=== PATIENT | female | born 1950 | race Caucasian/White ===

== ENCOUNTER → 2019-02-01 | Outpatient (CLI) | payer MEDICARE ==
[~2019-02-01] MED LIST: HOLD METFORMIN - RECEIVED CONTRAST 20 ML VIAL IV SCH; IOHEXOL 350 MG/ML 100 ML (OMNIPAQUE 350) VIAL IV ONE
--- NOTE | 2019-02-01 15:30 | Diagnostic Imaging Report ---
PROCEDURE: CT abdomen with contrast only. TECHNIQUE: Multiple contiguous axial images were obtained through the abdomen after the administration of intravenous contrast. Auto Exposure Controls were utilized during the CT exam to meet ALARA standards for radiation dose reduction. INDICATION: Abnormal liver function test with right-sided posterior pain as well as jaundice. COMPARISON: No prior studies are available for comparison. FINDINGS: The lung bases are clear. There is significant intrahepatic biliary duct dilatation. There is also extrahepatic biliary ductal dilatation. No definite discrete pancreatic mass is seen. Pancreatic duct is moderately dilated as well. There is some dilatation to the gallbladder. Gallbladder contains a large stone. The spleen is unremarkable. No adrenal mass is detected. Kidneys contain cortical low-density lesions, suggestive of cysts. Aorta is non-aneurysmal. No central retroperitoneal or mesenteric lymphadenopathy is seen. There is no ascites. Visualized abdominal bowel loops are normal caliber. IMPRESSION: Intrahepatic and extrahepatic biliary ductal dilatation. There is also pancreatic ductal dilatation. Gallbladder is hydropic and contains a large stone. Ampullary mass or common bile duct mass cannot be entirely excluded. ERCP would be recommended for further evaluation. Dictated by: Dictated on workstation # [id number]
== END ==
LOC: RAD 14:39
PROVIDERS: ATTEND Internal Medicine
DX: K80.20 Calculus of gallbladder without cholecystitis without obstruction (principal); K83.8 Other specified diseases of biliary tract; R17 Unspecified jaundice
CPT/HCPCS: 74160

== ENCOUNTER 2019-02-06 11:21 | Emergency (ER) | payer MEDICARE ==
[~2019-02-06] VITALS: Ht 170.2 cm; Wt 81.6 kg
--- NOTE | 2019-02-06 11:42 | ED General ---
General Stated Complaint: POSS LIVER PROBLEMS;WEAKNESS Source of Information: Patient Exam Limitations: No Limitations (RAYMOND KEY APRN) History of Present Illness Date Seen by Provider: Feb 06, 2019 Time Seen by Provider: 11:39 Initial Comments To ER with general weakness that began yesterday as well as pain to the right upper abdomen that began yesterday. She's had some ongoing jaundice for several weeks, had an outpatient CT done 4 days ago here, showed dilation of the intrahepatic biliary ducts, patient was referred for ERCP in [place] on Wednesday the . She denies fevers or chills. Reports that she is cold all over and generally weak which is unusual for her Timing/Duration: Getting Worse Severity: Moderate Associated Systoms: No Nausea/Vomiting (RAYMOND KEY APRN) Allergies and Home Medications Allergies Coded Allergies: sulfamethoxazole (Unverified Allergy, Unknown, 02/06/19) trimethoprim (Unverified Allergy, Unknown, 02/06/19) Uncoded Allergies: PENICILLIN (Allergy, Unknown, 02/06/19) Patient Home Medication List Home Medication List Reviewed: Yes (RAYMOND KEY APRN) Review of Systems Review of Systems Constitutional: see HPI, weakness EENTM: see HPI Respiratory: no symptoms reported Cardiovascular: no symptoms reported Genitourinary: no symptoms reported Musculoskeletal: no symptoms reported Skin: no symptoms reported Psychiatric/Neurological: No Symptoms Reported (RAYMOND KEY APRN) Physical Exam Vital Signs Vital Signs - First Documented 02/06/19 11:28 Temp 95.0 Pulse 71 Resp 15 B/P (MAP) 109/90 (96) Pulse Ox 96 O2 Delivery Room Air (GEETA PADILLA) Vital Signs Capillary Refill : (RAYMOND KEY APRN) Height, Weight, BMI Height: '" Weight: lbs. oz. kg; BMI Method: General Appearance: No Apparent Distress, WD/WN, Other (jaundice) Eyes: Bilateral Eye Normal Inspection, Bilateral Eye PERRL, Bilateral Eye Scleral Icterus HEENT: TMs Normal, Pharynx Normal, Scleral Icterus (L), Scleral Icterus (R) Neck: Full Range of Motion, Normal Inspection Respiratory: Normal Breath Sounds, No Accessory Muscle Use, No Respiratory Distress Cardiovascular: Normal Peripheral Pulses, Irregularly Irregular (has a known history of atrial fibrillation) Gastrointestinal: Non Tender, Soft Neurologic/Psychiatric: Alert, Oriented x3, No Motor/Sensory Deficits Skin: Warm/Dry, Jaundice (RAYMOND KEY APRN) Procedures/Interventions Lumen: triple Position: internal jugular (R) Anesthesia: local Volume Anesthetic (ccs): 4 Complications: none Post Position: sutured, good blood return, position confirmed w/ CXR CXR reviewed--no complications seen. (RAYMOND KEY APRN) Progress/Results/Core Measures Suspected Sepsis SIRS Temperature: Pulse: Respiratory Rate: Laboratory Tests 02/06/19 11:40: White Blood Count 12.8H Blood Pressure / Mean: Laboratory Tests 02/06/19 11:40: Creatinine 2.23H, INR Comment 2.9H, Platelet Count 400, Total Bilirubin 26.3*H (RAYMOND KEY APRN) Results/Orders Lab Results Laboratory Tests Test 02/06/19 11:40 02/06/19 16:05 Range/Units White Blood Count 12.8 H 4.3-11.0 10^3/uL Red Blood Count 4.24 L 4.35-5.85 10^6/uL Hemoglobin 13.1 11.5-16.0 G/DL Hematocrit 36 35-52 % Mean Corpuscular Volume 85 80-99 FL Mean Corpuscular Hemoglobin 31 25-34 PG Mean Corpuscular Hemoglobin Concent 36 32-36 G/DL Red Cell Distribution Width 19.6 H 10.0-14.5 % Platelet Count 400 130-400 10^3/uL Mean Platelet Volume 11.8 H 7.4-10.4 FL Neutrophils (%) (Auto) 83 H 42-75 % Lymphocytes (%) (Auto) 8 L 12-44 % Monocytes (%) (Auto) 9 0-12 % Eosinophils (%) (Auto) 1 0-10 % Basophils (%) (Auto) 0 0-10 % Neutrophils # (Auto) 10.6 H 1.8-7.8 X 10^3 Lymphocytes # (Auto) 1.0 1.0-4.0 X 10^3 Monocytes # (Auto) 1.1 H 0.0-1.0 X 10^3 Eosinophils # (Auto) 0.1 0.0-0.3 10^3/uL Basophils # (Auto) 0.0 0.0-0.1 10^3/uL Prothrombin Time 31.3 H 12.2-14.7 SEC INR Comment 2.9 H 0.8-1.4 Activated Partial Thromboplast Time 48 H 24-35 SEC Sodium Level 138 135-145 MMOL/L Potassium Level 3.6 3.6-5.0 MMOL/L Chloride Level 108 H 98-107 MMOL/L Carbon Dioxide Level 15 L 21-32 MMOL/L Anion Gap 15 H 5-14 MMOL/L Blood Urea Nitrogen 69 H 7-18 MG/DL Creatinine 2.23 H 0.60-1.30 MG/DL Estimat Glomerular Filtration Rate 22 BUN/Creatinine Ratio 31 Glucose Level 106 H 70-105 MG/DL Calcium Level 9.9 8.5-10.1 MG/DL Corrected Calcium 10.8 H 8.5-10.1 MG/DL Total Bilirubin 26.3 *H 0.1-1.0 MG/DL Aspartate Amino Transf (AST/SGOT) 98 H 5-34 U/L Alanine Aminotransferase (ALT/SGPT) 81 H 0-55 U/L Alkaline Phosphatase 974 H 40-136 U/L Total Protein 6.8 6.4-8.2 GM/DL Albumin 2.9 L 3.2-4.5 GM/DL Lipase 436 H 8-78 U/L Urine Color DARK YELLOW Urine Clarity SLIGHTLY CLOUDY Urine pH 5 5-9 Urine Specific [employer] 1.015 L 1.016-1.022 Urine Protein 2+ H NEGATIVE Urine Glucose (UA) NEGATIVE NEGATIVE Urine Ketones 1+ H NEGATIVE Urine Nitrite POSITIVE H NEGATIVE Urine Bilirubin 3+ H NEGATIVE Urine Urobilinogen 8 H NORMAL MG/DL Urine Leukocyte Esterase 3+ H NEGATIVE Urine RBC (Auto) 2+ H NEGATIVE Urine RBC 0-2 /HPF Urine WBC 10-25 H /HPF Urine Squamous Epithelial Cells 2-5 /HPF Urine Crystals NONE /LPF Urine Bacteria MODERATE H /HPF Urine Casts NONE /LPF Urine Mucus NEGATIVE /LPF Urine Culture Indicated YES (GEETA PADILLA) My Orders Orders - GEETA PADILLA Saline Lock/Iv-Start (02/06/19 12:10) Ns Iv 1000 Ml (Sodium Chloride 0.9%) (02/06/19 12:15) Piperacillin/Tazobactam (Bulk) (Zosyn In (02/06/19 13:45) Chest 1 View, Ap/Pa Only (02/06/19 14:05) Ns Iv 1000 Ml (Sodium Chloride 0.9%) (02/06/19 14:13) Piperacillin Sodium/Tazobactam (Zosyn Vi (02/06/19 14:24) Ns (Ivpb) (Sodium Chloride 0.9%) (02/06/19 14:25) Ua Culture If Indicated (02/06/19 14:31) Ns (Ivpb) (Sodium Chloride 0.9% Ivpb Bag (02/06/19 14:29) Norepinephrine (Levophed) (02/06/19 15:15) Urine Culture (02/06/19 16:05) (GEETA PADILLA) Medications Given in ED Current Medications Medications Dose Ordered Sig/Natasha Route Start Time Stop Time Status Last Admin Dose Admin Piperacillin Sod/ Tazobactam Sod 4.5 gm/Sodium Chloride 120 ml @ 240 mls/hr ONCE ONCE IV 02/06/19 13:45 02/06/19 14:14 DC 02/06/19 14:32 240 MLS/HR Sodium Chloride 2,500 ml @ 2,500 mls/hr ONCE ONCE IV 02/06/19 12:15 02/06/19 13:14 DC 02/06/19 12:00 2,500 MLS/HR (GEETA PADILLA) Vital Signs/I&O 02/06/19 11:28 Temp 95.0 Pulse 71 Resp 15 B/P (MAP) 109/90 (96) Pulse Ox 96 O2 Delivery Room Air (GEETA PADILLA) Vital Signs/I&O Capillary Refill : (RAYMOND KEY APRN) Progress Note #1: Time: 13:05 Progress Note Assume care of the patient at noon and I agree with the stated history is examination and review of systems as laid out by Mr. Key. Patient is hypotensive, jaundice and she does not do exhibit any evidence of third spacing. She could be hypovolemic so we plan to give her a 30 mL/kg normal saline fluid challenge. The white count is only 12.8 thousand so we'll get some blood cultures and lactate but he do not suspect an infection as much as this from her liver failure. She has a known stone in the gallbladder from her CT scan from a few days ago. A repeat ultrasound demonstrates nonmobile stone in the neck of the gallbladder as well as wall thickness at 3 mm and a 2.4 cm dilated common bile duct. No pericholecystic fluid. Patient had plans on the to see Dr. Villafuerte at [place], [place] for an ERCP but because of her hypotension, hyperbilirubinemia, acute kidney injury and it would be appropriate to transfer her for inpatient management. After 30 cc/kg fluid bolus. She will likely still need pressors and 2 establish an central IV. Progress Note #2: Time: 14:59 Progress Note The Patient's stated allergy to PCN is N/V so we elected to use Zosyn. She is tolerating it but her B/P has continued to dwindle so we will initiate Levophed. (GEETA PADILLA) Diagnostic Imaging Diagonstic Imaging: CT Comments NAME: KARSTEN DUDLEY [facility] REC#: [id number] PT STATUS: REG CLI : 1950 PHYSICIAN: DOT DOMÍNGUEZ MD ADMIT DATE: 02/01/19/RAD Signed Date of Exam: 02/01/19 CT ABDOMEN W PROCEDURE: CT abdomen with contrast only. TECHNIQUE: Multiple contiguous axial images were obtained through the abdomen after the administration of intravenous contrast. Auto Exposure Controls were utilized during the CT exam to meet ALARA standards for radiation dose reduction. INDICATION: Abnormal liver function test with right-sided posterior pain as well as jaundice. COMPARISON: No prior studies are available for comparison. FINDINGS: The lung bases are clear. There is significant intrahepatic biliary duct dilatation. There is also extrahepatic biliary ductal dilatation. No definite discrete pancreatic mass is seen. Pancreatic duct is moderately dilated as well. There is some dilatation to the gallbladder. Gallbladder contains a large stone. The spleen is unremarkable. No adrenal mass is detected. Kidneys contain cortical low-density lesions, suggestive of cysts. Aorta is non-aneurysmal. No central retroperitoneal or mesenteric lymphadenopathy is seen. There is no ascites. Visualized abdominal bowel loops are normal caliber. IMPRESSION: Intrahepatic and extrahepatic biliary ductal dilatation. There is also pancreatic ductal dilatation. Gallbladder is hydropic and contains a large stone. Ampullary mass or common bile duct mass cannot be entirely excluded. ERCP would be recommended for further evaluation. (RAYMOND KEY APRN) Diagonstic Imaging: CT Diagonstic Imaging: Ultrasound Plain Films/CT/US/NM/MRI: abdomen (ruq) Comments , Bile duct is 2.4 cm diameter. There is no pericholecystic fluid. The wall thickness is 3 mm. There is a big stone seen in the neck that is not mobile. [facility] [place], [place] NAME: KARSTEN DUDLEY [facility] REC#: [id number] PT STATUS: REG ER : 1950 PHYSICIAN: RAYMOND KEY APRN ADMIT DATE: 02/06/19/ER Draft Date of Exam:02/06/19 US GALLBLADDER [id number] INDICATION: Abdominal pain with abnormal CT imaging obtained demonstrating bile duct dilatation. TECHNIQUE: Multiple grayscale sonographic images were obtained of the right upper quadrant of the abdomen. CORRELATION STUDY: None FINDINGS: LIVER: Liver size at 14.6 cm. There is presence of dilatation of the intrahepatic bile ducts. No definitive focal mass. There is normal, hepatopedal direction of flow within the main portal vein. GALLBLADDER: Gallbladder wall is borderline thickened at 3 mm. There is a large nonmobile stone near the gallbladder neck. Additional smaller stone adjacent to the larger stone present. COMMON BILE DUCT: Dilated at 2.4 cm. PANCREAS: Completely secured not visualized. RIGHT KIDNEY: Measures 11.2 x 6.1 x 5.3 cm. No hydronephrosis. AORTA/IVC: Not well visualized. OTHER: None. IMPRESSION: 1. Dilated extrahepatic and intrahepatic biliary tree is again demonstrated. A definitive of the absence of choledocholithiasis not demonstrated the etiology and obstruction somewhat indeterminate. There is a large gallstone with borderline gallbladder wall thickening present. Consideration for MRCP and/or ERCP would be recommended for assessment of the etiology of the apparent obstruction neoplastic obstruction should not be excluded at this time. Dictated on workstation # [id number] Dict: 02/06/19 1320 Trans: 02/06/19 1327 CV [id number] Interpreted by: MICHELE GAMBLE DO Electronically signed by: Reviewed: Reviewed by [place] Diagonstic Imaging: Xray Plain Films/CT/US/NM/MRI: chest Comments Good lung markings with no evidence of pneumothorax. There is a new central line anteriorly placed in the right IJ not crossing the midline with the distal tip in the superior vena cava just above the right atria. [facility] [place] [place] NAME: KARSTEN DUDLEY [facility] REC#: [id number] PT STATUS: REG ER : 1950 PHYSICIAN: GEETA PADILLA MD ADMIT DATE: 02/06/19/ER Draft Date of Exam:02/06/19 CHEST 1 VIEW, AP/PA ONLY Indication: Central line placement. Time of exam 2:12 PM No prior studies are available for comparison. A right-sided IJ line has tip overlying the SVC. No pneumothorax is identified. Lungs appear to be clear. Impression: Right IJ line placement, as described. Dictated on workstation # [id number] Dict: 02/06/19 1422 Trans: 02/06/19 1424 [facility] [id number] Interpreted by: JAS DE GUZMAN MD Electronically signed by: Reviewed: Reviewed by Me (GEETA PADILLA) Departure Impression Primary Impression: Biliary obstruction Additional Impressions: Urinary tract infection Qualified Codes: N30.01 - Acute cystitis with hematuria Acute kidney injury (nontraumatic) Septic shock Disposition: 02 XFER SHT-TRM HOSP Condition: Stable Transfer Time Spoke to Accepting Phy: 13:[address] Gabriel; IM at [place] accepts the patient. 1425: Discussed the case again with Dr. Gabriel and then we put a central line and that the patient's mean pressure is still 70-75 so no pressors were started a he accepts her to the hospitalist service to the ICU. Triage informs me that they do not have a bed yet. Transfer Time: 17:15 Transfer Facility: [place], [place]. Method of Transfer: EMS (GEETA PADILLA) Departure-Patient Inst. Referrals: BK KEE DO (PCP) Primary Care Physician SAVANNA JOHNSON (Family) Primary Care Physician Copy Copies To 1: BK KEE PETER J APRN Feb 06, 2019 11:42 GEETA PADILLA Feb 06, 2019 13:10
[2019-02-06 11:52] LABS: BASOPHILS % (AUTO) 0 % (0-10); EOSINOPHILS # (AUTO) 0.1 10^3/uL (0.0-0.3); EOSINOPHILS % (AUTO) 1 % (0-10); HEMATOCRIT 36 % (35-52); HEMOGLOBIN 13.1 G/DL (11.5-16.0); LYMPHOCYTES % (AUTO) 8 % (12-44); MEAN CORPUSCULAR HEMOGLOBIN 31 PG (25-34); MEAN CORPUSCULAR HGB CONC 36 G/DL (32-36); MEAN CORPUSCULAR VOLUME 85 FL (80-99); MEAN PLATELET VOLUME 11.8 FL (7.4-10.4); MONOCYTES # (AUTO) 1.1 X 10^3 (0.0-1.0); MONOCYTES % (AUTO) 9 % (0-12); NEUTROPHILS # (AUTO) 10.6 X 10^3 (1.8-7.8); NEUTROPHILS % (AUTO) 83 % (42-75); PLATELET COUNT 400 10^3/uL (130-400); RED CELL DISTRIBUTION WIDTH 19.6 % (10.0-14.5); WHITE BLOOD COUNT 12.8 10^3/uL (4.3-11.0)
[2019-02-06 12:05] LABS: INR 2.9 (0.8-1.4); PROTHROMBIN TIME PATIENT 31.3 SEC (12.2-14.7)
[2019-02-06 12:15] LABS: ALBUMIN 2.9 GM/DL (3.2-4.5); CALCIUM 9.9 MG/DL (8.5-10.1); CREATININE SERUM 2.23 MG/DL (0.60-1.30); POTASSIUM 3.6 MMOL/L (3.6-5.0); TOTAL PROTEIN 6.8 GM/DL (6.4-8.2)
[2019-02-06] MEDS ORDERED: NS IV 1000 ML 2,500 ML IV ONE (12:15)
[2019-02-06 12:22] LABS: BILIRUBIN,TOTAL 26.3 MG/DL (0.1-1.0)
--- NOTE | 2019-02-06 13:28 | Diagnostic Imaging Report ---
INDICATION: Abdominal pain with abnormal CT imaging obtained demonstrating bile duct dilatation. TECHNIQUE: Multiple grayscale sonographic images were obtained of the right upper quadrant of the abdomen. CORRELATION STUDY: None FINDINGS: LIVER: Liver size at 14.6 cm. There is presence of dilatation of the intrahepatic bile ducts. No definitive focal mass. There is normal, hepatopedal direction of flow within the main portal vein. GALLBLADDER: Gallbladder wall is borderline thickened at 3 mm. There is a large nonmobile stone near the gallbladder neck. Additional smaller stone adjacent to the larger stone present. COMMON BILE DUCT: Dilated at 2.4 cm. PANCREAS: Completely secured not visualized. RIGHT KIDNEY: Measures 11.2 x 6.1 x 5.3 cm. No hydronephrosis. AORTA/IVC: Not well visualized. OTHER: None. IMPRESSION: 1. Dilated extrahepatic and intrahepatic biliary tree is again demonstrated. A definitive of the absence of choledocholithiasis not demonstrated the etiology and obstruction somewhat indeterminate. There is a large gallstone with borderline gallbladder wall thickening present. Consideration for MRCP and/or ERCP would be recommended for assessment of the etiology of the apparent obstruction neoplastic obstruction should not be excluded at this time. Dictated by: Dictated on workstation # [id number]
[2019-02-06] MEDS ORDERED: PIPERACILLIN/TAZOBACTAM (BULK) 4.5 GM in NS (IVPB) 100 ML IV ONE (13:45)
[2019-02-06] MEDS ORDERED: NS IV 1000 ML 1,000 ML IV STA (14:13)
[2019-02-06] MEDS ORDERED: PIPERACILLIN/TAZO 4.5 GM VIAL (ZOSYN) IV ONE (14:24)
--- NOTE | 2019-02-06 14:24 | Diagnostic Imaging Report ---
Indication: Central line placement. Time of exam 2:12 PM No prior studies are available for comparison. A right-sided IJ line has tip overlying the SVC. No pneumothorax is identified. Lungs appear to be clear. Impression: Right IJ line placement, as described. Dictated by: Dictated on workstation # [id number]
[2019-02-06] MEDS ORDERED: NS (IVPB) 0 ML ONE (14:25)
[2019-02-06] MEDS ORDERED: NS (IVPB) 100 ML ONE (14:29)
[2019-02-06] MEDS ORDERED: NOREPINEPHRINE 4 MG in NS (IVPB) 250 ML IV SCH (15:15)
[2019-02-06 16:13] LABS: CLARITY,URINE SLIGHTLY CLOUDY; GLUCOSE, URINE (UA) NEGATIVE (NEGATIVE); KETONES,URINE 1+ (NEGATIVE); LEUKOCYTE ESTERASE ,URINE 3+ (NEGATIVE); NITRITE,URINE POSITIVE (NEGATIVE); PH,URINE 5 (5-9); PROTEIN,URINE 2+ (NEGATIVE); UROBILINOGEN,URINE 8 MG/DL (NORMAL)
--- NOTE | 2019-02-06 16:18 | NUR ---
dispatch called at this time
[2019-02-06 16:21] LABS: BILIRUBIN,URINE 3+ (NEGATIVE); COLOR,URINE DARK YELLOW
[2019-02-06 16:23] LABS: BACTERIA,URINE MODERATE /HPF; RBC,URINE 0-2 /HPF
[2019-02-06 17:18] VITALS: BP 139/103
== END 2019-02-06 17:19 | disposition short-term general hospital (02) ==
LOC: EDUNIT# 11:21 → ER 11:22
DX: N39.0 Urinary tract infection, site not specified (principal); N17.9 Acute kidney failure, unspecified; K83.1 Obstruction of bile duct; A41.9 Sepsis, unspecified organism; R65.21 Severe sepsis with septic shock; Z88.2 Allergy status to sulfonamides; Z88.8 Allergy status to other drugs, medicaments and biological substances; Z88.0 Allergy status to penicillin
CPT/HCPCS: 36415; 71045; 76705; 80053; 81000; 83690; 85025; 85610; 85730; 87088; 96361; 96365; 96366; 96367

== ENCOUNTER 2019-02-21 11:24 | Inpatient (IN) | payer MEDICARE ==
[~2019-02-21] VITALS: Ht 172.7 cm; Wt 96.2 kg
[2019-02-21] MEDS ORDERED: NS IV 1000 ML 1,000 ML ONE ×2 (11:50→15:25)
[2019-02-21 11:51] LABS: BASOPHILS # (AUTO) 0.1 10^3/uL (0.0-0.1); BASOPHILS % (AUTO) 1 % (0-10); EOSINOPHILS # (AUTO) 0.3 10^3/uL (0.0-0.3); EOSINOPHILS % (AUTO) 2 % (0-10); HEMATOCRIT 31 % (35-52); HEMOGLOBIN 9.9 G/DL (11.5-16.0); LYMPHOCYTES # (AUTO) 1.7 X 10^3 (1.0-4.0); LYMPHOCYTES % (AUTO) 12 % (12-44); MEAN CORPUSCULAR HEMOGLOBIN 32 PG (25-34); MEAN CORPUSCULAR HGB CONC 32 G/DL (32-36); MEAN CORPUSCULAR VOLUME 98 FL (80-99); MEAN PLATELET VOLUME 11.2 FL (7.4-10.4); MONOCYTES % (AUTO) 14 % (0-12); NEUTROPHILS # (AUTO) 9.9 X 10^3 (1.8-7.8); NEUTROPHILS % (AUTO) 71 % (42-75); PLATELET COUNT 296 10^3/uL (130-400); WHITE BLOOD COUNT 13.9 10^3/uL (4.3-11.0)
[2019-02-21 11:58] LABS: INR 1.1 (0.8-1.4); PROTHROMBIN TIME PATIENT 14.4 SEC (12.2-14.7)
--- NOTE | 2019-02-21 12:01 | ED General ---
General Chief Complaint: Trauma-Non Activation Stated Complaint: FALL Nursing Triage Note: PT BROUGHT IN BY EMS FROM HOME WITH COMPLAINT OF FALL. PT STATES SHE HAS FALLEN THE LAST TWO DAYS AT HOME. PT WAS DISCHARGED A WEEK AGO FROM [facility] FOR SEPSIS FROM BLOCKED BILE DUCT. PT STATES SINCE SHES BEEN HOME, SHE HAS NOT HAD A SHOWER DUE TO BEING UNABLE TO STAND. PT ALSO HAS BILATERAL LOWER EXTREMITY. PT STATES SHE THINKS THAT IS FROM AN ANTIBIOTIC. Nursing Sepsis Screen: No Definite Risk Source of Information: Patient Exam Limitations: No Limitations History of Present Illness Date Seen by Provider: Feb 21, 2019 Time Seen by Provider: 11:35 Initial Comments Here with report of increasing weakness over the last few days. Was at [facility] recently for a blocked bile duct and sepsis from that. Discharged home in was on antibiotics. Noted problems with her feet including blistering and swelling with redness and so stopped her antibiotic. Unsure if this was directed or her own decision. States that she's not currently on antibiotics. She was walking today when she stubbed her toe and went down on her knees due to the ill fitting shoes that she was wearing which is due to her feet being grossly swollen. States that she's never had swelling like this before. She had gone to the store and bought a lift chair so that she can lay back and get the swelling out of her feet. It was on the way home when she had this problem. She is still jaundiced from her previous illness but states it's better. Denies fever or chills. Does admit to weakness. Does have some mild left knee pain. Does have open blisters and wounds to her feet bilaterally. Timing/Duration: 1-2 Days, Getting Worse Severity: Moderate Associated Systoms: No Chest Pain, No Cough, No Fever/Chills, No Nausea/ Vomiting, No Shortness of Air; Weakness Allergies and Home Medications Allergies Coded Allergies: sulfamethoxazole (Unverified Allergy, Unknown, 02/06/19) trimethoprim (Unverified Allergy, Unknown, 02/06/19) Uncoded Allergies: PENICILLIN (Allergy, Unknown, 02/06/19) Patient Home Medication List Home Medication List Reviewed: Yes Review of Systems Review of Systems Constitutional: see HPI; No chills, No fever; weakness EENTM: no symptoms reported Respiratory: No cough, No dyspnea on exertion Cardiovascular: No chest pain; edema Gastrointestinal: No abdominal pain, No nausea, No vomiting Genitourinary: no symptoms reported Musculoskeletal: see HPI, joint pain, joint swelling Skin: lesions Psychiatric/Neurological: See HPI All Other Systems Reviewed Negative Unless Noted: Yes Past Ghkuigh-Yrzblq-Rtjjwo Hx Past Med/Social Hx: Reviewed Nursing Past Med/Soc Hx Patient Social History Alcohol Use: Denies Use Recreational Drug Use: No Smoking Status: Never a Smoker 2nd Hand Smoke Exposure: No Recent Foreign Travel: No Contact w/Someone Who Travel: No Recent Infectious Disease Expo: No Recent Hopitalizations: Yes ([facility]PSIS @ [facility]) Immunizations Up To Date Tetanus Booster (TDap): Unknown PED Vaccines UTD: Yes Seasonal Allergies Seasonal Allergies: No Past Medical History Surgeries: Yes Gallbladder, Hysterectomy, Tonsillectomy Respiratory: No Cardiac: Yes Atrial Fibrillation, Hypertension Neurological: No Genitourinary: No Gastrointestinal: Yes Liver Disease/Jaundice Endocrine: No HEENT: Yes (bilat surgery) Cataract Psychosocial: No Integumentary: No Blood Disorders: No Family Medical History Reviewed Nursing Family Hx Physical Exam-Suspected Sepsis Physical Exam Vital Signs Vital Signs - First Documented 02/21/19 11:28 Temp 97.7 Pulse 93 Resp 20 B/P (MAP) 107/60 (76) Pulse Ox 97 O2 Delivery Room Air Capillary Refill : Less Than 3 Seconds Blood Pressure Mean: 76 Height, Weight, BMI Height: 5'8.00" Weight: 212lbs. oz. 96.453671sa; BMI Method:Stated General Appearance: No Apparent Distress, WD/WN HEENT: PERRL/EOMI, Pharynx Normal Neck: Non Tender, Supple Respiratory: Lungs Clear, Normal Breath Sounds Cardiovascular: Regular Rate, Rhythm, No Murmur Gastrointestinal: Non Tender, Soft, Other (surgical wounds have not been cleaned in several days but there does not appear to be surrounding infection) Back: Normal Inspection, No CVA Tenderness, No Vertebral Tenderness Extremity: Pedal Edema (3+ edema to knees bilateral.), Pelvis Stable Neurologic/Psychiatric: Alert, Oriented x3 Skin: warm/dry, jaundice, other (multiple open blisters to bilateral feet. Erythema noted from feet to mid tibia bilateral and both legs are warm and the lower portions.) Focused Exam Lactate Level 02/21/19 11:54: Lactic Acid Level 2.14*H 02/21/19 14:56: Lactic Acid Level Laboratory Tests Test 02/21/19 11:54 02/21/19 14:56 Lactic Acid Level 2.14 MMOL/L (0.50-2.00) *H Progress/Results/Core Measures Suspected Sepsis Recent Fever Within 48 Hours: No Infection Criteria Present: None New/Unexplained Altered Menta: No Sepsis Screen: No Definite Risk SIRS Temperature:97.7 Pulse: 93 Respiratory Rate: 20 Laboratory Tests 02/21/19 11:32: White Blood Count 13.9H Blood Pressure 107 /60 Mean: 76 02/21/19 11:54: Lactic Acid Level 2.14*H 02/21/19 14:56: Laboratory Tests 02/21/19 11:32: Creatinine 0.74, INR Comment 1.1, Platelet Count 296, Total Bilirubin 6.1H Results/Orders Lab Results Laboratory Tests Test 02/21/19 11:32 02/21/19 11:54 02/21/19 13:30 02/21/19 14:56 Range/Units White Blood Count 13.9 H 4.3-11.0 10^3/uL Red Blood Count 3.14 L 4.35-5.85 10^6/uL Hemoglobin 9.9 L 11.5-16.0 G/DL Hematocrit 31 L 35-52 % Mean Corpuscular Volume 98 80-99 FL Mean Corpuscular Hemoglobin 32 25-34 PG Mean Corpuscular Hemoglobin Concent 32 32-36 G/DL Red Cell Distribution Width 16.0 H 10.0-14.5 % Platelet Count 296 130-400 10^3/uL Mean Platelet Volume 11.2 H 7.4-10.4 FL Neutrophils (%) (Auto) 71 42-75 % Lymphocytes (%) (Auto) 12 12-44 % Monocytes (%) (Auto) 14 H 0-12 % Eosinophils (%) (Auto) 2 0-10 % Basophils (%) (Auto) 1 0-10 % Neutrophils # (Auto) 9.9 H 1.8-7.8 X 10^3 Lymphocytes # (Auto) 1.7 1.0-4.0 X 10^3 Monocytes # (Auto) 2.0 H 0.0-1.0 X 10^3 Eosinophils # (Auto) 0.3 0.0-0.3 10^3/uL Basophils # (Auto) 0.1 0.0-0.1 10^3/uL Prothrombin Time 14.4 12.2-14.7 SEC INR Comment 1.1 0.8-1.4 Activated Partial Thromboplast Time 35 24-35 SEC Sodium Level 142 135-145 MMOL/L Potassium Level 3.4 L 3.6-5.0 MMOL/L Chloride Level 108 H 98-107 MMOL/L Carbon Dioxide Level 21 21-32 MMOL/L Anion Gap 13 5-14 MMOL/L Blood Urea Nitrogen 20 H 7-18 MG/DL Creatinine 0.74 0.60-1.30 MG/DL Estimat Glomerular Filtration Rate > 60 BUN/Creatinine Ratio 27 Glucose Level 121 H 70-105 MG/DL Calcium Level 9.2 8.5-10.1 MG/DL Corrected Calcium 10.2 H 8.5-10.1 MG/DL Total Bilirubin 6.1 H 0.1-1.0 MG/DL Aspartate Amino Transf (AST/SGOT) 57 H 5-34 U/L Alanine Aminotransferase (ALT/SGPT) 62 H 0-55 U/L Alkaline Phosphatase 318 H 40-136 U/L Total Protein 6.3 L 6.4-8.2 GM/DL Albumin 2.8 L 3.2-4.5 GM/DL Lactic Acid Level 2.14 *H 0.50-2.00 MMOL/L Urine Color ROSA H Urine Clarity SLIGHTLY CLOUDY Urine pH 5 5-9 Urine Specific [place] 1.015 L 1.016-1.022 Urine Protein 2+ H NEGATIVE Urine Glucose (UA) NEGATIVE NEGATIVE Urine Ketones NEGATIVE NEGATIVE Urine Nitrite NEGATIVE NEGATIVE Urine Bilirubin 1+ H NEGATIVE Urine Urobilinogen NORMAL NORMAL MG/DL Urine Leukocyte Esterase 1+ H NEGATIVE Urine RBC (Auto) NEGATIVE NEGATIVE Urine RBC NONE /HPF Urine WBC 2-5 /HPF Urine Squamous Epithelial Cells 0-2 /HPF Urine Crystals PRESENT H /LPF Urine Amorphous Sediment RARE JOANIE URATES H /LPF Urine Bacteria NEGATIVE /HPF Urine Casts NONE /LPF Urine Mucus NEGATIVE /LPF Urine Culture Indicated NO My Orders Orders - ИВАН FENG MD Cbc With Automated Diff (02/21/19 11:45) Comprehensive Metabolic Panel (02/21/19 11:45) Blood Culture (02/21/19 11:45) Sputum Culture (02/21/19 11:45) Urinalysis (02/21/19 11:45) Urine Culture (02/21/19 11:45) Protime With Inr (02/21/19 11:45) Partial Thromboplastin Time (02/21/19 11:45) Chest 1 View, Ap/Pa Only (02/21/19 11:45) Ed Iv/Invasive Line Start (02/21/19 11:45) Ed Iv/Invasive Line Start (02/21/19 11:45) Vital Signs Adult Sepsis Patie Q15M (02/21/19 11:45) O2 (02/21/19 11:45) Remove Rings In Anticipation O (02/21/19 11:45) Lactic Acid Analyzer (02/21/19 11:45) Knee, Left, 3 Views (02/21/19 11:53) Ns Iv 1000 Ml (Sodium Chloride 0.9%) (02/21/19 11:50) Ct Head Wo (02/21/19 12:12) Ceftriaxone For Iv Use (Rocephin For I (02/21/19 15:15) Medications Given in ED Current Medications Medications Dose Ordered Sig/Natasha Route Start Time Stop Time Status Last Admin Dose Admin Sodium Chloride 1,000 ml @ ud STK-MED ONCE .ROUTE 02/21/19 11:50 02/21/19 11:54 DC 02/21/19 11:55 1,000 MLS/HR Vital Signs/I&O 02/21/19 11:28 Temp 97.7 Pulse 93 Resp 20 B/P (MAP) 107/60 (76) Pulse Ox 97 O2 Delivery Room Air Capillary Refill : Less Than 3 Seconds Blood Pressure Mean: 76 Progress Note : Progress Note Seen and evaluated. IV, labs, blood cultures, UA, chest x-ray and left knee x- ray ordered. Normal saline 1 L bolus. Her pressure currently 100/35 which would put MAP at less than 55. We will see if that responds to fluids. Monitor patient. 1455: Patient has findings consistent with cellulitis to lower extremities. I have discussed with the patient regarding who her physician is. She apparently has history of [facility] but states that she is not going to see them anymore and does not want to see them anymore. I discussed this with Dr. FOOTE and he accepts patient for admission, inpatient status regarding cellulitis. Rocephin 1 g IV ordered. Findings and concerns discussed with patient who agrees with plan. Diagnostic Imaging Diagonstic Imaging: CT Plain Films/CT/US/NM/MRI: head Comments NAME: KARSTEN DUDLEY [facility] REC#: [id number] PT STATUS: REG ER : 1950 PHYSICIAN: ИВАН FENG MD ADMIT DATE: 02/21/19/ER Signed Date of Exam: 02/21/19 CT HEAD WO INDICATION: Fall with injury to head. Noncontrast brain CT is performed. There are no extra-axial fluid collections. No intracranial hemorrhage. No intracranial mass or mass effect. No midline shift. The ventricles are normal in size and position. There are no focal parenchymal abnormalities in the brain. Calvarial windows are unremarkable. IMPRESSION: No acute intracranial abnormality. Dictated by: Dictated on workstation # [id number] Dict: 02/21/19 1245 Trans: 02/21/19 1419 Interpreted by: GLORIA KELLY MD Electronically signed by: GLORIA KELLY MD 02/21/19 1419 Diagonstic Imaging: Xray Plain Films/CT/US/NM/MRI: chest Comments [facility] [place] NAME: KARSTEN DUDLEY [facility] REC#: [id number] PT STATUS: REG ER : 1950 PHYSICIAN: ИВАН FENG MD ADMIT DATE: 02/21/19/ER Draft Date of Exam:02/21/19 CHEST 1 VIEW, AP/PA ONLY INDICATION: Status post fall. Recent falls. Status post recent discharge from the hospitalization for sepsis. TECHNIQUE: Single-view chest at 01:01 p.m. CORRELATION STUDY: 02/06/2019. FINDINGS: Right IJ central line has been removed. Heart size is borderline with vasculature normal. The lungs are clear with no consolidating infiltrate. There is no significant effusion or pneumothorax. IMPRESSION: 1. Negative for acute findings of the chest. Dictated on workstation # [id number] Dict: 02/21/19 1317 Trans: 02/21/19 1341 [id number] Interpreted by: MICHELE GAMBLE DO Electronically signed by: Kyung Imaging: Xray Plain Films/CT/US/NM/MRI: knee Comments [facility] [place], [place] NAME: KARSTEN DUDLEY [facility] REC#: [id number] PT STATUS: REG ER : 1950 PHYSICIAN: ИВАН FENG MD ADMIT DATE: 02/21/19/ER Draft Date of Exam:02/21/19 KNEE, LEFT, 3 VIEWS CLINICAL INDICATION: Patient complains of fall. Patient landed on left knee. EXAM: X-ray of the left knee, three views. COMPARISON: None. FINDINGS: There is no acute fracture or dislocation. There is no knee effusion. There are mildly hypertrophic tricompartmental spurs. There is a small patellar spur at the quadriceps attachment. Vascular calcification is seen posterior to the knee. IMPRESSION: 1: There is no acute fracture or dislocation. 2: There is mild tricompartmental osteoarthritis of the left knee. Dictated on workstation # [id number] Dict: 02/21/19 1319 Trans: 02/21/19 1327 [id number] Interpreted by: PHILLIP MADERA MD Electronically signed by: Departure Communication (Admissions) Time/Spoke to Admitting Phy: 14:55 Impression Primary Impression: Cellulitis of both lower extremities Disposition: ADMITTED INPATIENT Condition: Stable Admissions Decision to Admit Reason: Admit from ER (General) Decision to Admit/Date: Feb 21, 2019 Time/Decision to Admit Time: 14:55 Departure-Patient Inst. Referrals: DOT DOMÍNGUEZ MD (PCP/Family) Primary Care Physician ИВАН FENG MD Feb 21, 2019 12:01
[2019-02-21 12:02] LABS: ALANINE AMINOTRANSFERASE 62 U/L (0-55); ALBUMIN 2.8 GM/DL (3.2-4.5); ALKALINE PHOSPHATASE 318 U/L (40-136); BILIRUBIN,TOTAL 6.1 MG/DL (0.1-1.0); BUN/CREATININE RATIO 27; CALCIUM 9.2 MG/DL (8.5-10.1); CARBON DIOXIDE 21 MMOL/L (21-32); CHLORIDE 108 MMOL/L (98-107); CREATININE SERUM 0.74 MG/DL (0.60-1.30); GFR ESTIMATED > 60; GLUCOSE 121 MG/DL (70-105); POTASSIUM 3.4 MMOL/L (3.6-5.0); SODIUM 142 MMOL/L (135-145); TOTAL PROTEIN 6.3 GM/DL (6.4-8.2)
--- NOTE | 2019-02-21 12:51 | Diagnostic Imaging Report ---
INDICATION: Fall with injury to head. Noncontrast brain CT is performed. There are no extra-axial fluid collections. No intracranial hemorrhage. No intracranial mass or mass effect. No midline shift. The ventricles are normal in size and position. There are no focal parenchymal abnormalities in the brain. Calvarial windows are unremarkable. IMPRESSION: No acute intracranial abnormality. Dictated by: Dictated on workstation # [id number]
--- NOTE | 2019-02-21 13:28 | Diagnostic Imaging Report ---
CLINICAL INDICATION: Patient complains of fall. Patient landed on left knee. EXAM: X-ray of the left knee, three views. COMPARISON: None. FINDINGS: There is no acute fracture or dislocation. There is no knee effusion. There are mildly hypertrophic tricompartmental spurs. There is a small patellar spur at the quadriceps attachment. Vascular calcification is seen posterior to the knee. IMPRESSION: 1: There is no acute fracture or dislocation. 2: There is mild tricompartmental osteoarthritis of the left knee. Dictated by: Dictated on workstation # [id number]
[2019-02-21 13:37] LABS: CLARITY,URINE SLIGHTLY CLOUDY; COLOR,URINE AMBER; GLUCOSE, URINE (UA) NEGATIVE (NEGATIVE); KETONES,URINE NEGATIVE (NEGATIVE); LEUKOCYTE ESTERASE ,URINE 1+ (NEGATIVE); NITRITE,URINE NEGATIVE (NEGATIVE); PH,URINE 5 (5-9); PROTEIN,URINE 2+ (NEGATIVE); UROBILINOGEN,URINE NORMAL (NORMAL)
--- NOTE | 2019-02-21 13:42 | Diagnostic Imaging Report ---
INDICATION: Status post fall. Recent falls. Status post recent discharge from the hospitalization for sepsis. TECHNIQUE: Single-view chest at 01:01 p.m. CORRELATION STUDY: 02/06/2019. FINDINGS: Right IJ central line has been removed. Heart size is borderline with vasculature normal. The lungs are clear with no consolidating infiltrate. There is no significant effusion or pneumothorax. IMPRESSION: 1. Negative for acute findings of the chest. Dictated by: Dictated on workstation # [id number]
[2019-02-21 14:01] LABS: AMORPHOUS SEDIMENT,UR RARE AMOR URATES /LPF; BACTERIA,URINE NEGATIVE /HPF; BILIRUBIN,URINE 1+ (NEGATIVE); SQUAMOUS EPITHELIAL CELL,UR 0-2 /HPF
[2019-02-21] MEDS ORDERED: cefTRIAXone FOR IV USE 1,000 MG in WATER (STERILE) FOR INJECTION 10 ML IV ONE (15:15)
[2019-02-21] MEDS ORDERED: NS IV 1000 ML 1,000 ML IV ONE (15:26)
[2019-02-21] MEDS ORDERED: HYDR25TA4 PO (16:11)
[2019-02-21] MEDS ORDERED: LOVA40TA2 PO (16:11)
[2019-02-21] MEDS ORDERED: LOSA25TA41 PO (16:11)
[2019-02-21] MEDS ORDERED: POTA20TA8 PO (16:11)
[2019-02-21] MEDS ORDERED: ATEN50TA PO (16:11)
--- NOTE | 2019-02-21 16:55 | NUR ---
KARSTEN] admitted to room 408-1, with an admitting diagnosis of BLE CELLULITIS , on 02/21/19 from ED via STRETCHER, accompanied by STAFF . KARSTEN DUDLEY introduced to surroundings, call light, bed controls, phone, TV, temperature control, lights, meal times, smoking policy, visitor policy, side rail policy, bathrooms and showers. Patient Rights given to patient in the handbook. KARSTEN DUDLEY verbalizes understanding that [facility] is not responsible for the loss or damage to any personal effects or valuables that are kept in the patients possession during their hospitalization. The following Patient Care Plans were discussed with the : Discharge Planning, MEDICATIONS, PAIN MANAGEMENT, and DEHYDRATION. KARSTEN DUDLEY verbalizes understanding of Interdisciplinary Patient Education. Patient and/or family were informed about the Rapid Response Team and its purpose.
[2019-02-21 17:12] VITALS: BP 108/59
[2019-02-21] MEDS ORDERED: CATHETER FLUSH 10 ML SYR IV PRN (17:15)
[2019-02-21] MEDS ORDERED: NS IV 1000 ML 1,000 ML IV SCH (17:15)
[2019-02-21 20:00] VITALS: BP 98/60
[2019-02-22] VITALS: BP 102/54
[2019-02-22 04:00] VITALS: BP 109/60
[2019-02-22 07:37] VITALS: BP 115/60
[2019-02-22] MEDS ORDERED: L GA1CAP2 PO (08:29)
[2019-02-22] MEDS ORDERED: ASPI325T32 PO (08:29)
[2019-02-22] MEDS ORDERED: OMG1KC PO (08:29)
--- NOTE | 2019-02-22 08:30 | NUR ---
PATIENT HAD A LIST OF HER MEDICATIONS. I COMPARED IT WITH THE EXT MED HX. SHE FILLED LOVASTATIN 40MG DAILY #90 12-15-[address] FRAGA STOPPED THIS FOR NOW DUE TO KIDNEY FUNCTION, SHE IS NOT CURRENTLY TAKING IT. SHE TAKES FISH OIL, COLON HEALTH, AND ASPIRIN 325MG OTC.
--- NOTE | 2019-02-22 09:14 | History & Physical-Hospitalist ---
History of Present Illness HPI/Chief Complaint Chief complaint: Fall with severe weakness HPI: This is a 69yoWF that was recently at [facility] due to biliary obstruction s/p cholecystectomy uneventfully by Dr. Zhou and stent place for biliary obstruction by Dr. Ferro who had been DC on Bactrim but then began feeling worse, had a fall, presented to the ER found to have elevated white count with elevated lactic acid and lower extremity rash with blister formation. The elevated lactic acid resolved with IV fluids and home medications were restarted. The presumed cellulitis does not appear to be cellulitis likely possibility of Venous Stasis Dermatitis versus Bactrim side effect. I did speak with Dr. Ferro who recommended placement of Rocephin and Flagyl since she is allergic to PCN and the first choice would have been Zosyn and to obtain KUB x-ray to check on biliary stent to see if it is dislodged and general surgery consultation who I spoke with Dr. Gray. Pt denies any abdominal pain Will initiate PT and OT Reviewed biliary obstruction liver enzyme elevation and Dr. Ferro thought that was unusual also Source: patient Exam Limitations: no limitations Date Seen 02/22/19 Time Seen by a Provider: 09:45 Attending Physician Erick Heredia MD PCP Daryl Tabor MD Referring Physician Date of Admission Feb 21, 2019 at 15:16 Home Medications & Allergies Home Medications Reviewed patient Home Medication Reconciliation performed by pharmacy medication reconciliations fish roe technician and/or nursing. Patients Allergies have been reviewed. Allergies Allergies Coded Allergies sulfamethoxazole (Unverified Allergy, Unknown, 02/06/19) trimethoprim (Unverified Allergy, Unknown, 02/06/19) Uncoded Allergies PENICILLIN ( Allergy, Unknown, 02/06/19) Past Ikqzifa-Zkvsap-Pxiqfq Hx Past Med/Social Hx: Reviewed Nursing Past Med/Soc Hx, Reviewed and Corrections made Patient Social History Marrital Status: single Employed/Student: retired Alcohol Use: Denies Use Recreational Drug Use: No Smoking Status: Never a Smoker 2nd Hand Smoke Exposure: No Recent Foreign Travel: No Contact w/other who traveled: No Recent Hopitalizations: Yes ([facility]PSIS @ [facility]) Recent Infectious Disease Expo: No Immunizations Up To Date Tetanus Booster (TDap): Unknown Pediatric: Yes Seasonal Allergies Seasonal Allergies: No Past Medical History Surgeries: Gallbladder, Hysterectomy, Tonsillectomy Cardiac: Atrial Fibrillation, Hypertension : No Gastrointestinal: Liver Disease/Jaundice HEENT: Cataract History of Blood Disorders: No Family History Reviewed Nursing Family Hx Review of Systems Constitutional: see HPI, weakness EENTM: no symptoms reported Respiratory: no symptoms reported Cardiovascular: no symptoms reported Gastrointestinal: no symptoms reported Genitourinary: no symptoms reported Musculoskeletal: no symptoms reported Skin: see HPI Psychiatric/Neurological: Depressed All Other Systems Reviewed Negative Unless Noted: Yes Physical Exam Physical Exam Vital Signs Vital Signs - First Documented 02/21/19 11:28 Temp 97.7 Pulse 93 Resp 20 B/P (MAP) 107/60 (76) Pulse Ox 97 O2 Delivery Room Air Capillary Refill : Less Than 3 Seconds Height, Weight, BMI Height: 5'8.00" Weight: 212lbs. 0.0oz. 96.045061un; 32.2 BMI Method:Stated General Appearance: No Apparent Distress, WD/WN, Chronically ill, Obese, Other (juandice) Eyes: Right Eye Normal Inspection, Right Eye PERRL HEENT: PERRL/EOMI, Normal ENT Inspection, Pharynx Normal, Moist Mucous Membranes, Scleral Icterus (L), Scleral Icterus (R) Neck: Full Range of Motion, Normal Inspection, Non Tender Respiratory: Chest Non Tender, Lungs Clear, Normal Breath Sounds, No Accessory Muscle Use, No Respiratory Distress Cardiovascular: Regular Rate, Rhythm, No Edema, No Gallop, No JVD, No Murmur, Normal Peripheral Pulses Gastrointestinal: Normal Bowel Sounds, No Organomegaly, No Pulsatile Mass, Non Tender (except post op pain), Soft Back: Normal Inspection, No CVA Tenderness, No Vertebral Tenderness Extremity: Normal Capillary Refill, Normal Inspection, Normal Range of Motion, Non Tender, No Calf Tenderness, No Pedal Edema Neurologic/Psychiatric: Alert, Oriented x3, No Motor/Sensory Deficits, Normal Mood/Affect Skin: Normal Color, Warm/Dry, Other (blisters right foot and erythema not hot to touch) Lymphatic: No Adenopathy Results Results/Procedures Labs Laboratory Tests 02/21/19 11:32 02/22/19 09:25 Patient resulted labs reviewed. Assessment/Plan Admission Diagnosis Assessment: Bactrim complication with bilateral lower extremity blistering Biliary obstruction s/p stent placement Dr Ferro last week s/p recent choly HTN Hypokalemia Anemia Elevated lactic acidosis of uncertain etiology Multiple falls Generalized weakness Plan: Not cellulitis of lower legs Dr Ferro will be contacted and he was updated on case and recommended Rocephin and Flagyl and check KUB for stent dislodgement and keep him posted along with surgical consultation Admission Status: Inpatient Order (span 2 midnights) Reason for Inpatient Admission: Elevated lactic acid with elevated LFT's in need of 3 days of hospital stay Diagnosis/Problems Diagnosis/Problems (1) Adverse reaction to sulfamethoxazole Status: Acute Qualifiers: Encounter type: initial encounter Qualified Codes: T37.0X5A - Adverse effect of sulfonamides, initial encounter (2) Anemia Status: Chronic Qualifiers: Anemia type: unspecified type Qualified Codes: D64.9 - Anemia, unspecified (3) Hypertension Status: Chronic Qualifiers: Hypertension type: essential hypertension Qualified Codes: I10 - Essential (primary) hypertension (4) Hypokalemia Status: Acute (5) Leukocytosis Status: Acute Qualifiers: Leukocytosis type: leukemoid reaction Qualified Codes: D72.823 - Leukemoid reaction (6) Jaundice Status: Acute (7) History of cholecystectomy Status: Acute (8) Elevated lactic acid level Status: Acute (9) Biliary obstruction Status: Acute (10) Falls frequently Status: Chronic (11) Multiple blisters Status: Acute Clinical Quality Measures DVT/VTE Risk/Contraindication: Risk Factor Score Per Nursin RFS Level Per Nursing on Admit: 4+=Very High JOEL LANGSTON DO Feb 22, 2019 09:13
[2019-02-22 09:41] LABS: BASOPHILS # (AUTO) 0.1 10^3/uL (0.0-0.1); BASOPHILS % (AUTO) 0 % (0-10); EOSINOPHILS # (AUTO) 0.4 10^3/uL (0.0-0.3); EOSINOPHILS % (AUTO) 3 % (0-10); HEMATOCRIT 28 % (35-52); LYMPHOCYTES # (AUTO) 1.9 X 10^3 (1.0-4.0); LYMPHOCYTES % (AUTO) 15 % (12-44); MEAN CORPUSCULAR HGB CONC 32 G/DL (32-36); MEAN CORPUSCULAR VOLUME 99 FL (80-99); MEAN PLATELET VOLUME 10.5 FL (7.4-10.4); MONOCYTES # (AUTO) 1.4 X 10^3 (0.0-1.0); MONOCYTES % (AUTO) 11 % (0-12); NEUTROPHILS % (AUTO) 70 % (42-75); PLATELET COUNT 315 10^3/uL (130-400); RED CELL DISTRIBUTION WIDTH 16.1 % (10.0-14.5); WHITE BLOOD COUNT 12.8 10^3/uL (4.3-11.0)
[2019-02-22 09:43] LABS: MEAN CORPUSCULAR HEMOGLOBIN 31 PG (25-34)
[2019-02-22 10:03] LABS: ALANINE AMINOTRANSFERASE 49 U/L (0-55); ALBUMIN 2.5 GM/DL (3.2-4.5); ALKALINE PHOSPHATASE 298 U/L (40-136); BILIRUBIN,TOTAL 4.9 MG/DL (0.1-1.0); BUN/CREATININE RATIO 19; CALCIUM 8.1 MG/DL (8.5-10.1); CARBON DIOXIDE 22 MMOL/L (21-32); CHLORIDE 109 MMOL/L (98-107); CREATININE SERUM 0.74 MG/DL (0.60-1.30); GFR ESTIMATED > 60; GLUCOSE 162 MG/DL (70-105); POTASSIUM 3.2 MMOL/L (3.6-5.0); SODIUM 140 MMOL/L (135-145); TOTAL PROTEIN 5.5 GM/DL (6.4-8.2)
--- NOTE | 2019-02-22 11:48 | Occupational Therapy Eval ---
OT Evaluation-General/PLF Medical Diagnosis Admission Date Feb 21, 2019 at 15:16 Medical Diagnosis: B LE cellulitis Onset Date: Feb 12, 2019 Therapy Diagnosis Therapy Diagnosis: impaired ADLs and mobility Height/Weight Height (Feet): 5 Height (Inches): 8.00 Weight (Pounds): 212 Weight (Ounces): 0.0 Precautions Precautions/Isolations: Fall Prevention, Standard Precautions Safety Interventions: None Referral Referral Reason: Activity Tolerance, Self Care, Evaluation/Treatment, Strengthening/ROM Medical History Pertinent Medical History: Atrial Fib Additional Medical History Atrial Fib, HTN Current History Here with report of increasing weakness over the last few days. Was at [facility] recently for a blocked bile duct and sepsis from that. Discharged home in was on antibiotics. Noted problems with her feet including blistering and swelling with redness and so stopped her antibiotic. Unsure if this was directed or her own decision. States that she's not currently on antibiotics. She was walking today when she stubbed her toe and went down on her knees due to the ill fitting shoes that she was wearing which is due to her feet being grossly swollen. States that she's never had swelling like this before. She had gone to the store and bought a lift chair so that she can lay back and get the swelling out of her feet. It was on the way home when she had this problem. She is still jaundiced from her previous illness but states it's better. Denies fever or chills. Does admit to weakness. Does have some mild left knee pain. Does have open blisters and wounds to her feet bilaterally. Reviewed History: Yes Social History Home: Single Level Current Living Status: Alone Entry Into Home: Stairs Without Railing Steps Into Home: 1 Other Obstacles: tub/ shower combo ADL-Prior Level of Function Therapy Code Descriptions/Definitions Functional [place] Measure: 0=Not Assessed/NA 4=Minimal Assistance 1=Total Assistance 5=Supervision or Setup 2=Maximal Assistance 6=Modified [place] 3=Moderate Assistance 7=Complete [place] Therapy Quality Codes: 6 Independent with activity with or without an assistive device 5 Patient requires set up or clean up by helper. Patient completes activity by themselves 4 Supervision or touching assist (CGA). [place] provide cues , steadying assist 3 The helper provides less than half the effort to complete the activity 2 The helper provides more than half the effort to complete the activity 1 Dependent. The helper does all the effort to complete an activity 7 Patient refused to complete or attempt activity 9 The patient did not perform the activity before the current illness or injury 88 Not attempted due to Medical conditions or safety concerns Functional Abilities and Goals: Independent: Patient completed the activities by him/herself, with or without an assistive device, with no assistance from a helper. Needed Some Help: Patient needed partial assistance from another person to complete activities. Dependent: A helper completed the activities for the patient. Unknown: Not Applicable: Self Care: Independent Functional Cognition: Independent Drive Self: Yes OT Current Status Subjective pt laying in bed upon OT arrival. pt agreed to OT evaluation session. Appearance post OT evaluation pt sitting in recliner chair, Devaughn UE elevated, tray, call light and water all within reach. Current Glasses/Contacts: No Hearing Aids: No Dentures/Partials: No Hand Dominance: Right Upper Extremity ROM WFL Upper Extremity Coordination WFL Upper Extremity Sensation WFL Upper Extremity Strength WFL ADL-Treatment Therapy Code Descriptions/Definitions Functional [place] Measure: 0=Not Assessed/NA 4=Minimal Assistance 1=Total Assistance 5=Supervision or Setup 2=Maximal Assistance 6=Modified [place] 3=Moderate Assistance 7=Complete [place] Therapy Quality Codes: 6 Independent with activity with or without an assistive device 5 Patient requires set up or clean up by helper. Patient completes activity by themselves 4 Supervision or touching assist (CGA). [place] provide cues , steadying assist 3 The helper provides less than half the effort to complete the activity 2 The helper provides more than half the effort to complete the activity 1 Dependent. The helper does all the effort to complete an activity 7 Patient refused to complete or attempt activity 9 The patient did not perform the activity before the current illness or injury 88 Not attempted due to Medical conditions or safety concerns Grooming (FIM): 4 (CGA fro safety/ balance while standing at sink) Lower Body Dressing (FIM): 1 (Devaughn socks. ) Other Treatments post OT evaluation pt agreed to OT TX session with focus on increasing independence with functional transfers in prep for toilet transfers. pt demo ability to to perform functional transfer from bed to chair with CGA using gait belt for safety/ pt demo ability to use RW for initial transfer then attempted to complete transfer with no AD. pt demo ability to perform functional transfer using no AD with CGA for safety/ balance Education OT Patient Education: Progress toward Goal/Update tx plan, Purpose of tx/ functional activities Teaching Recipient: Patient Teaching Methods: Discussion Response to Teaching: Verbalize Understanding OT Short Term Goals Short Term Goals Grooming(FIM): 5 Bathing(FIM): 5 Lower Body Dressing(FIM): 5 Toileting(FIM): 5 Transfers (B,C,W/C) (FIM): 5 Toilet/Commode Transfer(FIM): 5 1=Demonstrate adherence to instructed precautions during ADL tasks. 2=Patient will verbalize/demonstrate understanding of assistive devices/ modifications for ADL. 3=Patient will improve strength/tolerance for activity to enable patient to perform ADL's. OT [facility] Goals [employer] Developer Goals Grooming(FIM): 7 Bathing(FIM): 6 Lower Body Dressing(FIM): 6 Toileting(FIM): 6 Transfers (B,C,W/C) (FIM): 6 Toilet/Commode Transfer(FIM): 6 1=Demonstrate adherence to instructed precautions during ADL tasks. 2=Patient will verbalize/demonstrate understanding of assistive devices/ modifications for ADL. 3=Patient will improve strength/tolerance for activity to enable patient to perform ADL's. OT Education/Plan Problem List/Assessment Assessment: Decreased Activ Tolerance, Decreased Safety Aware, Impaired Bed Mobility, Impaired Funct Balance, Impaired I ADL's, Impaired Self-Care Skills pt presents with functional limitations affecting areas of ADLS/ functional transfers. pt would benefit from OT services to increase independence with ADLS / functional transfers Discharge Recommendations Plan/Recommendations: Continue POC Therapy D/C Recommendations: Home w/ Family Support Target Placement home Patient/Family Goals "to be able to go home and function on my own" Treatment Plan/Plan of Care Treatment,Training & Education: Yes Patient would benefit from OT for education, treatment and training to promote independence in ADL's, mobility, safety and/or upper extremity function for ADL' s. Plan of Care: ADL Retraining, Functional Mobility, UE Funct Exercise/Act Treatment Duration: Mar 01, 2019 Frequency: 5 times per week Estimated Hrs Per Day: .5 hour per day Agreement: Yes Rehab Potential: Fair Time/GCodes Start Time: 11:40 Stop Time: 12:05 Billed Treatment Time EVM 15 minutes FA 10 minutes HAILY GARDNER OT Feb 22, 2019 11:48
[2019-02-22 12:12] VITALS: BP 116/55
[2019-02-22] MEDS: cefTRIAXone 1,000 MG/SWFI 10 ML IV PUSH IV SCH ×2 (13:35)
[2019-02-22] MEDS: metroNIDAZOLE 500MG/100ML IVPB 100 ML IV SCH ×2 (13:39→22:12)
--- NOTE | 2019-02-22 14:14 | Physician Query Clarification ---
PQ-Uncertain Diagnosis Admission/Discharge Admission Date: Feb 21, 2019 at 15:16 Discharge Date: The medical record reflects the following clinical scenario: History/Risk Factors: Jaundice Biliary obstruction-status post stent placement Clinical Findings: Admitting bilirubin 6.1, AST 57, ALT 62, jaundice. Treatment:Monitoring bilirubin and elevated LFTs Question: Are Acute Biliary Obstruction with Acute Jaundice current diagnoses? Acute biliary obstruction and acute jaundice are documented in the H&P in the medical record. Please document a response below. PHYSICIAN RESPONSE Diagnosis clinically valid: Yes, Conditon resolved In responding to this query, please exercise your independent professional judgment. The purpose of this communication is to more accurately reflect the complexity of your patients condition. The fact that a question is asked does not imply that any particular answer is desired or expected. Thank you for your timely response to this clarification. Requestors name: Diandra Mathew [facility] Phone # ext [phone] or [phone] THIS PHYSICIAN QUERY FORM IS A PERMANENT PART OF THE MEDICAL RECORD DIANDRA MATHEW Feb 22, 2019 14:14 JOEL LANGSTON DO Feb 22, 2019 21:05
--- NOTE | 2019-02-22 14:30 | Physical Therapy Evaluation ---
PT Evaluation-General Medical Diagnosis Admission Date Feb 21, 2019 at 15:16 Medical Diagnosis: B LE cellulitis Onset Date: Feb 22, 2019 Therapy Diagnosis Therapy Diagnosis: weakness Height/Weight Height (Feet): 5 Height (Inches): 8.00 Weight (Pounds): 212 Weight (Ounces): 0.0 Precautions Precautions/Isolations: Fall Prevention, Standard Precautions Referral Physician: Hemalatha Reason for Referral: Evaluation/Treatment Medical History Pertinent Medical History: Atrial Fib, HTN Additional Medical History anemia, hypokalemia Current History Pt had her gall bladder out in the last 2 weeks. Reprots she discharged home and began having swelling and blisters on her feet. diagnosed with B LE cellulitis Reviewed History: Yes Social History Home: Single Level Current Living Status: Alone Entry Into Home: Stairs Without Railing PT Steps Into Home: 1 Other Obstacles: tub/ shower combo Prior/Core FIM Prior Level of Function Therapy Code Descriptions/Definitions Functional [place] Measure: 0=Not Assessed/NA 4=Minimal Assistance 1=Total Assistance 5=Supervision or Setup 2=Maximal Assistance 6=Modified [place] 3=Moderate Assistance 7=Complete [place] Therapy Quality Codes: 6 Independent with activity with or without an assistive device 5 Patient requires set up or clean up by helper. Patient completes activity by themselves 4 Supervision or touching assist (CGA). [place] provide cues , steadying assist 3 The helper provides less than half the effort to complete the activity 2 The helper provides more than half the effort to complete the activity 1 Dependent. The helper does all the effort to complete an activity 7 Patient refused to complete or attempt activity 9 The patient did not perform the activity before the current illness or injury 88 Not attempted due to Medical conditions or safety concerns Functional Abilities and Goals: Independent: Patient completed the activities by him/herself, with or without an assistive device, with no assistance from a helper. Needed Some Help: Patient needed partial assistance from another person to complete activities. Dependent: A helper completed the activities for the patient. Unknown: Not Applicable: Bed Mobility: 7 Transfers (B,C,W/C) (FIM): 7 Gait: 7 Stairs: 7 Indoor Mobility (Ambulation): Independent Stairs: Independent Pt able to care for outdoor animals and carry / lift large feed sacks. PT Evaluation-Current Subjective Agrees to PT. Reports she wants to walk . Pain Numeric Pain Scale: 0-No Pain Objective Patient Orientation: Person, Place, Time, Situation Problem Solving: Fair Attachments: Mares Catheter, IV ROM/Strength ROM Lower Extremities WFL Strength Lower Extremities Grossly 4/5 throughout Integumentary/Posture Integumentary Refer to nursing notes. B L E edema and redness with blisters noted --lower calf and feet. Bowel Incontinence: No Bladder Incontinence: Mares Cath Posture normal and symmetrical Neuromuscular (Tone, Coordination, Reflexes) intact and without noted deficits Sensory Vision: Functional Hearing: Functional Hand Dominance: Right Sensation Right Lower Extremit: Intact Sensation Left Lower Extremity: Intact Transfers Therapy Code Descriptions/Definitions Functional [place] Measure: 0=Not Assessed/NA 4=Minimal Assistance 1=Total Assistance 5=Supervision or Setup 2=Maximal Assistance 6=Modified [place] 3=Moderate Assistance 7=Complete [place] Sit to/from Stand: 5 (SBA for safety but did not need assist. ) Gait Mode of Locomotion: Walk Anticipated Mode of Locomotion: Walk Gait (FIM): 5 Distance (FIM): 3=150 ft Distance: 150 Gait Assistive Device: FWW Comments/Gait Description SBA with gait; no noted balance or safety issues. Balance Sitting Static: Good Sitting Dynamic: Good Standing Static: Good Standing Dynamic: Good Treatment Seated B LE ther ex x 10 for AP, heel raises, LAQ, hip flexion, QS and heel slides. Pt then got up again and transferred to the wheelchair to go to x-ray. SBA with transfer. Assessment/Needs Pt presents with B LE cellulits with decresed mobility due to hospital stay. She will benefit from skilled PT to address strength and mobility to allow her to safely return home. Rehab Potential: Good PT Short Term Goals Short Term Goals Transfers (B,C,W/C) (FIM): 5 PT [place] Goals [place] Goals PT Skilled Nursing Goals Time Frame: Feb 27, 2019 Transfers (B,C,W/C) (FIM): 7 Gait (FIM): 6 Gait distance (FIM): 3=150 ft PT Plan Problem List Problem List: Activity Tolerance, Functional Strength, Safety, Gait, Transfer Treatment/Plan Treatment Plan: Continue Plan of Care Treatment Plan: Bed Mobility, Education, Functional Activity [place], Functional Strength, Gait, Safety, Therapeutic Exercise, Transfers Treatment Duration: Feb 27, 2019 Frequency: 6 times per week Estimated Hrs Per Day: .5 hour per day Patient and/or Family Agrees t: Yes Safety Risks/Education Patient Education: Safety Issues Teaching Recipient: Patient Teaching Methods: Discussion Response to Teaching: Reinforcement Needed Time/GCodes Time In: 1400 Time Out: 1425 Total Billed Treatment Time: 25 Total Billed Treatment visit EVM 15 EX 10 XIOMARA BARFIELD PT Feb 22, 2019 14:30
[2019-02-22] MEDS ORDERED: cefTRIAXone 1,000 MG/SWFI 10 ML IV PUSH IV SCH ×2 (15:00)
--- NOTE | 2019-02-22 15:23 | Diagnostic Imaging Report ---
INDICATION: Biliary stent check. EXAMINATION: KUB at 2:28 PM. FINDINGS: The patient has a WALLSTENT projecting over the bile duct. There is gas within the biliary tree. The gallbladder is surgically absent. IMPRESSION: Pneumobilia. The biliary stent projects over appropriate structures. Dictated by: Dictated on workstation # [id number]
[2019-02-22 16:00] VITALS: BP 110/59
--- NOTE | 2019-02-22 20:30 | Consultation ---
History of Present Illness History of Present Illness Patient Consulted On(vasquez/time) 02/22/19 20:24 Date Seen by Provider: Feb 22, 2019 Time Seen by Provider: 17:00 History of Present Illness consult requested by Dr. Penny for b/l foot wounds, s/p biliary stent for obstruction of cbd. Patient is a 69 year old female with recent hospitalization at [facility]. She was septic at that time and had obstructed biliary tree. She had ERCP and stent placed by Dr. Ferro and also had laparoscopic cholecystectomy during that hospital stay. Patient states that she has fallen twice and was ablte to get back up each time without difficulty. Has been having a hard time due to both her feet being swollen and painful due to an allergic reaction. She states she did once hit her head slightly when she fell but did not lose consciousness. Since recent hospitalization she says she is weaker due to laying in bed. She Is active prior to hospitalization taking care of a large variety of animals at her house. Patient states that her feed do hurt but feels they are improving. She is not having any significant abdominal pain after cholecystectomy. She had a kub demonstrating pneumobilia and stent in appropriate location. CT head no acute abnormality. Denies n/v fever sweats chills shortness of breath or chest pain. Allergies and Home Medications Allergies Coded Allergies: sulfamethoxazole (Unverified Allergy, Unknown, 02/06/19) trimethoprim (Unverified Allergy, Unknown, 02/06/19) Uncoded Allergies: PENICILLIN (Allergy, Unknown, 02/06/19) Home Medications Aspirin 325 Mg Tablet.dr, 325 MG PO DAILY, (Reported) Atenolol 50 Mg Tablet, 50 MG PO DAILY, (Reported) Hydrochlorothiazide 25 Mg Tablet, 25 MG PO DAILY, (Reported) Losartan Potassium 25 Mg Tablet, 25 MG PO DAILY, (Reported) Walsh 3 Polyunsat Fatty Acids 1,000 Mg Cap, 2,000 MG PO DAILY, (Reported) Potassium Chloride 20 Meq Tab.er.prt, 20 MEQ PO DAILY, (Reported) l Gasseri/B Bifidum/B Longum 1 Each Capsule, 1 CAP PO DAILY, (Reported) Patient Home Medication List Home Medication List Reviewed: Yes Past Bzrxcfq-Hopwzi-Oqgkay Hx Patient Social History Alcohol Use: Denies Use Recreational Drug Use: No Smoking Status: Never a Smoker 2nd Hand Smoke Exposure: No Recent Foreign Travel: No Contact w/Someone Who Travel: No Recent Infectious Disease Expo: No Recent Hopitalizations: Yes ([facility] @ [place]) Immunizations Up To Date Tetanus Booster (TDap): Unknown PED Vaccines UTD: Yes Seasonal Allergies Seasonal Allergies: No Surgeries History of Surgeries: Yes Surgeries: Gallbladder, Hysterectomy, Tonsillectomy Respiratory History of Respiratory Disorde: No Cardiovascular History of Cardiac Disorders: Yes Cardiac Disorders: Atrial Fibrillation, Hypertension Neurological History of Neurological Disord: No Reproductive System : No Genitourinary History of Genitourinary Disor: No Gastrointestinal History of Gastrointestinal Di: Yes Gastrointestinal Disorders: Liver Disease/Jaundice Endocrine History of Endocrine Disorders: No HEENT History of HEENT Disorders: Yes (bilat surgery) HEENT Disorders: Cataract Psychosocial History of Psychiatric Problem: No Integumentary History of Skin or Integumenta: No Blood Transfusions History of Blood Disorders: No Family Medical History Significant Family History: No Pertinent Family Hx Review of Systems-General Constitutional: weakness EENTM: no symptoms reported Respiratory: no symptoms reported Cardiovascular: no symptoms reported Gastrointestinal: no symptoms reported Genitourinary: no symptoms reported Musculoskeletal: no symptoms reported Skin: see HPI Psychiatric/Neurological: No Symptoms Reported Physical Exam-General Problems Physical Exam Vital Signs Vital Signs - First Documented 02/21/19 11:28 Temp 97.7 Pulse 93 Resp 20 B/P (MAP) 107/60 (76) Pulse Ox 97 O2 Delivery Room Air Capillary Refill : Less Than 3 Seconds General Appearance: no apparent distress HEENT: PERRL/EOMI, scleral icterus (R), scleral icterus (L), other (slight bruising left side of face) Neck: non-tender, full range of motion, supple Respiratory: chest non-tender, no respiratory distress, no accessory muscle use Cardiovascular: regular rate, rhythm Gastrointestinal: non tender (incisions c/d/i no signs of infection), soft Rectal: deferred Back: no CVA tenderness Extremities: swelling (b/l erythema with blistering wounds) Neurologic/Psychiatric: alert, normal mood/affect, oriented x 3 Skin: warm/dry Lymphatic: no adenopathy Data Review Labs Laboratory Tests 02/22/19 09:25: White Blood Count 12.8H, Red Blood Count 2.86L, Hemoglobin 9.0L, Hematocrit 28L , Mean Corpuscular Volume 99, Mean Corpuscular Hemoglobin 31, Mean Corpuscular Hemoglobin Concent 32, Red Cell Distribution Width 16.1H, Platelet Count 315, Mean Platelet Volume 10.5H, Neutrophils (%) (Auto) 70, Lymphocytes (%) (Auto) 15 , Monocytes (%) (Auto) 11, Eosinophils (%) (Auto) 3, Basophils (%) (Auto) 0, Neutrophils # (Auto) 9.0H, Lymphocytes # (Auto) 1.9, Monocytes # (Auto) 1.4H, Eosinophils # (Auto) 0.4H, Basophils # (Auto) 0.1, Sodium Level 140, Potassium Level 3.2L, Chloride Level 109H, Carbon Dioxide Level 22, Anion Gap 9, Blood Urea Nitrogen 14, Creatinine 0.74, Estimat Glomerular Filtration Rate > 60, BUN/ Creatinine Ratio 19, Glucose Level 162H, Lactic Acid Level 1.91, Calcium Level 8.1L, Corrected Calcium 9.3, Total Bilirubin 4.9H, Aspartate Amino Transf (AST/ SGOT) 43H, Alanine Aminotransferase (ALT/SGPT) 49, Alkaline Phosphatase 298H, Total Protein 5.5L, Albumin 2.5L Microbiology 02/21/19 Blood Culture - Preliminary, Resulted No growth 02/21/19 Urine Culture - Final, Complete NO GROWTH Assessment/Plan Assessment/Plan Assessment/Plan recent biliary obstruction -s/p biliary stent and cholecystectomy multiple falls- negative head ct, neck nontender no further workup at this time adverse drug reaction (Bactrim)- b/l foot wounds and blisters, keep area clean and dry anemia- monitor pneumobilia secondary to stent blilary stent appears to be in place by KUB bilirubin trending down. continue to monitor labs Agree with antibiotics due to recent history of sepsis and biliary stent no surgical intervention, will follow. Clinical Quality Measures DVT/VTE Risk/Contraindication: Risk Factor Score Per Nursin RFS Level Per Nursing on Admit: 4+=Very High ALISIA MEDRANO DO Feb 22, 2019 20:30
[2019-02-22 20:47] VITALS: BP 124/62
[2019-02-23] VITALS: BP 126/60
[2019-02-23] MEDS: metroNIDAZOLE 500MG/100ML IVPB 100 ML IV SCH ×3 (05:45→22:29)
[2019-02-23 06:17] LABS: BASOPHILS # (AUTO) 0.1 10^3/uL (0.0-0.1); BASOPHILS % (AUTO) 1 % (0-10); EOSINOPHILS # (AUTO) 0.6 10^3/uL (0.0-0.3); EOSINOPHILS % (AUTO) 5 % (0-10); HEMATOCRIT 26 % (35-52); HEMOGLOBIN 8.3 G/DL (11.5-16.0); LYMPHOCYTES # (AUTO) 1.5 X 10^3 (1.0-4.0); LYMPHOCYTES % (AUTO) 13 % (12-44); MEAN CORPUSCULAR HEMOGLOBIN 32 PG (25-34); MEAN CORPUSCULAR HGB CONC 32 G/DL (32-36); MEAN CORPUSCULAR VOLUME 99 FL (80-99); MEAN PLATELET VOLUME 10.8 FL (7.4-10.4); MONOCYTES # (AUTO) 1.6 X 10^3 (0.0-1.0); MONOCYTES % (AUTO) 14 % (0-12); NEUTROPHILS # (AUTO) 7.9 X 10^3 (1.8-7.8); NEUTROPHILS % (AUTO) 68 % (42-75); PLATELET COUNT 271 10^3/uL (130-400); RED CELL DISTRIBUTION WIDTH 15.7 % (10.0-14.5); WHITE BLOOD COUNT 11.7 10^3/uL (4.3-11.0)
[2019-02-23 06:42] LABS: ALANINE AMINOTRANSFERASE 36 U/L (0-55); ALBUMIN 2.2 GM/DL (3.2-4.5); ALKALINE PHOSPHATASE 263 U/L (40-136); BILIRUBIN,TOTAL 3.6 MG/DL (0.1-1.0); BUN/CREATININE RATIO 24; CALCIUM 8.1 MG/DL (8.5-10.1); CARBON DIOXIDE 20 MMOL/L (21-32); CHLORIDE 111 MMOL/L (98-107); CREATININE SERUM 0.67 MG/DL (0.60-1.30); GFR ESTIMATED > 60; GLUCOSE 131 MG/DL (70-105); SODIUM 142 MMOL/L (135-145); TOTAL PROTEIN 4.9 GM/DL (6.4-8.2)
[2019-02-23 08:00] VITALS: BP 114/74
--- NOTE | 2019-02-23 09:24 | Progress Note-Hospitalist ---
Subjective HPI/CC On Admission Date Seen by Provider: Feb 23, 2019 Time Seen by Provider: 09:15 Chief complaint: Fall with severe weakness HPI: This is a 69yoWF that was recently at [facility] due to biliary obstruction s/p cholecystectomy uneventfully by Dr. Zhou and stent place for biliary obstruction by Dr. Ferro who had been DC on Bactrim but then began feeling worse, had a fall, presented to the ER found to have elevated white count with elevated lactic acid and lower extremity rash with blister formation. The elevated lactic acid resolved with IV fluids and home medications were restarted. The presumed cellulitis does not appear to be cellulitis likely possibility of Venous Stasis Dermatitis versus Bactrim side effect. I did speak with Dr. Ferro who recommended placement of Rocephin and Flagyl since she is allergic to PCN and the first choice would have been Zosyn and to obtain KUB x-ray to check on biliary stent to see if it is dislodged and general surgery consultation who I spoke with Dr. Gray. Pt denies any abdominal pain Will initiate PT and OT Reviewed biliary obstruction liver enzyme elevation and Dr. Ferro thought that was unusual also Subjective/Events-last exam Updated Dr. Ferro on labs and he will perform ERCP with replacement of the stent because it appears to be clogged and then with every intention to return back to [place] to continue antibiotic treatment and recovery May be in inpatient rehabilitation candidate Lower legs improved appearing less and less of cellulitic and more and more with some sort of side effect likely Bactrim Overall healing well Updated Dr Gray Feels great Working with PT No pain no abdominal pain Rocephin and Flagyl tolerated Review of Systems rash on legs Focused Exam Lactate Level 02/21/19 11:54: Lactic Acid Level 2.14*H 02/21/19 14:56: Lactic Acid Level 2.30*H 02/22/19 09:25: Lactic Acid Level 1.91 Objective Exam Vital Signs Vital Signs Date Time Temp Pulse Resp B/P (MAP) Pulse Ox O2 Delivery O2 Flow Rate FiO2 02/23/19 08:00 100.0 74 18 114/74 (87) 100 Room Air Capillary Refill : Less Than 3 Seconds General Appearance: No Apparent Distress, WD/WN, Chronically ill, Obese, Other (juandice) HEENT: PERRL/EOMI, Normal ENT Inspection, Pharynx Normal, Moist Mucous Membranes, Scleral Icterus (L), Scleral Icterus (R) Neck: Full Range of Motion, Normal Inspection, Non Tender Respiratory: Chest Non Tender, Lungs Clear, Normal Breath Sounds, No Accessory Muscle Use, No Respiratory Distress Cardiovascular: Regular Rate, Rhythm, No Edema, No Gallop, No JVD, No Murmur, Normal Peripheral Pulses Gastrointestinal: Normal Bowel Sounds, No Organomegaly, No Pulsatile Mass, Non Tender (except post op pain), Soft Back: Normal Inspection, No CVA Tenderness, No Vertebral Tenderness Extremity: Normal Capillary Refill, Normal Inspection, Normal Range of Motion, Non Tender, No Calf Tenderness, No Pedal Edema Neurologic/Psychiatric: Alert, Oriented x3, No Motor/Sensory Deficits, Normal Mood/Affect Skin: Normal Color, Warm/Dry, Other (blisters right foot and erythema not hot to touch) Lymphatic: No Adenopathy Results/Procedures Lab Laboratory Tests 02/23/19 05:37 02/23/19 05:39 Patient resulted labs reviewed. Assessment/Plan Assessment and Plan Assess & Plan/Chief Complaint (1A) Biliary obstruction- needs ERCP due to stent clogged per Dr Ferro tomorrow [facility] Status: Acute (1) Adverse reaction to sulfamethoxazole Status: Acute Qualifiers: Encounter type: initial encounter Qualified Codes: T37.0X5A - Adverse effect of sulfonamides, initial encounter (2) Anemia Status: Chronic Qualifiers: Anemia type: unspecified type Qualified Codes: D64.9 - Anemia, unspecified (3) Hypertension Status: Chronic Qualifiers: Hypertension type: essential hypertension Qualified Codes: I10 - Essential (primary) hypertension (4) Hypokalemia Status: Acute (5) Leukocytosis Status: Acute Qualifiers: Leukocytosis type: leukemoid reaction Qualified Codes: D72.823 - Leukemoid reaction (6) Jaundice Status: Acute (7) History of cholecystectomy Status: Acute (8) Elevated lactic acid level Status: Acute (10) Falls frequently Status: Chronic (11) Multiple blisters- consulting Dr Silva Status: Acute [place] ERCP Dr Ferro tomorrow then return Dr Silva for blisters on feet Diagnosis/Problems Diagnosis/Problems (1) Biliary obstruction Status: Acute (2) Adverse reaction to sulfamethoxazole Status: Acute Qualifiers: Encounter type: initial encounter Qualified Codes: T37.0X5A - Adverse effect of sulfonamides, initial encounter (3) Anemia Status: Chronic Qualifiers: Anemia type: unspecified type Qualified Codes: D64.9 - Anemia, unspecified (4) Hypertension Status: Chronic Qualifiers: Hypertension type: essential hypertension Qualified Codes: I10 - Essential (primary) hypertension (5) Hypokalemia Status: Acute (6) Leukocytosis Status: Acute Qualifiers: Leukocytosis type: leukemoid reaction Qualified Codes: D72.823 - Leukemoid reaction (7) Jaundice Status: Acute (8) History of cholecystectomy Status: Acute (9) Elevated lactic acid level Status: Acute (10) Falls frequently Status: Chronic (11) Multiple blisters Status: Acute Clinical Quality Measures DVT/VTE Risk/Contraindication: Risk Factor Score Per Nursin RFS Level Per Nursing on Admit: 4+=Very High JOEL LANGSTON DO Feb 23, 2019 09:24
[2019-02-23] MEDS: LOSARTAN 25 MG (COZAAR) TAB PO SCH (10:58)
[2019-02-23] MEDS: KCL 20 MEQ TAB (K-DUR) PO SCH (10:58)
[2019-02-23] MEDS: ATENOLOL 50 MG (TENORMIN) TAB PO SCH (10:58)
--- NOTE | 2019-02-23 11:21 | Physical Therapy Daily Note ---
PT Daily Note-Current Subjective Agreeable. Happy to take a walk. Reports she does not want to go home until her feet are "taken care of." Mental Status Patient Orientation: Person, Place, Time, Situation Transfers Therapy Code Descriptions/Definitions Functional [facility] Measure: 0=Not Assessed/NA 4=Minimal Assistance 1=Total Assistance 5=Supervision or Setup 2=Maximal Assistance 6=Modified [facility] 3=Moderate Assistance 7=Complete [facility] Therapy Quality Codes: 6 Independent with activity with or without an assistive device 5 Patient requires set up or clean up by helper. Patient completes activity by themselves 4 Supervision or touching assist (CGA). [place] provide cues , steadying assist 3 The helper provides less than half the effort to complete the activity 2 The helper provides more than half the effort to complete the activity 1 Dependent. The helper does all the effort to complete an activity 7 Patient refused to complete or attempt activity 9 The patient did not perform the activity before the current illness or injury 88 Not attempted due to Medical conditions or safety concerns Transfers (B, C, W/C) (FIM): 6 Sit to/from Stand: 6 Gait Training Gait (FIM): 6 Distance (FIM): 3=150 ft Distance: 300 ft Gait Assistive Device: FWW Pt able to walk without assist. No LOB noted and steady gait. Pt able to make turns safely, stand statically and look out the window.She is able to stand unsupported and twist at the trunk to look over her shoulder. Assessment Current Status: Excellent Progress Pt safe with mobility. Steady. no safety concerns noted. PT Short Term Goals Short Term Goals Transfers (B,C,W/C) (FIM): 5 PT Group Home Goals Group Home Goals PT Group Home Goals Time Frame: Feb 27, 2019 Transfers (B,C,W/C) (FIM): 7 Gait (FIM): 6 Gait distance (FIM): 3=150 ft PT Plan Problem List Problem List: Activity Tolerance, Functional Strength, Safety Treatment/Plan Treatment Plan: Continue Plan of Care Treatment Plan: Bed Mobility, Education, Functional Activity [place], Functional Strength, Gait, Safety, Therapeutic Exercise, Transfers Treatment Duration: Feb 27, 2019 Frequency: 6 times per week Estimated Hrs Per Day: .5 hour per day Patient and/or Family Agrees t: Yes Safety Risks/Education Patient Education: Safety Issues Teaching Recipient: Patient Teaching Methods: Discussion Response to Teaching: Return Demonstration Time/GCodes Time In: 8397 Time Out: 1100 Total Billed Treatment Time: 24 Total Billed Treatment visit GT 24 XIOMARA BARFIELD PT Feb 23, 2019 11:21
--- NOTE | 2019-02-23 12:12 | NUR ---
IRF Evaluation: Order received to evaluate patient for the ARU. Chart reviewed and according to PT progress note patient is ambulating (300ft) and transferring with modified independence; therefore, the patient does not require intensive therapies, at this time. Thank you for this referral.
--- NOTE | 2019-02-23 13:12 | Occupational Ther Daily Note ---
OT Current Status-Daily Note Subjective No pain reported. Appearance Pt. in bed. Agrees to work with OT. Mental Status/Objective Patient Orientation: Person, Place Therapy Code Descriptions/Definitions Functional [facility] Measure: 0=Not Assessed/NA 4=Minimal Assistance 1=Total Assistance 5=Supervision or Setup 2=Maximal Assistance 6=Modified [place] 3=Moderate Assistance 7=Complete [facility] ADL-Treatment Grooming (FIM): 5 (Set up to brush hair.) Bathing (FIM): 4 (Pt. declines showering due to her feet, but agrees to spongebathe. Pt. requires min assist to wash rear navid area.) Lower Body Dressing (FIM): 2 (Max assist to doff/don slipper socks.) Toileting (FIM): 2 (Max assist to cleanse rear navid area after BM. Pt. has catheter. Able to wash front navid area.) Transfers (B, C, W/C) (FIM): 4 (CGA sit-stand and ambulation to toilet.) Toilet/Commode Transfer (FIM): 4 Other Treatment Pt. up in chair after ADLs. Bilateral LE elevated and all needs met. Education OT Patient Education: Correct positioning, Modified ADL techniques, Progress toward Goal/Update tx plan, Purpose of tx/functional activities, Reviewed precautions, Rehab process, Transfer techniques Teaching Recipient: Patient Teaching Methods: Demonstration, Discussion Response to Teaching: Verbalize Understanding, Return Demonstration OT Short Term Goals Short Term Goals Grooming(FIM): 5 Bathing(FIM): 5 Lower Body Dressing(FIM): 5 Toileting(FIM): 5 Transfers (B,C,W/C) (FIM): 5 Toilet/Commode Transfer(FIM): 5 1=Demonstrate adherence to instructed precautions during ADL tasks. 2=Patient will verbalize/demonstrate understanding of assistive devices/ modifications for ADL. 3=Patient will improve strength/tolerance for activity to enable patient to perform ADL's. OT Jail Goals Soap Drier Tender Goals Grooming(FIM): 7 Bathing(FIM): 6 Lower Body Dressing(FIM): 6 Toileting(FIM): 6 Transfers (B,C,W/C) (FIM): 6 Toilet/Commode Transfer(FIM): 6 1=Demonstrate adherence to instructed precautions during ADL tasks. 2=Patient will verbalize/demonstrate understanding of assistive devices/ modifications for ADL. 3=Patient will improve strength/tolerance for activity to enable patient to perform ADL's. OT Education/Plan Problem List/Assessment Assessment: Decreased Activ Tolerance, Impaired I ADL's, Impaired Self-Care Skills pt presents with functional limitations affecting areas of ADLS/ functional transfers. pt would benefit from OT services to increase independence with ADLS / functional transfers Discharge Recommendations Plan/Recommendations: Continue POC Treatment Plan/Plan of Care Treatment,Training & Education: Yes Patient would benefit from OT for education, treatment and training to promote independence in ADL's, mobility, safety and/or upper extremity function for ADL' s. Plan of Care: ADL Retraining, Functional Mobility, UE Funct Exercise/Act Treatment Duration: Mar 01, 2019 Frequency: 5 times per week Estimated Hrs Per Day: .5 hour per day Agreement: Yes Rehab Potential: Good Time/GCodes Start Time: 08:50 Stop Time: 09:15 Total Time Billed (hr/min): 25 Billed Treatment Time 1, ADL x 2 MIRI ZAMAN OT Feb 23, 2019 13:12
[2019-02-23] MEDS: cefTRIAXone 1,000 MG/SWFI 10 ML IV PUSH IV SCH ×2 (14:45)
[2019-02-23 15:52] VITALS: BP 108/65
--- NOTE | 2019-02-23 19:59 | Progress Note ---
Subjective Date Seen by a Provider: Feb 23, 2019 Time Seen by a Provider: 16:30 Subjective/Events-last exam Patient feeling well. No new complaints. No abdominal pain. Feet feel better. Denies n/v fever sweats chills shortness of breath or chest pain. Going for ERCP tomorrow and wanting to come back to [place] after. Focused Exam Lactate Level 02/21/19 11:54: Lactic Acid Level 2.14*H 02/21/19 14:56: Lactic Acid Level 2.30*H 02/22/19 09:25: Lactic Acid Level 1.91 Objective Exam Vital Signs Date Time Temp Pulse Resp B/P (MAP) Pulse Ox O2 Delivery O2 Flow Rate FiO2 02/23/19 15:52 97.6 73 18 108/65 (79) 100 02/23/19 08:20 Room Air 02/23/19 08:00 100.0 74 18 114/74 (87) 100 Room Air 02/23/19 00:00 98.6 82 20 126/60 (82) 98 Room Air 02/22/19 20:47 98.2 89 20 124/62 (82) 98 02/22/19 20:00 96 Room Air I & O 02/23/19 07:00 Intake Total 2860 ml Output Total 1650 ml Balance 1210 ml Capillary Refill : Less Than 3 Seconds General Appearance: No Apparent Distress, WD/WN, Chronically ill, Obese, Other (juandice) HEENT: PERRL/EOMI, Normal ENT Inspection, Pharynx Normal, Moist Mucous Membranes, Scleral Icterus (L), Scleral Icterus (R) Neck: Full Range of Motion, Normal Inspection, Non Tender Respiratory: Chest Non Tender, Lungs Clear, Normal Breath Sounds, No Accessory Muscle Use, No Respiratory Distress Cardiovascular: Regular Rate, Rhythm, No Edema, No Gallop, No JVD, No Murmur, Normal Peripheral Pulses Gastrointestinal: non tender (incisions c/d/i no signs of infection), soft Extremity: Normal Capillary Refill, Normal Range of Motion, Non Tender, No Calf Tenderness, No Pedal Edema, Swelling (b/l lower extremity-less) Neurologic/Psychiatric: Alert, Oriented x3, No Motor/Sensory Deficits, Normal Mood/Affect Skin: Normal Color, Warm/Dry, Other (blisters right and left foot and erythema not hot to touch) Lymphatic: No Adenopathy Results Lab Laboratory Tests 02/23/19 05:37: White Blood Count 11.7H, Red Blood Count 2.59L, Hemoglobin 8.3L, Hematocrit 26L , Mean Corpuscular Volume 99, Mean Corpuscular Hemoglobin 32, Mean Corpuscular Hemoglobin Concent 32, Red Cell Distribution Width 15.7H, Platelet Count 271, Mean Platelet Volume 10.8H, Neutrophils (%) (Auto) 68, Lymphocytes (%) (Auto) 13 , Monocytes (%) (Auto) 14H, Eosinophils (%) (Auto) 5, Basophils (%) (Auto) 1, Neutrophils # (Auto) 7.9H, Lymphocytes # (Auto) 1.5, Monocytes # (Auto) 1.6H, Eosinophils # (Auto) 0.6H, Basophils # (Auto) 0.1 02/23/19 05:39: Sodium Level 142, Potassium Level 3.0L, Chloride Level 111H, Carbon Dioxide Level 20L, Anion Gap 11, Blood Urea Nitrogen 16, Creatinine 0.67, Estimat Glomerular Filtration Rate > 60, BUN/Creatinine Ratio 24, Glucose Level 131H, Calcium Level 8.1L, Corrected Calcium 9.5, Total Bilirubin 3.6H, Aspartate Amino Transf (AST/SGOT) 29, Alanine Aminotransferase (ALT/SGPT) 36, Alkaline Phosphatase 263H, Total Protein 4.9L, Albumin 2.2L Microbiology 02/21/19 Blood Culture - Preliminary, Resulted No growth 02/21/19 Urine Culture - Final, Complete NO GROWTH Assessment/Plan Assessment/Plan Assessment/Plan recent biliary obstruction -s/p biliary stent and cholecystectomy multiple falls- negative head ct, neck nontender no further workup at this time adverse drug reaction (Bactrim)- b/l foot wounds and blisters, keep area clean and dry anemia- monitor pneumobilia secondary to stent blilary stent appears to be in place by KUB bilirubin trending down. continue to monitor labs Agree with antibiotics due to recent history of sepsis and biliary stent stent possible to be obstructed plan for ERCP tomorrow no surgical intervention, will follow. Clinical Quality Measures DVT/VTE Risk/Contraindication: Risk Factor Score Per Nursin RFS Level Per Nursing on Admit: 4+=Very High ALISIA MEDRANO DO Feb 23, 2019 19:59
--- NOTE | 2019-02-23 20:54 | Wound Care Assessment ---
Wound Care Assessment Date Seen by Provider: Feb 23, 2019 Time Seen by Provider: 20:49 Chief Complaint Bilateral foot ulcers. HPI The patient is a 69 year old female with complicated recent surgical history, having suffered massive lymphedema of BLE. She developed blisters of the dorsum of her feet. These became secondarily infected and she has developed a cellulitis of both calves in response. She is currently on broad spectrum IV antibiotics for her biliary issues, the lymphedema is resolving with elevation and we will begin dressings with Bacitracin. Will follow. Smoking Status: Never a Smoker Recreational Drug Use: No Alcohol Use: Denies Use Exam Vital Signs Date Time Temp Pulse Resp B/P (MAP) Pulse Ox O2 Delivery O2 Flow Rate FiO2 02/23/19 15:52 97.6 73 18 108/65 (79) 100 02/23/19 08:20 Room Air Capillary Refill : Less Than 3 Seconds Results Laboratory Tests 02/23/19 05:37: White Blood Count 11.7H, Red Blood Count 2.59L, Hemoglobin 8.3L, Hematocrit 26L , Mean Corpuscular Volume 99, Mean Corpuscular Hemoglobin 32, Mean Corpuscular Hemoglobin Concent 32, Red Cell Distribution Width 15.7H, Platelet Count 271, Mean Platelet Volume 10.8H, Neutrophils (%) (Auto) 68, Lymphocytes (%) (Auto) 13 , Monocytes (%) (Auto) 14H, Eosinophils (%) (Auto) 5, Basophils (%) (Auto) 1, Neutrophils # (Auto) 7.9H, Lymphocytes # (Auto) 1.5, Monocytes # (Auto) 1.6H, Eosinophils # (Auto) 0.6H, Basophils # (Auto) 0.1 02/23/19 05:39: Sodium Level 142, Potassium Level 3.0L, Chloride Level 111H, Carbon Dioxide Level 20L, Anion Gap 11, Blood Urea Nitrogen 16, Creatinine 0.67, Estimat Glomerular Filtration Rate > 60, BUN/Creatinine Ratio 24, Glucose Level 131H, Calcium Level 8.1L, Corrected Calcium 9.5, Total Bilirubin 3.6H, Aspartate Amino Transf (AST/SGOT) 29, Alanine Aminotransferase (ALT/SGPT) 36, Alkaline Phosphatase 263H, Total Protein 4.9L, Albumin 2.2L Microbiology 02/21/19 Blood Culture - Preliminary, Resulted No growth 4/16/19 Urine Culture - Final, Complete NO GROWTH KB,MARTHA G MD Feb 23, 2019 20:54
[2019-02-23] MEDS: BACITRACIN OINTMENT 28 GM TUBE TOP SCH (22:30)
[2019-02-24] VITALS: BP 114/64
[2019-02-24] MEDS ORDERED: fentaNYL INJECTION 100 MCG/2 ML AMP IVP PRN (03:00)
[2019-02-24 06:12] LABS: BASOPHILS # (AUTO) 0.1 10^3/uL (0.0-0.1); BASOPHILS % (AUTO) 1 % (0-10); EOSINOPHILS # (AUTO) 0.6 10^3/uL (0.0-0.3); EOSINOPHILS % (AUTO) 4 % (0-10); HEMATOCRIT 28 % (35-52); LYMPHOCYTES # (AUTO) 1.7 X 10^3 (1.0-4.0); LYMPHOCYTES % (AUTO) 13 % (12-44); MEAN CORPUSCULAR HEMOGLOBIN 31 PG (25-34); MEAN CORPUSCULAR HGB CONC 32 G/DL (32-36); MEAN CORPUSCULAR VOLUME 97 FL (80-99); MEAN PLATELET VOLUME 10.3 FL (7.4-10.4); MONOCYTES # (AUTO) 1.5 X 10^3 (0.0-1.0); MONOCYTES % (AUTO) 12 % (0-12); NEUTROPHILS # (AUTO) 9.3 X 10^3 (1.8-7.8); NEUTROPHILS % (AUTO) 71 % (42-75); PLATELET COUNT 318 10^3/uL (130-400); RED CELL DISTRIBUTION WIDTH 15.6 % (10.0-14.5); WHITE BLOOD COUNT 13.2 10^3/uL (4.3-11.0)
[2019-02-24 06:36] LABS: ALANINE AMINOTRANSFERASE 37 U/L (0-55); ALBUMIN 2.4 GM/DL (3.2-4.5); ALKALINE PHOSPHATASE 247 U/L (40-136); BILIRUBIN,TOTAL 3.9 MG/DL (0.1-1.0); BUN/CREATININE RATIO 19; CALCIUM 8.3 MG/DL (8.5-10.1); CARBON DIOXIDE 20 MMOL/L (21-32); CHLORIDE 112 MMOL/L (98-107); CREATININE SERUM 0.64 MG/DL (0.60-1.30); GFR ESTIMATED > 60; GLUCOSE 91 MG/DL (70-105); POTASSIUM 3.3 MMOL/L (3.6-5.0); SODIUM 143 MMOL/L (135-145); TOTAL PROTEIN 5.5 GM/DL (6.4-8.2)
[2019-02-24] MEDS: metroNIDAZOLE 500MG/100ML IVPB 100 ML IV SCH ×3 (07:08→21:18)
[2019-02-24 08:00] VITALS: BP 118/59
--- NOTE | 2019-02-24 08:55 | Physical Therapy Daily Note ---
PT Daily Note-Current Subjective Pt. was in bed upon arrival. Pt. agreed to therapy. Pt. says Dr. Silva does not want pt up on their feet walking due to the cellulitis in B LE. Pt had no complaints of pain. Pt. reports transferring to [place] later this afternoon. Transfers Therapy Code Descriptions/Definitions Functional [place] Measure: 0=Not Assessed/NA 4=Minimal Assistance 1=Total Assistance 5=Supervision or Setup 2=Maximal Assistance 6=Modified [place] 3=Moderate Assistance 7=Complete [place] Therapy Quality Codes: 6 Independent with activity with or without an assistive device 5 Patient requires set up or clean up by helper. Patient completes activity by themselves 4 Supervision or touching assist (CGA). [place] provide cues , steadying assist 3 The helper provides less than half the effort to complete the activity 2 The helper provides more than half the effort to complete the activity 1 Dependent. The helper does all the effort to complete an activity 7 Patient refused to complete or attempt activity 9 The patient did not perform the activity before the current illness or injury 88 Not attempted due to Medical conditions or safety concerns Exercises Supine Ex: Ankle pumps, Quad Set, Glut sets, Heel Slides, Straight leg raise, Hip abd/add Supine Reps: 10 Treatments Pt. completed supine exercises in bed. Therapist educated pt on importance of mobility and keeping skin integrity intact. Pt was resting in bed after treatment with call light and all needs met. Assessment Current Status: Fair Progress Pt. tolerated treatment fair. Pt. needed redirection to stay on task during treatment. Pt. will continue to benefit from therapy for strength and mobility. PT Short Term Goals Short Term Goals Transfers (B,C,W/C) (FIM): 5 PT Mcfp Goals Weight Loss Centre Manager Goals PT Weight Loss Centre Manager Goals Time Frame: Feb 27, 2019 Transfers (B,C,W/C) (FIM): 7 Gait (FIM): 6 Gait distance (FIM): 3=150 ft PT Plan Treatment/Plan Treatment Plan: Continue Plan of Care Treatment Plan: Bed Mobility, Education, Functional Activity [place], Functional Strength, Gait, Safety, Therapeutic Exercise, Transfers Treatment Duration: Feb 27, 2019 Frequency: 6 times per week Estimated Hrs Per Day: .5 hour per day Patient and/or Family Agrees t: Yes Safety Risks/Education Patient Education: Correct Positioning, Disease Process, Safety Issues Teaching Recipient: Patient Teaching Methods: Discussion Response to Teaching: Verbalize Understanding Time/GCodes Time In: 810 Time Out: 835 Total Billed Treatment Time: 25 Total Billed Treatment 1, EX x 2 G Codes Necessary: JOSE Loya DIE MAKER TRIM Feb 24, 2019 08:55
--- NOTE | 2019-02-24 09:37 | NUR ---
CM/SS patient will go to [place] this day for ERCP/Stent removal. Faxed information to [facility] for transport. Provided the patient with application for financial assistance from the hospital as she had requested one.
[2019-02-24] MEDS: BACITRACIN OINTMENT 28 GM TUBE TOP SCH ×2 (11:03→21:18)
[2019-02-24] MEDS: KCL 20 MEQ TAB (K-DUR) PO SCH (11:04)
[2019-02-24] MEDS: ATENOLOL 50 MG (TENORMIN) TAB PO SCH (11:04)
[2019-02-24] MEDS: LOSARTAN 25 MG (COZAAR) TAB PO SCH (11:04)
--- NOTE | 2019-02-24 11:38 | Progress Note-Hospitalist ---
Subjective HPI/CC On Admission Date Seen by Provider: Feb 24, 2019 Time Seen by Provider: 10:30 Chief complaint: Fall with severe weakness HPI: This is a 69yoWF that was recently at [facility] due to biliary obstruction s/p cholecystectomy uneventfully by Dr. Zhou and stent place for biliary obstruction by Dr. Ferro who had been DC on Bactrim but then began feeling worse, had a fall, presented to the ER found to have elevated white count with elevated lactic acid and lower extremity rash with blister formation. The elevated lactic acid resolved with IV fluids and home medications were restarted. The presumed cellulitis does not appear to be cellulitis likely possibility of Venous Stasis Dermatitis versus Bactrim side effect. I did speak with Dr. Ferro who recommended placement of Rocephin and Flagyl since she is allergic to PCN and the first choice would have been Zosyn and to obtain KUB x-ray to check on biliary stent to see if it is dislodged and general surgery consultation who I spoke with Dr. Gray. Pt denies any abdominal pain Will initiate PT and OT Reviewed biliary obstruction liver enzyme elevation and Dr. Ferro thought that was unusual also Subjective/Events-last exam Patient will go to [place] today ERCP today by Dr. Ferro Elevated liver enzymes still with biliary obstruction Checked meds and labs Appreciate wound care consult Antibiotics reviewed Review of Systems General: Fatigue rash on legs Focused Exam Lactate Level 02/21/19 14:56: Lactic Acid Level 2.30*H 02/22/19 09:25: Lactic Acid Level 1.91 Objective Exam Vital Signs Vital Signs Date Time Temp Pulse Resp B/P (MAP) Pulse Ox O2 Delivery O2 Flow Rate FiO2 02/24/19 08:00 99.4 84 18 118/59 (78) 96 Room Air Capillary Refill : Less Than 3 Seconds General Appearance: No Apparent Distress, WD/WN, Chronically ill, Obese, Other (juandice) HEENT: PERRL/EOMI, Normal ENT Inspection, Pharynx Normal, Moist Mucous Membranes, Scleral Icterus (L), Scleral Icterus (R) Neck: Full Range of Motion, Normal Inspection, Non Tender Respiratory: Chest Non Tender, Lungs Clear, Normal Breath Sounds, No Accessory Muscle Use, No Respiratory Distress Cardiovascular: Regular Rate, Rhythm, No Edema, No Gallop, No JVD, No Murmur, Normal Peripheral Pulses Gastrointestinal: Normal Bowel Sounds, No Organomegaly, No Pulsatile Mass, Non Tender (except post op pain), Soft Back: Normal Inspection, No CVA Tenderness, No Vertebral Tenderness Extremity: Normal Capillary Refill, Normal Range of Motion, Non Tender, No Calf Tenderness, Pedal Edema, Swelling (b/l lower extremity) Neurologic/Psychiatric: Alert, Oriented x3, No Motor/Sensory Deficits, Normal Mood/Affect Skin: Normal Color, Warm/Dry, Other (blisters right and left foot and erythema not hot to touch) Lymphatic: No Adenopathy Results/Procedures Lab Laboratory Tests 02/24/19 05:38 Patient resulted labs reviewed. Assessment/Plan Assessment and Plan Assess & Plan/Chief Complaint (1A) Biliary obstruction- needs ERCP due to stent clogged per Dr Ferro today [facility] Status: Acute (1) Adverse reaction to sulfamethoxazole Status: Acute Qualifiers: Encounter type: initial encounter Qualified Codes: T37.0X5A - Adverse effect of sulfonamides, initial encounter (2) Anemia Status: Chronic Qualifiers: Anemia type: unspecified type Qualified Codes: D64.9 - Anemia, unspecified (3) Hypertension Status: Chronic Qualifiers: Hypertension type: essential hypertension Qualified Codes: I10 - Essential (primary) hypertension (4) Hypokalemia Status: Acute (5) Leukocytosis Status: Acute Qualifiers: Leukocytosis type: leukemoid reaction Qualified Codes: D72.823 - Leukemoid reaction (6) Jaundice Status: Acute (7) History of cholecystectomy Status: Acute (8) Elevated lactic acid level Status: Acute (10) Falls frequently Status: Chronic (11) Multiple blisters- consulting Dr Silva Status: Acute [place] ERCP Dr Ferro today then return to [facility] Dr Silva for blisters on feet and his help is appreciated Diagnosis/Problems Diagnosis/Problems (1) Biliary obstruction Status: Acute (2) Adverse reaction to sulfamethoxazole Status: Acute Qualifiers: Encounter type: initial encounter Qualified Codes: T37.0X5A - Adverse effect of sulfonamides, initial encounter (3) Anemia Status: Chronic Qualifiers: Anemia type: unspecified type Qualified Codes: D64.9 - Anemia, unspecified (4) Hypertension Status: Chronic Qualifiers: Hypertension type: essential hypertension Qualified Codes: I10 - Essential (primary) hypertension (5) Hypokalemia Status: Acute (6) Leukocytosis Status: Acute Qualifiers: Leukocytosis type: leukemoid reaction Qualified Codes: D72.823 - Leukemoid reaction (7) Jaundice Status: Acute (8) History of cholecystectomy Status: Acute (9) Elevated lactic acid level Status: Acute (10) Falls frequently Status: Chronic (11) Multiple blisters Status: Acute Clinical Quality Measures DVT/VTE Risk/Contraindication: Risk Factor Score Per Nursin RFS Level Per Nursing on Admit: 4+=Very High JOEL LANGSTON DO Feb 24, 2019 11:38
[2019-02-24] MEDS: cefTRIAXone 1,000 MG/SWFI 10 ML IV PUSH IV SCH ×2 (12:05)
--- NOTE | 2019-02-24 12:10 | NUR ---
PATIENT LEFT AT THIS TIME PER EMS FOR ERCP PROCEDURE AT [facility]. WAS ADVISED BY DR. LANGSTON THAT THE PATIENT SHOULD COME BACK TO OUR HOSPITAL IF EVERYTHING GOES PLANNED, HOWEVER SHE STATED, "SOMETIMES THEY KEEP THEM AFTER ERCP'S." PATIENT IS AWARE THAT SHE MAY OR MAY NOT COME BACK TO THIS HOSPITAL AND PATIENT'S BELONGING TAKEN WITH PATIENT AT THIS TIME. WILL AWAIT ON [facility] TO CALL THIS RN WITH DISCHARGE PLAN. Addendum: 02/24/19 at 1319 by CONNIE BERG RN SPOKE TO REGISTRATION AND THEY STATED THAT PATIENT WILL BE UNDER STATUS OF "LEAVE OF ABSENCE" AND THAT THEY WILL CHANGE PATIENT'S ACCOUNT TO REFLECT THIS STATUS. SHE STATES TO THIS RN THAT WHEN THE PATIENT GETS BACK TO LET REGISTRATION KNOW SO THAT PATIENT CAN BE TAKEN OUT OF "LEAVE OF ABSENCE" STATUS.
--- NOTE | 2019-02-24 13:03 | Occupational Ther Daily Note ---
OT Current Status-Daily Note Subjective pt laying in bed upon O T arrival in no apparent distress. pt agreed to OT TX Session with focus on increasing independence wtih ADLS. Appearance post OT Session call light, tray, phone all within reach, all needs met. Mental Status/Objective Therapy Code Descriptions/Definitions Functional [place] Measure: 0=Not Assessed/NA 4=Minimal Assistance 1=Total Assistance 5=Supervision or Setup 2=Maximal Assistance 6=Modified [place] 3=Moderate Assistance 7=Complete [place] Attachments: Mares Catheter ADL-Treatment Grooming (FIM): 5 (EOB ) Lower Body Dressing (FIM): 5 (pt education on use of AE to increase independence with ADLs. pt verbziled understanding of AE and stated "I ewill have to buy me some" pt demo ability to ora Devaughn socks with use of sock aid. noted increasing timing to complete task. ) Other Treatment pt education on importance of sitting up with legs elevated instead of laying in bed. pt verbalized understating but refused to complete functional trasnfers this date. pt did agree to sit EOB when eating meals. Education OT Patient Education: Energy conservation, Progress toward Goal/Update tx plan , Purpose of tx/functional activities, Safety issues, Transfer techniques, Use of adapted equipment Teaching Recipient: Patient Teaching Methods: Demonstration, Discussion Response to Teaching: Verbalize Understanding, Return Demonstration OT Short Term Goals Short Term Goals Grooming(FIM): 5 Bathing(FIM): 5 Lower Body Dressing(FIM): 5 Toileting(FIM): 5 Transfers (B,C,W/C) (FIM): 5 Toilet/Commode Transfer(FIM): 5 1=Demonstrate adherence to instructed precautions during ADL tasks. 2=Patient will verbalize/demonstrate understanding of assistive devices/ modifications for ADL. 3=Patient will improve strength/tolerance for activity to enable patient to perform ADL's. OT Inspector Poising Goals Half-Way Goals Grooming(FIM): 7 Bathing(FIM): 6 Lower Body Dressing(FIM): 6 Toileting(FIM): 6 Transfers (B,C,W/C) (FIM): 6 Toilet/Commode Transfer(FIM): 6 1=Demonstrate adherence to instructed precautions during ADL tasks. 2=Patient will verbalize/demonstrate understanding of assistive devices/ modifications for ADL. 3=Patient will improve strength/tolerance for activity to enable patient to perform ADL's. OT Education/Plan Problem List/Assessment pt continues to presents with functional limitations affecting areas of ADLS/ functional transfers. pt would benefit from continued OT services to increase independence with ADLS/ functional transfers Discharge Recommendations Plan/Recommendations: Continue POC Therapy D/C Recommendations: Home w/ Family Support Equpiment Recommendations-D/C: Ranger Aide, Sock Aide, Dressing Stick Patient/Family Goals "to be able to do more for myself" Treatment Plan/Plan of Care Patient would benefit from OT for education, treatment and training to promote independence in ADL's, mobility, safety and/or upper extremity function for ADL' s. Plan of Care: ADL Retraining, Functional Mobility, UE Funct Exercise/Act Treatment Duration: Mar 01, 2019 Frequency: 5 times per week Estimated Hrs Per Day: .5 hour per day Agreement: Yes Rehab Potential: Good Time/GCodes Start Time: 08:36 Stop Time: 09:00 Billed Treatment Time ADL 24minutes, 2 units HAILY GARDNER OT Feb 24, 2019 13:03
--- NOTE | 2019-02-24 14:46 | Progress Note ---
Subjective Date Seen by a Provider: Feb 24, 2019 Time Seen by a Provider: 11:00 Subjective/Events-last exam Patient states she's doing well. She's not having any abdominal pain or nausea or vomiting. Patient nothing by mouth at this time. Patient going for ERCP later today. Patient states her feet and lower extremities are feeling better. She states that the swelling is going down. She denies any nausea vomiting fever sweats chills shortness of breath or chest pain. Focused Exam Lactate Level 02/21/19 14:56: Lactic Acid Level 2.30*H 02/22/19 09:25: Lactic Acid Level 1.91 Objective Exam Vital Signs Date Time Temp Pulse Resp B/P (MAP) Pulse Ox O2 Delivery O2 Flow Rate FiO2 02/24/19 08:00 99.4 84 18 118/59 (78) 96 Room Air 02/24/19 08:00 Room Air 02/24/19 00:00 98.9 84 20 114/64 (81) 96 Room Air 02/23/19 20:00 Room Air 02/23/19 15:52 97.6 73 18 108/65 (79) 100 I & O 02/24/19 07:00 Intake Total 1550 ml Output Total 1675 ml Balance -125 ml Capillary Refill : Less Than 3 Seconds General Appearance: No Apparent Distress, WD/WN, Chronically ill, Obese, Other (juandice) HEENT: PERRL/EOMI, Normal ENT Inspection, Pharynx Normal, Moist Mucous Membranes, Scleral Icterus (L), Scleral Icterus (R) Neck: Full Range of Motion, Normal Inspection, Non Tender Respiratory: Chest Non Tender, No Accessory Muscle Use, No Respiratory Distress Cardiovascular: Regular Rate, Rhythm, Normal Peripheral Pulses Gastrointestinal: non tender (incisions c/d/i no signs of infection), soft Extremity: Normal Capillary Refill, Normal Range of Motion, Non Tender, No Calf Tenderness, Pedal Edema, Swelling (b/l lower extremity) Neurologic/Psychiatric: Alert, Oriented x3, No Motor/Sensory Deficits, Normal Mood/Affect Skin: Normal Color, Warm/Dry, Other (blisters right and left foot and erythema not hot to touch) Lymphatic: No Adenopathy Results Lab Laboratory Tests 02/24/19 05:38: White Blood Count 13.2H, Red Blood Count 2.88L, Hemoglobin 9.0L, Hematocrit 28L , Mean Corpuscular Volume 97, Mean Corpuscular Hemoglobin 31, Mean Corpuscular Hemoglobin Concent 32, Red Cell Distribution Width 15.6H, Platelet Count 318, Mean Platelet Volume 10.3, Neutrophils (%) (Auto) 71, Lymphocytes (%) (Auto) 13 , Monocytes (%) (Auto) 12, Eosinophils (%) (Auto) 4, Basophils (%) (Auto) 1, Neutrophils # (Auto) 9.3H, Lymphocytes # (Auto) 1.7, Monocytes # (Auto) 1.5H, Eosinophils # (Auto) 0.6H, Basophils # (Auto) 0.1, Sodium Level 143, Potassium Level 3.3L, Chloride Level 112H, Carbon Dioxide Level 20L, Anion Gap 11, Blood Urea Nitrogen 12, Creatinine 0.64, Estimat Glomerular Filtration Rate > 60, BUN/ Creatinine Ratio 19, Glucose Level 91, Calcium Level 8.3L, Corrected Calcium 9.6 , Total Bilirubin 3.9H, Aspartate Amino Transf (AST/SGOT) 36H, Alanine Aminotransferase (ALT/SGPT) 37, Alkaline Phosphatase 247H, Total Protein 5.5L, Albumin 2.4L Microbiology 02/21/19 Blood Culture - Preliminary, Resulted No growth 02/21/19 Urine Culture - Final, Complete NO GROWTH Assessment/Plan Assessment/Plan Assessment/Plan recent biliary obstruction -s/p biliary stent and cholecystectomy multiple falls- negative head ct, neck nontender no further workup at this time adverse drug reaction (Bactrim)- b/l foot wounds and blisters, keep area clean and dry anemia- monitor pneumobilia secondary to stent blilary stent appears to be in place by KUB bilirubin elevated. continue to monitor labs Agree with antibiotics due to recent history of sepsis and biliary stent stent possible to be obstructed plan for ERCP at [place] today being transferred later. Patient wishing to return after procedure performed. Clinical Quality Measures DVT/VTE Risk/Contraindication: Risk Factor Score Per Nursin RFS Level Per Nursing on Admit: 4+=Very High ALISIA MEDRANO DO Feb 24, 2019 14:46
--- NOTE | 2019-02-24 18:51 | NUR ---
Patient back from ERCP procedure per EMS. VSS: BP-127/73, temp-97.0,rr-19, pulse 83. Patient expresses no c/o at this time. Will continue to monitor.
[2019-02-24 18:54] VITALS: BP 114/73
[2019-02-24 20:30] VITALS: BP 111/73
[2019-02-25 00:46] VITALS: BP 112/60
[2019-02-25] MEDS: metroNIDAZOLE 500MG/100ML IVPB 100 ML IV SCH ×3 (05:15→22:23)
[2019-02-25 08:00] VITALS: BP 116/77
[2019-02-25] MEDS: KCL 20 MEQ TAB (K-DUR) PO SCH (08:31)
[2019-02-25] MEDS: BACITRACIN OINTMENT 28 GM TUBE TOP SCH ×2 (08:31→20:20)
[2019-02-25] MEDS: LOSARTAN 25 MG (COZAAR) TAB PO SCH (08:31)
[2019-02-25] MEDS: ATENOLOL 50 MG (TENORMIN) TAB PO SCH (08:31)
[2019-02-25 09:05] LABS: HEMOGLOBIN 9.4 G/DL (11.5-16.0); MEAN PLATELET VOLUME 9.9 FL (7.4-10.4); RED CELL DISTRIBUTION WIDTH 15.8 % (10.0-14.5); WHITE BLOOD COUNT 10.6 10^3/uL (4.3-11.0)
[2019-02-25 09:22] LABS: BUN/CREATININE RATIO 17; CALCIUM 8.3 MG/DL (8.5-10.1); CARBON DIOXIDE 22 MMOL/L (21-32); CHLORIDE 108 MMOL/L (98-107); CREATININE SERUM 0.65 MG/DL (0.60-1.30); GFR ESTIMATED > 60; GLUCOSE 117 MG/DL (70-105); POTASSIUM 2.8 MMOL/L (3.6-5.0); SODIUM 143 MMOL/L (135-145)
[2019-02-25 09:26] LABS: MAGNESIUM 0.9 MG/DL (1.8-2.4)
--- NOTE | 2019-02-25 09:59 | Physical Therapy Progress Note ---
Therapy Progress Note Attempted PT visit, pt reports "I have already taken my walk." Reports she walked with the nurse tech. Reports she will walk again today and tomorrow. No treatment rendered this date. XIOMARA BARFIELD PT Feb 25, 2019 09:59
[2019-02-25] MEDS: POTASSIUM CL 10MEQ/50ML IVPB 50 ML IV SCH ×3 (10:07→12:29)
[2019-02-25] MEDS: MAGNESIUM 1 GM/100 ML IVPB 100 ML IV SCH ×4 (10:07→20:17)
--- NOTE | 2019-02-25 10:13 | Progress Note-Hospitalist ---
Subjective HPI/CC On Admission Date Seen by Provider: Feb 25, 2019 Time Seen by Provider: 09:50 Chief complaint: Fall with severe weakness HPI: This is a 69yoWF that was recently at [facility] due to biliary obstruction s/p cholecystectomy uneventfully by Dr. Zhou and stent place for biliary obstruction by Dr. Ferro who had been DC on Bactrim but then began feeling worse, had a fall, presented to the ER found to have elevated white count with elevated lactic acid and lower extremity rash with blister formation. The elevated lactic acid resolved with IV fluids and home medications were restarted. The presumed cellulitis does not appear to be cellulitis likely possibility of Venous Stasis Dermatitis versus Bactrim side effect. I did speak with Dr. Ferro who recommended placement of Rocephin and Flagyl since she is allergic to PCN and the first choice would have been Zosyn and to obtain KUB x-ray to check on biliary stent to see if it is dislodged and general surgery consultation who I spoke with Dr. Gray. Pt denies any abdominal pain Will initiate PT and OT Reviewed biliary obstruction liver enzyme elevation and Dr. Ferro thought that was unusual also Subjective/Events-last exam Patient is back from [place] where they found no evidence of obstruction of the common bile duct or hepatic duct. Consideration is that she may have primary sclerosing cholangitis or underlying cirrhosis from MICHEL per Dr. Ferro. Patient is concerned about her feet and wants to get better before she goes home. She is somewhat discouraged that she is going to need a liver biopsy. Other than that she is without complaint. Review of Systems Neurological: Weakness Objective Exam Vital Signs Vital Signs Date Time Temp Pulse Resp B/P (MAP) Pulse Ox O2 Delivery O2 Flow Rate FiO2 02/25/19 08:00 98.6 76 20 116/77 (90) 99 Room Air Capillary Refill : Less Than 3 Seconds General Appearance: No Apparent Distress, WD/WN, Chronically ill, Obese, Other (juandice) HEENT: PERRL/EOMI, Normal ENT Inspection, Pharynx Normal, Moist Mucous Membranes, Scleral Icterus (L), Scleral Icterus (R) Neck: Full Range of Motion, Normal Inspection, Non Tender Respiratory: Chest Non Tender, No Accessory Muscle Use, No Respiratory Distress Cardiovascular: Regular Rate, Rhythm, Normal Peripheral Pulses Gastrointestinal: Normal Bowel Sounds, No Organomegaly, No Pulsatile Mass, Non Tender (except post op pain), Soft Back: Normal Inspection, No CVA Tenderness, No Vertebral Tenderness Extremity: Normal Capillary Refill, Normal Range of Motion, Non Tender, No Calf Tenderness, Pedal Edema, Swelling (b/l lower extremity), Other Neurologic/Psychiatric: Alert, Oriented x3, No Motor/Sensory Deficits, Normal Mood/Affect Skin: Normal Color, Warm/Dry, Other (blisters right and left foot and erythema not hot to touch) Lymphatic: No Adenopathy Results/Procedures Lab Laboratory Tests 02/25/19 08:35 Patient resulted labs reviewed. Assessment/Plan Assessment and Plan Assess & Plan/Chief Complaint 1. Chronic venous stasis with blistering of lower extremities possibly secondary to sulfa reaction currently on Rocephin and metronidazole-Dr. Silva following closely 2. History of common bile duct stent placement removed yesterday by Dr. Ferro- on Rocephin and metronidazole 3. Elevated bilirubin of uncertain etiology liver biopsy next week 4. Hypomagnesemia will replace 5. Hypokalemia we'll replace 6. Anemia of uncertain etiology Clinical Quality Measures DVT/VTE Risk/Contraindication: Risk Factor Score Per Nursin RFS Level Per Nursing on Admit: 4+=Very High ADORE BARR MD Feb 25, 2019 10:13
[2019-02-25] MEDS: cefTRIAXone 1,000 MG/SWFI 10 ML IV PUSH IV SCH ×2 (12:33)
--- NOTE | 2019-02-25 14:10 | Progress Note ---
Subjective Date Seen by a Provider: Feb 25, 2019 Time Seen by a Provider: 08:10 Subjective/Events-last exam Patient doing okay today. No new complaints. Tolerating diet. Denies n/v fever sweats chills shortness of breath or chest pain. Patient ERCP yesterday reported no CBD obstruction. Possibility of MICHEL or Primary sclerosing cholangitis. Patient wbc down. Feet feeling better, less edema. Objective Exam Vital Signs Date Time Temp Pulse Resp B/P (MAP) Pulse Ox O2 Delivery O2 Flow Rate FiO2 02/25/19 08:00 98.6 76 20 116/77 (90) 99 Room Air 02/25/19 08:00 Room Air 02/25/19 00:46 99.0 71 18 112/60 (77) 95 Room Air 02/24/19 20:30 98.4 79 18 111/73 (86) 97 Room Air 02/24/19 20:00 Room Air 02/24/19 18:54 98.0 88 20 114/73 (87) 98 Room Air I & O 02/25/19 07:00 Intake Total 660 ml Output Total 725 ml Balance -65 ml Capillary Refill : Less Than 3 Seconds General Appearance: No Apparent Distress, WD/WN, Chronically ill, Obese, Other (juandice) HEENT: PERRL/EOMI, Normal ENT Inspection, Pharynx Normal, Moist Mucous Membranes, Scleral Icterus (L), Scleral Icterus (R) Neck: Full Range of Motion, Normal Inspection, Non Tender Respiratory: Chest Non Tender, No Accessory Muscle Use, No Respiratory Distress Cardiovascular: Regular Rate, Rhythm, Normal Peripheral Pulses Gastrointestinal: non tender (incisions c/d/i no signs of infection), soft Extremity: Normal Capillary Refill, Normal Range of Motion, Non Tender, No Calf Tenderness, Pedal Edema, Swelling (b/l lower extremity), Other Neurologic/Psychiatric: Alert, Oriented x3, No Motor/Sensory Deficits, Normal Mood/Affect Skin: Normal Color, Warm/Dry, Other (blisters right and left foot and erythema not hot to touch) Lymphatic: No Adenopathy Results Lab Laboratory Tests 02/25/19 08:35: White Blood Count 10.6, Red Blood Count 3.00L, Hemoglobin 9.4L, Hematocrit 29L, Mean Corpuscular Volume 98, Mean Corpuscular Hemoglobin 31, Mean Corpuscular Hemoglobin Concent 32, Red Cell Distribution Width 15.8H, Platelet Count 345, Mean Platelet Volume 9.9, Sodium Level 143, Potassium Level 2.8L, Chloride Level 108H, Carbon Dioxide Level 22, Anion Gap 13, Blood Urea Nitrogen 11, Creatinine 0.65, Estimat Glomerular Filtration Rate > 60, BUN/Creatinine Ratio 17, Glucose Level 117H, Calcium Level 8.3L, Magnesium Level 0.9*L Microbiology 02/21/19 Blood Culture - Preliminary, Resulted No growth 02/21/19 Urine Culture - Final, Complete NO GROWTH Assessment/Plan Assessment/Plan Assessment/Plan recent biliary obstruction -s/p biliary stent and cholecystectomy multiple falls- negative head ct, neck nontender no further workup at this time adverse drug reaction (Bactrim)- b/l foot wounds and blisters, keep area clean and dry anemia- monitor pneumobilia secondary to stent bilirubin elevated monitor continue to monitor labs Agree with antibiotics due to recent history of sepsis and biliary stent stent not obstructed ERCP at [place] done. Possibility of MICHEL or Primary sclerosing cholangitis, possible liver bx this week. Clinical Quality Measures DVT/VTE Risk/Contraindication: Risk Factor Score Per Nursin RFS Level Per Nursing on Admit: 4+=Very High ALISIA MEDRANO DO Feb 25, 2019 14:10
[2019-02-25 16:00] VITALS: BP 103/67
[2019-02-26 00:20] VITALS: BP 115/74
[2019-02-26] MEDS: metroNIDAZOLE 500MG/100ML IVPB 100 ML IV SCH ×3 (05:19→21:01)
[2019-02-26 06:34] LABS: HEMOGLOBIN 8.9 G/DL (11.5-16.0); RED CELL DISTRIBUTION WIDTH 15.2 % (10.0-14.5); WHITE BLOOD COUNT 10.3 10^3/uL (4.3-11.0)
[2019-02-26 06:54] LABS: BUN/CREATININE RATIO 14; CALCIUM 8.2 MG/DL (8.5-10.1); CARBON DIOXIDE 22 MMOL/L (21-32); CHLORIDE 110 MMOL/L (98-107); CREATININE SERUM 0.65 MG/DL (0.60-1.30); GFR ESTIMATED > 60; GLUCOSE 104 MG/DL (70-105); MAGNESIUM 1.6 MG/DL (1.8-2.4); POTASSIUM 3.2 MMOL/L (3.6-5.0); SODIUM 140 MMOL/L (135-145)
[2019-02-26] MEDS: ATENOLOL 50 MG (TENORMIN) TAB PO SCH (07:35)
[2019-02-26] MEDS: LOSARTAN 25 MG (COZAAR) TAB PO SCH (07:35)
[2019-02-26] MEDS: KCL 20 MEQ TAB (K-DUR) PO SCH (07:35)
[2019-02-26] MEDS: BACITRACIN OINTMENT 28 GM TUBE TOP SCH ×2 (07:35→21:01)
[2019-02-26 08:00] VITALS: BP 120/67
--- NOTE | 2019-02-26 11:40 | Progress Note-Hospitalist ---
Subjective HPI/CC On Admission Date Seen by Provider: Feb 26, 2019 Time Seen by Provider: 11:00 Chief complaint: Fall with severe weakness HPI: This is a 69yoWF that was recently at [facility] due to biliary obstruction s/p cholecystectomy uneventfully by Dr. Zhou and stent place for biliary obstruction by Dr. Ferro who had been DC on Bactrim but then began feeling worse, had a fall, presented to the ER found to have elevated white count with elevated lactic acid and lower extremity rash with blister formation. The elevated lactic acid resolved with IV fluids and home medications were restarted. The presumed cellulitis does not appear to be cellulitis likely possibility of Venous Stasis Dermatitis versus Bactrim side effect. I did speak with Dr. Ferro who recommended placement of Rocephin and Flagyl since she is allergic to PCN and the first choice would have been Zosyn and to obtain KUB x-ray to check on biliary stent to see if it is dislodged and general surgery consultation who I spoke with Dr. Gray. Pt denies any abdominal pain Will initiate PT and OT Reviewed biliary obstruction liver enzyme elevation and Dr. Ferro thought that was unusual also Subjective/Events-last exam Patient has no complaints this morning. She has decided to have liver biopsy by Dr. 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 Review of Systems Musculoskeletal: foot pain Objective Exam Vital Signs Vital Signs Date Time Temp Pulse Resp B/P (MAP) Pulse Ox O2 Delivery O2 Flow Rate FiO2 02/26/19 08:00 98.3 71 18 120/67 (84) 97 Room Air Capillary Refill : Less Than 3 Seconds General Appearance: No Apparent Distress, WD/WN, Chronically ill, Obese, Other (juandice) HEENT: PERRL/EOMI, Normal ENT Inspection, Pharynx Normal, Moist Mucous Membranes, Scleral Icterus (L), Scleral Icterus (R) Neck: Full Range of Motion, Normal Inspection, Non Tender Respiratory: Chest Non Tender, No Accessory Muscle Use, No Respiratory Distress Cardiovascular: Regular Rate, Rhythm, Normal Peripheral Pulses Gastrointestinal: Normal Bowel Sounds, No Organomegaly, No Pulsatile Mass, Non Tender (except post op pain), Soft Back: Normal Inspection, No CVA Tenderness, No Vertebral Tenderness Extremity: Normal Capillary Refill, Normal Range of Motion, Non Tender, No Calf Tenderness, Pedal Edema, Swelling (b/l lower extremity), Other Neurologic/Psychiatric: Alert, Oriented x3, No Motor/Sensory Deficits, Normal Mood/Affect Skin: Normal Color, Warm/Dry, Other (blisters right and left foot and erythema not hot to touch) Lymphatic: No Adenopathy Results/Procedures Lab Laboratory Tests 02/26/19 05:50 Patient resulted labs reviewed. Assessment/Plan Assessment and Plan Assess & Plan/Chief Complaint 1. Chronic venous stasis with blistering of lower extremities possibly secondary to sulfa reaction currently on Rocephin and metronidazole-Dr. Silva following closely 2. History of common bile duct stent placement removed yesterday by Dr. Ferro- on Rocephin and metronidazole 3. Elevated bilirubin of uncertain etiology liver biopsy -tomorrow 4. Hypomagnesemia will replace 5. Hypokalemia we'll replace 6. Anemia of uncertain etiology Clinical Quality Measures DVT/VTE Risk/Contraindication: Risk Factor Score Per Nursin RFS Level Per Nursing on Admit: 4+=Very High ADORE BARR MD Feb 26, 2019 11:40
[2019-02-26] MEDS ORDERED: MAGNESIUM 1 GM/100 ML IVPB 100 ML IV ONE (11:45)
[2019-02-26] MEDS: cefTRIAXone 1,000 MG/SWFI 10 ML IV PUSH IV SCH ×2 (12:34)
[2019-02-26 16:00] VITALS: BP 110/69
--- NOTE | 2019-02-26 20:23 | Progress Note ---
Subjective Date Seen by a Provider: Feb 26, 2019 Time Seen by a Provider: 14:00 Subjective/Events-last exam Patient feeling better. Her jaundice she can tell is going away. Tolerating diet. Feet feel better and improving. Denies n/v fever sweats chills shortness of breath or chest pain. Objective Exam Vital Signs Date Time Temp Pulse Resp B/P (MAP) Pulse Ox O2 Delivery O2 Flow Rate FiO2 02/26/19 16:00 97.0 70 20 110/69 (83) 99 Room Air 02/26/19 08:00 98.3 71 18 120/67 (84) 97 Room Air 02/26/19 08:00 Room Air 02/26/19 00:20 99.6 73 22 115/74 (88) 98 Room Air I & O 02/26/19 07:00 Intake Total 1540 ml Balance 1540 ml Capillary Refill : Less Than 3 Seconds General Appearance: No Apparent Distress, WD/WN, Chronically ill, Obese, Other (juandice) HEENT: PERRL/EOMI, Normal ENT Inspection, Pharynx Normal, Moist Mucous Membranes, Scleral Icterus (L), Scleral Icterus (R) Neck: Full Range of Motion, Normal Inspection, Non Tender Respiratory: Chest Non Tender, No Accessory Muscle Use, No Respiratory Distress Cardiovascular: Regular Rate, Rhythm, Normal Peripheral Pulses Gastrointestinal: non tender (incisions c/d/i no signs of infection), soft Extremity: Normal Capillary Refill, Normal Range of Motion, Non Tender, No Calf Tenderness, Pedal Edema, Swelling (b/l lower extremity improving) Neurologic/Psychiatric: Alert, Oriented x3, No Motor/Sensory Deficits, Normal Mood/Affect Skin: Normal Color, Warm/Dry, Other (blisters right and left foot and erythema not hot to touch) Lymphatic: No Adenopathy Results Lab Laboratory Tests 02/26/19 05:50: White Blood Count 10.3, Red Blood Count 2.83L, Hemoglobin 8.9L, Hematocrit 28L, Mean Corpuscular Volume 98, Mean Corpuscular Hemoglobin 31, Mean Corpuscular Hemoglobin Concent 32, Red Cell Distribution Width 15.2H, Platelet Count 316, Mean Platelet Volume 10.0, Sodium Level 140, Potassium Level 3.2L, Chloride Level 110H, Carbon Dioxide Level 22, Anion Gap 8, Blood Urea Nitrogen 9, Creatinine 0.65, Estimat Glomerular Filtration Rate > 60, BUN/Creatinine Ratio 14, Glucose Level 104, Calcium Level 8.2L, Magnesium Level 1.6L Microbiology 02/21/19 Blood Culture - Final, Complete No growth 02/21/19 Urine Culture - Final, Complete NO GROWTH Assessment/Plan Assessment/Plan Assessment/Plan recent biliary obstruction -s/p biliary stent and cholecystectomy multiple falls- negative head ct, neck nontender no further workup at this time adverse drug reaction (Bactrim)- b/l foot wounds and blisters, keep area clean and dry anemia- monitor pneumobilia secondary to stent bilirubin elevated monitor continue to monitor labs Agree with antibiotics due to recent history of sepsis and biliary stent stent not obstructed ERCP at [place] done. Possibility of MICHEL or Primary sclerosing cholangitis, possible liver bx this week. In patient rehab consulted. Labs in am Clinical Quality Measures DVT/VTE Risk/Contraindication: Risk Factor Score Per Nursin RFS Level Per Nursing on Admit: 4+=Very High ALISIA MEDRANO DO Feb 26, 2019 20:23
[2019-02-27 00:17] VITALS: BP 126/70
[2019-02-27] MEDS: metroNIDAZOLE 500MG/100ML IVPB 100 ML IV SCH ×2 (06:28→15:06)
[2019-02-27 06:34] LABS: HEMOGLOBIN 8.5 G/DL (11.5-16.0); MEAN PLATELET VOLUME 9.6 FL (7.4-10.4); RED CELL DISTRIBUTION WIDTH 15.6 % (10.0-14.5); WHITE BLOOD COUNT 9.1 10^3/uL (4.3-11.0)
[2019-02-27 07:04] LABS: ALANINE AMINOTRANSFERASE 24 U/L (0-55); ALBUMIN 2.2 GM/DL (3.2-4.5); ALKALINE PHOSPHATASE 202 U/L (40-136); BILIRUBIN,TOTAL 2.8 MG/DL (0.1-1.0); BUN/CREATININE RATIO 15; CALCIUM 8.2 MG/DL (8.5-10.1); CARBON DIOXIDE 21 MMOL/L (21-32); CHLORIDE 111 MMOL/L (98-107); CREATININE SERUM 0.59 MG/DL (0.60-1.30); GFR ESTIMATED > 60; GLUCOSE 86 MG/DL (70-105); MAGNESIUM 1.4 MG/DL (1.8-2.4); POTASSIUM 3.3 MMOL/L (3.6-5.0); SODIUM 141 MMOL/L (135-145); TOTAL PROTEIN 5.1 GM/DL (6.4-8.2)
[2019-02-27 08:00] VITALS: BP 125/61
[2019-02-27] MEDS: ATENOLOL 50 MG (TENORMIN) TAB PO SCH (08:42)
[2019-02-27] MEDS: LOSARTAN 25 MG (COZAAR) TAB PO SCH (08:42)
[2019-02-27] MEDS: KCL 20 MEQ TAB (K-DUR) PO SCH (08:42)
--- NOTE | 2019-02-27 09:28 | Physical Therapy Progress Note ---
Therapy Progress Note [id number] Pt and nsg states pt just went for a long walk in the hallways and is doing very well. States she feels very steady on her feet without LOB. Discussed importance of keeping mobile and performing LE exercises. Pt states she has been continually doing the exercises taught to her by PT the other day, both in bed and in the recliner. Pt declines PT session today. No treatment ANTONI FAIRCHILD [employer] MANAGER Feb 27, 2019 09:28
--- NOTE | 2019-02-27 10:49 | Progress Note-Hospitalist ---
Progress Note Progress Notes/Assess & Plan Date Seen 02/27/19 Time Seen by Provider: 10:45 Assessment & Plan The patient is a 69-year-old white female. She had an illness which reached a head on 02/06 with obstruction of her biliary tree. She was transferred to [facility] and had a cholecystectomy and stenting of her biliary tree. She returned to the emergency room on 02/21 with continued nausea post biliary stenting plus irritation of her feet and legs suggesting the possibility of cellulitis versus venous stasis dermatitis. Her bilirubin had been 26.3 on 02/06. At admission it was 6.1. It is now 2.8. She reports the no nausea or discomfort at this time. Physical exam: She is quite garrulous. Lungs are clear to auscultation. CV is regular without murmur. Abdomen is soft. Extremities show open areas on the dorsum of each foot. She is to see Dr. Silva today. Impression: Continued improvement with obstructive biliary tree dysfunction. 2.dermatitis versus cellulitis lower extremities. Plan: Discharge if acceptable to Dr. Silva's plan. See discharge sequence for medications and routines. ESTRELLITA FOOTE MD Feb 27, 2019 10:49
[2019-02-27] MEDS ORDERED: CEFD300C3 PO (10:54)
--- NOTE | 2019-02-27 11:04 | Discharge Inst-Simple/Standard ---
Discharge Inst-Standard Discharge Medications New, Converted or Re-Newed RX: RX on Chart Patient Instructions/Follow Up Plan of Care/Instructions/FU: Regular diet. Finish Omnicef. Follow-up with wound care as scheduled. Arrangements have been made for you to see Dr. VOGEL Tuesday 03/06 at 130 p.m. Call her office at [phone] prior to appointment for PRE registration Activity as Tolerated: Yes Goal: Returned to normal for biliary function Discharge Diet: No Restrictions Return to The Hospital For: Fever or increase in jaundice ESTRELLITA FOOTE MD Feb 27, 2019 11:02
[2019-02-27] MEDS: BACITRACIN OINTMENT 28 GM TUBE TOP SCH (11:45)
--- NOTE | 2019-02-27 12:39 | Wound Care Assessment ---
Wound Care Assessment Date Seen by Provider: Feb 27, 2019 Time Seen by Provider: 11:30 Chief Complaint Bilateral foot ulcers. HPI The patient is a 69 year old female with complicated recent surgical history, having suffered massive lymphedema of BLE. She developed blisters of the dorsum of her feet. These became secondarily infected and she has developed a cellulitis of both calves in response. She is currently on broad spectrum IV antibiotics for her biliary issues, the lymphedema is resolving with elevation and we will begin dressings with Bacitracin. Will follow. 02/27/19 -- Interval note: Much improved with Less pain. Wanting to go home. Wounds are clean and stable for discharge. Instructed to continue to elevate. Biliary obstruction. Smoking Status: Never a Smoker Recreational Drug Use: No Alcohol Use: Denies Use Review of Systems General: No Chills Pulmonary: No Dyspnea Cardiovascular: No: Chest Pain Exam Vital Signs Date Time Temp Pulse Resp B/P (MAP) Pulse Ox O2 Delivery O2 Flow Rate FiO2 02/27/19 08:00 97.2 71 18 125/61 (82) 95 Room Air Capillary Refill : Less Than 3 Seconds General Appearance: no apparent distress Neck: normal inspection Respiratory: no respiratory distress Skin: other (Bilateral ulcers, dorsum of feet.) Results Laboratory Tests 02/27/19 06:00: White Blood Count 9.1, Red Blood Count 2.71L, Hemoglobin 8.5L, Hematocrit 27L, Mean Corpuscular Volume 99, Mean Corpuscular Hemoglobin 31, Mean Corpuscular Hemoglobin Concent 32, Red Cell Distribution Width 15.6H, Platelet Count 315, Mean Platelet Volume 9.6, Sodium Level 141, Potassium Level 3.3L, Chloride Level 111H, Carbon Dioxide Level 21, Anion Gap 9, Blood Urea Nitrogen 9, Creatinine 0.59L, Estimat Glomerular Filtration Rate > 60, BUN/Creatinine Ratio 15, Glucose Level 86, Calcium Level 8.2L, Corrected Calcium 9.6, Magnesium Level 1.4L, Total Bilirubin 2.8H, Aspartate Amino Transf (AST/SGOT) 27, Alanine Aminotransferase (ALT/SGPT) 24, Alkaline Phosphatase 202H, Total Protein 5.1L, Albumin 2.2L Microbiology 02/21/19 Blood Culture - Final, Complete No growth 02/21/19 Urine Culture - Final, Complete NO GROWTH Assessment/Plan/Dx 1. Bilateral foot ulcers, dorsum, partial thickness. 2. Bilateral calf cellulitis, due to infected foot ulcers, resolving. 3. Lymphedema. PLan: May be discharged with topical Bacitracin ointment dressings and early Wound Care follow-up. MARTHA QUILES MD Feb 27, 2019 12:39
[2019-02-27] MEDS: cefTRIAXone 1,000 MG/SWFI 10 ML IV PUSH IV SCH ×2 (13:04)
--- NOTE | 2019-02-27 13:51 | Occupational Ther Daily Note ---
OT Current Status-Daily Note Subjective pt agreed to OT TX session with focus on increasing independence with ADLS Pain Numeric Pain Scale: 0-No Pain Appearance post OT session pt sitting in recliner chair, in no stress. Devaughn LE elevated. all needs met Mental Status/Objective Therapy Code Descriptions/Definitions Functional [place] Measure: 0=Not Assessed/NA 4=Minimal Assistance 1=Total Assistance 5=Supervision or Setup 2=Maximal Assistance 6=Modified [place] 3=Moderate Assistance 7=Complete [place] ADL-Treatment Grooming (FIM): 6 (standing with RW) Bathing (FIM): 0 (pt REF to complete bathing task this date secodnary to bathing [facility] nursing) Toileting (FIM): 6 (pt demo ability to perform 3/3 toileting task MOD I secodanry to use of BSC and RW for balance. ) Transfers (B, C, W/C) (FIM): 6 (RW) Toilet/Commode Transfer (FIM): 6 (rw) pt demo ability to perform ADLs with use of RW to maintain balance. pt stated she feels comfortable completing ADLS task and stated no concerns. handout provided for ADL AE such as belt puncher, sock aid, and dressing stick. Education OT Patient Education: Energy conservation, Exercise program, Modified ADL techniques, Progress toward Goal/Update tx plan, Purpose of tx/functional activities, Reviewed precautions, Use of adapted equipment Teaching Recipient: Patient Teaching Methods: Demonstration, Discussion Response to Teaching: Verbalize Understanding, Return Demonstration OT Short Term Goals Short Term Goals Grooming(FIM): 5 Bathing(FIM): 5 Lower Body Dressing(FIM): 5 Toileting(FIM): 5 Transfers (B,C,W/C) (FIM): 5 Toilet/Commode Transfer(FIM): 5 1=Demonstrate adherence to instructed precautions during ADL tasks. 2=Patient will verbalize/demonstrate understanding of assistive devices/ modifications for ADL. 3=Patient will improve strength/tolerance for activity to enable patient to perform ADL's. OT Penitentiary Goals Penitentiary Goals Grooming(FIM): 7 Bathing(FIM): 6 Lower Body Dressing(FIM): 6 Toileting(FIM): 6 Transfers (B,C,W/C) (FIM): 6 Toilet/Commode Transfer(FIM): 6 1=Demonstrate adherence to instructed precautions during ADL tasks. 2=Patient will verbalize/demonstrate understanding of assistive devices/ modifications for ADL. 3=Patient will improve strength/tolerance for activity to enable patient to perform ADL's. OT Education/Plan Problem List/Assessment Assessment: Impaired I ADL's, Impaired Self-Care Skills pt continues to presents with functional limitations affecting areas of ADLS/ functional transfers. pt would benefit from continued OT services to increase independence with ADLS/ functional transfers Discharge Recommendations Plan/Recommendations: Continue POC Equpiment Recommendations-D/C: Tree Sapper, Sock Aide, Dressing Stick Treatment Plan/Plan of Care Patient would benefit from OT for education, treatment and training to promote independence in ADL's, mobility, safety and/or upper extremity function for ADL' s. Plan of Care: ADL Retraining, Functional Mobility, UE Funct Exercise/Act Treatment Duration: Mar 01, 2019 Frequency: 5 times per week Estimated Hrs Per Day: .5 hour per day Agreement: Yes Rehab Potential: Good Time/GCodes Start Time: 13:15 Stop Time: 13:40 Billed Treatment Time ADL 25 minutes, 2 units HAILY GARDNER OT Feb 27, 2019 13:51
--- NOTE | 2019-02-27 13:55 | NUR ---
Important Message from Medicare presented/reviewed/signed and placed in patient chart. Patient voiced no intention to appeal and deny any needs or further questions at this time.
[2019-02-27 16:00] VITALS: BP 135/73
--- NOTE | 2019-02-27 20:36 | Progress Note ---
Subjective Date Seen by a Provider: Feb 27, 2019 Time Seen by a Provider: 13:18 Subjective/Events-last exam Patient doing okay. No new complaints. Planning on going home today. Feet feel better. No abdominal pain. Tolerating diet. Denies n/v fever sweats chills shortness of breath or chest pain. Objective Exam Vital Signs Date Time Temp Pulse Resp B/P (MAP) Pulse Ox O2 Delivery O2 Flow Rate FiO2 02/27/19 18:29 02/27/19 16:00 99.0 69 20 135/73 (93) 100 Room Air 02/27/19 08:00 97.2 71 18 125/61 (82) 95 Room Air 02/27/19 08:00 Room Air 02/27/19 00:17 98.0 75 20 126/70 (88) 98 Room Air I & O 02/27/19 07:00 Intake Total 2070 ml Balance 2070 ml Capillary Refill : Less Than 3 Seconds General Appearance: No Apparent Distress, WD/WN, Chronically ill, Obese, Other (juandice) HEENT: PERRL/EOMI, Normal ENT Inspection, Pharynx Normal, Moist Mucous Membranes, Scleral Icterus (L), Scleral Icterus (R) Neck: Full Range of Motion, Normal Inspection, Non Tender Respiratory: Chest Non Tender, No Accessory Muscle Use, No Respiratory Distress Cardiovascular: Regular Rate, Rhythm, Normal Peripheral Pulses Gastrointestinal: non tender (incisions c/d/i no signs of infection), soft Extremity: Normal Capillary Refill, Normal Range of Motion, Non Tender, No Calf Tenderness, Pedal Edema, Swelling (b/l lower extremity improving) Neurologic/Psychiatric: Alert, Oriented x3, No Motor/Sensory Deficits, Normal Mood/Affect Skin: Normal Color, Warm/Dry, Other (blisters right and left foot and erythema not hot to touch) Lymphatic: No Adenopathy Results Lab Laboratory Tests 02/27/19 06:00: White Blood Count 9.1, Red Blood Count 2.71L, Hemoglobin 8.5L, Hematocrit 27L, Mean Corpuscular Volume 99, Mean Corpuscular Hemoglobin 31, Mean Corpuscular Hemoglobin Concent 32, Red Cell Distribution Width 15.6H, Platelet Count 315, Mean Platelet Volume 9.6, Sodium Level 141, Potassium Level 3.3L, Chloride Level 111H, Carbon Dioxide Level 21, Anion Gap 9, Blood Urea Nitrogen 9, Creatinine 0.59L, Estimat Glomerular Filtration Rate > 60, BUN/Creatinine Ratio 15, Glucose Level 86, Calcium Level 8.2L, Corrected Calcium 9.6, Magnesium Level 1.4L, Total Bilirubin 2.8H, Aspartate Amino Transf (AST/SGOT) 27, Alanine Aminotransferase (ALT/SGPT) 24, Alkaline Phosphatase 202H, Total Protein 5.1L, Albumin 2.2L Microbiology 02/21/19 Blood Culture - Final, Complete No growth 02/21/19 Urine Culture - Final, Complete NO GROWTH Assessment/Plan Assessment/Plan Assessment/Plan recent biliary obstruction -s/p biliary stent and cholecystectomy multiple falls- negative head ct, neck nontender no further workup at this time adverse drug reaction (Bactrim)- b/l foot wounds and blisters, keep area clean and dry anemia- monitor pneumobilia secondary to stent bilirubin level improving continue to monitor labs Agree with antibiotics due to recent history of sepsis and biliary stent stent not obstructed ERCP at [place] done. Possibility of MICHEL or Primary sclerosing cholangitis, possible liver bx this week can be done outpatient f/u outpatient since being discharged Clinical Quality Measures DVT/VTE Risk/Contraindication: Risk Factor Score Per Nursin RFS Level Per Nursing on Admit: 4+=Very High ALISIA MEDRANO DO Feb 27, 2019 20:36
--- NOTE | 2019-03-01 14:10 | Physician Query Clarification ---
PQ-Further Specificity Admission/Discharge Admission Date: Feb 21, 2019 at 15:16 Discharge Date: Feb 27, 2019 at 17:20 The medical record reflects the following clinical scenario: History/Risk Factors: Jaundice Biliary obstruction-status post stent placement Clinical Findings: Admitting bilirubin 6.1, AST 57, ALT 62, jaundice. ERCP - no evidence of CBD or hepatic duct obstruction Treatment:Monitoring bilirubin and elevated LFTs, CBD stent removed during ERCP Question: Can you further specify whether or not patient presented with common bile obstruction and resolved prior to ERCP per the clinical indicators above? Please document below. 1. Common bile duct obstruction on admission that resolved prior to ERCP 2. No CBD or hepatic duct obstruction; common bile duct obstruction ruled out for this admission 3. Other, with explanation of the clinical findings. 4. Clinically undetermined, no explanation for the clinical findings. PHYSICIAN RESPONSE Can you specify per above: 2 In responding to this query, please exercise your independent professional judgment. The purpose of this communication is to more accurately reflect the complexity of your patients condition. The fact that a question is asked does not imply that any particular answer is desired or expected. Thank you for your timely response to this clarification. Requestors name: Alona THIS PHYSICIAN QUERY FORM IS A PERMANENT PART OF THE MEDICAL RECORD ALONA SNYDER Mar 01, 2019 14:09 JOEL LANGSTON DO Mar 01, 2019 17:29
--- NOTE | 2019-03-01 14:26 | Physician Query Clarification ---
PQ-Conflicting Diagnosis Admission/Discharge Admission Date: Feb 21, 2019 at 15:16 Discharge Date: Feb 27, 2019 at 17:20 The medical record reflects the following clinical scenario: History/Risk Factors: blistering [place] lower extremity,lymphedema, CBD obstruction Clinical Findings: open wounds, blisters and erythema from feet to mid tibia bilateral lower extremity, WBC 13.9, Lactic acid 2.30, AST 57, ALT 62, Bili 6.1 Treatment: IV Rocephin Question: Do you agree with the impression of the 1. Bilateral foot ulcers, dorsum, partial thickness.2. Bilateral calf cellulitis, due to infected foot ulcers, resolving. per Dr. Silva. Please document a response below. PHYSICIAN RESPONSE Do you agree w/Consulting Dx?: Yes In responding to this query, please exercise your independent professional judgment. The purpose of this communication is to more accurately reflect the complexity of your patients condition. The fact that a question is asked does not imply that any particular answer is desired or expected. Thank you for your timely response to this clarification. Requestors name: Alona THIS PHYSICIAN QUERY FORM IS A PERMANENT PART OF THE MEDICAL RECORD ALONA SNYDER Mar 01, 2019 14:26 JOEL LANGSTON DO Mar 01, 2019 17:30
== END 2019-02-27 17:20 | disposition home or self-care (01) | DRG 603 ==
LOC: EDUNIT# 11:24 → ER 11:25 → 4TH 15:16
PROVIDERS: ADMIT Internal Medicine; ATTEND Internal Medicine
DX: L03.115 Cellulitis of right lower limb (principal); L03.116 Cellulitis of left lower limb; L97.529 Non-pressure chronic ulcer of other part of left foot with unspecified severity; L97.519 Non-pressure chronic ulcer of other part of right foot with unspecified severity; I89.0 Lymphedema, not elsewhere classified; K91.89 Other postprocedural complications and disorders of digestive system; K83.01 Primary sclerosing cholangitis; K74.60 Unspecified cirrhosis of liver; S80.821A Blister (nonthermal), right lower leg, initial encounter; S80.822A Blister (nonthermal), left lower leg, initial encounter; S90.821A Blister (nonthermal), right foot, initial encounter; I10 Essential (primary) hypertension; E87.6 Hypokalemia; D64.9 Anemia, unspecified; R74.0 Nonspecific elevation of levels of transaminase and lactic acid dehydrogenase [LDH]; I48.91 Unspecified atrial fibrillation; F32.9 Major depressive disorder, single episode, unspecified; E66.9 Obesity, unspecified; D72.823 Leukemoid reaction; R53.1 Weakness; R29.6 Repeated falls; Z68.32 Body mass index [BMI] 32.0-32.9, adult; Z98.890 Other specified postprocedural states; T37.0X5A Adverse effect of sulfonamides, initial encounter
CPT/HCPCS: 36415; 51702; 70450; 71045; 73562; 74018; 80048; 80053; 81000; 83605; 83735; 85025; 85027; 85610; 85730; 87040; 87088; 96361; 96374

== ENCOUNTER → 2019-03-01 | Outpatient (CLI) | payer MEDICARE ==
[~2019-03-01] MED LIST changes: +ASPI325T32 PO; +ATEN50TA PO; +CEFD300C3 PO; -HOLD METFORMIN - RECEIVED CONTRAST 20 ML VIAL IV SCH; +HYDR25TA4 PO; -IOHEXOL 350 MG/ML 100 ML (OMNIPAQUE 350) VIAL IV ONE; +L GA1CAP2 PO; +LOSA25TA41 PO; +LOVA40TA2 PO; +OMG1KC PO; +POTA20TA8 PO
== END ==
LOC: WOUNDCARE 09:24
PROVIDERS: ATTEND Surgery
DX: L97.411 Non-pressure chronic ulcer of right heel and midfoot limited to breakdown of skin (principal); L97.421 Non-pressure chronic ulcer of left heel and midfoot limited to breakdown of skin; I89.0 Lymphedema, not elsewhere classified
CPT/HCPCS: 99214

== ENCOUNTER → 2019-03-08 | Outpatient (CLI) | payer MEDICARE | LOC: WOUNDCARE 09:11 | PROVIDERS: ATTEND Surgery | DX: L97.412 Non-pressure chronic ulcer of right heel and midfoot with fat layer exposed (principal); L97.422 Non-pressure chronic ulcer of left heel and midfoot with fat layer exposed; I89.0 Lymphedema, not elsewhere classified | CPT/HCPCS: 99213 ==

== ENCOUNTER 2019-03-13 10:07 | Day surgery (SDC) | payer MEDICARE ==
[~2019-03-13] VITALS: Ht 172.7 cm; Wt 96.2 kg
[2019-03-13] MEDS ORDERED: LIDOCAINE 1% INJ 20 ML 20 ML VIAL INJ ONE (11:15)
[2019-03-13 11:31] LABS: INR 1.1 (0.8-1.4); PROTHROMBIN TIME PATIENT 14.4 SEC (12.2-14.7)
[2019-03-13 12:16] VITALS: BP 144/90
[2019-03-13 12:30] VITALS: BP 121/62
[2019-03-13 12:45] VITALS: BP 114/75
[2019-03-13] MEDS ORDERED: HYDROcodone/APAP 5 MG/325 MG (LORTAB) TAB PO PRN (12:45)
[2019-03-13 13:00] VITALS: BP 118/70
--- OUTSIDE RECORDS SUMMARY | 2019-03-13 13:05 | XMS REPORT | Continuity of Care Document ---
Author Organization Unknown Address Unknown Allergies Active Description Code Type Severity Reaction Onset Reported/Identified Relationship to Patient Clinical Status Yes Penicillins Drug Allergy N/A N/A 07/03/2013 Yes No Allergy Information Available [id number] Drug Allergy Unknown N/A 2018 Yes PENICILLIN PENICILLIN Unknown N/A 02/06/2019 Yes sulfamethoxazole [id number] Drug Allergy Unknown N/A 02/06/2019 Yes trimethoprim [id number] Drug Allergy Unknown N/A 02/06/2019 Medications There is no data. Problems Date Dx Coded Attending Type Code Diagnosis Diagnosed By 07/03/2013 682.2 CELLULITIS AND ABSCESS OF TRUNK 07/03/2013 682.2 CELLULITIS AND ABSCESS OF TRUNK 07/03/2013 682.2 CELLULITIS AND ABSCESS OF TRUNK 07/03/2013 682.2 CELLULITIS AND ABSCESS OF TRUNK 07/03/2013 682.2 CELLULITIS AND ABSCESS OF TRUNK 07/03/2013 682.2 CELLULITIS AND ABSCESS OF TRUNK 07/03/2013 682.2 CELLULITIS AND ABSCESS OF TRUNK 07/03/2013 SAVANNA JOHNSON APRN 682.2 CELLULITIS AND ABSCESS OF TRUNK 07/03/2013 SAVANNA JOHNSON APRN 682.2 CELLULITIS AND ABSCESS OF TRUNK 07/03/2013 SAVANNA JOHNSON APRN 682.2 CELLULITIS AND ABSCESS OF TRUNK 07/03/2013 MEGA FIERRO APRN 682.2 CELLULITIS AND ABSCESS OF TRUNK 07/03/2013 SAVANNA JOHNSON APRN 682.2 CELLULITIS AND ABSCESS OF TRUNK 07/07/2013 V58.31 WOUND DRESSING 07/07/2013 V58.31 WOUND DRESSING 07/07/2013 V58.31 WOUND DRESSING 07/07/2013 V58.31 WOUND DRESSING 07/07/2013 V58.31 WOUND DRESSING 07/07/2013 V58.31 WOUND DRESSING 07/07/2013 SAVANNA JOHNSON APRN V58.31 WOUND DRESSING 07/07/2013 ALEX CHU, SAVANNA T V58.31 WOUND DRESSING 07/07/2013 ALEX NARVAEZN, SAVANNA T V58.31 WOUND DRESSING 07/07/2013 SRI NARVAEZN, MEGA Yunier V58.31 WOUND DRESSING 07/07/2013 ALEX NARVAEZN, SAVANNA Guerrero V58.31 WOUND DRESSING 08/01/2014 ALEX CHU, SAVANNA Guerrero 401.1 HYPERTENSION, BENIGN ESSENTIAL 03/13/2016 ABEL FARIAS FACC, ALI FACP CCDS Ot I10 ESSENTIAL (PRIMARY) HYPERTENSION 03/16/2016 ABEL KENDRICKC, ALI FACP CCDS Ot I10 ESSENTIAL (PRIMARY) HYPERTENSION 03/16/2016 ABEL KENDRICKC, ALI FACP CCDS Ot E78.5 HYPERLIPIDEMIA, UNSPECIFIED 03/16/2016 ABEL KENDRICKC, ALI FACP CCDS Ot I48.0 PAROXYSMAL ATRIAL FIBRILLATION 03/16/2016 ABEL KENDRICKC, ALI FACP CCDS Ot I51.7 CARDIOMEGALY 03/16/2016 ABEL KENDRICKC, ALI FACP CCDS Ot M25.473 EFFUSION, UNSPECIFIED ANKLE 03/25/2016 ABEL KENDRICKC, ALI FACP CCDS Ot E78.5 HYPERLIPIDEMIA, UNSPECIFIED 03/25/2016 ABEL FARIAS FACC, ALI FACP CCDS Ot I48.0 PAROXYSMAL ATRIAL FIBRILLATION 03/25/2016 ABEL KENDRICK, ALI FACP CCDS Ot I51.7 CARDIOMEGALY 03/25/2016 ABLE KENDRICK, ALI FACP CCDS Ot M25.473 EFFUSION, UNSPECIFIED ANKLE 01/31/2019 ABEL FARIAS FACC, ALI FACP CCDS Ot E78.5 HYPERLIPIDEMIA, UNSPECIFIED 01/31/2019 ABEL KENDRICK, ALI FACP CCDS Ot I48.0 PAROXYSMAL ATRIAL FIBRILLATION 01/31/2019 ABEL FARIAS FACC, ALI FACP CCDS Ot I51.7 CARDIOMEGALY 01/31/2019 ABEL FARIAS FACC, ALI FACP CCDS Ot M25.473 EFFUSION, UNSPECIFIED ANKLE 02/06/2019 DOT DOMÍNGUEZ MD Ot K80.20 CALCULUS OF GALLBLADDER W/O CHOLECYSTITI 02/06/2019 DOT DOMÍNGUEZ MD Ot K83.8 OTHER SPECIFIED DISEASES OF BILIARY TRAC 02/06/2019 DOT DOMÍNGUEZ MD Ot R17 UNSPECIFIED JAUNDICE 02/06/2019 ABEL FARIAS FAC, ALI FACP CCDS Ot E78.5 HYPERLIPIDEMIA, UNSPECIFIED 02/06/2019 ABEL FARIAS FAC, ALI FACP CCDS Ot I48.0 PAROXYSMAL ATRIAL FIBRILLATION 02/06/2019 ABEL FARIAS FAC, ALI FACP CCDS Ot I51.7 CARDIOMEGALY 02/06/2019 ABEL FARIAS FAC, ALI FACP CCDS Ot M25.473 EFFUSION, UNSPECIFIED ANKLE 02/06/2019 DOT DOMÍNGUEZ MD Ot K80.20 CALCULUS OF GALLBLADDER W/O CHOLECYSTITI 02/06/2019 DOT DOMÍNGUEZ MD Ot K83.8 OTHER SPECIFIED DISEASES OF BILIARY TRAC 02/06/2019 DOT DOMÍNGUEZ MD, Ot R17 UNSPECIFIED JAUNDICE 02/09/2019 GEETA PADILLA MD Ot A41.9 SEPSIS, UNSPECIFIED ORGANISM 02/09/2019 GEETA PADILLA MD Ot K83.1 OBSTRUCTION OF BILE DUCT 02/09/2019 GEETA PADILLA MD Ot N17.9 ACUTE KIDNEY FAILURE, UNSPECIFIED 02/09/2019 GEETA PADILLA MD J Ot N39.0 URINARY TRACT INFECTION, SITE NOT SPECIF 02/09/2019 GEETA PADILLA MD Ot R53.1 WEAKNESS 02/09/2019 GEETA PADILLA MD Ot R65.21 SEVERE SEPSIS WITH SEPTIC SHOCK 02/09/2019 GEETA PADILLA MD Ot Z88.0 ALLERGY STATUS TO PENICILLIN 02/09/2019 GEETA PADILLA MD Ot Z88.2 ALLERGY STATUS TO SULFONAMIDES STATUS 02/09/2019 GEETA PADILLA MD Ot Z88.8 ALLERGY STATUS TO OTH DRUG/MEDS/BIOL SUB 02/14/2019 DOT DOMÍNGUEZ MD Ot K80.20 CALCULUS OF GALLBLADDER W/O CHOLECYSTITI 02/14/2019 DOT DOMÍNGUEZ MD Ot K83.8 OTHER SPECIFIED DISEASES OF BILIARY TRAC 02/14/2019 DOT DOMÍNGUEZ MD Ot K86.89 OTHER SPECIFIED DISEASES OF PANCREAS 02/14/2019 DOT DOMÍNGUEZ MD Ot R17 UNSPECIFIED JAUNDICE 02/21/2019 DOT DOMÍNGUEZ MD Ot K80.20 CALCULUS OF GALLBLADDER W/O CHOLECYSTITI 02/21/2019 DOT DOMÍNGUEZ MD Ot K83.8 OTHER SPECIFIED DISEASES OF BILIARY TRAC 02/21/2019 DOT DOMÍNGUEZ MD Ot K86.89 OTHER SPECIFIED DISEASES OF PANCREAS 02/21/2019 DOT DOMÍNGUEZ MD Ot R17 UNSPECIFIED JAUNDICE 02/22/2019 ESTRELLITA FOOTE MD, Ot D64.9 ANEMIA, UNSPECIFIED 02/22/2019 ESTRELLITA FOOTE MD Ot D72.823 LEUKEMOID REACTION 02/22/2019 ESTRELLITA FOOTE MD Ot E66.9 OBESITY, UNSPECIFIED 02/22/2019 ESTRELLITA FOOTE MD Ot E87.6 HYPOKALEMIA 02/22/2019 ESTRELLITA FOOTE MD Ot F32.9 MAJOR DEPRESSIVE DISORDER, SINGLE EPISOD 02/22/2019 ESTRELLITA FOOTE MD Ot I10 ESSENTIAL (PRIMARY) HYPERTENSION 02/22/2019 ESTRELLITA FOOTE MD Ot I48.91 UNSPECIFIED ATRIAL FIBRILLATION 02/22/2019 ESTRELLITA FOOTE MD Ot K83.1 OBSTRUCTION OF BILE DUCT 02/22/2019 ESTRELLITA FOOTE MD Ot R29.6 REPEATED FALLS 02/22/2019 ESTRELLITA FOOTE MD Ot R53.1 WEAKNESS 02/22/2019 ESTRELLITA FOOTE MD Ot R74.0 NONSPEC ELEV OF LEVELS OF TRANSAMNS LA 02/22/2019 ESTRELLITA FOOTE MD Ot S80.821A BLISTER (NONTHERMAL), RIGHT LOWER LEG, I 02/22/2019 ESTRELLITA FOOTE MD Ot S80.822A BLISTER (NONTHERMAL), LEFT LOWER LEG, IN 02/22/2019 ESTRELLITA FOOTE MD Ot S90.821A BLISTER (NONTHERMAL), RIGHT FOOT, INITIA 02/22/2019 ESTRELLITA FOOTE MD Ot T37.0X5A ADVERSE EFFECT OF SULFONAMIDES, INITIAL 02/22/2019 ESTRELLITA FOOTE MD Ot Z68.32 BODY MASS INDEX (BMI) 32.0-32.9, ADULT 02/22/2019 ESTRELLITA FOOTE MD Ot Z98.890 OTHER SPECIFIED POSTPROCEDURAL STATES 02/23/2019 ESTRELLITA FOOTE MD Ot D64.9 ANEMIA, UNSPECIFIED 02/23/2019 ESTRELLITA FOOTE MD Ot D72.823 LEUKEMOID REACTION 02/23/2019 ESTRELLITA FOOTE MD Ot E66.9 OBESITY, UNSPECIFIED 02/23/2019 ESTRELLITA FOOTE MD Ot E87.6 HYPOKALEMIA 02/23/2019 ESTRELLITA FOOTE MD Ot F32.9 MAJOR DEPRESSIVE DISORDER, SINGLE EPISOD 02/23/2019 ESTRELLITA FOOTE MD Ot I10 ESSENTIAL (PRIMARY) HYPERTENSION 02/23/2019 ESTRELLITA FOOTE MD Ot I48.91 UNSPECIFIED ATRIAL FIBRILLATION 02/23/2019 ESTRELLITA FOOTE MD Ot K83.1 OBSTRUCTION OF BILE DUCT 02/23/2019 ESTRELLITA FOOTE MD Ot R29.6 REPEATED FALLS 02/23/2019 ESTRELLITA FOOTE MD Ot R53.1 WEAKNESS 02/23/2019 ESTRELLITA FOOTE MD Ot R74.0 NONSPEC ELEV OF LEVELS OF TRANSAMNS LA 02/23/2019 ESTRELLITA FOOTE MD Ot S80.821A BLISTER (NONTHERMAL), RIGHT LOWER LEG, I 02/23/2019 ESTRELLITA FOOTE MD Ot S80.822A BLISTER (NONTHERMAL), LEFT LOWER LEG, IN 02/23/2019 ESTRELLITA FOOTE MD Ot S90.821A BLISTER (NONTHERMAL), RIGHT FOOT, INITIA 02/23/2019 ESTRELLITA FOOTE MD Ot T37.0X5A ADVERSE EFFECT OF SULFONAMIDES, INITIAL 02/23/2019 ESTRELLITA FOOTE MD Ot Z68.32 BODY MASS INDEX (BMI) 32.0-32.9, ADULT 02/23/2019 ESTRELLITA FOOTE MD Ot Z98.890 OTHER SPECIFIED POSTPROCEDURAL STATES 02/24/2019 ESTRELLITA FOOTE MD Ot D64.9 ANEMIA, UNSPECIFIED 02/24/2019 ESTRELLITA FOOTE MD Ot D72.823 LEUKEMOID REACTION 02/24/2019 ESTRELLITA FOOTE MD Ot E66.9 OBESITY, UNSPECIFIED 02/24/2019 ESTRELLITA FOOTE MD Ot E87.6 HYPOKALEMIA 02/24/2019 ESTRELLITA FOOTE MD Ot F32.9 MAJOR DEPRESSIVE DISORDER, SINGLE EPISOD 02/24/2019 ESTRELLITA FOOTE MD Ot I10 ESSENTIAL (PRIMARY) HYPERTENSION 02/24/2019 ESTRELLITA FOOTE MD Ot I48.91 UNSPECIFIED ATRIAL FIBRILLATION 02/24/2019 ESTRELLITA FOOTE MD Ot K83.1 OBSTRUCTION OF BILE DUCT 02/24/2019 ESTRELLITA FOOTE MD Ot R29.6 REPEATED FALLS 02/24/2019 ESTRELLITA FOOTE MD Ot R53.1 WEAKNESS 02/24/2019 ESTRELLITA FOOTE MD Ot R74.0 NONSPEC ELEV OF LEVELS OF TRANSAMNS LA 02/24/2019 ESTRELLITA FOOTE MD Ot S80.821A BLISTER (NONTHERMAL), RIGHT LOWER LEG, I 02/24/2019 ESTRELLITA FOOTE MD Ot S80.822A BLISTER (NONTHERMAL), LEFT LOWER LEG, IN 02/24/2019 ESTRELLITA FOOTE MD Ot S90.821A BLISTER (NONTHERMAL), RIGHT FOOT, INITIA 02/24/2019 ESTRELLITA FOOTE MD Ot T37.0X5A ADVERSE EFFECT OF SULFONAMIDES, INITIAL 02/24/2019 ESTRELLITA FOOTE MD Ot Z68.32 BODY MASS INDEX (BMI) 32.0-32.9, ADULT 02/24/2019 ESTRELLITA FOOTE MD Ot Z98.890 OTHER SPECIFIED POSTPROCEDURAL STATES 02/24/2019 ESTRELLITA FOOTE MD Ot D64.9 ANEMIA, UNSPECIFIED 02/24/2019 ESTRELLITA FOOTE MD Ot D72.823 LEUKEMOID REACTION 02/24/2019 ESTRELLITA FOOTE MD Ot E66.9 OBESITY, UNSPECIFIED 02/24/2019 ESTRELLITA FOOTE MD Ot E87.6 HYPOKALEMIA 02/24/2019 ESTRELLITA FOOTE MD Ot F32.9 MAJOR DEPRESSIVE DISORDER, SINGLE EPISOD 02/24/2019 ESTRELLITA FOOTE MD Ot I10 ESSENTIAL (PRIMARY) HYPERTENSION 02/24/2019 ESTRELLITA FOOTE MD Ot I48.91 UNSPECIFIED ATRIAL FIBRILLATION 02/24/2019 ESTRELLITA FOOTE MD Ot K83.1 OBSTRUCTION OF BILE DUCT 02/24/2019 ESTRELLITA FOOTE MD Ot R29.6 REPEATED FALLS 02/24/2019 ESTRELLITA FOOTE MD Ot R53.1 WEAKNESS 02/24/2019 ESTRELLITA FOOTE MD Ot R74.0 NONSPEC ELEV OF LEVELS OF TRANSAMNS LA 02/24/2019 ESTRELLITA FOOTE MD Ot S80.821A BLISTER (NONTHERMAL), RIGHT LOWER LEG, I 02/24/2019 ESTRELLITA FOOTE MD, Ot S80.822A BLISTER (NONTHERMAL), LEFT LOWER LEG, IN 02/24/2019 ESTRELLITA FOOTE MD Ot S90.821A BLISTER (NONTHERMAL), RIGHT FOOT, INITIA 02/24/2019 ESTRELLITA FOOTE MD Ot T37.0X5A ADVERSE EFFECT OF SULFONAMIDES, INITIAL 02/24/2019 ESTRELLITA FOOTE MD Ot Z68.32 BODY MASS INDEX (BMI) 32.0-32.9, ADULT 02/24/2019 ESTRELLITA FOOTE MD Ot Z98.890 OTHER SPECIFIED POSTPROCEDURAL STATES 02/27/2019 ESTRELLITA FOOTE MD, Ot D64.9 ANEMIA, UNSPECIFIED 02/27/2019 ESTRELLITA FOOTE MD Ot D72.823 LEUKEMOID REACTION 02/27/2019 ESTRELLITA FOOTE MD Ot E66.9 OBESITY, UNSPECIFIED 02/27/2019 ESTRELLITA FOOTE MD Ot E87.6 HYPOKALEMIA 02/27/2019 ESTRELLITA FOOTE MD Ot F32.9 MAJOR DEPRESSIVE DISORDER, SINGLE EPISOD 02/27/2019 ESTRELLITA FOOTE MD Ot I10 ESSENTIAL (PRIMARY) HYPERTENSION 02/27/2019 ESTRELLITA FOOTE MD Ot I48.91 UNSPECIFIED ATRIAL FIBRILLATION 02/27/2019 ESTRELLITA FOOTE MD Ot I89.0 LYMPHEDEMA, NOT ELSEWHERE CLASSIFIED 02/27/2019 ESTRELLITA FOOTE MD Ot K74.60 UNSPECIFIED CIRRHOSIS OF LIVER 02/27/2019 ESTRELLITA FOOTE MD Ot K83.01 PRIMARY SCLEROSING CHOLANGITIS 02/27/2019 ESTRELLITA FOOTE MD Ot K83.1 OBSTRUCTION OF BILE DUCT 02/27/2019 ESTRELLITA FOOTE MD Ot K91.89 OTH POSTPROCEDURAL COMPLICATIONS AND DIS 02/27/2019 ESTRELLITA FOOTE MD Ot L03.115 CELLULITIS OF RIGHT LOWER LIMB 02/27/2019 ESTRELLITA FOOTE MD Ot L03.116 CELLULITIS OF LEFT LOWER LIMB 02/27/2019 ESTRELLITA FOOTE MD Ot L97.519 NON-PRS CHRONIC ULCER OTH PRT RIGHT FOOT 02/27/2019 ESTRELLITA FOOTE MD, Ot L97.529 NON-PRESSURE CHRONIC ULCER OTH PRT LEFT 02/27/2019 ESTRELLITA FOOTE MD Ot R29.6 REPEATED FALLS 02/27/2019 ESTRELLITA FOOTE MD Ot R53.1 WEAKNESS 02/27/2019 ESTRELLITA FOOTE MD Ot R74.0 NONSPEC ELEV OF LEVELS OF TRANSAMNS LA 02/27/2019 ESTRELLITA FOOTE MD Ot S80.821A BLISTER (NONTHERMAL), RIGHT LOWER LEG, I 02/27/2019 ESTRELLITA FOOTE MD, Ot S80.822A BLISTER (NONTHERMAL), LEFT LOWER LEG, IN 02/27/2019 ESTRELLITA FOOTE MD, Ot S90.821A BLISTER (NONTHERMAL), RIGHT FOOT, INITIA 02/27/2019 ESTRELLITA FOOTE MD Ot T37.0X5A ADVERSE EFFECT OF SULFONAMIDES, INITIAL 02/27/2019 ESTRELLITA FOOTE MD Ot Z68.32 BODY MASS INDEX (BMI) 32.0-32.9, ADULT 02/27/2019 ESTRELLITA FOOTE MD Ot Z98.890 OTHER SPECIFIED POSTPROCEDURAL STATES 03/03/2019 MARTHA QUILES MD, Ot I89.0 LYMPHEDEMA, NOT ELSEWHERE CLASSIFIED 03/03/2019 MARTHA QUILES MD Ot L97.411 NON-PRS CHR ULCER OF RIGHT HEEL AND MIDF 03/03/2019 MARTHA QUILES MD Ot L97.421 NON-PRS CHR ULCER OF LEFT HEEL AND MIDFT 03/03/2019 MARTHA QUILES MD, Ot I89.0 LYMPHEDEMA, NOT ELSEWHERE CLASSIFIED 03/03/2019 MARTHA QUILES MD, Ot L97.411 NON-PRS CHR ULCER OF RIGHT HEEL AND MIDF 03/03/2019 MARTHA QUILES MD, Ot L97.421 NON-PRS CHR ULCER OF LEFT HEEL AND MIDFT Procedures Code Description [place] [address] DEBRIDE SKIN TISSUE 07/06/2013 82136 CULTURE WOUND (AEROBIC) 07/06/2013 53938 I/D SIMPLE ABSCESS 07/10/2013 04606 CULTURE WOUND (AEROBIC) 08/04/2013 Cardiolog Abel, Mary 08/01/2014 Results Test Result Range Complete blood count (CBC) with automated white blood cell (WBC) differential - 02/06/19 11:40 Blood leukocytes automated count (number/volume) 12.8 10*3/uL 4.3-11.0 Blood erythrocytes automated count (number/volume) 4.24 10*6/uL 4.35-5.85 Venous blood hemoglobin measurement (mass/volume) 13.1 g/dL 11.5-16.0 Blood hematocrit (volume fraction) 36 % 35-52 Automated erythrocyte mean corpuscular volume 85 [foz_us] 80-99 Automated erythrocyte mean corpuscular hemoglobin (mass per erythrocyte) 31 pg 25-34 Automated erythrocyte mean corpuscular hemoglobin concentration measurement ( mass/volume) 36 g/dL 32-36 Automated erythrocyte distribution width ratio 19.6 % 10.0-14.5 Automated blood platelet count (count/volume) 400 10*3/uL 130-400 Automated blood platelet mean volume measurement 11.8 [foz_us] 7.4-10.4 Automated blood neutrophils/100 leukocytes 83 % 42-75 Automated blood lymphocytes/100 leukocytes 8 % 12-44 Blood monocytes/100 leukocytes 9 % 0-12 Automated blood eosinophils/100 leukocytes 1 % 0-10 Automated blood basophils/100 leukocytes 0 % 0-10 Blood neutrophils automated count (number/volume) 10.6 10*3 1.8-7.8 Blood lymphocytes automated count (number/volume) 1.0 10*3 1.0-4.0 Blood monocytes automated count (number/volume) 1.1 10*3 0.0-1.0 Automated eosinophil count 0.1 10*3/uL 0.0-0.3 Automated blood basophil count (count/volume) 0.0 10*3/uL 0.0-0.1 PT panel in platelet poor plasma by coagulation assay - 02/06/19 11:40 Prothrombin time (PT) in platelet poor plasma by coagulation assay 31.3 s 12.2-14.7 INR in platelet poor plasma or blood by coagulation assay 2.9 0.8-1.4 Activated partial thromboplastin time (aPTT) in platelet poor plasma bycoagulation assay - 02/06/19 11:40 Activated partial thromboplastin time (aPTT) in platelet poor plasma bycoagulation assay 48 s 24-35 Comprehensive metabolic panel - 02/06/19 11:40 Serum or plasma sodium measurement (moles/volume) 138 mmol/L 135-145 Serum or plasma potassium measurement (moles/volume) 3.6 mmol/L 3.6-5.0 Serum or plasma chloride measurement (moles/volume) 108 mmol/L 98-107 Carbon dioxide 15 mmol/L 21-32 Serum or plasma anion gap determination (moles/volume) 15 mmol/L 5-14 Serum or plasma urea nitrogen measurement (mass/volume) 69 mg/dL 7-18 Serum or plasma creatinine measurement (mass/volume) 2.23 mg/dL 0.60-1.30 Serum or plasma urea nitrogen/creatinine mass ratio 31 NRG Serum or plasma creatinine measurement with calculation of estimated glomerular filtration rate 22 NRG Serum or plasma glucose measurement (mass/volume) 106 mg/dL 70-105 Serum or plasma calcium measurement (mass/volume) 9.9 mg/dL 8.5-10.1 Serum or plasma total bilirubin measurement (mass/volume) 26.3 mg/ dL 0.1-1.0 Serum or plasma alkaline phosphatase measurement (enzymatic activity/volume) 974 U/L 40-136 Serum or plasma aspartate aminotransferase measurement (enzymatic activity/ volume) 98 U/L 5-34 Serum or plasma alanine aminotransferase measurement (enzymatic activity/volume ) 81 U/L 0-55 Serum or plasma protein measurement (mass/volume) 6.8 g/dL 6.4-8.2 Serum or plasma albumin measurement (mass/volume) 2.9 g/dL 3.2-4.5 CALCIUM CORRECTED 10.8 mg/dL 8.5-10.1 Lipase - 02/06/19 11:40 Lipase 436 U/L 8-78 Complete urinalysis with reflex to culture - 02/06/19 16:05 Urine color determination DARK YELLOW NRG Urine clarity determination SLIGHTLY CLOUDY NRG Urine pH measurement by test strip 5 5-9 Specific gravity of urine by test strip 1.015 1.016- 1.022 Urine protein assay by test strip, semi-quantitative 2+ NEGATIVE Urine glucose detection by automated test strip NEGATIVE NEGATIVE Erythrocytes detection in urine sediment by light microscopy 2+ NEGATIVE Urine ketones detection by automated test strip 1+ NEGATIVE Urine nitrite detection by test strip POSITIVE NEGATIVE Urine total bilirubin detection by test strip 3+ NEGATIVE Urine urobilinogen measurement by automated test strip (mass/volume) 8 mg/dL NORMAL Urine leukocyte esterase detection by dipstick 3+ NEGATIVE Automated urine sediment erythrocyte count by microscopy (number/high power field) [HPF] NRG Automated urine sediment leukocyte count by microscopy (number/high power field ) [HPF] NRG Bacteria detection in urine sediment by light microscopy MODERATE NRG Squamous epithelial cells detection in urine sediment by light microscopy 2-5 NRG Crystals detection in urine sediment by light microscopy NONE NRG Casts detection in urine sediment by light microscopy NONE NRG Mucus detection in urine sediment by light microscopy NEGATIVE NRG Complete urinalysis with reflex to culture YES NRG Bacterial urine culture - 02/06/19 16:05 Bacterial urine culture SEE REPORT NRG COLONY COUNT . NRG Complete blood count (CBC) with automated white blood cell (WBC) differential - 02/21/19 11:32 Blood leukocytes automated count (number/volume) 13.9 10*3/uL 4.3-11.0 Blood erythrocytes automated count (number/volume) 3.14 10*6/uL 4.35-5.85 Venous blood hemoglobin measurement (mass/volume) 9.9 g/dL 11.5-16.0 Blood hematocrit (volume fraction) 31 % 35-52 Automated erythrocyte mean corpuscular volume 98 [foz_us] 80-99 Automated erythrocyte mean corpuscular hemoglobin (mass per erythrocyte) 32 pg 25-34 Automated erythrocyte mean corpuscular hemoglobin concentration measurement ( mass/volume) 32 g/dL 32-36 Automated erythrocyte distribution width ratio 16.0 % 10.0-14.5 Automated blood platelet count (count/volume) 296 10*3/uL 130-400 Automated blood platelet mean volume measurement 11.2 [foz_us] 7.4-10.4 Automated blood neutrophils/100 leukocytes 71 % 42-75 Automated blood lymphocytes/100 leukocytes 12 % 12-44 Blood monocytes/100 leukocytes 14 % 0-12 Automated blood eosinophils/100 leukocytes 2 % 0-10 Automated blood basophils/100 leukocytes 1 % 0-10 Blood neutrophils automated count (number/volume) 9.9 10*3 1.8-7.8 Blood lymphocytes automated count (number/volume) 1.7 10*3 1.0-4.0 Blood monocytes automated count (number/volume) 2.0 10*3 0.0-1.0 Automated eosinophil count 0.3 10*3/uL 0.0-0.3 Automated blood basophil count (count/volume) 0.1 10*3/uL 0.0-0.1 Comprehensive metabolic panel - 02/21/19 11:32 Serum or plasma sodium measurement (moles/volume) 142 mmol/L 135-145 Serum or plasma potassium measurement (moles/volume) 3.4 mmol/L 3.6-5.0 Serum or plasma chloride measurement (moles/volume) 108 mmol/L 98-107 Carbon dioxide 21 mmol/L 21-32 Serum or plasma anion gap determination (moles/volume) 13 mmol/L 5-14 Serum or plasma urea nitrogen measurement (mass/volume) 20 mg/dL 7-18 Serum or plasma creatinine measurement (mass/volume) 0.74 mg/dL 0.60-1.30 Serum or plasma urea nitrogen/creatinine mass ratio 27 NRG Serum or plasma creatinine measurement with calculation of estimated glomerular filtration rate > NRG Serum or plasma glucose measurement (mass/volume) 121 mg/dL 70-105 Serum or plasma calcium measurement (mass/volume) 9.2 mg/dL 8.5-10.1 Serum or plasma total bilirubin measurement (mass/volume) 6.1 mg/dL 0.1-1.0 Serum or plasma alkaline phosphatase measurement (enzymatic activity/volume) 318 U/L 40-136 Serum or plasma aspartate aminotransferase measurement (enzymatic activity/ volume) 57 U/L 5-34 Serum or plasma alanine aminotransferase measurement (enzymatic activity/volume ) 62 U/L 0-55 Serum or plasma protein measurement (mass/volume) 6.3 g/dL 6.4-8.2 Serum or plasma albumin measurement (mass/volume) 2.8 g/dL 3.2-4.5 CALCIUM CORRECTED 10.2 mg/dL 8.5-10.1 PT panel in platelet poor plasma by coagulation assay - 02/21/19 11:32 Prothrombin time (PT) in platelet poor plasma by coagulation assay 14.4 s 12.2-14.7 INR in platelet poor plasma or blood by coagulation assay 1.1 0.8-1.4 Activated partial thromboplastin time (aPTT) in platelet poor plasma bycoagulation assay - 02/21/19 11:32 Activated partial thromboplastin time (aPTT) in platelet poor plasma bycoagulation assay 35 s 24-35 Blood lactic acid measurement (moles/volume) - 02/21/19 11:54 Blood lactic acid measurement (moles/volume) 2.14 mmol/L 0.50-2.00 Bacterial blood culture - 02/21/19 11:54 Bacterial blood culture NG NRG Bacterial blood culture - 02/21/19 12:03 Bacterial blood culture NG NRG Complete urinalysis with reflex to culture - 02/21/19 13:30 Urine color determination ROSA NRG Urine clarity determination SLIGHTLY CLOUDY NRG Urine pH measurement by test strip 5 5-9 Specific gravity of urine by test strip 1.015 1.016- 1.022 Urine protein assay by test strip, semi-quantitative 2+ NEGATIVE Urine glucose detection by automated test strip NEGATIVE NEGATIVE Erythrocytes detection in urine sediment by light microscopy NEGATIVE NEGATIVE Urine ketones detection by automated test strip NEGATIVE NEGATIVE Urine nitrite detection by test strip NEGATIVE NEGATIVE Urine total bilirubin detection by test strip 1+ NEGATIVE Urine urobilinogen measurement by automated test strip (mass/volume) NORMAL NORMAL Urine leukocyte esterase detection by dipstick 1+ NEGATIVE Automated urine sediment erythrocyte count by microscopy (number/high power field) NONE NRG Automated urine sediment leukocyte count by microscopy (number/high power field ) [HPF] NRG Bacteria detection in urine sediment by light microscopy NEGATIVE NRG Squamous epithelial cells detection in urine sediment by light microscopy 0-2 NRG Crystals detection in urine sediment by light microscopy PRESENT NRG Casts detection in urine sediment by light microscopy NONE NRG Mucus detection in urine sediment by light microscopy NEGATIVE NRG Complete urinalysis with reflex to culture NO NRG Amorphous sediment detection in urine sediment by light microscopy RARE JOANIE URATES NRG Bacterial urine culture - 02/21/19 13:30 Bacterial urine culture NG NRG Serum or plasma lactate measurement (moles/volume) - 02/21/19 14:56 Serum or plasma lactate measurement (moles/volume) 2.30 mmol/L 0.50-2.00 Complete blood count (CBC) with automated white blood cell (WBC) differential - 02/22/19 09:25 Blood leukocytes automated count (number/volume) 12.8 10*3/uL 4.3-11.0 Blood erythrocytes automated count (number/volume) 2.86 10*6/uL 4.35-5.85 Venous blood hemoglobin measurement (mass/volume) 9.0 g/dL 11.5-16.0 Blood hematocrit (volume fraction) 28 % 35-52 Automated erythrocyte mean corpuscular volume 99 [foz_us] 80-99 Automated erythrocyte mean corpuscular hemoglobin (mass per erythrocyte) 31 pg 25-34 Automated erythrocyte mean corpuscular hemoglobin concentration measurement ( mass/volume) 32 g/dL 32-36 Automated erythrocyte distribution width ratio 16.1 % 10.0-14.5 Automated blood platelet count (count/volume) 315 10*3/uL 130-400 Automated blood platelet mean volume measurement 10.5 [foz_us] 7.4-10.4 Automated blood neutrophils/100 leukocytes 70 % 42-75 Automated blood lymphocytes/100 leukocytes 15 % 12-44 Blood monocytes/100 leukocytes 11 % 0-12 Automated blood eosinophils/100 leukocytes 3 % 0-10 Automated blood basophils/100 leukocytes 0 % 0-10 Blood neutrophils automated count (number/volume) 9.0 10*3 1.8-7.8 Blood lymphocytes automated count (number/volume) 1.9 10*3 1.0-4.0 Blood monocytes automated count (number/volume) 1.4 10*3 0.0-1.0 Automated eosinophil count 0.4 10*3/uL 0.0-0.3 Automated blood basophil count (count/volume) 0.1 10*3/uL 0.0-0.1 Blood lactic acid measurement (moles/volume) - 02/22/19 09:25 Blood lactic acid measurement (moles/volume) 1.91 mmol/L 0.50-2.00 Comprehensive metabolic panel - 02/22/19 09:25 Serum or plasma sodium measurement (moles/volume) 140 mmol/L 135-145 Serum or plasma potassium measurement (moles/volume) 3.2 mmol/L 3.6-5.0 Serum or plasma chloride measurement (moles/volume) 109 mmol/L 98-107 Carbon dioxide 22 mmol/L 21-32 Serum or plasma anion gap determination (moles/volume) 9 mmol/L 5-14 Serum or plasma urea nitrogen measurement (mass/volume) 14 mg/dL 7-18 Serum or plasma creatinine measurement (mass/volume) 0.74 mg/dL 0.60-1.30 Serum or plasma urea nitrogen/creatinine mass ratio 19 NRG Serum or plasma creatinine measurement with calculation of estimated glomerular filtration rate > NRG Serum or plasma glucose measurement (mass/volume) 162 mg/dL 70-105 Serum or plasma calcium measurement (mass/volume) 8.1 mg/dL 8.5-10.1 Serum or plasma total bilirubin measurement (mass/volume) 4.9 mg/dL 0.1-1.0 Serum or plasma alkaline phosphatase measurement (enzymatic activity/volume) 298 U/L 40-136 Serum or plasma aspartate aminotransferase measurement (enzymatic activity/ volume) 43 U/L 5-34 Serum or plasma alanine aminotransferase measurement (enzymatic activity/volume ) 49 U/L 0-55 Serum or plasma protein measurement (mass/volume) 5.5 g/dL 6.4-8.2 Serum or plasma albumin measurement (mass/volume) 2.5 g/dL 3.2-4.5 CALCIUM CORRECTED 9.3 mg/dL 8.5-10.1 Complete blood count (CBC) with automated white blood cell (WBC) differential - 02/23/19 05:37 Blood leukocytes automated count (number/volume) 11.7 10*3/uL 4.3-11.0 Blood erythrocytes automated count (number/volume) 2.59 10*6/uL 4.35-5.85 Venous blood hemoglobin measurement (mass/volume) 8.3 g/dL 11.5-16.0 Blood hematocrit (volume fraction) 26 % 35-52 Automated erythrocyte mean corpuscular volume 99 [foz_us] 80-99 Automated erythrocyte mean corpuscular hemoglobin (mass per erythrocyte) 32 pg 25-34 Automated erythrocyte mean corpuscular hemoglobin concentration measurement ( mass/volume) 32 g/dL 32-36 Automated erythrocyte distribution width ratio 15.7 % 10.0-14.5 Automated blood platelet count (count/volume) 271 10*3/uL 130-400 Automated blood platelet mean volume measurement 10.8 [foz_us] 7.4-10.4 Automated blood neutrophils/100 leukocytes 68 % 42-75 Automated blood lymphocytes/100 leukocytes 13 % 12-44 Blood monocytes/100 leukocytes 14 % 0-12 Automated blood eosinophils/100 leukocytes 5 % 0-10 Automated blood basophils/100 leukocytes 1 % 0-10 Blood neutrophils automated count (number/volume) 7.9 10*3 1.8-7.8 Blood lymphocytes automated count (number/volume) 1.5 10*3 1.0-4.0 Blood monocytes automated count (number/volume) 1.6 10*3 0.0-1.0 Automated eosinophil count 0.6 10*3/uL 0.0-0.3 Automated blood basophil count (count/volume) 0.1 10*3/uL 0.0-0.1 Comprehensive metabolic panel - 02/23/19 05:39 Serum or plasma sodium measurement (moles/volume) 142 mmol/L 135-145 Serum or plasma potassium measurement (moles/volume) 3.0 mmol/L 3.6-5.0 Serum or plasma chloride measurement (moles/volume) 111 mmol/L 98-107 Carbon dioxide 20 mmol/L 21-32 Serum or plasma anion gap determination (moles/volume) 11 mmol/L 5-14 Serum or plasma urea nitrogen measurement (mass/volume) 16 mg/dL 7-18 Serum or plasma creatinine measurement (mass/volume) 0.67 mg/dL 0.60-1.30 Serum or plasma urea nitrogen/creatinine mass ratio 24 NRG Serum or plasma creatinine measurement with calculation of estimated glomerular filtration rate > NRG Serum or plasma glucose measurement (mass/volume) 131 mg/dL 70-105 Serum or plasma calcium measurement (mass/volume) 8.1 mg/dL 8.5-10.1 Serum or plasma total bilirubin measurement (mass/volume) 3.6 mg/dL 0.1-1.0 Serum or plasma alkaline phosphatase measurement (enzymatic activity/volume) 263 U/L 40-136 Serum or plasma aspartate aminotransferase measurement (enzymatic activity/ volume) 29 U/L 5-34 Serum or plasma alanine aminotransferase measurement (enzymatic activity/volume ) 36 U/L 0-55 Serum or plasma protein measurement (mass/volume) 4.9 g/dL 6.4-8.2 Serum or plasma albumin measurement (mass/volume) 2.2 g/dL 3.2-4.5 CALCIUM CORRECTED 9.5 mg/dL 8.5-10.1 Complete blood count (CBC) with automated white blood cell (WBC) differential - 02/24/19 05:38 Blood leukocytes automated count (number/volume) 13.2 10*3/uL 4.3-11.0 Blood erythrocytes automated count (number/volume) 2.88 10*6/uL 4.35-5.85 Venous blood hemoglobin measurement (mass/volume) 9.0 g/dL 11.5-16.0 Blood hematocrit (volume fraction) 28 % 35-52 Automated erythrocyte mean corpuscular volume 97 [foz_us] 80-99 Automated erythrocyte mean corpuscular hemoglobin (mass per erythrocyte) 31 pg 25-34 Automated erythrocyte mean corpuscular hemoglobin concentration measurement ( mass/volume) 32 g/dL 32-36 Automated erythrocyte distribution width ratio 15.6 % 10.0-14.5 Automated blood platelet count (count/volume) 318 10*3/uL 130-400 Automated blood platelet mean volume measurement 10.3 [foz_us] 7.4-10.4 Automated blood neutrophils/100 leukocytes 71 % 42-75 Automated blood lymphocytes/100 leukocytes 13 % 12-44 Blood monocytes/100 leukocytes 12 % 0-12 Automated blood eosinophils/100 leukocytes 4 % 0-10 Automated blood basophils/100 leukocytes 1 % 0-10 Blood neutrophils automated count (number/volume) 9.3 10*3 1.8-7.8 Blood lymphocytes automated count (number/volume) 1.7 10*3 1.0-4.0 Blood monocytes automated count (number/volume) 1.5 10*3 0.0-1.0 Automated eosinophil count 0.6 10*3/uL 0.0-0.3 Automated blood basophil count (count/volume) 0.1 10*3/uL 0.0-0.1 Comprehensive metabolic panel - 02/24/19 05:38 Serum or plasma sodium measurement (moles/volume) 143 mmol/L 135-145 Serum or plasma potassium measurement (moles/volume) 3.3 mmol/L 3.6-5.0 Serum or plasma chloride measurement (moles/volume) 112 mmol/L 98-107 Carbon dioxide 20 mmol/L 21-32 Serum or plasma anion gap determination (moles/volume) 11 mmol/L 5-14 Serum or plasma urea nitrogen measurement (mass/volume) 12 mg/dL 7-18 Serum or plasma creatinine measurement (mass/volume) 0.64 mg/dL 0.60-1.30 Serum or plasma urea nitrogen/creatinine mass ratio 19 NRG Serum or plasma creatinine measurement with calculation of estimated glomerular filtration rate > NRG Serum or plasma glucose measurement (mass/volume) 91 mg/dL 70-105 Serum or plasma calcium measurement (mass/volume) 8.3 mg/dL 8.5-10.1 Serum or plasma total bilirubin measurement (mass/volume) 3.9 mg/dL 0.1-1.0 Serum or plasma alkaline phosphatase measurement (enzymatic activity/volume) 247 U/L 40-136 Serum or plasma aspartate aminotransferase measurement (enzymatic activity/ volume) 36 U/L 5-34 Serum or plasma alanine aminotransferase measurement (enzymatic activity/volume ) 37 U/L 0-55 Serum or plasma protein measurement (mass/volume) 5.5 g/dL 6.4-8.2 Serum or plasma albumin measurement (mass/volume) 2.4 g/dL 3.2-4.5 CALCIUM CORRECTED 9.6 mg/dL 8.5-10.1 Automated blood complete blood count (hemogram) panel - 02/25/19 08:35 Blood leukocytes automated count (number/volume) 10.6 10*3/uL 4.3-11.0 Blood erythrocytes automated count (number/volume) 3.00 10*6/uL 4.35-5.85 Venous blood hemoglobin measurement (mass/volume) 9.4 g/dL 11.5-16.0 Blood hematocrit (volume fraction) 29 % 35-52 Automated erythrocyte mean corpuscular volume 98 [foz_us] 80-99 Automated erythrocyte mean corpuscular hemoglobin (mass per erythrocyte) 31 pg 25-34 Automated erythrocyte mean corpuscular hemoglobin concentration measurement ( mass/volume) 32 g/dL 32-36 Automated erythrocyte distribution width ratio 15.8 % 10.0-14.5 Automated blood platelet count (count/volume) 345 10*3/uL 130-400 Automated blood platelet mean volume measurement 9.9 [foz_us] 7.4-10.4 Whole blood basic metabolic panel - 02/25/19 08:35 Serum or plasma sodium measurement (moles/volume) 143 mmol/L 135-145 Serum or plasma potassium measurement (moles/volume) 2.8 mmol/L 3.6-5.0 Serum or plasma chloride measurement (moles/volume) 108 mmol/L 98-107 Carbon dioxide 22 mmol/L 21-32 Serum or plasma anion gap determination (moles/volume) 13 mmol/L 5-14 Serum or plasma urea nitrogen measurement (mass/volume) 11 mg/dL 7-18 Serum or plasma creatinine measurement (mass/volume) 0.65 mg/dL 0.60-1.30 Serum or plasma urea nitrogen/creatinine mass ratio 17 NRG Serum or plasma creatinine measurement with calculation of estimated glomerular filtration rate > NRG Serum or plasma glucose measurement (mass/volume) 117 mg/dL 70-105 Serum or plasma calcium measurement (mass/volume) 8.3 mg/dL 8.5-10.1 Magnesium - 02/25/19 08:35 Magnesium 0.9 mg/dL 1.8-2.4 Automated blood complete blood count (hemogram) panel - 02/26/19 05:50 Blood leukocytes automated count (number/volume) 10.3 10*3/uL 4.3-11.0 Blood erythrocytes automated count (number/volume) 2.83 10*6/uL 4.35-5.85 Venous blood hemoglobin measurement (mass/volume) 8.9 g/dL 11.5-16.0 Blood hematocrit (volume fraction) 28 % 35-52 Automated erythrocyte mean corpuscular volume 98 [foz_us] 80-99 Automated erythrocyte mean corpuscular hemoglobin (mass per erythrocyte) 31 pg 25-34 Automated erythrocyte mean corpuscular hemoglobin concentration measurement ( mass/volume) 32 g/dL 32-36 Automated erythrocyte distribution width ratio 15.2 % 10.0-14.5 Automated blood platelet count (count/volume) 316 10*3/uL 130-400 Automated blood platelet mean volume measurement 10.0 [foz_us] 7.4-10.4 Whole blood basic metabolic panel - 02/26/19 05:50 Serum or plasma sodium measurement (moles/volume) 140 mmol/L 135-145 Serum or plasma potassium measurement (moles/volume) 3.2 mmol/L 3.6-5.0 Serum or plasma chloride measurement (moles/volume) 110 mmol/L 98-107 Carbon dioxide 22 mmol/L 21-32 Serum or plasma anion gap determination (moles/volume) 8 mmol/L 5-14 Serum or plasma urea nitrogen measurement (mass/volume) 9 mg/dL 7-18 Serum or plasma creatinine measurement (mass/volume) 0.65 mg/dL 0.60-1.30 Serum or plasma urea nitrogen/creatinine mass ratio 14 NRG Serum or plasma creatinine measurement with calculation of estimated glomerular filtration rate > NRG Serum or plasma glucose measurement (mass/volume) 104 mg/dL 70-105 Serum or plasma calcium measurement (mass/volume) 8.2 mg/dL 8.5-10.1 Magnesium - 02/26/19 05:50 Magnesium 1.6 mg/dL 1.8-2.4 Automated blood complete blood count (hemogram) panel - 02/27/19 06:00 Blood leukocytes automated count (number/volume) 9.1 10*3/uL 4.3-11.0 Blood erythrocytes automated count (number/volume) 2.71 10*6/uL 4.35-5.85 Venous blood hemoglobin measurement (mass/volume) 8.5 g/dL 11.5-16.0 Blood hematocrit (volume fraction) 27 % 35-52 Automated erythrocyte mean corpuscular volume 99 [foz_us] 80-99 Automated erythrocyte mean corpuscular hemoglobin (mass per erythrocyte) 31 pg 25-34 Automated erythrocyte mean corpuscular hemoglobin concentration measurement ( mass/volume) 32 g/dL 32-36 Automated erythrocyte distribution width ratio 15.6 % 10.0-14.5 Automated blood platelet count (count/volume) 315 10*3/uL 130-400 Automated blood platelet mean volume measurement 9.6 [foz_us] 7.4-10.4 Comprehensive metabolic panel - 02/27/19 06:00 Serum or plasma sodium measurement (moles/volume) 141 mmol/L 135-145 Serum or plasma potassium measurement (moles/volume) 3.3 mmol/L 3.6-5.0 Serum or plasma chloride measurement (moles/volume) 111 mmol/L 98-107 Carbon dioxide 21 mmol/L 21-32 Serum or plasma anion gap determination (moles/volume) 9 mmol/L 5-14 Serum or plasma urea nitrogen measurement (mass/volume) 9 mg/dL 7-18 Serum or plasma creatinine measurement (mass/volume) 0.59 mg/dL 0.60-1.30 Serum or plasma urea nitrogen/creatinine mass ratio 15 NRG Serum or plasma creatinine measurement with calculation of estimated glomerular filtration rate > NRG Serum or plasma glucose measurement (mass/volume) 86 mg/dL 70-105 Serum or plasma calcium measurement (mass/volume) 8.2 mg/dL 8.5-10.1 Serum or plasma total bilirubin measurement (mass/volume) 2.8 mg/dL 0.1-1.0 Serum or plasma alkaline phosphatase measurement (enzymatic activity/volume) 202 U/L 40-136 Serum or plasma aspartate aminotransferase measurement (enzymatic activity/ volume) 27 U/L 5-34 Serum or plasma alanine aminotransferase measurement (enzymatic activity/volume ) 24 U/L 0-55 Serum or plasma protein measurement (mass/volume) 5.1 g/dL 6.4-8.2 Serum or plasma albumin measurement (mass/volume) 2.2 g/dL 3.2-4.5 CALCIUM CORRECTED 9.6 mg/dL 8.5-10.1 Magnesium - 02/27/19 06:00 Magnesium 1.4 mg/dL 1.8-2.4 Encounters ACCT No. Visit Date/Time Discharge Status Pt. Type Provider Facility Loc./Unit Complaint [id number] 08/01/2014 12:40:00 08/01/2014 23:59:59 CLS Outpatient SAVANNA JOHNSON APRN [id number] 08/14/2013 08:54:00 08/14/2013 23:59:59 CLS Outpatient MEGA FIERRO APRN [id number] 08/11/2013 12:51:00 08/11/2013 23:59:59 CLS Outpatient SAVANNA JOHNSON APRN [id number] 08/07/2013 09:56:00 08/07/2013 23:59:59 CLS Outpatient SAVANNA JOHNSON APRN [id number] 08/04/2013 08:58:00 08/04/2013 23:59:59 CLS Outpatient SAVANNA JOHNSON APRN [id number] 07/24/2013 14:28:00 Document Registration [id number] 07/21/2013 14:27:00 Document Registration [id number] 07/17/2013 08:47:00 Document Registration [id number] 07/14/2013 09:33:00 Document Registration [id number] 07/11/2013 15:12:00 Document Registration [id number] 07/07/2013 11:44:00 Document Registration [id number] 07/04/2013 14:22:00 Document Registration [id number] 03/01/2019 09:24:00 03/01/2019 23:59:59 CLS Outpatient MARTHA QUILES MD [facility] WOUND[facility] [id number] 03/01/2019 08:10:00 03/01/2019 23:59:59 CLS Preadmit ALISIA MEDRANO DO [facility] RAD ESSENTIAL HYPERTENSION [id number] 02/21/2019 15:16:00 02/27/2019 17:20:00 DIS Inpatient DARY FARIAS, ESTRELLITA Barton [facility] 4TH CELLULITIS [id number] 02/06/2019 11:22:00 02/06/2019 17:19:00 DIS Outpatient VALERIE FARIAS, GEETA Schulz [facility] ER POSS LIVER PROBLEMS; WEAKNESS [id number] 02/01/2019 14:39:00 02/01/2019 23:59:59 CLS Outpatient SANG FARIAS, DOT Cruz [facility] RAD ABN LIVER FUNCTION [id number] 03/13/2016 08:40:00 03/13/2016 23:59:59 CLS Outpatient ABEL FARIAS FACC, MARY ESCOBEDO CCDS [facility] NAVIN PAYNE
[2019-03-13 13:30] VITALS: BP 114/62
[2019-03-13 14:00] VITALS: BP 115/78
--- NOTE | 2019-03-13 14:28 | Diagnostic Imaging Report ---
INDICATION: Essential hypertension and hepatic steatosis. TECHNIQUE/FINDINGS: The patient was brought to the procedure room and placed in the supine position. The skin over the right abdomen was prepped in the usual sterile fashion. Ultrasound imaging of the right abdomen was performed to evaluate for an appropriate entry site. An 18-gauge coaxial Tem[place] needle was advanced into the right lobe of the liver. A total of three core biopsies was obtained. The needle was removed and hemostasis was obtained using manual compression. The patient tolerated the procedure well and left the Department in stable condition. IMPRESSION: Successful ultrasound guided random liver biopsy. Dictated by: Dictated on workstation # [id number]
--- NOTE | 2019-03-13 14:40 | NUR ---
HAS RESTED QUIETLY ON RIGHT SIDE THROUGHOUT RECOVERY, DENIES COMPLAINTS. OPSITE OVER GAUZE DSG REMAINS D/I TO RIGHT SIDE OF UPPER ABD. HAS HAD LUNCH AND UP TO BR WITH ASSIST. TOLERATED WELL. STATES SHE IS READY FOR DISMISSAL.
== END 2019-03-13 14:40 | disposition home or self-care (01) ==
LOC: RAD 10:07
PROVIDERS: ATTEND Surgery
DX: K75.81 Nonalcoholic steatohepatitis (NASH) (principal); I10 Essential (primary) hypertension
CPT/HCPCS: 36415; 76942; 85610

== ENCOUNTER → 2019-03-14 | Outpatient (CLI) | payer MEDICARE | LOC: WOUNDCARE 14:59 | PROVIDERS: ATTEND Surgery | DX: L97.412 Non-pressure chronic ulcer of right heel and midfoot with fat layer exposed (principal); I89.0 Lymphedema, not elsewhere classified | CPT/HCPCS: 99213 ==

== ENCOUNTER → 2019-03-22 | Outpatient (CLI) | payer MEDICARE | LOC: WOUNDCARE 10:10 | PROVIDERS: ATTEND Surgery | DX: L97.412 Non-pressure chronic ulcer of right heel and midfoot with fat layer exposed (principal); I89.0 Lymphedema, not elsewhere classified | CPT/HCPCS: 99212 ==

== ENCOUNTER 2019-06-28 12:09 | Emergency (ER) | payer MEDICARE, OTHER ==
[~2019-06-28] VITALS: Ht 172.7 cm; Wt 81.2 kg
[2019-06-28] MEDS ORDERED: NS IV 1000 ML 1,000 ML IV ONE ×2 (12:12→14:28)
[2019-06-28 13:06] LABS: BASOPHILS % (AUTO) 0 % (0-10); EOSINOPHILS # (AUTO) 0.1 10^3/uL (0.0-0.3); EOSINOPHILS % (AUTO) 1 % (0-10); HEMATOCRIT 39 % (35-52); LYMPHOCYTES # (AUTO) 1.7 X 10^3 (1.0-4.0); LYMPHOCYTES % (AUTO) 14 % (12-44); MEAN CORPUSCULAR HEMOGLOBIN 28 PG (25-34); MEAN CORPUSCULAR HGB CONC 36 G/DL (32-36); MEAN CORPUSCULAR VOLUME 77 FL (80-99); MEAN PLATELET VOLUME 11.2 FL (7.4-10.4); MONOCYTES # (AUTO) 1.3 X 10^3 (0.0-1.0); MONOCYTES % (AUTO) 10 % (0-12); NEUTROPHILS # (AUTO) 9.7 X 10^3 (1.8-7.8); NEUTROPHILS % (AUTO) 75 % (42-75); PLATELET COUNT 394 10^3/uL (130-400); RED CELL DISTRIBUTION WIDTH 18.7 % (10.0-14.5); WHITE BLOOD COUNT 12.9 10^3/uL (4.3-11.0)
[2019-06-28 13:28] LABS: ACETAMINOPHEN < 10 UG/ML (10-30); ALANINE AMINOTRANSFERASE 64 U/L (0-55); ALBUMIN 3.3 GM/DL (3.2-4.5); ALKALINE PHOSPHATASE 1013 U/L (40-136); AMYLASE 32 U/L (25-125); BUN/CREATININE RATIO 23; CALCIUM 10.4 MG/DL (8.5-10.1); CARBON DIOXIDE 24 MMOL/L (21-32); CHLORIDE 102 MMOL/L (98-107); CREATINE KINASE 33 U/L (29-168); CREATININE SERUM 1.46 MG/DL (0.60-1.30); GFR ESTIMATED 36; GLUCOSE 120 MG/DL (70-105); LIPASE 26 U/L (8-78); MAGNESIUM 1.4 MG/DL (1.6-2.4); POTASSIUM 3.9 MMOL/L (3.6-5.0); SODIUM 137 MMOL/L (135-145); TOTAL PROTEIN 7.8 GM/DL (6.4-8.2)
[2019-06-28 13:34] LABS: CREATINE KINASE MB 1.5 NG/ML (<6.6)
--- NOTE | 2019-06-28 13:39 | NUR ---
CRITICAL BILLIRUBIN OF 30.5
[2019-06-28 13:41] LABS: BILIRUBIN,TOTAL 30.5 MG/DL (0.1-1.0)
[2019-06-28 13:46] LABS: INR 1.3 (0.8-1.4); PROTHROMBIN TIME PATIENT 16.2 SEC (12.2-14.7)
--- NOTE | 2019-06-28 14:59 | Diagnostic Imaging Report ---
PROCEDURE: CT abdomen and pelvis without contrast. TECHNIQUE: Multiple contiguous axial images were obtained through the abdomen and pelvis without the use of intravenous contrast. Auto Exposure Controls were utilized during the CT exam to meet ALARA standards for radiation dose reduction. INDICATION: Abdominal pain as well as jaundice and back pain. COMPARISON: Correlation is made with prior CT from 02/01/2019. FINDINGS: The lung bases are clear. Gallbladder is now surgically absent. There continues to be significant intrahepatic and extrahepatic biliary ductal dilatation. There is also pancreatic ductal dilatation. No discrete mass on this noncontrast study is identified in the region of the law hepatis. The spleen is unremarkable. There is no adrenal mass. Kidneys are without calculi or hydronephrosis. There is cortical low density in upper pole of left kidney, similar to prior exam and suggestive of a cyst. The aorta is non-aneurysmal. The small and large bowel loops are normal caliber. No obstruction is seen. There is no ascites. The bladder is unremarkable. Uterus is surgically absent. IMPRESSION: 1. Status post cholecystectomy. There continues to be significant intrahepatic and extrahepatic biliary ductal dilatation as well as pancreatic ductal dilatation. Etiology is indeterminate. Ampullary lesion cannot be entirely excluded. Previous recommendation was for patient undergo MRCP or ERCP. I have no history as to whether this occurred or not. 2. No other significant abnormality is detected. Dictated by: Dictated on workstation # [id number]
--- NOTE | 2019-06-28 15:18 | ED General ---
General Chief Complaint: General Problems/Pain Stated Complaint: EYES YELLOW;BACK PAIN;DARK URINE Nursing Triage Note: PT AMB TO [facility] 5 WITH COMPLAINT OF BACK PAIN AND INCREASED LIVER ENZYMES. PT STATES TWO DAYS AGO SHE NOTICED SHE STARTED TURNING YELLOW. [facility] AND HAD LABS DRAWN. WAS SENT HERE TODAY BY JASPREET. Nursing Sepsis Screen: No Definite Risk Source of Information: Patient, Old Records History of Present Illness Date Seen by Provider: Jun 28, 2019 Time Seen by Provider: 00:20 Initial Comments PT ARRIVES VIA POV FROM HOME PT STATES SHE TURNED YELLOW A FEW DAYS AGO, IS NO DIFFERENT TODAY IN ANY WAY C/O ITCHING ALL OVER--HAS NOT TAKEN ANYTHING FOR THE ITCHING STATES HER URINE IS DARK YELLOW C/O MID BACK PAIN NO ABDOMINAL PAIN NO NAUSEA/VOMITING NO CHEST PAIN NO SHORTNESS OF BREATH NO SWELLING IN LEGS/ FEET OR PAIN IN CALVES NO FEVER PT HAS CONTINUED TO EAT AND DRINK USUAL--HAD CEREAL WITH MILK THIS EVENING, AND TOOK HER REGULAR MEDICATIONS TONIGHT. STATES SHE SEEN YESTERDAY BY DR. VOGEL, AND HAD LAB DONE. STATES SHE " MISSED A CALL" FROM THE OFFICE LAST NIGHT, SO CALLED THEM EARLY THIS AM, AND WAS INSTRUCTED TO GO DIRECTLY TO [facility]. SO PT DECIDED TO COME TO THIS ER AT THIS HOUR. STATES SHE IS "SUPPOSED TO SEE DR. COLLINS" --SHE REPORTS THAT DR. VOGEL TALKED WITH HIM TODAY, AND HE WANTED HER DOWN THERE. PT HAD CHOLECYSTECTOMY IN FEBRUARY OF THIS YEAR PT HAD PRESENTED TO ER WITH SIMILAR SYMPTOMS EXCEPT SHE WAS HAVING RUQ PAIN AT THAT TIME PT WAS FOUND TO HAVE GALLSTONES WITH A STONE IN THE BILE DUCT. PT WAS TREATED AT [facility], HAD ERCP WITH STENT PLACED, AND HAD CHOLECYSTECTOMY. PT STATES SHE THEN HAD STENT REMOVED. PT STATES SHE WAS FINE UNTIL A FEW DAYS AGO. AGAIN PT DENIES ANY ABDOMINAL PAIN PT DENIES ANY ALCOHOL USE PT DENIES ACETAMINOPHEN USE PCP: DR. VOGEL--USED TO GO TO [facility] Allergies and Home Medications Allergies Coded Allergies: sulfamethoxazole (Unverified Allergy, Unknown, 02/06/19) trimethoprim (Unverified Allergy, Unknown, 02/06/19) Uncoded Allergies: PENICILLIN (Allergy, Unknown, 02/06/19) Home Medications Aspirin 325 Mg Tablet., 325 MG PO DAILY, (Reported) Atenolol 50 Mg Tablet, 50 MG PO DAILY, (Reported) Cefdinir 300 Mg Capsule, 300 MG PO twice a day Prescribed by: ESTRELLITA FOOTE on 02/27/19 1054 Hydrochlorothiazide 25 Mg Tablet, 25 MG PO DAILY, (Reported) Losartan Potassium 25 Mg Tablet, 25 MG PO DAILY, (Reported) [place] 3 Polyunsat Fatty Acids 1,000 Mg Cap, 2,000 MG PO DAILY, (Reported) Potassium Chloride 20 Meq Tab.er.prt, 20 MEQ PO DAILY, (Reported) l Gasseri/B Bifidum/B Longum 1 Each Capsule, 1 CAP PO DAILY, (Reported) Patient Home Medication List Home Medication List Reviewed: Yes Review of Systems Review of Systems Constitutional: no symptoms reported; No chills, No diaphoresis, No dizziness, No fever, No malaise, No weakness; weight loss (PT HAS LOST 28# SINCE SHE HAD SURGERY IN FEBRUARY. STATES SHE CANNOT EAT MUCH--HAS EARLY SATIETY, AND THEN HAS DIARRHEA SOON SHE EATS ANYTHING. ) EENTM: see HPI (JAUNDICE) Respiratory: no symptoms reported; No cough, No dyspnea on exertion, No orthopnea, No short of breath Cardiovascular: no symptoms reported; No chest pain, No edema, No palpitations, No syncope, No vascular heart diseas Gastrointestinal: No abdominal pain; diarrhea (DIARRHEA SINCE SHE HAD CHOLECYSTECTOMY 02/2019--HAS HAD DIARRHEA X 1 TODAy), jaundice; No loss of appetite, No nausea, No vomiting Genitourinary: see HPI; No decreased output, No dysuria, No frequency, No hematuria, No pain Musculoskeletal: see HPI, back pain Skin: see HPI, change in color, pruritus; No rash Psychiatric/Neurological: No Symptoms Reported Hematologic/Lymphatic: No Symptoms Reported; Denies Easy Bruising Immunological/Allergic: no symptoms reported Past Yjpdinj-Oetlcm-Zrtmuy Hx Patient Social History Alcohol Use: Denies Use Recreational Drug Use: No Smoking Status: Never a Smoker 2nd Hand Smoke Exposure: No Recent Foreign Travel: No Contact w/Someone Who Travel: No Recent Infectious Disease Expo: No Recent Hopitalizations: Yes (SEPSIS @ [facility]) Physical Abuse: No Sexual Abuse: No Mistreated: No Fear: No Immunizations Up To Date Tetanus Booster (TDap): Unknown PED Vaccines UTD: Yes Seasonal Allergies Seasonal Allergies: No Past Medical History Surgeries: Yes (ERCP WITH BILE DUCT STENT--STENT LATER REMOVED 02/2019; HY ST/BSO; BILATERAL CATARACT SURGERY) Eye Surgery, Gallbladder, Hysterectomy, Oophorectomy, Tonsillectomy Respiratory: No Cardiac: Yes Atrial Fibrillation, Heart Murmur, Hypertension 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 Genitourinary: No Gastrointestinal: Yes (CHOLECYSTECTOMY 02/2019--HAD JAUNDICE WITH THAT, WHICH RESOLVED AFTER SURGERY) Liver Disease/Jaundice, Gall Bladder Disease Musculoskeletal: No Endocrine: No HEENT: Yes (BILATERAL CATARACT SURGERY) Cataract Cancer: No Psychosocial: No Integumentary: No Blood Disorders: No Family Medical History No Pertinent Family Hx Physical Exam Vital Signs Vital Signs - First Documented 06/28/19 12:22 Temp 97.4 Pulse 78 Resp 16 B/P (MAP) 89/65 (73) Pulse Ox 98 O2 Delivery Room Air Capillary Refill : Less Than 3 Seconds Height, Weight, BMI Height: 5'8.00" Weight: 179lbs. 0.0oz. 81.459451rm; 32.2 BMI Method:Stated General Appearance: No Apparent Distress, WD/WN, Other (SMILING, VERY TALKATIVE AND TALKS NON-STOP AT LENGTH., DOES NOT APPEAR TO BE IN ANY DISCOMFORT OR DISTRESS) HEENT: Scleral Icterus (L) (MARKED), Scleral Icterus (R) (MARKED. ), Other (ECCHYMOSIS TO CHEEKS) Neck: Full Range of Motion, Normal Inspection, Non Tender, Supple; No Carotid Bruit, No JVD Respiratory: Normal Breath Sounds, No Accessory Muscle Use, No Respiratory Distress Cardiovascular: Regular Rate, Rhythm, No Edema, No JVD, No Murmur (UNABLE TO AUSCULATE MURMUR AT THIS TIME. ), Normal Peripheral Pulses Gastrointestinal: Normal Bowel Sounds, No Organomegaly, No Pulsatile Mass, Non Tender, Soft Back: No CVA Tenderness Extremity: Normal Capillary Refill, Normal Inspection, Normal Range of Motion, Non Tender, No Calf Tenderness, Other (CHRONIC VENOUS STASIS CHANGES BILATERAL LOWER LEGS. 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 Norm as Tested Skin: Ecchymosis (FEW SMALL AREAS OF ECCHYMOSIS SCATTERED ON BODY), Jaundice (MARKED JAUNDICE) Focused Exam Lactate Level 06/28/19 13:19: Lactic Acid Level 1.11 Lactic Acid Level Progress/Results/Core Measures Suspected Sepsis Recent Fever Within 48 Hours: No Infection Criteria Present: None New/Unexplained Altered Menta: No Sepsis Screen: No Definite Risk SIRS Temperature:97.4 Pulse: 78 Respiratory Rate: 16 Laboratory Tests 06/28/19 12:57: White Blood Count 12.9H Blood Pressure 89 /65 Mean: 73 06/28/19 13:19: Lactic Acid Level 1.11 Laboratory Tests 06/28/19 12:57: Creatinine 1.46H, Platelet Count 394, Total Bilirubin 30.5*H 06/28/19 13:19: INR Comment 1.3 Results/Orders Lab Results Laboratory Tests Test 06/28/19 12:57 06/28/19 13:19 06/28/19 14:05 06/28/19 15:32 Range/Units White Blood Count 12.9 H 4.3-11.0 10^3/uL Red Blood Count 5.08 4.35-5.85 10^6/uL Hemoglobin 14.0 11.5-16.0 G/DL Hematocrit 39 35-52 % Mean Corpuscular Volume 77 L 80-99 FL Mean Corpuscular Hemoglobin 28 25-34 PG Mean Corpuscular Hemoglobin Concent 36 32-36 G/DL Red Cell Distribution Width 18.7 H 10.0-14.5 % Platelet Count 394 130-400 10^3/uL Mean Platelet Volume 11.2 H 7.4-10.4 FL Neutrophils (%) (Auto) 75 42-75 % Lymphocytes (%) (Auto) 14 12-44 % Monocytes (%) (Auto) 10 0-12 % Eosinophils (%) (Auto) 1 0-10 % Basophils (%) (Auto) 0 0-10 % Neutrophils # (Auto) 9.7 H 1.8-7.8 X 10^3 Lymphocytes # (Auto) 1.7 1.0-4.0 X 10^3 Monocytes # (Auto) 1.3 H 0.0-1.0 X 10^3 Eosinophils # (Auto) 0.1 0.0-0.3 10^3/uL Basophils # (Auto) 0.0 0.0-0.1 10^3/uL Sodium Level 137 135-145 MMOL/L Potassium Level 3.9 3.6-5.0 MMOL/L Chloride Level 102 98-107 MMOL/L Carbon Dioxide Level 24 21-32 MMOL/L Anion Gap 11 5-14 MMOL/L Blood Urea Nitrogen 33 H 7-18 MG/DL Creatinine 1.46 H 0.60-1.30 MG/DL Estimat Glomerular Filtration Rate 36 BUN/Creatinine Ratio 23 Glucose Level 120 H 70-105 MG/DL Calcium Level 10.4 H 8.5-10.1 MG/DL Corrected Calcium 11.0 H 8.5-10.1 MG/DL Magnesium Level 1.4 L 1.6-2.4 MG/DL Total Bilirubin 30.5 *H 0.1-1.0 MG/DL Aspartate Amino Transf (AST/SGOT) 82 H 5-34 U/L Alanine Aminotransferase (ALT/SGPT) 64 H 0-55 U/L Alkaline Phosphatase 1013 H 40-136 U/L Total Creatine Kinase 33 29-168 U/L Creatine Kinase MB 1.5 <6.6 NG/ML Myoglobin 106.8 H 10.0-92.0 NG/ML B-Type Natriuretic Peptide 172.2 H <100.0 PG/ML Total Protein 7.8 6.4-8.2 GM/DL Albumin 3.3 3.2-4.5 GM/DL Amylase Level 32 25-125 U/L Lipase 26 8-78 U/L Acetaminophen Level < 10 L 10-30 UG/ML Serum Alcohol < 10 <10 MG/DL Prothrombin Time 16.2 H 12.2-14.7 SEC INR Comment 1.3 0.8-1.4 Activated Partial Thromboplast Time 33 24-35 SEC Lactic Acid Level 1.11 0.50-2.00 MMOL/L Hepatitis A IgM Antibody Non-Reactive Non-Reactive Hepatitis B Surface Antigen Non-Reactive Non-Reactive Hepatitis B Core IgM Antibody Non-Reactive Non-Reactive Hepatitis C Antibody Non-Reactive Non-Reactive Monoscreen NEGATIVE NEGATIVE Urine Color ROSA H Urine Clarity SLIGHTLY CLOUDY Urine pH 6 5-9 Urine Specific [place] 1.015 L 1.016-1.022 Urine Protein 2+ H NEGATIVE Urine Glucose (UA) NEGATIVE NEGATIVE Urine Ketones NEGATIVE NEGATIVE Urine Nitrite POSITIVE H NEGATIVE Urine Bilirubin 3+ H NEGATIVE Urine Urobilinogen 8 H NORMAL MG/DL Urine Leukocyte Esterase 1+ H NEGATIVE Urine RBC (Auto) 2+ H NEGATIVE Urine RBC NONE /HPF Urine WBC 10-25 H /HPF Urine Squamous Epithelial Cells 2-5 /HPF Urine Crystals NONE /LPF Urine Bacteria MODERATE H /HPF Urine Casts NONE /LPF Urine Mucus NEGATIVE /LPF Urine Culture Indicated YES Urine Opiates Screen NEGATIVE NEGATIVE Urine Oxycodone Screen NEGATIVE NEGATIVE Urine Methadone Screen NEGATIVE NEGATIVE Urine Propoxyphene Screen NEGATIVE NEGATIVE Urine Barbiturates Screen NEGATIVE NEGATIVE Ur Tricyclic Antidepressants Screen NEGATIVE NEGATIVE Urine Phencyclidine Screen NEGATIVE NEGATIVE Urine Amphetamines Screen NEGATIVE NEGATIVE Urine Methamphetamines Screen NEGATIVE NEGATIVE Urine Benzodiazepines Screen NEGATIVE NEGATIVE Urine Cocaine Screen NEGATIVE NEGATIVE Urine Cannabinoids Screen NEGATIVE NEGATIVE Micro Results Microbiology 06/28/19 Blood Culture - Preliminary, Resulted No growth 06/28/19 Blood Culture - Preliminary, Resulted No growth 06/28/19 Urine Culture - Final, Complete NO GROWTH My Orders Orders - YESSI VENTURA DO Ed Iv/Invasive Line Start (06/28/19 12:12) Monitor-Rhythm Ecg Trace Only (06/28/19 12:12) Acetaminophen (06/28/19 12:12) Alcohol (06/28/19 12:12) Amylase (06/28/19 12:12) BNP (06/28/19 12:12) Cbc With Automated Diff (06/28/19 12:12) Comprehensive Metabolic Panel (06/28/19 12:12) Creatine Kinase (06/28/19 12:12) Creatine Kinase Mb (06/28/19 12:12) Drug Screen Stat (Urine) (06/28/19 12:12) Lactic Acid Analyzer (06/28/19 12:12) Lipase (06/28/19 12:12) Magnesium (06/28/19 12:12) Protime With Inr (06/28/19 12:12) Partial Thromboplastin Time (06/28/19 12:12) Ua Culture If Indicated (06/28/19 12:12) Myoglobin Serum (06/28/19 12:12) Ed Iv/Invasive Line Start (06/28/19 12:12) Ns Iv 1000 Ml (Sodium Chloride 0.9%) (06/28/19 12:12) Hepatitis Panel Acute (06/28/19 12:33) Monotest (06/28/19 12:33) Blood Culture (06/28/19 13:03) Ct Abdomen/Pelvis Wo (06/28/19 13:46) Us Abdomen Complete 05162 (06/28/19 13:46) Chest 1 View, Ap/Pa Only (06/28/19 14:10) Ed Iv/Invasive Line Start (06/28/19 14:28) Ns Iv 1000 Ml (Sodium Chloride 0.9%) (06/28/19 14:28) Catheter(Urinary) Insert & Ass 03,15 (06/28/19 15:20) Urine Culture (06/28/19 15:32) Medications Given in ED Vital Signs/I&O Capillary Refill : Less Than 3 Seconds Blood Pressure Mean: 73 Progress Note : Progress Note UNEVENTFUL ER STAY PT HAD NO COMPLAINTS. Diagnostic Imaging Comments CT ABDOMEN/PELVIS--S/P CHOLECYSTECTOMY; SIGNIFICANT INTRA-AND EXTRA-HEPATIC BILIARY AND PANCREATIC DUCTAL DILATATION; NO DISCRETE MASS AND NO CALCULI OBSERVED. BILATERAL RENAL CYSTS. ABDOMINAL ULTRASOUND--SAME ABOVE. EXTRA-HEPATIC BILE DUCT IS DILATED TO 2.3 CM IN DIAMETER. PER RADIOLOGIST REPORTS Departure Communication (Admissions) 1514--CALLED [facility], THEY ARE ON DIVERSION AND CANNOT ACCEPT THE PT 1515--CALLED [facility], THEY HAVE BED AVAILABLE, AND GI THAT IS ABLE TO DO ERCP. 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 1545--SPOKE WITH DR. DUKE, HOSPITALIST, ACCEPTS PT FOR ADMIT/TRANSFER. Impression Primary Impression: Biliary obstruction Additional Impressions: Painless jaundice S/P CHOLECYSTECTOMY 02/2019 UTI (urinary tract infection) UTI Cholestatic pruritus Weight loss, unintentional Disposition: XFER T-[facility] Condition: Stable Transfer Transfer Facility: [facility] Method of Transfer: EMS Departure-Patient Inst. Referrals: DOT DOMÍNGUEZ MD (PCP/Family) Primary Care Physician YESSI VENTURA DO Jun 28, 2019 15:18
[2019-06-28 15:51] LABS: CLARITY,URINE SLIGHTLY CLOUDY; COLOR,URINE AMBER; GLUCOSE, URINE (UA) NEGATIVE (NEGATIVE); KETONES,URINE NEGATIVE (NEGATIVE); LEUKOCYTE ESTERASE ,URINE 1+ (NEGATIVE); NITRITE,URINE POSITIVE (NEGATIVE); PH,URINE 6 (5-9); PROTEIN,URINE 2+ (NEGATIVE); UROBILINOGEN,URINE 8 MG/DL (NORMAL)
--- NOTE | 2019-06-28 15:51 | Diagnostic Imaging Report ---
PROCEDURE: US abdomen complete. TECHNIQUE: Multiple Real-time grayscale images were obtained over the abdomen in various projections. INDICATION: Jaundice and back pain. COMPARISON: Correlation is made with the CT study from earlier this same day. FINDINGS: The liver is upper limits of normal in size at 18 cm. The gallbladder is surgically absent. The extrahepatic bile duct is significantly dilated at 2.3 cm. There is also significant intrahepatic biliary ductal dilatation. No discrete liver mass is identified. The portal vein is patent and shows normal direction of flow. The pancreas is not well visualized. The spleen is normal size at 9.7 cm. The aorta is nonaneurysmal. The IVC is patent. The right kidney does contain an approximately 2.2 cm cyst. The left kidney also contains at least two cysts with the largest measuring approximately 1.9 cm. No calculus or hydronephrosis is seen. There is no ascites. IMPRESSION: 1. Status post cholecystectomy. There is significant intrahepatic and extrahepatic biliary ductal dilatation, correlating with the CT. MRCP or ERCP would be useful for further evaluation, if not already performed. 2. Bilateral renal cysts. Dictated by: Dictated on workstation # [id number]
[2019-06-28 15:52] LABS: AMPHETAMINE SCREEN, URINE NEGATIVE (NEGATIVE); BARBITURATE SCREEN URINE NEGATIVE (NEGATIVE); BENZODIAZEPINES SCREEN URINE NEGATIVE (NEGATIVE); CANNABINOID SCREEN, URINE NEGATIVE (NEGATIVE); COCAINE SCREEN URINE NEGATIVE (NEGATIVE); METHADONE STAT NEGATIVE (NEGATIVE); METHAMPHETAMINE SCREEN URINE S NEGATIVE (NEGATIVE); OPIATE SCREEN URINE NEGATIVE (NEGATIVE); OXYCODONE STAT NEGATIVE (NEGATIVE); PROPOXYPHENE STAT NEGATIVE (NEGATIVE); TRICYCLIC ANTIDEPRESSANTS SCRE NEGATIVE (NEGATIVE)
[2019-06-28 15:59] LABS: BACTERIA,URINE MODERATE /HPF
--- NOTE | 2019-06-28 16:00 | Diagnostic Imaging Report ---
INDICATION: Central line placement. Portable chest at 02:21 p.m. FINDINGS: Right IJ central line tip projects over the cavoatrial junction. Heart size and pulmonary vascularity are normal. Lungs are clear. There are no effusions or pneumothoraces. IMPRESSION: No acute abnormalities in the chest. Dictated by: Dictated on workstation # [id number]
[2019-06-28 18:08] VITALS: BP 107/76
[2019-06-29 06:53] LABS: HEPATITIS C ANTIBODY C Non-Reactive (Non-Reactive)
[2019-06-29 07:36] LABS: BILIRUBIN,URINE 3+ (NEGATIVE)
== END 2019-06-28 18:08 | disposition short-term general hospital (02) ==
LOC: EDUNIT# 12:09 → ER 12:11
DX: K83.1 Obstruction of bile duct (principal); R17 Unspecified jaundice; N39.0 Urinary tract infection, site not specified; L29.8 Other pruritus; R63.4 Abnormal weight loss; I48.91 Unspecified atrial fibrillation; I10 Essential (primary) hypertension; Z88.2 Allergy status to sulfonamides; Z88.1 Allergy status to other antibiotic agents; Z79.82 Long term (current) use of aspirin; Z90.710 Acquired absence of both cervix and uterus; Z90.89 Acquired absence of other organs
CPT/HCPCS: 36415; 51702; 71045; 74176; 76700; 80053; 80074; 80306; 80320; 80329; 81000; 82150; 82550; 82553; 83605; 83690; 83735; 83874; 83880; 85025; 85610; 85730; 86308; 87040; 87088; 93041; 96360; 96361

== ENCOUNTER 2019-07-12 08:55 | Inpatient (IN) | payer MEDICARE, OTHER ==
[~2019-07-12] VITALS: Ht 172.7 cm; Wt 82.1 kg
--- NOTE | 2019-07-12 09:05 | NUR ---
PT POSTURING. DR NOTIFIED ET CAME TO ROOM TO ASSESS PT.
--- NOTE | 2019-07-12 09:07 | NUR ---
DR WEST TALKING WITH DR VOGEL ON THE PHONE.
--- NOTE | 2019-07-12 09:14 | NUR ---
DRIED BLOOD CLEANED OFF OF FACE.
--- NOTE | 2019-07-12 09:20 | NUR ---
SUCTIONING OFF AND ON DUE TO FLUIDS IN THE MOUTH. CONTINUES TO BE UNRESPONSIVE WITH SLIGHT POSTURING.
[2019-07-12 09:24] LABS: BASOPHILS % (AUTO) 0 % (0-10); EOSINOPHILS % (AUTO) 0 % (0-10); HEMATOCRIT 30 % (35-52); HEMOGLOBIN 9.6 G/DL (11.5-16.0); LYMPHOCYTES # (AUTO) 1.1 X 10^3 (1.0-4.0); LYMPHOCYTES % (AUTO) 4 % (12-44); MEAN CORPUSCULAR HEMOGLOBIN 29 PG (25-34); MEAN CORPUSCULAR HGB CONC 32 G/DL (32-36); MEAN CORPUSCULAR VOLUME 92 FL (80-99); MEAN PLATELET VOLUME 11.4 FL (7.4-10.4); MONOCYTES % (AUTO) 11 % (0-12); NEUTROPHILS # (AUTO) 23.4 X 10^3 (1.8-7.8); NEUTROPHILS % (AUTO) 85 % (42-75); PLATELET COUNT 455 10^3/uL (130-400); RED CELL DISTRIBUTION WIDTH 22.4 % (10.0-14.5); WHITE BLOOD COUNT 27.5 10^3/uL (4.3-11.0)
[2019-07-12] MEDS ORDERED: NS IV 1000 ML 1,000 ML IV ONE (09:24)
--- NOTE | 2019-07-12 09:27 | NUR ---
[place] [employer] CONATCTED ABOUT LOCATING FANNY MO DUE TO HER NOT ANSWERING HER PHONE. SOON I HUNG UP FANNY CAME THRU THE ER DOOR. SHE WAS PLACED IN CONSULTATION ROOM AND NOTIFIED WHO CAME TO TALK TO HER.
[2019-07-12 09:30] LABS: CLARITY,URINE CLEAR; COLOR,URINE YELLOW; GLUCOSE, URINE (UA) NEGATIVE (NEGATIVE); KETONES,URINE NEGATIVE (NEGATIVE); LEUKOCYTE ESTERASE ,URINE 1+ (NEGATIVE); NITRITE,URINE NEGATIVE (NEGATIVE); PH,URINE 5 (5-9); PROTEIN,URINE 3+ (NEGATIVE); UROBILINOGEN,URINE 4 MG/DL (NORMAL)
[2019-07-12 09:37] LABS: INR 1.2 (0.8-1.4); PROTHROMBIN TIME PATIENT 15.4 SEC (12.2-14.7)
[2019-07-12 09:44] LABS: ALANINE AMINOTRANSFERASE 65 U/L (0-55); ALBUMIN 2.9 GM/DL (3.2-4.5); ALKALINE PHOSPHATASE 427 U/L (40-136); BUN/CREATININE RATIO 30; CALCIUM 8.7 MG/DL (8.5-10.1); CARBON DIOXIDE 27 MMOL/L (21-32); CHLORIDE 109 MMOL/L (98-107); CREATININE SERUM 0.83 MG/DL (0.60-1.30); GFR ESTIMATED > 60; GLUCOSE 172 MG/DL (70-105); POTASSIUM 2.9 MMOL/L (3.6-5.0); SODIUM 143 MMOL/L (135-145); TOTAL PROTEIN 6.2 GM/DL (6.4-8.2)
[2019-07-12 09:49] LABS: RBC,URINE 0-2 /HPF
[2019-07-12 09:50] LABS: BACTERIA,URINE MODERATE /HPF
[2019-07-12 09:51] LABS: BILIRUBIN,TOTAL 12.6 MG/DL (0.1-1.0)
[2019-07-12 09:51] LABS: SQUAMOUS EPITHELIAL CELL,UR RARE /HPF
[2019-07-12 09:54] LABS: HYALINE CASTS, URINE 0-2 /LPF
[2019-07-12 09:57] LABS: BILIRUBIN,URINE 2+ ICTO=POS (NEGATIVE)
--- NOTE | 2019-07-12 10:06 | NUR ---
BACK FROM CT
--- NOTE | 2019-07-12 10:10 | NUR ---
BACK IN ROOM WITH PT.
--- NOTE | 2019-07-12 10:12 | Diagnostic Imaging Report ---
PROCEDURE: CT head and CT cervical spine without contrast. TECHNIQUE: Multiple contiguous axial images were obtained through the brain and cervical spine without the use of intravenous contrast. Sagittal and coronal reformations through the cervical spine were then performed. Auto Exposure Controls were utilized during the CT exam to meet ALARA standards for radiation dose reduction. INDICATION: Fall. No prior studies are available for comparison. CT head: There appears to be some soft tissue swelling in the left frontal scalp. Ventricular size and sulcal pattern are normal. There is moderate periventricular hypodensity noted consistent with chronic microvascular ischemia. No sulcal effacement or midline shift is identified. No acute intra-axial or extra-axial hemorrhage is detected. The cisterns are patent. Visualized paranasal sinuses are clear. No calvarial fracture is seen. IMPRESSION: 1. Frontal scalp swelling. 2. Changes of chronic microvascular ischemia. No acute intracranial process is detected. CT cervical spine: Curvature and alignment of the cervical spine is normal. There is generalized degenerative disc disease and facet disease. There is variable disc space narrowing and marginal spurring. No fractures are identified. The odontoid is intact. Prevertebral tissues are normal. IMPRESSION: Cervical spondylosis. No acute bony abnormality is detected. Dictated by: Dictated on workstation # [id number]
--- NOTE | 2019-07-12 10:14 | NUR ---
SUCTIONING AT THIS TIME.
[2019-07-12] MEDS ORDERED: NALOXONE 2 MG/2 ML (NARCAN) SYR IV ONE (10:15)
--- NOTE | 2019-07-12 10:16 | NUR ---
FRIEND BROUGHT INTO ROOM TO TALK TO DR. BIGGS TRYING TO TALK TO PT WHO IS NOT RESPONDING TO HER ALSO.
--- NOTE | 2019-07-12 10:17 | NUR ---
PT IS NOW HAS A GAZE THAT IS FIXED TO THE RIGHT ALONG WITH HER HEAD.
--- NOTE | 2019-07-12 10:17 | Diagnostic Imaging Report ---
Indication: Found unresponsive. Time of exam 9:54 AM Correlation is made with prior chest from 06/28/2019. Right-sided line seen previously has been removed. The heart size is stable. The lungs appear to be clear. No infiltrates are detected. The pulmonary vascularity is normal. No effusion or pneumothorax is identified. Impression: No acute cardiopulmonary process is detected. Dictated by: Dictated on workstation # [id number]
--- NOTE | 2019-07-12 10:18 | Diagnostic Imaging Report ---
INDICATION: Found unresponsive. TIME OF EXAMINATION: 9:56 AM. TECHNIQUE: A single AP view of the pelvis was obtained. FINDINGS: The femoroacetabular alignment is normal bilaterally. Both femoral heads and necks are intact. The rami appear intact. The SI joints and symphysis are non widened. No fractures are seen. IMPRESSION: No acute bony abnormality is detected. Dictated by: Dictated on workstation # [id number]
[2019-07-12 10:20] LABS: HYPOCHROMASIA MODERATE; LYMPHOCYTES % (MANUAL) 3 %; MONOCYTES % (MANUAL) 8 %; NEUTROPHILS % (MANUAL) 89 %
--- NOTE | 2019-07-12 10:20 | NUR ---
[facility] CONTACTED FOR FRIEND WHO IS TEARFUL.
--- NOTE | 2019-07-12 10:25 | NUR ---
IS TALKING WITH DR ESTRADA ON PHONE. VIVIANE FROM [facility] HERE TALKING TO FRIEND. FRIEND BROUGHT PT PURSE BUT I ASKED HER TO TAKE IT BACK WITH HER AND I ALSO PUT HER WATCH AND DRIVERS LICENCE IN THE PURSE FOR THE FRIEND TO TAKE HOME.
--- NOTE | 2019-07-12 10:35 | NUR ---
DESCISION HAS BEEN MADE TO PLACE PT ON [facility]. C-COLLAR REMOVED. MONITOR TURNED OFF.
--- NOTE | 2019-07-12 10:42 | NUR ---
ATTEMPTED TO CALL BROTHER IN [employer] [facility]. MESSAGE LEFT.
--- NOTE | 2019-07-12 10:47 | NUR ---
Rec'vd page to provide support to pt's friend, Radha, who was the only visitor present. Radha anticipates the pt will be transferred to 4th floor on [facility] for complications of pancreatic cancer and fall w/possible stroke. Radha said she contacted the police to check on the pt this morning because she did not answer the phone. I provided emotional support and walked with Radha to her vehicle because I observed her to be slightly short of breath as she verbally processed her plans. Radha declined assistance by wheel chair, so I remained with her and encouraged her to take her time. As we walked together, Radha talked about her meaningful friendship with the pt, as well as her current feelings of shock. When Radha observed that I was going to accompany her to the car, she requested that I hold her hand bag. Once Radha was observed safely departing by vehicle, I returned to the pt's room and spoke with Damaris the RN who confirmed the pt would be transferred to 4th floor.
--- NOTE | 2019-07-12 10:49 | ED General ---
General Chief Complaint: Unresponsive Stated Complaint: SEPSIS;PANCREATIC CANCER Nursing Triage Note: ARRIVED VIA EMS FROM HOME AFTER BEING CALLED FOR A WELLNESS CHECK. PT WAS FOUND LYING ON THE FLOOR UNRESPONSIVE WITH VOMIT TO THE SIDE OF HER. BRUISING NOTED ON FACE WITH LEFT EYE NOT OPENING DUE TO SWELLING AND BRUISING. PT ARRIVED WITH A C-COLLAR ON. PT NOT RESPONSIVE AT THIS TIME. SKIN IS JAUNDICED. FRIEND TALKED WITH PT LAST NIGHT. Nursing Sepsis Screen: No Definite Risk Source of Information: Patient Exam Limitations: No Limitations History of Present Illness Date Seen by Provider: Jul 12, 2019 Time Seen by Provider: 08:57 Initial Comments This 69-year-old woman is brought to the emergency room via EMS after being found in the prone position on her kitchen floor unresponsive. Her friend Radha called for a welfare check. Patient was to have an appointment with Dr. Langley at the [facility] this morning as a follow-up on her recent diagnosis of pancreatic cancer. She had been seen in this hospital and transferred to [facility] in [place] for biliary obstruction. She was diagnosed with pancreatic cancer and sent to [facility] for further consultation. It was determined her cancer was nonoperative. The cancer Center anticipated discussing palliative chemotherapy with her. Patient is unresponsive on arrival. She did withdraw to pain for EMS but not for this provider. She has evidence of injury to the face with epist axis. She arrives in a c-collar. She was mildly hypoxic with oxygen saturation around 90 percent per EMS. They applied oxygen with a nonrebreather. Oxygen saturation is 100 percent on arrival. Allergies and Home Medications Allergies Coded Allergies: sulfamethoxazole (Unverified Allergy, Unknown, 02/06/19) trimethoprim (Unverified Allergy, Unknown, 02/06/19) Uncoded Allergies: PENICILLIN (Allergy, Unknown, 02/06/19) Home Medications Aspirin 325 Mg Tablet.dr, 325 MG PO DAILY, (Reported) Atenolol 50 Mg Tablet, 50 MG PO DAILY, (Reported) Cefdinir 300 Mg Capsule, 300 MG PO twice a day Prescribed by: ESTRELLITA FOOTE on 02/27/19 1424 Hydrochlorothiazide 25 Mg Tablet, 25 MG PO DAILY, (Reported) Losartan Potassium 25 Mg Tablet, 25 MG PO DAILY, (Reported) Abercrombie 3 Polyunsat Fatty Acids 1,000 Mg Cap, 2,000 MG PO DAILY, (Reported) Potassium Chloride 20 Meq Tab.er.prt, 20 MEQ PO DAILY, (Reported) l Gasseri/B Bifidum/B Longum 1 Each Capsule, 1 CAP PO DAILY, (Reported) Patient Home Medication List Home Medication List Reviewed: Yes Review of Systems Review of Systems Constitutional: see HPI EENTM: see HPI Respiratory: no symptoms reported Cardiovascular: no symptoms reported Gastrointestinal: see HPI Genitourinary: no symptoms reported : No Musculoskeletal: see HPI Skin: other (extreme jaundice) Psychiatric/Neurological: See HPI Hematologic/Lymphatic: No Symptoms Reported Immunological/Allergic: no symptoms reported Past Fusqdjw-Wewsrz-Bnflgt Hx Past Med/Social Hx: Reviewed and Corrections made Patient Social History 2nd Hand Smoke Exposure: No Recent Foreign Travel: No Contact w/Someone Who Travel: No Recent Infectious Disease Expo: No Recent Hopitalizations: Yes Immunizations Up To Date Tetanus Booster (TDap): Unknown PED Vaccines UTD: Yes Seasonal Allergies Seasonal Allergies: No Past Medical History Surgeries: Yes Eye Surgery, Gallbladder, Hysterectomy, Oophorectomy, Tonsillectomy Respiratory: No Cardiac: Yes Atrial Fibrillation, Heart Murmur, Hypertension 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 Genitourinary: No Gastrointestinal: Yes Liver Disease/Jaundice, Gall Bladder Disease Musculoskeletal: No Endocrine: No HEENT: Yes (BILATERAL CATARACT SURGERY) Cataract Cancer: Yes Pancreatic Psychosocial: No Integumentary: No Blood Disorders: No Family Medical History No Pertinent Family Hx Physical Exam-Suspected Sepsis Physical Exam Vital Signs Vital Signs - First Documented 07/12/19 07/12/19 08:58 09:15 Temp 97.9 Pulse 118 Resp 18 B/P (MAP) 158/98 (118) Pulse Ox 99 O2 Delivery Non Rebreather O2 Flow Rate 5.00 Capillary Refill : Less Than 3 Seconds Blood Pressure Mean: 118 Height, Weight, BMI Height: 5'8.00" Weight: 175lbs. 0.0oz. 79.329583mk; 32.2 BMI Method:Stated General Appearance: No Apparent Distress, WD/WN HEENT: Other (epistaxis. Extreme scleral icterus. In cervical collar. Gaze deviation to the right and sluggish pupillary response. Bloody saliva in the mouth) Neck: Other (in c-collar) Respiratory: Lungs Clear, Normal Breath Sounds, No Accessory Muscle Use, No Respiratory Distress Cardiovascular: No Edema, No Murmur, Irregularly Irregular, Tachycardia Gastrointestinal: Soft; No Distended Extremity: Pedal Edema, Other (no obvious injury) Neurologic/Psychiatric: Other (unresponsive, even to pain. Involuntary twitching and jerking. Bilateral eye deviation to the right. Sluggish pupillary response) Skin: warm/dry, jaundice Focused Exam Lactate Level 07/12/19 09:00: Lactic Acid Level 2.54*H Lactic Acid Level Laboratory Tests Test 07/12/19 09:00 Lactic Acid Level 2.54 MMOL/L (0.50-2.00) *H Progress/Results/Core Measures Suspected Sepsis Recent Fever Within 48 Hours: No Infection Criteria Present: Suspected New Infection New/Unexplained Altered Menta: Yes Sepsis Screen: No Definite Risk SIRS Temperature:97.9 Pulse: 118 Respiratory Rate: 18 Laboratory Tests 07/12/19 09:00: White Blood Count 27.5H Blood Pressure 158 /98 Mean: 118 07/12/19 09:00: Lactic Acid Level 2.54*H Laboratory Tests 07/12/19 09:00: Creatinine 0.83, INR Comment 1.2, Platelet Count 455H, Total Bilirubin 12.6*H Results/Orders Lab Results Laboratory Tests Test 07/12/19 09:00 07/12/19 09:05 Range/Units White Blood Count 27.5 H 4.3-11.0 10^3/uL Red Blood Count 3.27 L 4.35-5.85 10^6/uL Hemoglobin 9.6 L 11.5-16.0 G/DL Hematocrit 30 L 35-52 % Mean Corpuscular Volume 92 80-99 FL Mean Corpuscular Hemoglobin 29 25-34 PG Mean Corpuscular Hemoglobin Concent 32 32-36 G/DL Red Cell Distribution Width 22.4 H 10.0-14.5 % Platelet Count 455 H 130-400 10^3/uL Mean Platelet Volume 11.4 H 7.4-10.4 FL Neutrophils (%) (Auto) 85 H 42-75 % Lymphocytes (%) (Auto) 4 L 12-44 % Monocytes (%) (Auto) 11 0-12 % Eosinophils (%) (Auto) 0 0-10 % Basophils (%) (Auto) 0 0-10 % Neutrophils # (Auto) 23.4 H 1.8-7.8 X 10^3 Lymphocytes # (Auto) 1.1 1.0-4.0 X 10^3 Monocytes # (Auto) 3.0 H 0.0-1.0 X 10^3 Eosinophils # (Auto) 0.0 0.0-0.3 10^3/uL Basophils # (Auto) 0.0 0.0-0.1 10^3/uL Neutrophils % (Manual) 89 % Lymphocytes % (Manual) 3 % Monocytes % (Manual) 8 % Hypochromasia MODERATE Prothrombin Time 15.4 H 12.2-14.7 SEC INR Comment 1.2 0.8-1.4 Activated Partial Thromboplast Time 20 L 24-35 SEC Sodium Level 143 135-145 MMOL/L Potassium Level 2.9 L 3.6-5.0 MMOL/L Chloride Level 109 H 98-107 MMOL/L Carbon Dioxide Level 27 21-32 MMOL/L Anion Gap 7 5-14 MMOL/L Blood Urea Nitrogen 25 H 7-18 MG/DL Creatinine 0.83 0.60-1.30 MG/DL Estimat Glomerular Filtration Rate > 60 BUN/Creatinine Ratio 30 Glucose Level 172 H 70-105 MG/DL Lactic Acid Level 2.54 *H 0.50-2.00 MMOL/L Calcium Level 8.7 8.5-10.1 MG/DL Corrected Calcium 9.6 8.5-10.1 MG/DL Magnesium Level 1.8 1.6-2.4 MG/DL Total Bilirubin 12.6 *H 0.1-1.0 MG/DL Aspartate Amino Transf (AST/SGOT) 68 H 5-34 U/L Alanine Aminotransferase (ALT/SGPT) 65 H 0-55 U/L Alkaline Phosphatase 427 H 40-136 U/L Total Protein 6.2 L 6.4-8.2 GM/DL Albumin 2.9 L 3.2-4.5 GM/DL Serum Alcohol < 10 <10 MG/DL Urine Color YELLOW Urine Clarity CLEAR Urine pH 5 5-9 Urine Specific [place] 1.025 H 1.016-1.022 Urine Protein 3+ H NEGATIVE Urine Glucose (UA) NEGATIVE NEGATIVE Urine Ketones NEGATIVE NEGATIVE Urine Nitrite NEGATIVE NEGATIVE Urine Bilirubin 2+ ICTO=POS NEGATIVE Urine Urobilinogen 4 H NORMAL MG/DL Urine Leukocyte Esterase 1+ H NEGATIVE Urine RBC (Auto) 2+ H NEGATIVE Urine RBC 0-2 /HPF Urine WBC 5-10 H /HPF Urine Squamous Epithelial Cells RARE /HPF Urine Crystals NONE /LPF Urine Bacteria MODERATE H /HPF Urine Casts PRESENT /LPF Urine Hyaline Casts 0-2 H /LPF Urine Granular Casts 10-25 H /LPF Urine Mucus NEGATIVE /LPF Urine Culture Indicated CULTURE PENDING My Orders Orders - RAIZA WEST MD Cbc With Automated Diff (07/12/19 09:13) Comprehensive Metabolic Panel (07/12/19 09:13) Blood Culture (07/12/19 09:13) Sputum Culture (07/12/19 09:13) Urinalysis (07/12/19 09:13) Urine Culture (07/12/19 09:13) Protime With Inr (07/12/19 09:13) Partial Thromboplastin Time (07/12/19 09:13) Chest 1 View, Ap/Pa Only (07/12/19 09:13) Ed Iv/Invasive Line Start (07/12/19 09:13) Ed Iv/Invasive Line Start (07/12/19 09:13) Vital Signs Adult Sepsis Patie Q15M (07/12/19 09:13) O2 (07/12/19 09:13) Remove Rings In Anticipation O (07/12/19 09:13) Lactic Acid Analyzer (07/12/19 09:13) Ct Head/Cervical Spine Wo (07/12/19 09:13) Pelvis (07/12/19 09:13) Alcohol (07/12/19 09:17) Magnesium (07/12/19 09:23) Manual Differential (07/12/19 09:00) Ekg Tracing (07/12/19 09:24) Ns Iv 1000 Ml (Sodium Chloride 0.9%) (07/12/19 09:24) Naloxone Injection (Narcan Injection) (07/12/19 10:15) Creatine Kinase (07/12/19 10:12) Medications Given in ED Current Medications Medications Dose Ordered Sig/Natasha Route Start Time Stop Time Status Last Admin Dose Admin Naloxone HCl 1 mg ONCE ONCE IV 07/12/19 10:15 07/12/19 10:16 DC 07/12/19 10:13 1 MG Sodium Chloride 1,000 ml @ 0 mls/hr Q0M ONCE IV 07/12/19 09:24 07/12/19 09:25 DC 07/12/19 09:34 1,000 MLS/HR Vital Signs/I&O 07/12/19 07/12/19 08:58 09:15 Temp 97.9 Pulse 118 Resp 18 B/P (MAP) 158/98 (118) Pulse Ox 99 O2 Delivery Non Rebreather Non Rebreather O2 Flow Rate 5.00 Capillary Refill : Less Than 3 Seconds Blood Pressure Mean: 118 Progress Note : Progress Note Septic workup was pursued. Patient was found to likely be septic from urinary tract infection source. She was also noted to have atrial fibrillation and significant hypokalemia. The CODE STATUS question was deliberate it at length amongst the patient's friend, Radha Lugo, and medical staff including Dr. Langley, Dr. Champion, and Dr. Mcclellan. Dr. Langley could not make a determination on the prediction of life expectancy on palliative chemotherapy without having actually assess the patient himself. Given the patient's significant obstacles including neurologic deficits, sepsis, hypokalemia, A. fib with RVR, and nonoperable pancreatic cancer, Dr. Champion, Dr. Mcclellan, and I all agree that aggressive therapies and intubation would be futile and cruel. We therefore elected to admit her with comfort care orders. This was discussed with Radha Lugo, patient's close friend. No family could be contacted. I did attempt to call her [id number] and left a message. She has no immediate family. She is and has no children. Diagnostic Imaging Diagonstic Imaging: Xray Plain Films/CT/US/NM/MRI: chest Comments Chest x-ray viewed by me and report reviewed. See report below: NAME: KARSTEN DUDLEY [facility] REC#: [id number] PT STATUS: REG ER : 1950 PHYSICIAN: RAIZA WEST MD ADMIT DATE: 07/12/19/ER Draft Date of Exam:07/12/19 CHEST 1 VIEW, AP/PA ONLY Indication: Found unresponsive. Time of exam 9:54 AM Correlation is made with prior chest from 06/28/2019. Right-sided line seen previously has been removed. The heart size is stable. The lungs appear to be clear. No infiltrates are detected. The pulmonary vascularity is normal. No effusion or pneumothorax is identified. Impression: No acute cardiopulmonary process is detected. Dictated on workstation # [id number] Dict: 07/12/19 1014 Trans: 07/12/19 1016 [facility] [id number] Interpreted by: JAS DE GUZMAN MD Diagonstic Imaging: Xray Plain Films/CT/US/NM/MRI: pelvis Comments Pelvis x-ray viewed by me and report reviewed. See report below: NAME: KARSTEN DUDLEY [facility] REC#: [id number] PT STATUS: REG ER : 1950 PHYSICIAN: RAIZA WEST MD ADMIT DATE: 07/12/19/ER Draft Date of Exam:07/12/19 PELVIS INDICATION: Found unresponsive. TIME OF EXAMINATION: 9:56 AM. TECHNIQUE: A single AP view of the pelvis was obtained. FINDINGS: The femoroacetabular alignment is normal bilaterally. Both femoral heads and necks are intact. The rami appear intact. The SI joints and symphysis are non widened. No fractures are seen. IMPRESSION: No acute bony abnormality is detected. Dictated on workstation # [id number] Dict: 07/12/19 1015 Trans: 07/12/19 1018 [id number] Interpreted by: JAS DE GUZMAN MD Diagonstic Imaging: CT Plain Films/CT/US/NM/MRI: c-spine, head Comments CT head and C-spine viewed by me and report reviewed. See report below: NAME: KARSTEN DUDLEY [facility] REC#: [id number] PT STATUS: REG ER : 1950 PHYSICIAN: RAIZA WEST MD ADMIT DATE: 07/12/19/ER Draft Date of Exam:07/12/19 CT HEAD/CERVICAL SPINE WO PROCEDURE: CT head and CT cervical spine without contrast. TECHNIQUE: Multiple contiguous axial images were obtained through the brain and cervical spine without the use of intravenous contrast. Sagittal and coronal reformations through the cervical spine were then performed. Auto Exposure Controls were utilized during the CT exam to meet ALARA standards for radiation dose reduction. INDICATION: Fall. No prior studies are available for comparison. CT head: There appears to be some soft tissue swelling in the left frontal scalp. Ventricular size and sulcal pattern are normal. There is moderate periventricular hypodensity noted consistent with chronic microvascular ischemia. No sulcal effacement or midline shift is identified. No acute intra-axial or extra-axial hemorrhage is detected. The cisterns are patent. Visualized paranasal sinuses are clear. No calvarial fracture is seen. IMPRESSION: 1. Frontal scalp swelling. 2. Changes of chronic microvascular ischemia. No acute intracranial process is detected. CT cervical spine: Curvature and alignment of the cervical spine is normal. There is generalized degenerative disc disease and facet disease. There is variable disc space narrowing and marginal spurring. No fractures are identified. The odontoid is intact. Prevertebral tissues are normal. IMPRESSION: Cervical spondylosis. No acute bony abnormality is detected. Dictated on workstation # [id number] Dict: 07/12/19 1000 Trans: 07/12/19 1012 [facility] [id number] Interpreted by: JAS DE GUZMAN MD Departure Communication (Admissions) Time/Spoke to Admitting Phy: 10:25 Dr. Beach Impression Primary Impression: Pancreatic cancer Qualified Codes: C25.9 - Malignant neoplasm of pancreas, unspecified Additional Impressions: Sepsis Qualified Codes: A41.9 - Sepsis, unspecified organism; R65.20 - Severe sepsis without septic shock; G93.40 - Encephalopathy, unspecified Urinary tract infection Qualified Codes: N39.0 - Urinary tract infection, site not specified Atrial fibrillation with RVR Hypokalemia Unresponsive Palliative care patient Disposition: ADMITTED INPATIENT Condition: Improved Admissions Decision to Admit Reason: Admit from ER (General) Decision to Admit/Date: Jul 12, 2019 Time/Decision to Admit Time: 10:25 Departure-Patient Inst. Referrals: DOT DOMÍNGUEZ MD (PCP) Primary Care Physician RAIZA WEST MD Jul 12, 2019 10:49
--- NOTE | 2019-07-12 11:12 | NUR ---
DEPT NOTIFIED OF MULTIPLE ANIMALS LIVING INSIDE THE HOME ACCORDING TO THE FRIEND.
--- NOTE | 2019-07-12 11:13 | NUR ---
DID NOT COMPLETE MED REC AT THIS TIME DUE TO COMFORT CARE ORDERS
[2019-07-12] MEDS ORDERED: PROMETHAZINE INJ 25 MG/ML (PHENERGAN) AMP IV PRN (11:15)
[2019-07-12] MEDS ORDERED: ATROPINE 1% OPHTHALMIC SOLN 2 ML SL PRN (11:15)
[2019-07-12] MEDS ORDERED: LORazepam ORAL CONCENTRATE 2 MG/ML 30 ML (ATIVAN) PO PRN (11:15)
[2019-07-12] MEDS ORDERED: BISACODYL 10 MG SUPP (DULCOLAX) PR PRN (11:15)
[2019-07-12] MEDS ORDERED: ACETAMINOPHEN 650 MG SUPP (TYLENOL) PR PRN (11:15)
[2019-07-12] MEDS ORDERED: ONDANSETRON 4 MG/2 ML (SDV) Z0FRAN IV PRN (11:15)
[2019-07-12] MEDS ORDERED: GLYCOPYRROLATE 0.2 MG/ML (ROBINUL) 2 ML VIAL IV PRN (11:15)
[2019-07-12] MEDS ORDERED: RT-ALBUTEROL/IPRATROPIUM 3 ML (DUONEB) VIAL INH PRN (11:15)
[2019-07-12] MEDS ORDERED: ARTIFICAL TEARS 0.4 ML UNIT DOSE (REFRESH PLUS) OU PRN (11:30)
[2019-07-12] MEDS: LORazepam INJ 2 MG/ML (ATIVAN) VIAL IV PRN (11:36)
[2019-07-12] MEDS: SCOPOLAMINE 1.5 MG (TRANSDERM-SCOP) PATCH TOP SCH (11:46)
--- NOTE | 2019-07-12 12:31 | NUR ---
KARSTEN DUDLEY admitted to room 407-1, with an admitting diagnosis of COMFORT CARE, on 07/12/19 from ED via STRETCHER, accompanied by ED RN.their hospitalization. The following Patient Care Plans were ENTERED : COMFORT CARE,.
--- NOTE | 2019-07-12 13:25 | NUR ---
Pastoral care responding to call from 4th floor. I had prayer with pt, who was unresponsive and also sat with pt for awhile.
--- NOTE | 2019-07-12 13:46 | NUR ---
PALLIATIVE CARE RN in to see patient. She is Side lying and has a NRB on at 10 L. This was changed to humidified O2 at 2L. Patient tolerated the transition well but is noted to be apneic, with tongue movements like fish out of water...then she recovers with rapid respirations. She does open her eys but they do not appear to be seeing. Patient has dried blood in her nostrils and on the side of her face, caked in her eyebrows and around her left eye that is also bruised and swollen from the fall. He hands a feet are cold. I did speak to her [id number] Gamaliel Ryder and he indicated that he would be coming down. Noting that they were not that close. He did mention that his brother is buried [place] of [facility] but couldn't remember what the name was. Patient is not expected to live longer than 24 hours.
[2019-07-12] MEDS: morphine INJ 4 MG/ML 1 ML (VIAL/SYRINGE) IV PRN (14:01)
--- NOTE | 2019-07-12 15:37 | NUR ---
PALLIATIVE CARE RN spoke to patient's friend to try to ascertain the cemetery where patient is buried I was told he is buried at the [facility] on [id number], and that [facility] was used as Mortuary. [facility] [phone] [facility] [phone] Radha is listed as contact and would like to be notified of passing.
[2019-07-12] MEDS: SALIVA STIMULANT MOUTH SPRAY (BIOTENE) 1.5 OZ MM PRN (17:14)
--- NOTE | 2019-07-13 09:50 | NUR ---
PALLIATIVE CARE RN in to see patient. She is more responsive today that yesterday appearing to actually see when eyes are open. Yesterday she would only open her eyes after a period of apnea and they appeared to be unseeing. Patient although alert she is not able to follow commands or respond verbally. Today she is licking her dry lips and attempting to clear secretions. Charting indicates she is on O2 by NRB but this is inaccurate, instead she is currently on 1 L NC and is satting in the low 90s fine. Patient remains CCMO. She iwll be getting a PRN dose of Ativan.
[2019-07-13] MEDS: LORazepam INJ 2 MG/ML (ATIVAN) VIAL IV PRN (10:27)
[2019-07-13] MEDS: SALIVA STIMULANT MOUTH SPRAY (BIOTENE) 1.5 OZ MM PRN ×2 (10:28→14:28)
--- NOTE | 2019-07-13 12:32 | History & Physicial ---
History of Present Illness History of Present Illness Reason for visit/HPI This is a 69 year old female with recent diagnosis of pancreatic cancer who had been admitted at [facility] in [place] then transferred to . She had been discharged from on 11/07/19 and was supposed to see Dr. Langley on the morning of 07/12/19 to discuss palliative chemotherapy. However, when her friend arrived at her house to pick her up for this appointment, she did not answer so the friend called 911. The patient was found face down on her kitchen floor and was unresponsive. She was brought to the emergency room where she was found to be unresponsive even to painful stimuli. No advanced directives were available but with her current metastatic pancreatic cancer diagnosis as well as her apparent encephalopathy with unresponsiveness and right lateral gaze on exam, it was decided that comfort care was the most ethical decision for the patient. Her friend stated that she knew the patient would not want to be kept alive if she was going to be bedbound or in a vegetative state. The patient has no family per her friend. Maybe a few distant cousins that do not live around here and that the patient does not have contact with. Date of Admission Jul 12, 2019 at 10:41 Date Seen by a Provider: Jul 12, 2019 Time Seen by a Provider: 12:30 I consulted on this patient on 07/13/19 12:25 Attending Physician Melanie Mcclellan DO Admitting Physician Daryl Tabor MD Consult Allergies and Home Medications Allergies Coded Allergies: sulfamethoxazole (Unverified Allergy, Unknown, 02/06/19) trimethoprim (Unverified Allergy, Unknown, 02/06/19) Uncoded Allergies: PENICILLIN (Allergy, Unknown, 02/06/19) Home Medications Aspirin 325 Mg Tablet.dr, 325 MG PO DAILY, (Reported) Atenolol 50 Mg Tablet, 50 MG PO DAILY, (Reported) Cefdinir 300 Mg Capsule, 300 MG PO twice a day Prescribed by: ESTRELLITA FOOTE on 02/27/19 1054 Hydrochlorothiazide 25 Mg Tablet, 25 MG PO DAILY, (Reported) Losartan Potassium 25 Mg Tablet, 25 MG PO DAILY, (Reported) [place] 3 Polyunsat Fatty Acids 1,000 Mg Cap, 2,000 MG PO DAILY, (Reported) Potassium Chloride 20 Meq Tab.er.prt, 20 MEQ PO DAILY, (Reported) l [place]/B Bifidum/B Longum 1 Each Capsule, 1 CAP PO DAILY, (Reported) Patient Home Medication List Home Medication List Reviewed: Yes Past Lzbdevo-Wciuux-Fykajc Hx Patient Social History Alcohol Use: Denies Use Recreational Drug Use: No Smoking Status: Unknown if Ever Smoked 2nd Hand Smoke Exposure: No Physical Abuse Screen: No Sexual Abuse: No Recent Foreign Travel: No Contact w/other who traveled: No Recent Hopitalizations: Yes Recent Infectious Disease Expo: No Immunizations Up To Date Tetanus Booster (TDap): Unknown Pediatric: Yes Seasonal Allergies Seasonal Allergies: No Surgeries Yes Eye Surgery, Gallbladder, Hysterectomy, Oophorectomy, Tonsillectomy Respiratory No Cardiovascular Yes Atrial Fibrillation, Heart Murmur, Hypertension 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 Genitourinary No Gastrointestinal Yes Liver Disease/Jaundice, Gall Bladder Disease Musculoskeletal No Endocrine History of Endocrine Disorders: No HEENT History of HEENT Disorders: Yes (BILATERAL CATARACT SURGERY) HEENT Disorders: Cataract Cancer Yes Pancreatic Psychosocial History of Psychiatric Problem: No Integumentary History of Skin or Integumenta: No Blood Transfusions History of Blood Disorders: No Family Medical History Significant Family History: No Pertinent Family Hx Review of Systems Constitutional: weight loss EENTM: No see HPI, No no symptoms reported, No ear discharge, No hearing loss, No ear pain, No blurred vision, No double vision, No eye pain, No tearing, No vision loss, No dental problems, No hoarseness, No mouth pain, No mouth swelling, No epistaxis, No nose congestion, No nose pain, No throat pain, No throat swelling, No other Respiratory: No no symptoms reported, No see HPI, No cough, No dyspnea on exertion, No hemoptysis, No orthopnea, No phlegm, No short of breath, No stridor, No wheezing, No other Cardiovascular: No no symptoms reported, No see HPI, No chest pain, No edema, No Hx of Intervention, No palpitations, No syncope, No vascular heart diseas, No other Gastrointestinal: jaundice Genitourinary: No no symptoms reported, No see HPI, No decreased output, No discharge, No dysuria, No frequency, No hematuria, No hesitancy, No incontinence, No nocturia, No pain, No other Musculoskeletal: muscle weakness Skin: change in color Psychiatric/Neurological: Weakness Physical Exam Vital Signs Vital Signs - First Documented 07/12/19 07/12/19 08:58 09:15 Temp 97.9 Pulse 118 Resp 18 B/P (MAP) 158/98 (118) Pulse Ox 99 O2 Delivery Non Rebreather O2 Flow Rate 5.00 Capillary Refill : Less Than 3 Seconds Height, Weight, BMI Height: 5'8.00" Weight: 175lbs. 0.0oz. [id number]; 26.6 BMI Method:Stated General Appearance: No Apparent Distress (unresponsive to voice or stimuli) HEENT: Other (dry mucous membranes) Neck: Supple Respiratory: Lungs Clear Cardiovascular: Regular Rate, Rhythm Gastrointestinal: Soft, Other (ascites) Rectal: Deferred Extremity: No Pedal Edema Neurologic/Psychiatric: Other (unresponsive) Skin: Jaundice Comments Laboratory Tests 07/12/19 09:00: White Blood Count 27.5H, Red Blood Count 3.27L, Hemoglobin 9.6L, Hematocrit 30L, Mean Corpuscular Volume 92, Mean Corpuscular Hemoglobin 29, Mean Corpuscular Hemoglobin Concent 32, Red Cell Distribution Width 22.4H, Platelet Count 455H, Mean Platelet Volume 11.4H, Neutrophils (%) (Auto) 85H, Lymphocytes (%) (Auto) 4L, Monocytes (%) (Auto) 11, Eosinophils (%) (Auto) 0, Basophils (%) (Auto) 0, Neutrophils # (Auto) 23.4H, Lymphocytes # (Auto) 1.1, Monocytes # (Auto) 3.0H, Eosinophils # (Auto) 0.0, Basophils # (Auto) 0.0, Neutrophils % (Manual) 89, Lymphocytes % (Manual) 3, Monocytes % (Manual) 8, Hypochromasia MODERATE, Prothrombin Time 15.4H, INR Comment 1.2, Activated Partial Thromboplast Time 20L , Sodium Level 143, Potassium Level 2.9L, Chloride Level 109H, Carbon Dioxide Level 27, Anion Gap 7, Blood Urea Nitrogen 25H, Creatinine 0.83, Estimat Glomerular Filtration Rate > 60, BUN/Creatinine Ratio 30, Glucose Level 172H, Lactic Acid Level 2.54*H, Calcium Level 8.7, Corrected Calcium 9.6, Magnesium Level 1.8, Total Bilirubin 12.6*H, Aspartate Amino Transf (AST/SGOT) 68H, Alanine Aminotransferase (ALT/SGPT) 65H, Alkaline Phosphatase 427H, Total Creati ne Kinase 46, Total Protein 6.2L, Albumin 2.9L, Serum Alcohol < 10 07/12/19 09:05: Urine Color YELLOW, Urine Clarity CLEAR, Urine pH 5, Urine Specific [place] 1.025H, Urine Protein 3+H, Urine Glucose (UA) NEGATIVE, Urine Ketones NEGATIVE, Urine Nitrite NEGATIVE, Urine Bilirubin 2+ ICTO=POS, Urine Urobilinogen 4H, Urine Leukocyte Esterase 1+H, Urine RBC (Auto) 2+H, Urine RBC 0-2, Urine WBC 5- 10H, Urine Squamous Epithelial Cells RARE, Urine Crystals NONE, Urine Bacteria MODERATEH, Urine Casts PRESENT, Urine Hyaline Casts 0-2H, Urine Granular Casts 10-25H, Urine Mucus NEGATIVE, Urine Culture Indicated CULTURE PENDING Assessment/Plan Assessment and Plan 1. UTI with sepsis 2. Metastatic Pancreatic Cancer 3. Hypokalemia 4. Atrial fibrillation with RVR 5. Metabolic Encephalopathy 6. Comfort Care per recommendations of ER doctor, Critical Care doctor and my self after speaking with the patient's friend about her wishes Admission Diagnosis Admission Status: Inpatient Order (span 2 midnights) Reason for Inpatient Admission: Will need IV pain control, IV ativan for seizures and agitation, etc. Clinical Quality Measures DVT/VTE Risk/Contraindication: Risk Factor Score Per Nursin RFS Level Per Nursing on Admit: 3=High MELANIE MCCLELLAN DO Jul 13, 2019 12:32
--- NOTE | 2019-07-13 12:43 | Progress Note ---
Subjective Date Seen by a Provider: Jul 13, 2019 Time Seen by a Provider: 08:30 Subjective/Events-last exam Fwup comfort care. Patient with eyes open but pupils fixed and unresponsive. Having more chest rattle today. Nursing reports seizure activity overnight which responded to ativan. Focused Exam Lactate Level 07/12/19 09:00: Lactic Acid Level 2.54*H Objective Exam Vital Signs Date Time Temp Pulse Resp B/P (MAP) Pulse Ox O2 Delivery O2 Flow Rate FiO2 07/13/19 09:45 113 97 Nasal Cannula 1.00 07/13/19 08:00 97 Nasal Cannula 1.00 07/12/19 20:00 98 Non Rebreather 5.00 07/12/19 20:00 Nasal Cannula 5.00 I & O 07/13/19 07:00 Intake Total 1000 ml Output Total 775 ml Balance 225 ml Capillary Refill : Less Than 3 Seconds General Appearance: Other (unresponsive) Respiratory: Respiratory Distress (coarse rattle) Neurologic/Psychiatric: Other (unresposive with pupils fixed) Skin: Jaundice Results Lab Microbiology 07/12/19 Urine Culture - Final, Complete NO GROWTH Assessment/Plan Assessment/Plan Assess & Plan/Chief Complaint 1. Continue with comfort care--IV morphine for pain/distress and IV ativan for seizure activity/agitation Clinical Quality Measures Admission Status Admission Dx 1. UTI with sepsis 2. Metastatic Pancreatic Cancer 3. Hypokalemia 4. Atrial fibrillation with RVR 5. Metabolic Encephalopathy 6. Comfort Care per recommendations of ER doctor, Critical Care doctor and myself after speaking with the patient's friend about her wishes DVT/VTE Risk/Contraindication: Risk Factor Score Per Nursin RFS Level Per Nursing on Admit: 3=High BING VOGEL DO Jul 13, 2019 12:43
--- NOTE | 2019-07-13 13:48 | NUR ---
PALLIATIVE CARE RN in to see the patient. She is more alert this afternoon. I wanted to see what the patient O2 saturation currently is on the 1 L NC, as well as off Oxygen all together. I attempted to put the monitor on her finger and she did not want this ...evidenced by shaking her hand and pulling away. I put O2 NC back on at 1 L.
--- NOTE | 2019-07-13 14:00 | NUR ---
PT WAS PLACED ON AIR MATTRESS THIS AFTERNOON
--- NOTE | 2019-07-13 15:00 | NUR ---
Pastoral care visit, sat with pt.
[2019-07-14] MEDS: morphine INJ 4 MG/ML 1 ML (VIAL/SYRINGE) IV PRN ×2 (00:22→03:11)
[2019-07-14] MEDS: LORazepam INJ 2 MG/ML (ATIVAN) VIAL IV PRN ×3 (00:28→06:07)
--- NOTE | 2019-07-14 09:23 | NUR ---
PALLIATIVE CARE RNin to see patient. SHe is resting with eyes closed and appears to be very comfortable. No oxygen is on at this time. Respirations are even and unlabored and very shallow. Skin is dry, pale and jaundiced appearing. Lips are very dry and I applies [place] wax to them. This caused her to wake slightly, opening eyes and fight of the application process. She is noted to be declining. Still is unable to answer questions or follow commands. Anticipate passing over the weekend. If she is still in her current state will need to seek alternate placement in a SNF. This is going to be difficult as she is her own person and not able to make decisions currently. She has a Brother and sister in law but they are not close.
--- NOTE | 2019-07-14 10:20 | Progress Note ---
Subjective Date Seen by a Provider: Jul 14, 2019 Time Seen by a Provider: 10:18 Subjective/Events-last exam Fwup comfort care. Patient with eyes open this morning and swinging arms but no meaningful movements or response per nursing. Focused Exam Lactate Level 07/12/19 09:00: Lactic Acid Level 2.54*H Objective Exam Vital Signs Date Time Temp Pulse Resp B/P (MAP) Pulse Ox O2 Delivery O2 Flow Rate FiO2 07/13/19 20:20 Nasal Cannula 1.00 I & O 07/14/19 07:00 Intake Total 0 ml Output Total 900 ml Balance -900 ml Capillary Refill : Less Than 3 Seconds General Appearance: Mild Distress (swinging arms at times) Respiratory: Decreased Breath Sounds Neurologic/Psychiatric: Other (eyes open but does not respond to any questions or commands) Results Lab Microbiology 07/12/19 Blood Culture - Preliminary, Resulted Staph, Abigailg Neg (FUNERAL HOME ASSISTANT) 07/12/19 Urine Culture - Final, Complete NO GROWTH Assessment/Plan Assessment/Plan Assess & Plan/Chief Complaint 1. Continue with comfort care--add fentanyl patch and routine ativan and us IV morphine for pain/distress and IV ativan for seizure activity/agitation Clinical Quality Measures Admission Status Admission Dx 1. UTI with sepsis 2. Metastatic Pancreatic Cancer 3. Hypokalemia 4. Atrial fibrillation with RVR 5. Metabolic Encephalopathy 6. Comfort Care per recommendations of ER doctor, Critical Care doctor and myself after speaking with the patient's friend about her wishes DVT/VTE Risk/Contraindication: Risk Factor Score Per Nursin RFS Level Per Nursing on Admit: 3=High BING VOGEL DO Jul 14, 2019 10:20
--- NOTE | 2019-07-14 11:40 | NUR ---
Follow up visit: Pt opened her eyes and looked at me, she spoke to me however I could not understand what she was saying. The pt reached for my hand and attempted to sit up. I reassured her until she relaxed back in bed. Two SUPPLY TECHNICIAN's responded to the bedside and were gentle and reassuring. I reported that the pt tongue was crusty and appeared to have dried blood. They verbalized the same observation and said multiple attempts were made to clean her mouth; JASBIR Corral described the pt adamantly resisting oral care by pushing away the SUPPLY TECHNICIAN's hands hands. SUPPLY TECHNICIAN's continue to offer oral care in the event the pt will accept. The pt permitted the SUPPLY TECHNICIAN to apply lip moisturizer this visit, which they shared she had not accepted before now.
[2019-07-14 13:41] LABS: BASOPHILS % (AUTO) 0 % (0-10); EOSINOPHILS % (AUTO) 0 % (0-10); HEMATOCRIT 27 % (35-52); HEMOGLOBIN 8.6 G/DL (11.5-16.0); LYMPHOCYTES # (AUTO) 1.5 X 10^3 (1.0-4.0); LYMPHOCYTES % (AUTO) 7 % (12-44); MEAN CORPUSCULAR HEMOGLOBIN 30 PG (25-34); MEAN CORPUSCULAR HGB CONC 32 G/DL (32-36); MEAN CORPUSCULAR VOLUME 94 FL (80-99); MEAN PLATELET VOLUME 11.7 FL (7.4-10.4); MONOCYTES # (AUTO) 1.4 X 10^3 (0.0-1.0); MONOCYTES % (AUTO) 7 % (0-12); NEUTROPHILS # (AUTO) 18.2 X 10^3 (1.8-7.8); NEUTROPHILS % (AUTO) 86 % (42-75); PLATELET COUNT 215 10^3/uL (130-400); RED CELL DISTRIBUTION WIDTH 22.5 % (10.0-14.5); WHITE BLOOD COUNT 21.2 10^3/uL (4.3-11.0)
[2019-07-14 14:01] LABS: ALANINE AMINOTRANSFERASE 46 U/L (0-55); ALBUMIN 2.4 GM/DL (3.2-4.5); ALKALINE PHOSPHATASE 304 U/L (40-136); BILIRUBIN,TOTAL 10.1 MG/DL (0.1-1.0); BUN/CREATININE RATIO 49; CALCIUM 8.4 MG/DL (8.5-10.1); CARBON DIOXIDE 29 MMOL/L (21-32); CHLORIDE 114 MMOL/L (98-107); CREATININE SERUM 0.63 MG/DL (0.60-1.30); GFR ESTIMATED > 60; GLUCOSE 102 MG/DL (70-105); SODIUM 150 MMOL/L (135-145)
[2019-07-14 14:04] LABS: POTASSIUM 2.3 MMOL/L (3.6-5.0)
[2019-07-14 16:25] VITALS: BP 157/83
[2019-07-14] MEDS: fentaNYL PATCH 12 MCG (DURAGESIC) TD SCH (16:31)
[2019-07-14] MEDS: 1/2 NS W/KCL 20 MEQ/L 1,000 ML IV SCH (16:32)
[2019-07-14] MEDS: POTASSIUM CL 10MEQ/50ML IVPB 50 ML IV SCH (16:32)
[2019-07-14] MEDS: CEFEPIME INJECTION 1,000 MG in WATER (STERILE) FOR INJECTION 10 ML IV SCH ×2 (16:41→21:47)
[2019-07-14] MEDS: LORazepam INJ 2 MG/ML (ATIVAN) VIAL IVP SCH (19:41)
[2019-07-14 20:05] VITALS: BP 131/77
[2019-07-15] MEDS: LORazepam INJ 2 MG/ML (ATIVAN) VIAL IVP SCH ×4 (00:10→17:56)
[2019-07-15 00:31] VITALS: BP 163/97
[2019-07-15] MEDS: 1/2 NS W/KCL 20 MEQ/L 1,000 ML IV SCH ×2 (02:22→10:54)
[2019-07-15] MEDS: CEFEPIME INJECTION 1,000 MG in WATER (STERILE) FOR INJECTION 10 ML IV SCH ×2 (02:58→08:28)
[2019-07-15 06:11] LABS: BASOPHILS % (AUTO) 0 % (0-10); EOSINOPHILS % (AUTO) 0 % (0-10); HEMATOCRIT 28 % (35-52); HEMOGLOBIN 8.9 G/DL (11.5-16.0); LYMPHOCYTES # (AUTO) 1.4 X 10^3 (1.0-4.0); LYMPHOCYTES % (AUTO) 7 % (12-44); MEAN CORPUSCULAR HEMOGLOBIN 30 PG (25-34); MEAN CORPUSCULAR HGB CONC 32 G/DL (32-36); MEAN CORPUSCULAR VOLUME 94 FL (80-99); MEAN PLATELET VOLUME 11.7 FL (7.4-10.4); MONOCYTES # (AUTO) 1.2 X 10^3 (0.0-1.0); MONOCYTES % (AUTO) 6 % (0-12); NEUTROPHILS % (AUTO) 87 % (42-75); PLATELET COUNT 209 10^3/uL (130-400); RED CELL DISTRIBUTION WIDTH 22.4 % (10.0-14.5); WHITE BLOOD COUNT 19.6 10^3/uL (4.3-11.0)
[2019-07-15 06:36] LABS: ALANINE AMINOTRANSFERASE 48 U/L (0-55); ALBUMIN 2.5 GM/DL (3.2-4.5); ALKALINE PHOSPHATASE 254 U/L (40-136); BILIRUBIN,TOTAL 10.4 MG/DL (0.1-1.0); BUN/CREATININE RATIO 44; CALCIUM 8.1 MG/DL (8.5-10.1); CARBON DIOXIDE 29 MMOL/L (21-32); CHLORIDE 112 MMOL/L (98-107); CREATININE SERUM 0.61 MG/DL (0.60-1.30); GFR ESTIMATED > 60; GLUCOSE 94 MG/DL (70-105); SODIUM 150 MMOL/L (135-145); TOTAL PROTEIN 5.1 GM/DL (6.4-8.2)
[2019-07-15 06:37] LABS: POTASSIUM 2.4 MMOL/L (3.6-5.0)
[2019-07-15] MEDS: morphine INJ 4 MG/ML 1 ML (VIAL/SYRINGE) IV PRN (08:29)
[2019-07-15] MEDS: SCOPOLAMINE PATCH REMOVAL TP SCH (08:31)
[2019-07-15] MEDS: SCOPOLAMINE 1.5 MG (TRANSDERM-SCOP) PATCH TOP SCH (08:31)
[2019-07-15 09:00] VITALS: BP 143/81
[2019-07-15] MEDS: LORazepam INJ 2 MG/ML (ATIVAN) VIAL IV PRN (09:06)
--- NOTE | 2019-07-15 12:16 | Progress Note - Hospitalist ---
Subjective HPI/CC On Admission Date Seen by Provider: Jul 15, 2019 Time Seen by Provider: 12:11 Subjective/Events-last exam Patient did not arouse initially to verbal or physical stimulus. When I palpated the abdomen however she did wake up but did not make any sense talking about the home she had moved into at some point in the past. She did not answer any questions and fell back asleep in mid sentence. She had not received any recent pain medication. Objective Exam Vital Signs Vital Signs Date Time Temp Pulse Resp B/P (MAP) Pulse Ox O2 Delivery O2 Flow Rate FiO2 07/15/19 08:30 Room Air 07/15/19 00:31 98.0 100 18 163/97 (119) 93 07/13/19 20:20 1.00 Capillary Refill : Less Than 3 Seconds General Appearance: No Apparent Distress, Chronically ill Respiratory: Lungs Clear, No Accessory Muscle Use, No Respiratory Distress Cardiovascular: Regular Rate, Rhythm, No Edema, No Gallop, No JVD, No Murmur Gastrointestinal: Other (Epigastrium and is firm elsewhere abdomen is soft there was no response or evidence for pain to palpation bowel sounds were not apparent.) Results/Procedures Lab Laboratory Tests 07/14/19 13:34 07/15/19 06:00 Patient resulted labs reviewed. Assessment/Plan Assessment and Plan Assess & Plan/Chief Complaint 1. Recently diagnosed advance pancreatic cancer with likely common duct obstruction bilirubin is slowly increasing. Prognosis terminal IV fluids her only delaying the inevitable and increasing the risk for future suffering with no potential for adding to comfort. We'll discontinue. 2. Coag-negative staph in 2 blood cultures more likely contaminant than infection regardless cefepime is not adding to comfort in any way so will discontinue and continue comfort care protocol. As there is no other apparent infection negative urine stable chest suspect elevated white count is most likely a leukocytoclastic reaction. Other more serious intra-abdominal pathology is possible but the patient is not in any distress continue pain medication on an as-needed basis. Critical Care Critically Ill Patient Clinical Quality Measures DVT/VTE Risk/Contraindication: Risk Factor Score Per Nursin RFS Level Per Nursing on Admit: 3=High YOLA AMOR MD Jul 15, 2019 12:16
[2019-07-16] MEDS: LORazepam INJ 2 MG/ML (ATIVAN) VIAL IVP SCH ×5 (00:22→23:57)
[2019-07-16 09:00] VITALS: BP 149/80
--- NOTE | 2019-07-16 09:46 | Progress Note - Hospitalist ---
Subjective HPI/CC On Admission Date Seen by Provider: Jul 16, 2019 Time Seen by Provider: 09:42 Subjective/Events-last exam Patient opened eyes to verbal stimulation but confused did not answer any questions appropriately. She did not appear to be in acute distress Objective Exam Vital Signs Vital Signs Date Time Temp Pulse Resp B/P (MAP) Pulse Ox O2 Delivery O2 Flow Rate FiO2 07/16/19 08:00 Room Air 07/15/19 09:00 97.3 72 22 143/81 (101) 99 07/13/19 20:20 1.00 Capillary Refill : Less Than 3 Seconds General Appearance: No Apparent Distress, Chronically ill, Other (Jaundiced) Respiratory: Other (Coarse breath sounds noted anteriorly) Cardiovascular: Regular Rate, Rhythm Results/Procedures Lab Patient resulted labs reviewed. Assessment/Plan Assessment and Plan Assess & Plan/Chief Complaint 1. Recently diagnosed advance pancreatic cancer with likely common duct obstruction bilirubin is slowly increasing. Prognosis terminal IV fluids her only delaying the inevitable and increasing the risk for future suffering with no potential for adding to comfort. IV fluids were discontinued yesterday. Patient appears comfortable staff report no problems. 2. Coag-negative staph in 2 blood cultures more likely contaminant than infection regardless cefepime is not adding to comfort in any way so will discontinue and continue comfort care protocol. As there is no other apparent infection negative urine stable chest suspect elevated white count is most likely a leukocytoclastic reaction. Other more serious intra-abdominal pathology is possible but the patient is not in any distress continue pain medication on an as-needed basis. 3. Delirium secondary to active process of dying and end-stage pancreatic cancer. Fortunately non-agitated variety to this point. Critical Care Critically Ill Patient Clinical Quality Measures DVT/VTE Risk/Contraindication: Risk Factor Score Per Nursin RFS Level Per Nursing on Admit: 3=High YLOA AMOR MD Jul 16, 2019 09:46
[2019-07-17] MEDS: LORazepam INJ 2 MG/ML (ATIVAN) VIAL IVP SCH ×3 (05:31→19:37)
[2019-07-17 09:00] VITALS: BP 150/76
--- NOTE | 2019-07-17 10:30 | NUR ---
PALLIATIVE CARE RN in to see patient. She is resting in bed but opened her eyes when spoken to and light touch applied to lips for applying moisture. She spoke to this RN and was understandable. When I told her what had happened she seemed concerned that she did not remember this and verbalized concern for her animals. I reassured her that her friends were taking care of her dogs. On Wednesday the I had spoke to Dr. Mcclellan regarding this patient and her appearing to be getting somewhat better. We discussed the plan of care and agreed that due to the patients apparent improvement it would be acceptable to start IV Antibiotics and some fluids. It appears by physician noting that both of these were discontinued on Wednesday the . Again on this date the she appears to be even more improved in her mentation and able to answer questions intelligibly. POC moving forward will be to attempt to see what her ability is to get back home. Will need PT and OT evaluation as well as ST evaluations to see what she can do and tolerate as far as oral intake. [place] and this likely is not the best discharge plan for her. Hoping to speak with Dr. Mcclellan regarding POC for her including discharge needs.
[2019-07-17] MEDS: fentaNYL PATCH 12 MCG (DURAGESIC) TD SCH (10:55)
--- NOTE | 2019-07-17 11:17 | NUR ---
PALLIATIVE CARE RN did talk with Dr. Mcclellan regarding patient and POC. Told her about my assessment today. She will order PT/OT/ST and Labs and likely Antibiotics. Patient had been CCMO but has made an improvement and based on that should be given every chance to improve.
--- NOTE | 2019-07-17 12:03 | Occupational Therapy Eval ---
OT Evaluation-General/PLF Medical Diagnosis Admission Date Jul 12, 2019 at 10:41 Medical Diagnosis: UTI/Sepsis Onset Date: Jul 12, 2019 Therapy Diagnosis Therapy Diagnosis: Weakness Height/Weight Height (Feet): 5 Height (Inches): 8.00 Weight (Pounds): 175 Weight (Ounces): 0.0 Precautions Precautions/Isolations: Standard Precautions Safety Interventions: Bed Exit Alarm, Reorient-Attempt Weight Bear Status Weight Bearing Restriction: Weight Bearing/Tolerated Referral Physician: Dr. Mcclellan Referral Reason: Activity Tolerance, Self Care, Evaluation/Treatment, Strengthening/ROM Medical History Pertinent Medical History: Atrial Fib, HTN Additional Medical History Pancreatic CA, eye surgery, hysterectomy, liver disease Current History Pt. found face down in home. Came to hospital. Placed on comfort care in beginning, but due to improvement, will attempt to increase overall strength before discharge from this facility. Reviewed History: Yes Social History Current Living Status: Alone (Per chart) ADL-Prior Level of Function Therapy Code Descriptions/Definitions Functional [place] Measure: 0=Not Assessed/NA 4=Minimal Assistance 1=Total Assistance 5=Supervision or Setup 2=Maximal Assistance 6=Modified [place] 3=Moderate Assistance 7=Complete [place] Therapy Quality Codes: 6 Independent with activity with or without an assistive device 5 Patient requires set up or clean up by helper. Patient completes activity by themselves 4 Supervision or touching assist (CGA). [place] provide cues , steadying assist 3 The helper provides less than half the effort to complete the activity 2 The helper provides more than half the effort to complete the activity 1 Dependent. The helper does all the effort to complete an activity 7 Patient refused to complete or attempt activity 9 The patient did not perform the activity before the current illness or injury 88 Not attempted due to Medical conditions or safety concerns Functional Abilities and Goals: Independent: Patient completed the activities by him/herself, with or without an assistive device, with no assistance from a helper. Needed Some Help: Patient needed partial assistance from another person to complete activities. Dependent: A helper completed the activities for the patient. Unknown: Not Applicable: ADL PLOF Comments Pt. is confused at this time and has difficulty relating information about home and home set up. Is able to state that she uses a walker and lives in [place]. It is fully unknown by this clinician what pt's previous history is as far as functional abilities. Self Care: Unknown Functional Cognition: Unknown OT Current Status Subjective Pt. alert and talks with therapist but is confused. Unable to state prior level or equipment at home. Mental Status/Objective Patient Orientation: Confused Attachments: IV Current Upper Extremity ROM Pt.is able to raise bilateral UE when she is asked. Raises to approximately 90 degrees for ROM testing. However, requires multiple cues to lower them back down. ADL-Treatment Therapy Code Descriptions/Definitions Functional [place] Measure: 0=Not Assessed/NA 4=Minimal Assistance 1=Total Assistance 5=Supervision or Setup 2=Maximal Assistance 6=Modified [place] 3=Moderate Assistance 7=Complete [place] Therapy Quality Codes: 6 Independent with activity with or without an assistive device 5 Patient requires set up or clean up by helper. Patient completes activity by themselves 4 Supervision or touching assist (CGA). [place] provide cues , steadying assist 3 The helper provides less than half the effort to complete the activity 2 The helper provides more than half the effort to complete the activity 1 Dependent. The helper does all the effort to complete an activity 7 Patient refused to complete or attempt activity 9 The patient did not perform the activity before the current illness or injury 88 Not attempted due to Medical conditions or safety concerns Grooming (FIM): 4 (Pt. given warm wash cloth. Able to wash face by "dabbing." Assisted with washing face.) Lower Body Dressing (FIM): 1 (Pt. attempted to don socks while sitting on side of bed. Unable to problem solve on how to don them, but then unable to bring feet up to her or bend over.) Transfers (B, C, W/C) (FIM): 2 (Mod assist supine-sit. Min assist sit-stand and then hand held assist to maintain stand/mod assist. Encouraged pt. to take steps toward HOB but pt. unable to. Became very wobbly. Sat back down and required mod assist to lay back down. Assist to position in bed.) All needs met in room. Pt. positioned to comfort level and bed alarm set. Education OT Patient Education: Correct positioning, Modified ADL techniques, Progress toward Goal/Update tx plan, Purpose of tx/functional activities, Reviewed precautions, Rehab process, Transfer techniques Teaching Recipient: Patient Teaching Methods: Demonstration, Discussion Response to Teaching: Verbalize Understanding, Return Demonstration, Reinforcement Needed OT Short Term Goals Short Term Goals Time Frame: Jul 24, 2019 Eating(FIM): 4 Grooming(FIM): 4 Bathing(FIM): 3 Upper Body Dressing(FIM): 3 Lower Body Dressing(FIM): 3 Toileting(FIM): 3 Transfers (B,C,W/C) (FIM): 4 Toilet/Commode Transfer(FIM): 4 Additional Short Term Goals: 1-Demonstrate ADL Tasks, 2-Verbalize Understanding, 3-ImproveStrength/[place] 1=Demonstrate adherence to instructed precautions during ADL tasks. 2=Patient will verbalize/demonstrate understanding of assistive devices/modifications for ADL. 3=Patient will improve strength/tolerance for activity to enable patient to perform ADL's. OT Prn Occupational Therapist Goals Prn Occupational Therapist Goals Time Frame: Jul 31, 2019 Eating (FIM): 5 Grooming(FIM): 5 Bathing(FIM): 4 Upper Body Dressing(FIM): 4 Lower Body Dressing(FIM): 4 Toileting(FIM): 4 Transfers (B,C,W/C) (FIM): 4 Toilet/Commode Transfer(FIM): 4 Shower Transfer(FIM): 4 Additional Goals: 1-Demonstrate ADL Tasks, 2-Verbalize Understanding, 3- ImproveStrength/[place] 1=Demonstrate adherence to instructed precautions during ADL tasks. 2=Patient will verbalize/demonstrate understanding of assistive device s/modifications for ADL. 3=Patient will improve strength/tolerance for activity to enable patient to perform ADL's. OT Education/Plan Problem List/Assessment Assessment: Decreased Activ Tolerance, Decreased Safety Aware, Decreased UE Strength, Dependent Transfers, Impaired Bed Mobility, Impaired Cognition, Impaired Funct Balance, Impaired I ADL's, Impaired Self-Care Skills, Restricted Funct UE ROM Discharge Recommendations Plan Will work with pt. to increase overall strength/endurance. Plan/Recommendations: Continue POC Therapy Discharge Recommendati: 24 Hour Supervision, Scheduled Assistance Comment Equipment needs and discharge location to be determined. Pt. confused at this time and unable to state fully what equipment she has or what help/assist she has at home. Treatment Plan/Plan of Care Treatment,Training & Education: Yes Patient would benefit from OT for education, treatment and training to promote independence in ADL's, mobility, safety and/or upper extremity function for ADL's. Plan of Care: ADL Retraining, Cognitive Retraining, Functional Mobility, UE Funct Exercise/Act Treatment Duration: Jul 31, 2019 Frequency: 5 times per week Estimated Hrs Per Day: .25 hour per day Agreement: Yes Rehab Potential: Guarded Time/GCodes Start Time: 11:25 Stop Time: 11:40 Total Time Billed (hr/min): 15 Billed Treatment Time 1, MIRI BAEZ OT Jul 17, 2019 12:03
--- NOTE | 2019-07-17 12:04 | Physical Therapy Evaluation ---
PT Evaluation-General Medical Diagnosis Admission Date Jul 12, 2019 at 10:41 Medical Diagnosis: sepsis/pancreatic cancer Onset Date: Jul 12, 2019 Therapy Diagnosis Therapy Diagnosis: debility/weakness Height/Weight Height (Feet): 5 Height (Inches): 8.00 Weight (Pounds): 175 Weight (Ounces): 0.0 Precautions Precautions/Isolations: Fall Prevention, Standard Precautions Weight Bear Status Right Lower Extremity: Right Full Weight Bearing Left Lower Extremity: Left Full Weight Bearing Referral Physician: Vy Reason for Referral: Evaluation/Treatment Medical History Pertinent Medical History: Atrial Fib, HTN Additional Medical History pancreatic cancer Current History EMS in response to wellness check and found patient unresponsive with vomit beside her Reviewed History: Yes Social History Home: Single Level Current Living Status: Alone Prior/Core FIM Prior Level of Function Therapy Code Descriptions/Definitions Functional [place] Measure: 0=Not Assessed/NA 4=Minimal Assistance 1=Total Assistance 5=Supervision or Setup 2=Maximal Assistance 6=Modified [place] 3=Moderate Assistance 7=Complete [place] Therapy Quality Codes: 6 Independent with activity with or without an assistive device 5 Patient requires set up or clean up by helper. Patient completes activity by themselves 4 Supervision or touching assist (CGA). [place] provide cues , steadying assist 3 The helper provides less than half the effort to complete the activity 2 The helper provides more than half the effort to complete the activity 1 Dependent. The helper does all the effort to complete an activity 7 Patient refused to complete or attempt activity 9 The patient did not perform the activity before the current illness or injury 88 Not attempted due to Medical conditions or safety concerns Functional Abilities and Goals: Independent: Patient completed the activities by him/herself, with or without an assistive device, with no assistance from a helper. Needed Some Help: Patient needed partial assistance from another person to complete activities. Dependent: A helper completed the activities for the patient. Unknown: Not Applicable: Bed Mobility: 7 Transfers (B,C,W/C) (FIM): 7 Gait: 7 Indoor Mobility (Ambulation): Independent Stairs: Independent Prior Devices Use: None PT Evaluation-Current Subjective Patient is in bed and very confused. Unable to sequence and follow simple direction with MMT and bed mobility tasks. Objective Patient Orientation: Confused Attachments: Mares Catheter ROM/Strength ROM Lower Extremities bilateral LE WFL Strength Lower Extremities 3-/5 grossly bilateral LE (unable to formally test due to confusion) Integumentary/Posture Integumentary refer to nursing notes Bladder Incontinence: Mares Cath Posture slightly kyphotic due to weakness (diminished core strength) Neuromuscular (Tone, Coordination, Reflexes) severely diminished coordination Sensory Vision: Functional Hearing: Functional Transfers Therapy Code Descriptions/Definitions Functional [place] Measure: 0=Not Assessed/NA 4=Minimal Assistance 1=Total Assistance 5=Supervision or Setup 2=Maximal Assistance 6=Modified [place] 3=Moderate Assistance 7=Complete [place] Transfers (B, C, W/C) (FIM): 2 Scootin Rollin Supine to/from Sit: 2 Sit to/from Stand: 2 Patient required maximum assist with all mobility due to weakness/confusion. Difficulty with sequencing. Balance Sitting Static: Poor Sitting Dynamic: Poor Standing Static: Poor Assessment/Needs 69 y.o. female, will be seen by skilled PT to address functional strength and mobility to improve current. Patient is limited due to weakness and impaired mobility. Rehab Potential: Guarded PT Detention Goals Study Lead Goals PT Study Lead Goals Time Frame: Jul 29, 2019 Transfers (B,C,W/C) (FIM): 4 Gait (FIM): 1 Gait distance (FIM): 1=up to 49 ft Distance: 15' Gait Level of Assist: 4 Gait Assistive Device: FWW PT Plan Problem List Problem List: Activity Tolerance, Functional Strength, Safety, Balance, Gait, Transfer, Bed Mobility Treatment/Plan Treatment Plan: Continue Plan of Care Treatment Plan: Bed Mobility, Education, Functional Activity [place], Functional Strength, Gait, Safety, Therapeutic Exercise, Transfers Treatment Duration: Jul 29, 2019 Frequency: 5 times per week Estimated Hrs Per Day: .25 hour per day Patient and/or Family Agrees t: Yes Discharge Recommendations Therapy Discharge Recommendati: Other, See Comments (prison) Time/GCodes Time In: 1140 Time Out: 1156 Total Billed Treatment Time: 16 Total Billed Treatment 1 visit EVMod 16 min LINSEY HICKMAN PT Jul 17, 2019 12:04
[2019-07-17 12:30] LABS: ALANINE AMINOTRANSFERASE 42 U/L (0-55); ALBUMIN 2.5 GM/DL (3.2-4.5); ALKALINE PHOSPHATASE 292 U/L (40-136); BILIRUBIN,TOTAL 8.8 MG/DL (0.1-1.0); BUN/CREATININE RATIO 32; CARBON DIOXIDE 29 MMOL/L (21-32); CHLORIDE 104 MMOL/L (98-107); CREATININE SERUM 0.53 MG/DL (0.60-1.30); GFR ESTIMATED > 60; GLUCOSE 76 MG/DL (70-105); MAGNESIUM 1.6 MG/DL (1.6-2.4); POTASSIUM 3.1 MMOL/L (3.6-5.0); SODIUM 149 MMOL/L (135-145); TOTAL PROTEIN 5.4 GM/DL (6.4-8.2)
[2019-07-17] MEDS ORDERED: MAGNESIUM 1 GM/100 ML IVPB 100 ML IV ONE (12:45)
--- NOTE | 2019-07-17 13:55 | NUR ---
Pastoral care visit, pt pleasant but confused. I also received a page and called a gentleman saying he was Prashant and was a longtime friend of pt. I did not divulge any information regarding the pt mainly listened as he share about her and his concerns and memories. He will not visit as he prefers to remember her as she was.
[2019-07-17 14:35] LABS: BASOPHILS % (AUTO) 0 % (0-10); EOSINOPHILS # (AUTO) 0.1 10^3/uL (0.0-0.3); EOSINOPHILS % (AUTO) 1 % (0-10); HEMATOCRIT 34 % (35-52); HEMOGLOBIN 10.7 G/DL (11.5-16.0); LYMPHOCYTES # (AUTO) 1.4 X 10^3 (1.0-4.0); LYMPHOCYTES % (AUTO) 10 % (12-44); MEAN CORPUSCULAR HEMOGLOBIN 30 PG (25-34); MEAN CORPUSCULAR HGB CONC 32 G/DL (32-36); MEAN CORPUSCULAR VOLUME 94 FL (80-99); MEAN PLATELET VOLUME 12.2 FL (7.4-10.4); MONOCYTES # (AUTO) 1.1 X 10^3 (0.0-1.0); MONOCYTES % (AUTO) 8 % (0-12); NEUTROPHILS # (AUTO) 10.9 X 10^3 (1.8-7.8); NEUTROPHILS % (AUTO) 81 % (42-75); PLATELET COUNT 181 10^3/uL (130-400); RED CELL DISTRIBUTION WIDTH 22.4 % (10.0-14.5); WHITE BLOOD COUNT 13.5 10^3/uL (4.3-11.0)
--- NOTE | 2019-07-17 14:49 | ST Dysphagia Evaluation ---
Speech Evaluation-General Medical Diagnosis UTI/Sepsis Onset Date: Jul 12, 2019 Therapy Diagnosis Therapy Diagnosis: Oropharyngeal Dysphagia Precautions Precautions: Aspiration Precautions/Isolations: Aspiration, Fall Prevention, Standard Precautions Referral Referring Physician: Dr. Mcclellan Reason for Referral: Evaluation/Treatment Medical History Pertinent Medical History: Atrial Fib, HTN A-Fib, HTN Current History UTI/Sepsis Reviewed History: Yes Social History Home: Single Level Current Living Status: Alone (Per chart) Speech PLF/Current-Dysphagia Prior Level of Function Patient lived alone and was able to attend independently to most of her daily tasks. Subjective Patient was pleasant and cooperative with the Bedside Dysphagia Evaluation (BDE) Cognitive Status Patient Orientation: Person, Confused Oral Motor Skills Dentition: Natural Patient was NPO pending BDE Oral Expression Ability: Mild Impairment Secondary to confusion Face Facial Symmetry: Symmetrical Oral-Facial Assessment Oral-Facial Dentition: Normal Labial Seal Description: Normal Smile: Normal Puff Cheeks: Reduced Strength Lingual Protrusion: Normal Lingual ROM: Normal Lingual Strength: Normal Pharynx Velopharyngeal Move.: Normal Voluntary Cough: Yes Can Clear Throat Volitionally: Yes Dysphagia Evaluation Consistencies Presented: Regular, Thin Liquid, Mechanical Soft, Pureed No difficulty displayed with any presented consistency Oral phase within normal limits. Pharyngeal phase within normal limits Dietary Recommendations: Regular Liquid Recommendations: Thin Swallowing Precautions: Alternate Liquids/Solids, Decreased Bolus 1/2 Tsp, Liquids from Straw, Small Bites and Sips, Sitting Upright 90 Degrees, Sitting 90 Degrees 30 Post Intake Dysphagia Evaluation Summary The patient ia a 69 year old female who was admitted to the hospital due to decline in function. The patient currently lives in her own home alone. She had recently been diagnosed with pancreatic cancer. The patient completed the Bedside Dysphagia Evaluation with presentations of thin of small sips via straw x2 without difficulty. The patient was presented puree, mechanical soft and regular without difficulty. Patient will be on regular with thin. Tamera, the nurse was advised and diet level was written on the white board in her room. Speech Short Term Goals Short Term Goals Short Term Goals 1) The patient will tolerate least restrictive diet level without s/s of aspiration at 90% or greater. 2) The patient/caregiver will utilize compensatory strategies for safe oral intake at 90% or greater with minimal cues. Speech [place] Goals Fpc Goals The patient will maintain adequate nutrition/hydration via safe effective swallow function. Speech-Plan Patient/Family Goals Patient/Family Goals: The patient will not be able to return to her home alone due to the severity of her current illness. It is unclear where she will discharge to. Treatment Plan Speech Therapy Treatment Plan: Continue Plan of Care Patient will receive skilled dysphagia therapy. Treatment Duration: Jul 21, 2019 Frequency: 3 times per week Estimated Hrs Per Day: .25 hour per day Rehab Potential: Guarded Barriers to Learning: Patient's residual affects of her current illness have left the patient confused. Pt/Family Agrees to Plan: Yes Safety Risks/Education Teaching Recipient: Patient Teaching Methods: Discussion Response to Teaching: Verbalize Understanding Education Topics Provided: Safety of oral intake Time Speech Therapy Time In: 14:00 Speech Therapy Time Out: 14:15 Total Billed Time: 15 Billed Treatment Time 1DOUG BETHANIA ST Jul 17, 2019 14:49
[2019-07-17 14:54] LABS: ANISOCYTOSIS SLIGHT; BASOPHILS % (MANUAL) 0 %; EOSINOPHILS % (MANUAL) 0 %; LYMPHOCYTES % (MANUAL) 7 %; MONOCYTES % (MANUAL) 3 %; NEUTROPHILS % (MANUAL) 90 %; TARGET CELLS SLIGHT
[2019-07-17] MEDS: POTASSIUM CL 10MEQ/50ML IVPB 50 ML IV SCH ×2 (15:41→15:42)
--- NOTE | 2019-07-17 18:57 | Progress Note ---
Subjective Date Seen by a Provider: Jul 17, 2019 Time Seen by a Provider: 12:20 Subjective/Events-last exam Fwup sepsis, metastatic pancreatic cancer, metabolic encephalopathy, hyp okalemia. Patient awake today asking about her dogs and wanting something to eat or drink. Objective Exam Vital Signs Date Time Temp Pulse Resp B/P (MAP) Pulse Ox O2 Delivery O2 Flow Rate FiO2 07/17/19 09:00 35.5 75 18 150/76 97 Room Air 07/17/19 08:00 Room Air 07/16/19 20:00 Room Air I & O 07/17/19 07:00 Intake Total 0 ml Output Total 1475 ml Balance -1475 ml Capillary Refill : Less Than 3 Seconds General Appearance: No Apparent Distress Neck: Supple Respiratory: Lungs Clear Cardiovascular: Systolic Murmur, Irregularly Irregular Gastrointestinal: normal bowel sounds, non tender, soft Extremity: No Pedal Edema Neurologic/Psychiatric: Alert Skin: Jaundice Results Lab Laboratory Tests 07/17/19 11:50: Sodium Level 149H, Potassium Level 3.1L, Chloride Level 104, Carbon Dioxide Level 29, Anion Gap 16H, Blood Urea Nitrogen 17, Creatinine 0.53L, Estimat Glomerular Filtration Rate > 60, BUN/Creatinine Ratio 32, Glucose Level 76, Calcium Level 8.0L, Corrected Calcium 9.2, Magnesium Level 1.6, Total Bilirubin 8.8H, Aspartate Amino Transf (AST/SGOT) 53H, Alanine Aminotransferase (ALT/SGPT) 42, Alkaline Phosphatase 292H, Total Protein 5.4L, Albumin 2.5L 07/17/19 14:25: White Blood Count 13.5H, Red Blood Count 3.60L, Hemoglobin 10.7#L, Hematocrit 34L, Mean Corpuscular Volume 94, Mean Corpuscular Hemoglobin 30, Mean Corpusc ular Hemoglobin Concent 32, Red Cell Distribution Width 22.4H, Platelet Count 181, Mean Platelet Volume 12.2H, Neutrophils (%) (Auto) 81H, Lymphocytes (%) (Auto) 10L, Monocytes (%) (Auto) 8, Eosinophils (%) (Auto) 1, Basophils (%) (Auto) 0, Neutrophils # (Auto) 10.9H, Lymphocytes # (Auto) 1.4, Monocytes # (Auto) 1.1H, Eosinophils # (Auto) 0.1, Basophils # (Auto) 0.0, Neutrophils % (M anual) 90, Lymphocytes % (Manual) 7, Monocytes % (Manual) 3, Eosinophils % (Manual) 0, Basophils % (Manual) 0, Anisocytosis SLIGHT, Target Cells SLIGHT Microbiology 07/12/19 Blood Culture - Preliminary, Resulted AlvaroAbigail macielvladimir Neg (TAXIMETER REPAIRER) 07/12/19 Urine Culture - Final, Complete NO GROWTH Assessment/Plan Assessment/Plan Assess & Plan/Chief Complaint 1. Sepsis--resume rocephin 2. Hypokalemia--replace potassium 3. Metastatic Pancreatic Cancer--will plan on seeing oncology if she continues to improve 4. Atrial Fibrillation--correct potassium and see if improves, hold on blood thinners right now due to anemia 5. Anemia--monitor H/H 6. Patient has been on comfort care but with her awakening today and asking questions then it is reasonable to proceed with treatment and see how she does Clinical Quality Measures Admission Status Admission Dx 1. UTI with sepsis 2. Metastatic Pancreatic Cancer 3. Hypokalemia 4. Atrial fibrillation with RVR 5. Metabolic Encephalopathy 6. Comfort Care per recommendations of ER doctor, Critical Care doctor and myself after speaking with the patient's friend about her wishes DVT/VTE Risk/Contraindication: Risk Factor Score Per Nursin RFS Level Per Nursing on Admit: 3=High BING VOGEL DO Jul 17, 2019 18:57
[2019-07-17] MEDS: cefTRIAXone FOR IV USE 1,000 MG in WATER (STERILE) FOR INJECTION 10 ML IV SCH (19:36)
[2019-07-17] MEDS: 1/2 NS W/KCL 20 MEQ/L 1,000 ML IV SCH (19:37)
[2019-07-18] VITALS (7 sets, daily range): BP systolic 105–129; BP diastolic 61–85
[2019-07-18] MEDS: LORazepam INJ 2 MG/ML (ATIVAN) VIAL IVP SCH ×2 (00:46→06:27)
[2019-07-18] MEDS: 1/2 NS W/KCL 20 MEQ/L 1,000 ML IV SCH ×3 (00:47→21:36)
[2019-07-18 04:50] LABS: BASOPHILS % (AUTO) 0 % (0-10); EOSINOPHILS # (AUTO) 0.2 10^3/uL (0.0-0.3); EOSINOPHILS % (AUTO) 2 % (0-10); HEMATOCRIT 30 % (35-52); HEMOGLOBIN 9.6 G/DL (11.5-16.0); LYMPHOCYTES # (AUTO) 1.8 X 10^3 (1.0-4.0); LYMPHOCYTES % (AUTO) 13 % (12-44); MEAN CORPUSCULAR HEMOGLOBIN 30 PG (25-34); MEAN CORPUSCULAR HGB CONC 32 G/DL (32-36); MEAN CORPUSCULAR VOLUME 95 FL (80-99); MEAN PLATELET VOLUME 11.7 FL (7.4-10.4); MONOCYTES # (AUTO) 1.2 X 10^3 (0.0-1.0); MONOCYTES % (AUTO) 9 % (0-12); NEUTROPHILS # (AUTO) 11.1 X 10^3 (1.8-7.8); NEUTROPHILS % (AUTO) 77 % (42-75); PLATELET COUNT 178 10^3/uL (130-400); RED CELL DISTRIBUTION WIDTH 23.1 % (10.0-14.5); WHITE BLOOD COUNT 14.4 10^3/uL (4.3-11.0)
[2019-07-18 05:09] LABS: ALANINE AMINOTRANSFERASE 36 U/L (0-55); ALBUMIN 2.2 GM/DL (3.2-4.5); ALKALINE PHOSPHATASE 281 U/L (40-136); BILIRUBIN,TOTAL 6.7 MG/DL (0.1-1.0); BUN/CREATININE RATIO 29; CALCIUM 7.6 MG/DL (8.5-10.1); CARBON DIOXIDE 31 MMOL/L (21-32); CHLORIDE 106 MMOL/L (98-107); CREATININE SERUM 0.58 MG/DL (0.60-1.30); GFR ESTIMATED > 60; GLUCOSE 148 MG/DL (70-105); MAGNESIUM 1.6 MG/DL (1.6-2.4); SODIUM 146 MMOL/L (135-145); TOTAL PROTEIN 4.4 GM/DL (6.4-8.2)
[2019-07-18 05:15] LABS: POTASSIUM 2.4 MMOL/L (3.6-5.0)
[2019-07-18] MEDS ORDERED: MAGNESIUM 1 GM/100 ML IVPB 100 ML IV NR (08:00)
[2019-07-18] MEDS ORDERED: KCL 8 MEQ (MICRO K) TABLET PO NR (08:00)
--- NOTE | 2019-07-18 08:11 | Progress Note ---
Subjective Date Seen by a Provider: Jul 18, 2019 Time Seen by a Provider: 08:08 Subjective/Events-last exam Fwup sepsis, metastatic pancreatic cancer, metabolic encephalopathy, hy pokalemia. Resting but arouses easily and answers questions--denies pain. Objective Exam Vital Signs Date Time Temp Pulse Resp B/P (MAP) Pulse Ox O2 Delivery O2 Flow Rate FiO2 07/18/19 04:00 37.2 89 18 112/62 Room Air 07/18/19 00:00 36.8 94 19 110/62 98 Room Air 07/17/19 20:00 Room Air 07/17/19 09:00 35.5 75 18 150/76 97 Room Air I & O 07/18/19 07:00 Intake Total 1690 ml Output Total 1225 ml Balance 465 ml Capillary Refill : Less Than 3 Seconds General Appearance: No Apparent Distress Neck: Supple Respiratory: Decreased Breath Sounds Cardiovascular: Regular Rate, Rhythm Gastrointestinal: normal bowel sounds, non tender, soft, other (ascites) Extremity: Non Tender, No Calf Tenderness, No Pedal Edema Neurologic/Psychiatric: Alert Skin: Warm/Dry, Jaundice Results Lab Laboratory Tests 07/17/19 11:50: Sodium Level 149H, Potassium Level 3.1L, Chloride Level 104, Carbon Dioxide Level 29, Anion Gap 16H, Blood Urea Nitrogen 17, Creatinine 0.53L, Estimat Glomerular Filtration Rate > 60, BUN/Creatinine Ratio 32, Glucose Level 76, Calcium Level 8.0L, Corrected Calcium 9.2, Magnesium Level 1.6, Total Bilirubin 8.8H, Aspartate Amino Transf (AST/SGOT) 53H, Alanine Aminotransferase (ALT/SGPT) 42, Alkaline Phosphatase 292H, Total Protein 5.4L, Albumin 2.5L 07/17/19 14:25: White Blood Count 13.5H, Red Blood Count 3.60L, Hemoglobin 10.7#L, Hematocrit 34L, Mean Corpuscular Volume 94, Mean Corpuscular Hemoglobin 30, Mean Corpuscular Hemoglobin Concent 32, Red Cell Distribution Width 22.4H, Platelet Count 181, Mean Platelet Volume 12.2H, Neutrophils (%) (Auto) 81H, Lymphocytes (%) (Auto) 10L, Monocytes (%) (Auto) 8, Eosinophils (%) (Auto) 1, Basophils (%) (Auto) 0, Neutrophils # (Auto) 10.9H, Lymphocytes # (Auto) 1.4, Monocytes # (Auto) 1.1H, Eosinophils # (Auto) 0.1, Basophils # (Auto) 0.0, Neutrophils % (Manual) 90, Lymphocytes % (Manual) 7, Monocytes % (Manual) 3, Eosinophils % (Manual) 0, Basophils % (Manual) 0, Anisocytosis SLIGHT, Target Cells SLIGHT 07/18/19 04:38: Sodium Level 146H, Potassium Level 2.4*L, Chloride Level 106, Carbon Dioxide Level 31, Anion Gap 9, Blood Urea Nitrogen 17, Creatinine 0.58L, Estimat Glomerular Filtration Rate > 60, BUN/Creatinine Ratio 29, Glucose Level 148H, Calcium Level 7.6L, Corrected Calcium 9.0, Magnesium Level 1.6, Total Bilirubin 6.7#H, Aspartate Amino Transf (AST/SGOT) 39H, Alanine Aminotransferase (ALT/SGPT) 36, Alkaline Phosphatase 281H, Total Protein 4.4L, Albumin 2.2L, White Blood Count 14.4H, Red Blood Count 3.16L, Hemoglobin 9.6L, Hematocrit 30L, Mean Corpuscular Volume 95, Mean Corpuscular Hemoglobin 30, Mean Corpuscular Hemoglobin Concent 32, Red Cell Distribution Width 23.1H, Platelet Count 178, Mean Platelet Volume 11.7H, Neutrophils (%) (Auto) 77H, Lymphocytes (%) (Auto) 13, Monocytes (%) (Auto) 9, Eosinophils (%) (Auto) 2, Basophils (%) (Auto) 0, Neutrophils # (Auto) 11.1H, Lymphocytes # (Auto) 1.8, Monocytes # (Auto) 1.2H, Eosinophils # (Auto) 0.2, Basophils # (Auto) 0.0 Microbiology 07/12/19 Blood Culture - Preliminary, Resulted Staph, Coag Neg (SHEARING MACHINE TENDER) 07/12/19 Urine Culture - Final, Complete NO GROWTH Assessment/Plan Assessment/Plan Assess & Plan/Chief Complaint 1. Sepsis--continue rocephin, check CXR 2. Hypokalemia--replace potassium via IV and oral 3. Metastatic Pancreatic Cancer--will plan on seeing oncology if she continues to improve 4. Atrial Fibrillation--back in NSR today, start lovenox since H/H improved 5. Anemia--monitor H/H 6. Patient has been transitioned from comfort care to palliative care, will need guardianship Clinical Quality Measures Admission Status Admission Dx 1. UTI with sepsis 2. Metastatic Pancreatic Cancer 3. Hypokalemia 4. Atrial fibrillation with RVR 5. Metabolic Encephalopathy 6. Comfort Care per recommendations of ER doctor, Critical Care doctor and myself after speaking with the patient's friend about her wishes DVT/VTE Risk/Contraindication: Risk Factor Score Per Nursin RFS Level Per Nursing on Admit: 3=High BING VOGEL DO Jul 18, 2019 08:11
[2019-07-18] MEDS: POTASSIUM CL 10MEQ/50ML IVPB 50 ML IV SCH ×4 (08:19→11:40)
[2019-07-18] MEDS: SCOPOLAMINE 1.5 MG (TRANSDERM-SCOP) PATCH TOP SCH (08:22)
[2019-07-18] MEDS: ENOXAPARIN 40 MG/0.4 ML (LOVENOX) SYR SC SCH (08:22)
[2019-07-18] MEDS: SCOPOLAMINE PATCH REMOVAL TP SCH (08:23)
--- NOTE | 2019-07-18 10:00 | NUR ---
PALLIATIVE CARE RN in to see patient. She is resting with eyes closed but is easily awakened and is complaining of dry mouth. Patient had not had breakfast due to her sleeping state and would like to eat. I again explained to her about her hospitalization and she seem just a surprised this time as she was the first time. SS will pursue Legal guardianship and will be looking at either SNF placement or home if she improves enough.
--- NOTE | 2019-07-18 11:13 | Diagnostic Imaging Report ---
EXAMINATION: Port AP chest at 0838 hours. INDICATION: Congestion. FINDINGS: The heart is enlarged but the heart does seem less prominent than noted on the prior exam of 07/12/2019. The lungs remain clear. There is still no sign of failure, pneumonia, or pleural effusion. The mediastinum is not widened. IMPRESSION: There is a displaced fracture of the distal left clavicle. The distal fracture fragment is displaced superiorly by at least half the width of the clavicular shaft. This fracture was not present on the director of student financial services film from the CT cervical spine/CT head exam of 07/12/2014. Therefore, this injury could be acute or subacute in nature. Clinical followup is recommended. IMPRESSION: 1. There is no evidence for an acute cardiopulmonary abnormality. 2. There is a displaced fracture of the distal left clavicle. 3. These results were discussed with Dr. Mcclellan. Dictated by: Dictated on workstation # [id number]
--- NOTE | 2019-07-18 11:28 | Physical Therapy Daily Note ---
PT Daily Note-Current Subjective Patient is much more alert and agrees to PT. Pain Numeric Pain Scale: 0-No Pain Location: No Pain Reported Mental Status Patient Orientation: Person Attachments: Mares Catheter, IV Transfers Therapy Code Descriptions/Definitions Functional [place] Measure: 0=Not Assessed/NA 4=Minimal Assistance 1=Total Assistance 5=Supervision or Setup 2=Maximal Assistance 6=Modified [place] 3=Moderate Assistance 7=Complete [place] Therapy Quality Codes: 6 Independent with activity with or without an assistive device 5 Patient requires set up or clean up by helper. Patient completes activity by themselves 4 Supervision or touching assist (CGA). [place] provide cues , steadying assist 3 The helper provides less than half the effort to complete the activity 2 The helper provides more than half the effort to complete the activity 1 Dependent. The helper does all the effort to complete an activity 7 Patient refused to complete or attempt activity 9 The patient did not perform the activity before the current illness or injury 88 Not attempted due to Medical conditions or safety concerns Transfers (B, C, W/C) (FIM): 2 Scootin Rollin Supine to/from Sit: 2 Sit to/from Stand: 2 Bed to/from Chair: 2 patient is retropulsive with sit to stand and with transfer bed to chair. Patient able to take 3 steps (very ataxic) Weight Bearing Right Lower Extremity: Right Full Weight Bearing Left Lower Extremity: Left Full Weight Bearing Exercises Seated Therapy Exercises: Ankle pumps, Long arc quads Seated Reps: 15 (AAROM) Assessment Patient is up in recliner with breakfast. PT assisted patient initially with eating, however, patient was able to perform this task after time. FORMAL WAITER/WAITRESS present to assist after PT. PT Short Term Goals Short Term Goals Transfers (B,C,W/C) (FIM): 4 PT Virtualization Consultant Goals Retirement Goals PT Retirement Goals Time Frame: Jul 29, 2019 Transfers (B,C,W/C) (FIM): 4 Gait (FIM): 1 Gait distance (FIM): 1=up to 49 ft Distance: 15' Gait Level of Assist: 4 Gait Assistive Device: FWW PT Plan Treatment/Plan Treatment Plan: Continue Plan of Care Treatment Plan: Bed Mobility, Education, Functional Activity [place], Functional Strength, Gait, Safety, Therapeutic Exercise, Transfers Treatment Duration: Jul 29, 2019 Frequency: 5 times per week Estimated Hrs Per Day: .25 hour per day Patient and/or Family Agrees t: Yes Time/GCodes Time In: 1018 Time Out: 1030 Total Billed Treatment Time: 12 Total Billed Treatment 1 visit FA 12 min LINSEY HICKMAN PT Jul 18, 2019 11:28
[2019-07-18] MEDS: cefTRIAXone FOR IV USE 1,000 MG in WATER (STERILE) FOR INJECTION 10 ML IV SCH (11:40)
--- NOTE | 2019-07-18 13:05 | NUR ---
Pastoral care visit.
--- NOTE | 2019-07-18 15:51 | Occupational Ther Daily Note ---
OT Current Status-Daily Note Subjective Pt sitting in chair, agrees to therapy, but states she is tired. Mental Status/Objective Therapy Code Descriptions/Definitions Functional [place] Measure: 0=Not Assessed/NA 4=Minimal Assistance 1=Total Assistance 5=Supervision or Setup 2=Maximal Assistance 6=Modified [place] 3=Moderate Assistance 7=Complete [place] ADL-Treatment Pt washed face with minimal assistance while seated. Total assist required to don socks. Pt sit to stand with max assist. Pt able to step to bed with max assist and skilled cues for safety. Sit to supine with assist x2 for safety. Pt positioned in bed with needs met and nurse aide present after session. Grooming (FIM): 4 Transfers (B, C, W/C) (FIM): 2 OT Short Term Goals Short Term Goals Time Frame: Jul 24, 2019 Eating(FIM): 4 Grooming(FIM): 4 Bathing(FIM): 3 Upper Body Dressing(FIM): 3 Lower Body Dressing(FIM): 3 Toileting(FIM): 3 Transfers (B,C,W/C) (FIM): 4 Toilet/Commode Transfer(FIM): 4 Additional Short Term Goals: 1-Demonstrate ADL Tasks, 2-Verbalize Understanding, 3-ImproveStrength/[place] 1=Demonstrate adherence to instructed precautions during ADL tasks. 2=Patient will verbalize/demonstrate understanding of assistive devices/m odifications for ADL. 3=Patient will improve strength/tolerance for activity to enable patient to perform ADL's. OT Assisted Goals Product Marketing Executive Goals Time Frame: Jul 31, 2019 Eating (FIM): 5 Grooming(FIM): 5 Bathing(FIM): 4 Upper Body Dressing(FIM): 4 Lower Body Dressing(FIM): 4 Toileting(FIM): 4 Transfers (B,C,W/C) (FIM): 4 Toilet/Commode Transfer(FIM): 4 Shower Transfer(FIM): 4 Additional Goals: 1-Demonstrate ADL Tasks, 2-Verbalize Understanding, 3- ImproveStrength/[place] 1=Demonstrate adherence to instructed precautions during ADL tasks. 2=Patient will verbalize/demonstrate understanding of assistive devices/modifications for ADL. 3=Patient will improve strength/tolerance for activity to enable patient to perform ADL's. OT Education/Plan Discharge Recommendations Plan/Recommendations: Continue POC Treatment Plan/Plan of Care Patient would benefit from OT for education, treatment and training to promote independence in ADL's, mobility, safety and/or upper extremity function for ADL's. Plan of Care: ADL Retraining, Cognitive Retraining, Functional Mobility, UE Funct Exercise/Act Treatment Duration: Jul 31, 2019 Frequency: 5 times per week Estimated Hrs Per Day: .25 hour per day Agreement: Yes Rehab Potential: Guarded Time/GCodes Start Time: 15:33 Stop Time: 15:43 Total Time Billed (hr/min): 10 Billed Treatment Time 1 visit, FA(10minutes) LOLY HORN OT Jul 18, 2019 15:51
[2019-07-18] MEDS: LORazepam 0.5 MG (ATIVAN) TABLET PO PRN (21:31)
[2019-07-19] MEDS: morphine IMMEDIATE RELEASE 15 MG TABLET PO PRN ×3 (01:23→22:12)
--- NOTE | 2019-07-19 01:27 | NUR ---
PATIENT HAS BEEN ANXIOUS THIS SHIFT. THIS NURSE ADMINISTERED P.O. ATIVAN AND DIMMED THE LIGHTS IN PATIENT ROOM AND TURNED OFF THE TELEVISION. PATIENT STARTED YELLING "SOMEONE HELP ME". THIS NURSE WENT TO PATIENT ROOM TO ASSESS AND PATIENT STATED THAT THERE WAS A VERY LARGE BUG CRAWLING ON THE WALL. PATIENT WAS POINTING TO THE WALL WHEN THIS NURSE TURNED ON THE LIGHT AND PATIENT SAID "SEE IT RIGHT THERE". THIS NURSE EXPLAINED TO PATIENT THAT THERE WAS NOTHING ON THE WALL. PATIENT THEN MADE SEVERAL ATTEMPTS TO EXIT THE BED UNASSISTED TO GO TO HER HOME TO CARE FOR HER ANIMALS. THIS NURSE ATTEMPTED TO RE-ORIENT PATIENT. PATIENT IS IN HER ROOM ALONE TALKING TO "OTHERS" AND ALSO WAVING AND TALKING TO THE TV. PATIENT IS BECOMING AGITATED SHE IS UNABLE TO LEAVE AND GO HOME. PRN MEDICATION ADMINISTERED. BED ALARM TURNED ON. WILL CONTINUE TO MONITOR.
[2019-07-19 04:21] VITALS: BP 138/78
[2019-07-19] MEDS: 1/2 NS W/KCL 20 MEQ/L 1,000 ML IV SCH ×3 (04:47→18:03)
[2019-07-19 06:31] LABS: BASOPHILS % (AUTO) 0 % (0-10); EOSINOPHILS # (AUTO) 0.5 10^3/uL (0.0-0.3); EOSINOPHILS % (AUTO) 3 % (0-10); HEMATOCRIT 30 % (35-52); HEMOGLOBIN 9.7 G/DL (11.5-16.0); LYMPHOCYTES # (AUTO) 2.6 X 10^3 (1.0-4.0); LYMPHOCYTES % (AUTO) 17 % (12-44); MEAN CORPUSCULAR HEMOGLOBIN 31 PG (25-34); MEAN CORPUSCULAR HGB CONC 32 G/DL (32-36); MEAN CORPUSCULAR VOLUME 95 FL (80-99); MONOCYTES # (AUTO) 1.5 X 10^3 (0.0-1.0); MONOCYTES % (AUTO) 9 % (0-12); NEUTROPHILS # (AUTO) 11.3 X 10^3 (1.8-7.8); NEUTROPHILS % (AUTO) 71 % (42-75); PLATELET COUNT 246 10^3/uL (130-400); RED CELL DISTRIBUTION WIDTH 22.6 % (10.0-14.5); WHITE BLOOD COUNT 15.9 10^3/uL (4.3-11.0)
[2019-07-19 06:48] LABS: ALANINE AMINOTRANSFERASE 41 U/L (0-55); ALBUMIN 2.4 GM/DL (3.2-4.5); ALKALINE PHOSPHATASE 240 U/L (40-136); BILIRUBIN,TOTAL 6.3 MG/DL (0.1-1.0); BUN/CREATININE RATIO 24; CALCIUM 7.7 MG/DL (8.5-10.1); CARBON DIOXIDE 26 MMOL/L (21-32); CHLORIDE 104 MMOL/L (98-107); CREATININE SERUM 0.63 MG/DL (0.60-1.30); GFR ESTIMATED > 60; GLUCOSE 130 MG/DL (70-105); MAGNESIUM 1.6 MG/DL (1.6-2.4); POTASSIUM 4.7 MMOL/L (3.6-5.0); SODIUM 140 MMOL/L (135-145); TOTAL PROTEIN 5.4 GM/DL (6.4-8.2)
[2019-07-19 08:00] VITALS: BP 121/74
[2019-07-19] MEDS: cefTRIAXone FOR IV USE 1,000 MG in WATER (STERILE) FOR INJECTION 10 ML IV SCH (08:46)
[2019-07-19] MEDS: ENOXAPARIN 40 MG/0.4 ML (LOVENOX) SYR SC SCH (08:46)
--- NOTE | 2019-07-19 09:12 | Occupational Ther Daily Note ---
OT Current Status-Daily Note Subjective pt laying in bed upon OT arrival. pt agreed to OT TX session with focus on increasing indep with functional mobility. NSG present in room. pt reports no pain. pt confused but oriented to name and place. Appearance pt appear jaundice in skin color. NSG present and aware. Mental Status/Objective Patient Orientation: Person, Place Therapy Code Descriptions/Definitions Functional [place] Measure: 0=Not Assessed/NA 4=Minimal Assistance 1=Total Assistance 5=Supervision or Setup 2=Maximal Assistance 6=Modified [place] 3=Moderate Assistance 7=Complete [place] Attachments: Mares Catheter, IV ADL-Treatment Transfers (B, C, W/C) (FIM): 1 (X 2 person assist ) pt perform bed mobility supine to sit with MAX A 1 person with heavy cuing on proper positioning. pt then perform sit to stand so nursing can apply padding to buttock. upon standing pt very retropulsive requiring to sit back down on bed. pt then attempt to perform sit to stand again with MOD A and MOD A X 2 person assist to pivot toward right side to recliner chair using RW . post session, pt sitting in recliner chair, chair alarm on. NSG aide present in room. all needs met. Education OT Patient Education: Progress toward Goal/Update tx plan, Purpose of tx/func tional activities, Transfer techniques Teaching Recipient: Patient Teaching Methods: Demonstration, Discussion Response to Teaching: Reinforcement Needed OT Short Term Goals Short Term Goals Time Frame: Jul 24, 2019 Eating(FIM): 4 Grooming(FIM): 4 Bathing(FIM): 3 Upper Body Dressing(FIM): 3 Lower Body Dressing(FIM): 3 Toileting(FIM): 3 Transfers (B,C,W/C) (FIM): 4 Toilet/Commode Transfer(FIM): 4 Additional Short Term Goals: 1-Demonstrate ADL Tasks, 2-Verbalize Understanding, 3-ImproveStrength/[place] 1=Demonstrate adherence to instructed precautions during ADL tasks. 2=Patient will verbalize/demonstrate understanding of assistive devices/modifications for ADL. 3=Patient will improve strength/tolerance for activity to enable patient to perform ADL's. OT Political Anthropologist Goals Chcf Goals Time Frame: Jul 31, 2019 Eating (FIM): 5 Grooming(FIM): 5 Bathing(FIM): 4 Upper Body Dressing(FIM): 4 Lower Body Dressing(FIM): 4 Toileting(FIM): 4 Transfers (B,C,W/C) (FIM): 4 Toilet/Commode Transfer(FIM): 4 Shower Transfer(FIM): 4 Additional Goals: 1-Demonstrate ADL Tasks, 2-Verbalize Understanding, 3- ImproveStrength/[place] 1=Demonstrate adherence to instructed precautions during ADL tasks. 2=Patient will verbalize/demonstrate understanding of assistive devices/modifications for ADL. 3=Patient will improve strength/tolerance for activity to enable patient to perform ADL's. OT Education/Plan Problem List/Assessment Assessment: Decreased Activ Tolerance, Decreased Safety Aware, Decreased UE Strength, Dependent Transfers, Impaired Bed Mobility, Impaired Cognition, Impaired Coordination, Impaired Funct Balance, Impaired I ADL's, Impaired Self- Care Skills, Restricted Funct UE ROM Discharge Recommendations Plan/Recommendations: Continue POC Therapy Discharge Recommendati: 24 Hour Supervision, Post Acute OT (NS home) Treatment Plan/Plan of Care Treatment,Training & Education: Yes Patient would benefit from OT for education, treatment and training to promote independence in ADL's, mobility, safety and/or upper extremity function for ADL's. Plan of Care: ADL Retraining, Cognitive Retraining, Functional Mobility, UE Funct Exercise/Act Treatment Duration: Jul 31, 2019 Frequency: 5 times per week Estimated Hrs Per Day: .25 hour per day Agreement: Yes Rehab Potential: Guarded Time/GCodes Start Time: 08:33 Stop Time: 08:47 Billed Treatment Time 1. FA 14 minutes, 1 unit HAILY GARDNER OT Jul 19, 2019 09:12
--- NOTE | 2019-07-19 09:41 | Physical Therapy Daily Note ---
PT Daily Note-Current Subjective Patient in recliner pre tx, agrees to PT, has no complaints of pain. Patient states that she has just been feeding the chickens and when asked where she was she said [place] farm. Appearance Patient in recliner post tx with nurse call, phone, tray, chair alarm on. Mental Status Patient Orientation: Person, Confused Attachments: IV Transfers Therapy Code Descriptions/Definitions Functional [place] Measure: 0=Not Assessed/NA 4=Minimal Assistance 1=Total Assistance 5=Supervision or Setup 2=Maximal Assistance 6=Modified [place] 3=Moderate Assistance 7=Complete [place] Therapy Quality Codes: 6 Independent with activity with or without an assistive device 5 Patient requires set up or clean up by helper. Patient completes activity by themselves 4 Supervision or touching assist (CGA). [place] provide cues , steadying assist 3 The helper provides less than half the effort to complete the activity 2 The helper provides more than half the effort to complete the activity 1 Dependent. The helper does all the effort to complete an activity 7 Patient refused to complete or attempt activity 9 The patient did not perform the activity before the current illness or injury 88 Not attempted due to Medical conditions or safety concerns Transfers (B, C, W/C) (FIM): 2 Sit to/from Stand: 2 Max assist to stand x2 and she was able to stand for about 30 seconds each time, she could not stand completely and not safe to take steps at this time. Weight Bearing Right Lower Extremity: Right Full Weight Bearing Left Lower Extremity: Left Full Weight Bearing Exercises Seated Therapy Exercises: Ankle pumps, Long arc quads, Hip flexion Seated Reps: 15 Treatments standing, LE exercise Assessment Current Status: Poor Progress profound weakness, no ambulation PT Short Term Goals Short Term Goals Transfers (B,C,W/C) (FIM): 4 PT Mcc Goals Mcc Goals PT Special Education Teacher Goals Time Frame: Jul 29, 2019 Transfers (B,C,W/C) (FIM): 4 Gait (FIM): 1 Gait distance (FIM): 1=up to 49 ft Distance: 15' Gait Level of Assist: 4 Gait Assistive Device: FWW PT Plan Problem List Problem List: Activity Tolerance, Functional Strength, Safety, Balance, Gait, Transfer, Bed Mobility Treatment/Plan Treatment Plan: Continue Plan of Care Treatment Plan: Bed Mobility, Education, Functional Activity Neville, Functional Strength, Gait, Safety, Therapeutic Exercise, Transfers Treatment Duration: Jul 29, 2019 Frequency: 5 times per week Estimated Hrs Per Day: .25 hour per day Patient and/or Family Agrees t: Yes Safety Risks/Education Patient Education: Correct Positioning, Safety Issues Teaching Recipient: Patient Teaching Methods: Demonstration, Discussion Response to Teaching: Reinforcement Needed Time/GCodes Time In: 924 Time Out: 934 Total Billed Treatment Time: 10 Total Billed Treatment 1 visit EX SAI VELASQUEZ PT Jul 19, 2019 09:41
--- NOTE | 2019-07-19 10:00 | NUR ---
Palliative Care RN to room. Reviewed the events of the previous shift where she was anxious and wanted to go home and check on the animals. On my assessment she is alert and is now saying she is in [facility], which historically is correct. Pt is in working with her and upon completion reported she wouldn't stand. Encouraged that they continue to work with her as she is from home alone and has made some remarkable improvement since admission.
--- NOTE | 2019-07-19 12:04 | NUR ---
CM/SS, respond to consult for complex psychosocial circumstances. PLAN: Patient is not at a level of independent functioning at this time due to her disease process. Very pleasant with varied levels of confusion, best practice plan appears to be placement for 24/7 care in a community nursing facility hospice vs short term skilled services. SUMMARY: After extensive research, it has been determined that patient does not likely have a Living Will, DPOA, or Last Will & Testament. She resides in her parental home where she has lived since age 11, per parcel search the home was in her name along with her mother, Nargis Choen, who is now . Patient Praveen Ryder in 1988 and they resided in this home until his passing 10/02/16. Patient has no biological children, she had a step daughter Nickie Atkins in [place], [place], but all contacts indicated they did not like each other or have a positive relationship. From her marriage to Praveen, she has step in-laws, the primary contact being brother in law Gamaliel Ryder of [place], [place]. He indicates he has maintained contact with patient since his brother's and that he has given her money at times to help her out. He also indicated that her home is in such bad repair, particularly the roof, that she is unable to get homeowners insurance on it. Per friend Radha Lugo who befriended patient about 6 years ago, patient could "work like a man until she got sick." She lives on [place] acres and has 4 goats, 3 sheep, 15-20 chickens, 3 cats, 1 dog, an inside bird, guinea pig, and 2 rabbits. "Silvestre" is taking care of the outside animals at this time, going twice daily. Neighbor Leonor is taking care of the inside pets, getting the paper and mail. The pet dog is currently boarded with patient's vet. Regarding next steps, film writer contacted [facility] to explore the possibility of placement. The obvious issue is patient's disease-related confusion and no appointed legal outside dealer sales representative. Secondly, it could be speculated that if her disease follows a normal course, she would not be appropriate for skilled therapies either at all or for very long. Insurance is [employer] [place] only, patient would be private pay once skilled services terminated. INTERVENTIONS: Patient completed a [employer] Financial Assistance application earlier this year, film writer spoke to [employer] n[employer] same and asked if they could facilitate a Medicaid application, await response. Patient designated her friend, Radha Lugo, as her hospital contact. Radha had spoken with patient about the importance of doing a Will, Living Will, and DPOA but Radha does not believe these were completed. Radha has patient's purse and checkbook because patient had signed a few checks and asked her to pay bills as needed. Per Radha, patient has a checking account and safety deposit box with [employer], it appears no one is privy to her overall asset standing. Card Services Specialist requested contact with [facility] Senior Ammonia Distiller, await response. Question would be whether any of patient's current supports or in-laws could act on her behalf to at least facilitate a best care plan admission to a community nursing facility. Gamaliel Ryder is more than willing to assist with this, but did state he is in no financial status to assist with any of her bills. Friend/family do not have the means to pursue a legal guardianship. This can be pursued through [facility] via hotline APS report, this will not be a timely response or solution and may not be accomplished during patient life span. Continue intermittent review and followup on findings. Addendum: 07/19/19 at 1317 by MATTIE FARFAN KATELYN MORRELL/Harriet reviewed patient for Medicaid, indications are with her SS income of $2424.00 monthly and what little else is known about her assets, she would have a spenddown of approx $12,000 every 6 months before Medicaid would pay. Additionally, she would have to be able to comprehend giving consent for the application to be completed which she can not do at this time.
--- NOTE | 2019-07-19 15:36 | NUR ---
CM/SS. Will assess patient status in a.m. [facility] Tube Room Cashier Cesar Miranda is assisting with finding a local automatic paint sprayer operator to pursue Emergent Guardianship/Conservatorship. Ethologist has continued discussion with [facility] about admitting patient, sent referral for review.
--- NOTE | 2019-07-19 16:03 | Speech Therapy Daily Note ---
Speech Daily Progress Note Subjective Date Seen by Provider: Jul 19, 2019 Time Seen by Provider: 00:15 Patient seen for dysphagia therapy today. Objective Patient took a few sips with verbal cues to "take small sips, no gulps" Patient was able to follow through with 75% given moderate verbal cues. Assessment Assessment Current Status: Fair Progress Treatment Plan Continue Plan of Care Speech Short Term Goals Short Term Goals Short Term Goals 1) The patient will tolerate least restrictive diet level without s/s of aspiration at 90% or greater. 2) The patient/caregiver will utilize compensatory strategies for safe oral intake at 90% or greater with minimal cues. Speech Shelter Goals Shelter Goals The patient will maintain adequate nutrition/hydration via safe effective swallow function. Speech-Plan Patient/Family Goals Patient/Family Goals: Patient's discharge plans are unknown at this time. Treatment Plan Speech Therapy Treatment Plan: Continue Plan of Care Patient will continue with ST. Treatment Duration: Jul 21, 2019 Frequency: 3 times per week Estimated Hrs Per Day: .25 hour per day Rehab Potential: Guarded Barriers to Learning: Patient's current medical status with disease progression. Pt/Family Agrees to Plan: Yes Safety Risks/Education Teaching Recipient: Patient Teaching Methods: Discussion Response to Teaching: Verbalize Understanding Education Topics Provided: Safety of oral intake Time Speech Therapy Time In: 12:30 Speech Therapy Time Out: 12:45 Total Billed Time: 15 Billed Treatment Time 1CHARLY B[address] ST Jul 19, 2019 16:03
--- NOTE | 2019-07-19 17:48 | Progress Note ---
Subjective Date Seen by a Provider: Jul 19, 2019 Time Seen by a Provider: 12:00 Subjective/Events-last exam Fwup sepsis, metastatic pancreatic cancer, metabolic encephalopathy, hy pokalemia. Having full conversation but is confused. Objective Exam Vital Signs Date Time Temp Pulse Resp B/P (MAP) Pulse Ox O2 Delivery O2 Flow Rate FiO2 07/19/19 08:00 36.6 69 16 121/74 99 Room Air 07/19/19 08:00 Room Air 07/19/19 04:21 36.2 97 18 138/78 98 Room Air 07/18/19 23:41 36.4 94 20 129/85 98 Room Air 07/18/19 20:00 Room Air 07/18/19 19:30 36.4 93 20 121/74 100 Room Air I & O 07/19/19 07:00 Intake Total 1660 ml Output Total 1250 ml Balance 410 ml Capillary Refill : Less Than 3 Seconds General Appearance: No Apparent Distress Neck: Supple Respiratory: Lungs Clear Cardiovascular: Systolic Murmur Gastrointestinal: non tender, soft Extremity: Non Tender, No Calf Tenderness, No Pedal Edema Neurologic/Psychiatric: Alert, Oriented x3 Skin: Warm/Dry, Jaundice Results Lab Laboratory Tests 07/19/19 06:15: White Blood Count 15.9H, Red Blood Count 3.16L, Hemoglobin 9.7L, Hematocrit 30L, Mean Corpuscular Volume 95, Mean Corpuscular Hemoglobin 31, Mean Corpuscular Hemoglobin Concent 32, Red Cell Distribution Width 22.6H, Platelet Count 246, Mean Platelet Volume 12.0H, Neutrophils (%) (Auto) 71, Lymphocytes (%) (Auto) 17, Monocytes (%) (Auto) 9, Eosinophils (%) (Auto) 3, Basophils (%) (Auto) 0, Neutrophils # (Auto) 11.3H, Lymphocytes # (Auto) 2.6, Monocytes # (Auto) 1.5H, Eosinophils # (Auto) 0.5H, Basophils # (Auto) 0.0, Sodium Level 140, Potassium Level 4.7, Chloride Level 104, Carbon Dioxide Level 26, Anion Gap 10, Blood Urea Nitrogen 15, Creatinine 0.63, Estimat Glomerular Filtration Rate > 60, BUN/Crea tinine Ratio 24, Glucose Level 130H, Calcium Level 7.7L, Corrected Calcium 9.0, Magnesium Level 1.6, Total Bilirubin 6.3H, Aspartate Amino Transf (AST/SGOT) 89H , Alanine Aminotransferase (ALT/SGPT) 41, Alkaline Phosphatase 240H, Total Protein 5.4L, Albumin 2.4L Microbiology 07/12/19 Blood Culture - Final, Complete Staph, Coag Neg (CHIP TUNER) 07/12/19 Urine Culture - Final, Complete NO GROWTH Assessment/Plan Assessment/Plan Assess & Plan/Chief Complaint 1. Sepsis--change to maxipime due to elevating WBC count 2. Hypokalemia--improved 3. Metastatic Pancreatic Cancer--will plan on seeing oncology if she continues to improve 4. Atrial Fibrillation--in NSR 5. Anemia--monitor H/H 6. Patient has been transitioned from comfort care to palliative care, will need guardianship and placement Clinical Quality Measures Admission Status Admission Dx 1. UTI with sepsis 2. Metastatic Pancreatic Cancer 3. Hypokalemia 4. Atrial fibrillation with RVR 5. Metabolic Encephalopathy 6. Comfort Care per recommendations of ER doctor, Critical Care doctor and myself after speaking with the patient's friend about her wishes DVT/VTE Risk/Contraindication: Risk Factor Score Per Nursin RFS Level Per Nursing on Admit: 3=High BING VOGEL DO Jul 19, 2019 17:47
[2019-07-19] MEDS: CEFEPIME INJECTION 1,000 MG in WATER (STERILE) FOR INJECTION 10 ML IV SCH (18:04)
[2019-07-19] MEDS: LORazepam 0.5 MG (ATIVAN) TABLET PO PRN (22:12)
[2019-07-20 00:15] VITALS: BP 116/78
[2019-07-20] MEDS: CEFEPIME INJECTION 1,000 MG in WATER (STERILE) FOR INJECTION 10 ML IV SCH ×5 (00:27→23:42)
[2019-07-20 04:00] VITALS: BP 127/83
[2019-07-20 04:47] LABS: BASOPHILS % (AUTO) 0 % (0-10); EOSINOPHILS # (AUTO) 0.5 10^3/uL (0.0-0.3); EOSINOPHILS % (AUTO) 4 % (0-10); HEMATOCRIT 29 % (35-52); HEMOGLOBIN 8.9 G/DL (11.5-16.0); LYMPHOCYTES # (AUTO) 2.2 X 10^3 (1.0-4.0); LYMPHOCYTES % (AUTO) 18 % (12-44); MEAN CORPUSCULAR HEMOGLOBIN 30 PG (25-34); MEAN CORPUSCULAR HGB CONC 31 G/DL (32-36); MEAN CORPUSCULAR VOLUME 97 FL (80-99); MEAN PLATELET VOLUME 11.7 FL (7.4-10.4); MONOCYTES # (AUTO) 1.2 X 10^3 (0.0-1.0); MONOCYTES % (AUTO) 10 % (0-12); NEUTROPHILS # (AUTO) 8.6 X 10^3 (1.8-7.8); NEUTROPHILS % (AUTO) 69 % (42-75); PLATELET COUNT 158 10^3/uL (130-400); RED CELL DISTRIBUTION WIDTH 22.9 % (10.0-14.5); WHITE BLOOD COUNT 12.6 10^3/uL (4.3-11.0)
[2019-07-20 05:05] LABS: ALANINE AMINOTRANSFERASE 37 U/L (0-55); ALBUMIN 2.2 GM/DL (3.2-4.5); ALKALINE PHOSPHATASE 260 U/L (40-136); BILIRUBIN,TOTAL 5.5 MG/DL (0.1-1.0); BUN/CREATININE RATIO 28; CALCIUM 7.8 MG/DL (8.5-10.1); CARBON DIOXIDE 26 MMOL/L (21-32); CHLORIDE 107 MMOL/L (98-107); CREATININE SERUM 0.58 MG/DL (0.60-1.30); GFR ESTIMATED > 60; GLUCOSE 131 MG/DL (70-105); POTASSIUM 3.9 MMOL/L (3.6-5.0); SODIUM 142 MMOL/L (135-145); TOTAL PROTEIN 4.6 GM/DL (6.4-8.2)
[2019-07-20 07:30] VITALS: BP 138/78
[2019-07-20] MEDS: ENOXAPARIN 40 MG/0.4 ML (LOVENOX) SYR SC SCH (07:53)
--- NOTE | 2019-07-20 09:22 | Physical Therapy Daily Note ---
PT Daily Note-Current Subjective Patient is in bed and looking off into the distance. Does not make eye contact with PT. Very confused. Mental Status Patient Orientation: Confused Attachments: Mares Catheter, IV Transfers Therapy Code Descriptions/Definitions Functional [place] Measure: 0=Not Assessed/NA 4=Minimal Assistance 1=Total Assistance 5=Supervision or Setup 2=Maximal Assistance 6=Modified [place] 3=Moderate Assistance 7=Complete [place] Therapy Quality Codes: 6 Independent with activity with or without an assistive device 5 Patient requires set up or clean up by helper. Patient completes activity by themselves 4 Supervision or touching assist (CGA). [place] provide cues , steadying assist 3 The helper provides less than half the effort to complete the activity 2 The helper provides more than half the effort to complete the activity 1 Dependent. The helper does all the effort to complete an activity 7 Patient refused to complete or attempt activity 9 The patient did not perform the activity before the current illness or injury 88 Not attempted due to Medical conditions or safety concerns Transfers (B, C, W/C) (FIM): 1 Scootin Rollin Supine to/from Sit: 1 Sit to/from Stand: 1 Bed to/from Chair: 1 dependent assist x 2 with all mobility/patient is retropulsive in sit and stand and with SPT bed to recliner. Chair alarm activated. Weight Bearing Right Lower Extremity: Right Full Weight Bearing Left Lower Extremity: Left Full Weight Bearing Exercises Seated Therapy Exercises: Ankle pumps, Long arc quads Seated Reps: 15 (AAROM due to confusion) Assessment Patient is up in recliner with chair alarm activated due to confusion and impulsive behavior. Patient tolerates minimal activity. PT Short Term Goals Short Term Goals Transfers (B,C,W/C) (FIM): 4 PT Melting Furnace Skimmer Goals Melting Furnace Skimmer Goals PT Melting Furnace Skimmer Goals Time Frame: Jul 29, 2019 Transfers (B,C,W/C) (FIM): 4 Gait (FIM): 1 Gait distance (FIM): 1=up to 49 ft Distance: 15' Gait Level of Assist: 4 Gait Assistive Device: FWW PT Plan Treatment/Plan Treatment Plan: Continue Plan of Care Treatment Plan: Bed Mobility, Education, Functional Activity Neville, Functional Strength, Gait, Safety, Therapeutic Exercise, Transfers Treatment Duration: Jul 29, 2019 Frequency: 5 times per week Estimated Hrs Per Day: .25 hour per day Patient and/or Family Agrees t: Yes Time/GCodes Time In: 841 Time Out: 853 Total Billed Treatment Time: 12 Total Billed Treatment 1 visit FA 12 min LINSEY HICKMAN PT Jul 20, 2019 09:22
[2019-07-20] MEDS: fentaNYL PATCH 12 MCG (DURAGESIC) TD SCH (09:50)
--- NOTE | 2019-07-20 10:43 | NUR ---
PALLIATIVE CARE RN in to see patient. She is sitting up in chair and pleasant. Still confused and occasionally speaking nonsense but intermingled is actual intelligent sounding and correct. OT in to help her with bath.
--- NOTE | 2019-07-20 10:58 | Occupational Ther Daily Note ---
OT Current Status-Daily Note Subjective Pt alert, sitting in recliner. Pt appears slightly less confused [facility] then when questioned about current location she would say that she was in the hospital and the town was [place]. Pt would intermingle nonsensical statements with sensical statements. Mental Status/Objective Patient Orientation: Person, Confused, Place Therapy Code Descriptions/Definitions Functional [place] Measure: 0=Not Assessed/NA 4=Minimal Assistance 1=Total Assistance 5=Supervision or Setup 2=Maximal Assistance 6=Modified [place] 3=Moderate Assistance 7=Complete [place] Attachments: Mares Catheter, IV ADL-Treatment Pt agrees to sponge bath. Assist x2 to manipulate clothing then pt cleansed self sitting on [facility]. After set up, wringing out clothes and handing to pt is able to wash all areas with cues. Assist to don/doff hospital gown due to IV tubing. Pt able to doff both socks then dons R sock and initiates L sock with assist to rib puller heel. Pt requires assist x2 to transfer with FWW to and from [facility]. Cues for hand placement when reaching back for seat to sit. After therapy, pt sitting in recliner with call light/phone. Chair alarm in place and activated. All needs met in room. Bathing (FIM): 5 (close SBA and set up.) Bathing Location: L Arm, R Arm, L Upper Leg, R Upper Leg, L Lower Leg (including foot), R Lower Leg (including foot), Chest, Abdomen, Buttocks, Perineal Area Lower Body Dressing (FIM): 4 Toileting (FIM): 1 Transfers (B, C, W/C) (FIM): 1 Toilet/Commode Transfer (FIM): 1 OT Short Term Goals Short Term Goals Time Frame: Jul 24, 2019 Eating(FIM): 4 Grooming(FIM): 4 Bathing(FIM): 3 Upper Body Dressing(FIM): 3 Lower Body Dressing(FIM): 3 Toileting(FIM): 3 Transfers (B,C,W/C) (FIM): 4 Toilet/Commode Transfer(FIM): 4 Additional Short Term Goals: 1-Demonstrate ADL Tasks, 2-Verbalize Understanding, 3-ImproveStrength/[place] 1=Demonstrate adherence to instructed precautions during ADL tasks. 2=Patient will verbalize/demonstrate understanding of assistive devices/modifications for ADL. 3=Patient will improve strength/tolerance for activity to enable patient to perform ADL's. OT Mcc Goals Mcc Goals Time Frame: Jul 31, 2019 Eating (FIM): 5 Grooming(FIM): 5 Bathing(FIM): 4 Upper Body Dressing(FIM): 4 Lower Body Dressing(FIM): 4 Toileting(FIM): 4 Transfers (B,C,W/C) (FIM): 4 Toilet/Commode Transfer(FIM): 4 Shower Transfer(FIM): 4 Additional Goals: 1-Demonstrate ADL Tasks, 2-Verbalize Understanding, 3- ImproveStrength/[place] 1=Demonstrate adherence to instructed precautions during ADL tasks. 2=Patient will verbalize/demonstrate understanding of assistive devices/modifications for ADL. 3=Patient will improve strength/tolerance for activity to enable patient to perform ADL's. OT Education/Plan Problem List/Assessment Assessment: Decreased Activ Tolerance, Decreased Safety Aware, Dependent Transfers, Impaired Cognition, Impaired Coordination, Impaired Funct Balance, Impaired Self-Care Skills Discharge Recommendations Plan/Recommendations: Continue POC Treatment Plan/Plan of Care Patient would benefit from OT for education, treatment and training to promote independence in ADL's, mobility, safety and/or upper extremity function for ADL's. Plan of Care: ADL Retraining, Cognitive Retraining, Functional Mobility, UE Funct Exercise/Act Treatment Duration: Jul 31, 2019 Frequency: 5 times per week Estimated Hrs Per Day: .25 hour per day Agreement: Yes Rehab Potential: Guarded Time/GCodes Start Time: 10:20 Stop Time: 10:50 Total Time Billed (hr/min): 30 Billed Treatment Time 1 visit-ADL 2 (30 min) XIOMARA MACARIO Jul 20, 2019 10:58
[2019-07-20 12:00] VITALS: BP 121/72
[2019-07-20] MEDS: 1/2 NS W/KCL 20 MEQ/L 1,000 ML IV SCH (14:24)
--- NOTE | 2019-07-20 14:27 | NUR ---
Pt's friend, Austin, present: Visit initially took place at bedside. Pt pleasantly disoriented, asking Austin if she has seen her mom, verbalizing concerns for her animals being fed, asking about loved ones. I engaged the pt to ease her mind and offer reassurance. She smiled throughout most of our visit. Austin met with JOANA Barber and myself outside the room. We offered emotional support through active listening and rapport building as Austin shared about her lifelong relationship with the pt, growing up together and being only two months apart in age. Austin was tearful at times, verbalized desire to help and connect with pt's brother in Law regarding the care of the pt's farm and pets. Pt is anticipated to move to [facility].
[2019-07-20 15:47] VITALS: BP 127/80
--- NOTE | 2019-07-20 17:27 | NUR ---
CM/SS. Complex discharge planning, summary. Local saas architect Praveen Dunn and his senior agricultural assistant Erlinda are working on completion of emergency guardianship/conservatorship. Bale Breaker Operator visited with patient's brother in law, Gamaliel Ryder, and answered his questions about the responsibilities of being Court appointed to serve. Gamaliel graciously agreed to accept this appointment and his name was provided to saas architect as noted above. The law office will move forward to fully inform Gamaliel and to finalize the Petition for filing. Updated [facility]/Shanthi. Referral remains pending a legally responsible person and a payor source which would likely be Medicaid pending. Shanthi is in full communication with the team at [facility], so their decision should not be delayed as soon as a Court judgment is known. [facility] does have a contracted provider to assist to expedite Medicaid as long as a person has legal authority to sign the application. Would not anticipate a significant outcome re paperwork/Court decision until first of the week. paul Okeefe in law [address] [place] [address]
--- NOTE | 2019-07-20 17:36 | Progress Note ---
Subjective Date Seen by a Provider: Jul 20, 2019 Time Seen by a Provider: 12:39 Subjective/Events-last exam Fwup sepsis, metastatic pancreatic cancer, metabolic encephalopathy, hy pokalemia. Sitting up in chair. Denies pain. Answers questions appropriately but still confused asking several times where her little dog was and stating that he had just been there. Objective Exam Vital Signs Date Time Temp Pulse Resp B/P (MAP) Pulse Ox O2 Delivery O2 Flow Rate FiO2 07/20/19 15:47 37.4 104 18 127/80 100 Room Air 07/20/19 12:00 36.4 79 18 121/72 98 Room Air 07/20/19 08:00 Room Air 07/20/19 07:30 36.4 80 20 138/78 98 Room Air 07/20/19 04:00 36.8 87 17 127/83 98 Room Air 07/20/19 00:15 36.6 86 17 116/78 99 Room Air 07/19/19 20:00 Room Air I & O 07/20/19 07:00 Intake Total 670 ml Output Total 930 ml Balance -260 ml Capillary Refill : Less Than 3 Seconds General Appearance: No Apparent Distress Neck: Supple Respiratory: Lungs Clear Cardiovascular: Regular Rate, Rhythm Gastrointestinal: normal bowel sounds, non tender, soft Extremity: Non Tender, No Calf Tenderness, No Pedal Edema Neurologic/Psychiatric: Alert, Disoriented Skin: Jaundice Results Lab Laboratory Tests 07/20/19 04:30: White Blood Count 12.6H, Red Blood Count 2.94L, Hemoglobin 8.9L, Hematocrit 29L, Mean Corpuscular Volume 97, Mean Corpuscular Hemoglobin 30, Mean Corpuscular Hemoglobin Concent 31L, Red Cell Distribution Width 22.9H, Platelet Count 158, Mean Platelet Volume 11.7H, Neutrophils (%) (Auto) 69, Lymphocytes (%) (Auto) 18, Monocytes (%) (Auto) 10, Eosinophils (%) (Auto) 4, Basophils (%) (Auto) 0, Neutrophils # (Auto) 8.6H, Lymphocytes # (Auto) 2.2, Monocytes # (Auto) 1.2H, Eosinophils # (Auto) 0.5H, Basophils # (Auto) 0.0, Sodium Level 142, Potassium Level 3.9, Chloride Level 107, Carbon Dioxide Level 26, Anion Gap 9, Blood Urea Nitrogen 16, Creatinine 0.58L, Estimat Glomerular Filtration Rate > 60, BUN/Creatinine Ratio 28, Glucose Level 131H, Calcium Level 7.8L, Corrected Calcium 9.2, Total Bilirubin 5.5H, Aspartate Amino Transf (AST/SGOT) 47H, Alanine Aminotransferase (ALT/SGPT) 37, Alkaline Phosphatase 260H, Total Protein 4.6L, Albumin 2.2L Microbiology 07/12/19 Blood Culture - Final, Complete Staph, Coag Neg (CHIEF ACCOUNTANT) 07/12/19 Urine Culture - Final, Complete NO GROWTH Assessment/Plan Assessment/Plan Assess & Plan/Chief Complaint 1. Sepsis--now on maxipime and WBC count decreasing 2. Hypokalemia--improved 3. Metastatic Pancreatic Cancer--will plan on seeing oncology if she continues to improve but at this point patient unable to consent to treatment 4. Atrial Fibrillation--in NSR 5. Anemia--monitor H/H 6. Patient has been transitioned from comfort care to palliative care, will need guardianship and placement Clinical Quality Measures Admission Status Admission Dx 1. UTI with sepsis 2. Metastatic Pancreatic Cancer 3. Hypokalemia 4. Atrial fibrillation with RVR 5. Metabolic Encephalopathy 6. Comfort Care per recommendations of ER doctor, Critical Care doctor and myself after speaking with the patient's friend about her wishes DVT/VTE Risk/Contraindication: Risk Factor Score Per Nursin RFS Level Per Nursing on Admit: 3=High BING VOGEL DO Jul 20, 2019 17:36
[2019-07-20] MEDS: LORazepam 0.5 MG (ATIVAN) TABLET PO PRN (20:23)
[2019-07-20 20:31] VITALS: BP 127/80
--- NOTE | 2019-07-20 22:42 | NUR ---
2019-pt yelling out, pt confused, this rn attempted to reorient pt & redirect pt, which was not successful, pt voicing concerns about her pets & her parents also. 2022-this rn administered prn Ativan 0.5mg to help with pt anxiety 2054-pt resting in chair watching television, no signs of anxiety noted at this time.
[2019-07-21] VITALS: BP 111/55
[2019-07-21 04:00] VITALS: BP 121/74
[2019-07-21] MEDS: CEFEPIME INJECTION 1,000 MG in WATER (STERILE) FOR INJECTION 10 ML IV SCH ×4 (06:04→23:12)
[2019-07-21 08:00] VITALS: BP 130/72
[2019-07-21] MEDS: SCOPOLAMINE PATCH REMOVAL TP SCH (08:31)
[2019-07-21] MEDS: SCOPOLAMINE 1.5 MG (TRANSDERM-SCOP) PATCH TOP SCH (08:31)
[2019-07-21] MEDS: ENOXAPARIN 40 MG/0.4 ML (LOVENOX) SYR SC SCH (08:31)
--- NOTE | 2019-07-21 09:38 | Progress Note ---
Subjective Date Seen by a Provider: Jul 21, 2019 Time Seen by a Provider: 09:36 Subjective/Events-last exam Fwup sepsis, metastatic pancreatic cancer, metabolic encephalopathy, hy pokalemia. Up ambulating with PT. Still confused. Objective Exam Vital Signs Date Time Temp Pulse Resp B/P (MAP) Pulse Ox O2 Delivery O2 Flow Rate FiO2 07/21/19 08:00 37.0 82 20 130/72 98 Room Air 07/21/19 08:00 Room Air 07/21/19 04:00 36.8 96 18 121/74 100 Room Air 07/21/19 00:00 37.3 90 16 111/55 99 Room Air 07/20/19 20:31 37.0 105 18 127/80 98 Room Air 07/20/19 20:15 Room Air 07/20/19 15:47 37.4 104 18 127/80 100 Room Air 07/20/19 12:00 36.4 79 18 121/72 98 Room Air I & O 07/21/19 07:00 Intake Total 1330 ml Output Total 1150 ml Balance 180 ml Capillary Refill : Less Than 3 Seconds General Appearance: No Apparent Distress Neck: Supple Respiratory: Lungs Clear Cardiovascular: Regular Rate, Rhythm Extremity: Non Tender, No Calf Tenderness, No Pedal Edema Neurologic/Psychiatric: Alert, Disoriented (confused) Results Lab Microbiology 07/12/19 Blood Culture - Final, Complete Staph, Coag Neg (RELAY SHOP TESTER) 07/12/19 Urine Culture - Final, Complete NO GROWTH Assessment/Plan Assessment/Plan Assess & Plan/Chief Complaint 1. Sepsis--now on maxipime, check CBC in AM 2. Hypokalemia--improved 3. Metastatic Pancreatic Cancer--will plan on seeing oncology if she continues to improve but at this point patient unable to consent to treatment 4. Atrial Fibrillation--in NSR 5. Anemia--monitor H/H 6. Patient has been transitioned from comfort care to palliative care, will need guardianship and NH placement Clinical Quality Measures Admission Status Admission Dx 1. UTI with sepsis 2. Metastatic Pancreatic Cancer 3. Hypokalemia 4. Atrial fibrillation with RVR 5. Metabolic Encephalopathy 6. Comfort Care per recommendations of ER doctor, Critical Care doctor and myself after speaking with the patient's friend about her wishes DVT/VTE Risk/Contraindication: Risk Factor Score Per Nursin RFS Level Per Nursing on Admit: 3=High BING VOGEL DO Jul 21, 2019 09:38
--- NOTE | 2019-07-21 10:01 | Physical Therapy Daily Note ---
PT Daily Note-Current Subjective Patient is still very confused and voices concern about her farm animals and her not visiting her. Pain Numeric Pain Scale: 0-No Pain Location: No Pain Reported Mental Status Patient Orientation: Confused Attachments: Mares Catheter, IV Transfers Therapy Code Descriptions/Definitions Functional [place] Measure: 0=Not Assessed/NA 4=Minimal Assistance 1=Total Assistance 5=Supervision or Setup 2=Maximal Assistance 6=Modified [place] 3=Moderate Assistance 7=Complete [place] Therapy Quality Codes: 6 Independent with activity with or without an assistive device 5 Patient requires set up or clean up by helper. Patient completes activity by themselves 4 Supervision or touching assist (CGA). [place] provide cues , steadying assist 3 The helper provides less than half the effort to complete the activity 2 The helper provides more than half the effort to complete the activity 1 Dependent. The helper does all the effort to complete an activity 7 Patient refused to complete or attempt activity 9 The patient did not perform the activity before the current illness or injury 88 Not attempted due to Medical conditions or safety concerns Transfers (B, C, W/C) (FIM): 4 Scootin Sit to/from Stand: 4 assist with sit to stand from low position Weight Bearing Right Lower Extremity: Right Full Weight Bearing Left Lower Extremity: Left Full Weight Bearing Gait Training Gait (FIM): 2 Distance (FIM): 9=282-08 ft Distance: 100' Gait Level of Assist: 4 Gait Persons Needed: 1 Gait Assistive Device: FWW steady, functional gait sequence with FWW/VC's for body placement in FWW for safe use Assessment Patient tolerated treatment well and remains up in recliner with chair alarm activated. Patient improved with gross motor skills/ambulation. Physician observed patient in hallway. PT Short Term Goals Short Term Goals Transfers (B,C,W/C) (FIM): 4 PT Usp Goals Usp Goals PT Usp Goals Time Frame: Jul 29, 2019 Transfers (B,C,W/C) (FIM): 4 Gait (FIM): 1 Gait distance (FIM): 1=up to 49 ft Distance: 15' Gait Level of Assist: 4 Gait Assistive Device: FWW PT Plan Treatment/Plan Treatment Plan: Continue Plan of Care Treatment Plan: Bed Mobility, Education, Functional Activity [place]ille, Functional Strength, Gait, Safety, Therapeutic Exercise, Transfers Treatment Duration: Jul 29, 2019 Frequency: 5 times per week Estimated Hrs Per Day: .25 hour per day Patient and/or Family Agrees t: Yes Time/GCodes Time In: 936 Time Out: 945 Total Billed Treatment Time: 9 Total Billed Treatment 1 visit GT 9 min LINSEY HICKMAN PT Jul 21, 2019 10:01
--- NOTE | 2019-07-21 11:04 | Occupational Ther Daily Note ---
OT Current Status-Daily Note Subjective Pt alert sitting in chair. Pt is confused and wonder why hasn't came to see her yet. Mental Status/Objective Patient Orientation: Person, Confused Therapy Code Descriptions/Definitions Functional [place] Measure: 0=Not Assessed/NA 4=Minimal Assistance 1=Total Assistance 5=Supervision or Setup 2=Maximal Assistance 6=Modified [place] 3=Moderate Assistance 7=Complete [place] Attachments: Mares Catheter, IV Other Treatment Pt participated in 4 upper body exercise against gravity 2 reps 10x each to increase UE strength for daily functional tasks. Skilled instructions required for proper techniques and body position. Pt in chair, call light and phone in room. Pts needs met. OT Short Term Goals Short Term Goals Time Frame: Jul 24, 2019 Eating(FIM): 4 Grooming(FIM): 4 Bathing(FIM): 3 Upper Body Dressing(FIM): 3 Lower Body Dressing(FIM): 3 Toileting(FIM): 3 Transfers (B,C,W/C) (FIM): 4 Toilet/Commode Transfer(FIM): 4 Additional Short Term Goals: 1-Demonstrate ADL Tasks, 2-Verbalize Understanding, 3-ImproveStrength/[place] 1=Demonstrate adherence to instructed precautions during ADL tasks. 2=Patient will verbalize/demonstrate understanding of assistive devices/ modifications for ADL. 3=Patient will improve strength/tolerance for activity to enable patient to perform ADL's. OT Snf Goals Blade Boner Goals Time Frame: Jul 31, 2019 Eating (FIM): 5 Grooming(FIM): 5 Bathing(FIM): 4 Upper Body Dressing(FIM): 4 Lower Body Dressing(FIM): 4 Toileting(FIM): 4 Transfers (B,C,W/C) (FIM): 4 Toilet/Commode Transfer(FIM): 4 Shower Transfer(FIM): 4 Additional Goals: 1-Demonstrate ADL Tasks, 2-Verbalize Understanding, 3- ImproveStrength/[place] 1=Demonstrate adherence to instructed precautions during ADL tasks. 2=Patient will verbalize/demonstrate understanding of assistive devices/modifications for ADL. 3=Patient will improve strength/tolerance for activity to enable patient to perform ADL's. OT Education/Plan Problem List/Assessment Assessment: Decreased UE Strength Discharge Recommendations Plan/Recommendations: Continue POC Treatment Plan/Plan of Care Patient would benefit from OT for education, treatment and training to promote independence in ADL's, mobility, safety and/or upper extremity function for ADL's. Plan of Care: ADL Retraining, Cognitive Retraining, Functional Mobility, UE Funct Exercise/Act Treatment Duration: Jul 31, 2019 Frequency: 5 times per week Estimated Hrs Per Day: .25 hour per day Agreement: Yes Rehab Potential: Guarded Time/GCodes Start Time: 10:30 Stop Time: 11:40 Total Time Billed (hr/min): 10 Billed Treatment Time 1 visit- EX 1 (10 min) XIOMARA MACARIO Jul 21, 2019 11:04
[2019-07-21 12:00] VITALS: BP 106/71
--- NOTE | 2019-07-21 13:39 | Speech Therapy Daily Note ---
Speech Daily Progress Note Subjective Date Seen by Provider: Jul 21, 2019 Time Seen by Provider: 00:10 Patient sitting up in chair, very confused. Objective Patient able to take a few small sips of water with assist. No s/s of aspiration noted. Assessment Assessment Current Status: Fair Progress Treatment Plan Continue Plan of Care Speech Short Term Goals Short Term Goals Short Term Goals 1) The patient will tolerate least restrictive diet level without s/s of aspiration at 90% or greater. 2) The patient/caregiver will utilize compensatory strategies for safe oral intake at 90% or greater with minimal cues. Speech Metal Control Worker Goals Care Home Goals The patient will maintain adequate nutrition/hydration via safe effective swallow function. Speech-Plan Patient/Family Goals Patient/Family Goals: Patient is being considered for comfort care at this time due to her medical status. Treatment Plan Speech Therapy Treatment Plan: Continue Plan of Care The patient requires max assist at this time. Treatment Duration: Jul 24, 2019 Frequency: 3 times per week Estimated Hrs Per Day: .25 hour per day Rehab Potential: Guarded Barriers to Learning: Patient's medical status Pt/Family Agrees to Plan: Yes Safety Risks/Education Teaching Recipient: Patient Teaching Methods: Discussion Response to Teaching: Unable to Return Demonstration Education Topics Provided: Safety with intake Time Speech Therapy Time In: 12:05 Speech Therapy Time Out: 12:15 Total Billed Time: 10 Billed Treatment Time 1, SONAL Ledezma Jul 21, 2019 13:39
[2019-07-21 16:01] VITALS: BP 129/78
[2019-07-21] MEDS: LORazepam 0.5 MG (ATIVAN) TABLET PO PRN (20:56)
[2019-07-22] VITALS: BP 129/79
[2019-07-22] MEDS: CEFEPIME INJECTION 1,000 MG in WATER (STERILE) FOR INJECTION 10 ML IV SCH ×4 (05:31→23:32)
[2019-07-22 06:24] LABS: BASOPHILS % (AUTO) 0 % (0-10); EOSINOPHILS # (AUTO) 0.2 10^3/uL (0.0-0.3); EOSINOPHILS % (AUTO) 3 % (0-10); HEMATOCRIT 28 % (35-52); HEMOGLOBIN 8.9 G/DL (11.5-16.0); LYMPHOCYTES # (AUTO) 1.5 X 10^3 (1.0-4.0); LYMPHOCYTES % (AUTO) 16 % (12-44); MEAN CORPUSCULAR HEMOGLOBIN 31 PG (25-34); MEAN CORPUSCULAR HGB CONC 32 G/DL (32-36); MEAN CORPUSCULAR VOLUME 97 FL (80-99); MEAN PLATELET VOLUME 11.3 FL (7.4-10.4); MONOCYTES # (AUTO) 1.2 X 10^3 (0.0-1.0); MONOCYTES % (AUTO) 13 % (0-12); NEUTROPHILS # (AUTO) 6.5 X 10^3 (1.8-7.8); NEUTROPHILS % (AUTO) 69 % (42-75); PLATELET COUNT 203 10^3/uL (130-400); RED CELL DISTRIBUTION WIDTH 21.9 % (10.0-14.5); WHITE BLOOD COUNT 9.4 10^3/uL (4.3-11.0)
[2019-07-22 06:51] LABS: ALANINE AMINOTRANSFERASE 43 U/L (0-55); ALBUMIN 2.3 GM/DL (3.2-4.5); ALKALINE PHOSPHATASE 306 U/L (40-136); BUN/CREATININE RATIO 19; CALCIUM 8.1 MG/DL (8.5-10.1); CARBON DIOXIDE 21 MMOL/L (21-32); CHLORIDE 110 MMOL/L (98-107); CREATININE SERUM 0.59 MG/DL (0.60-1.30); GFR ESTIMATED > 60; GLUCOSE 116 MG/DL (70-105); POTASSIUM 3.3 MMOL/L (3.6-5.0); SODIUM 141 MMOL/L (135-145); TOTAL PROTEIN 4.9 GM/DL (6.4-8.2)
[2019-07-22 08:00] VITALS: BP 137/83
[2019-07-22] MEDS: ENOXAPARIN 40 MG/0.4 ML (LOVENOX) SYR SC SCH (09:23)
--- NOTE | 2019-07-22 11:42 | Physical Therapy Daily Note ---
PT Daily Note-Current Subjective States that she is doing okay. Transfers Therapy Code Descriptions/Definitions Functional [place] Measure: 0=Not Assessed/NA 4=Minimal Assistance 1=Total Assistance 5=Supervision or Setup 2=Maximal Assistance 6=Modified [place] 3=Moderate Assistance 7=Complete [place] Therapy Quality Codes: 6 Independent with activity with or without an assistive device 5 Patient requires set up or clean up by helper. Patient completes activity by themselves 4 Supervision or touching assist (CGA). [place] provide cues , steadying assist 3 The helper provides less than half the effort to complete the activity 2 The helper provides more than half the effort to complete the activity 1 Dependent. The helper does all the effort to complete an activity 7 Patient refused to complete or attempt activity 9 The patient did not perform the activity before the current illness or injury 88 Not attempted due to Medical conditions or safety concerns Weight Bearing Right Lower Extremity: Right Full Weight Bearing Left Lower Extremity: Left Full Weight Bearing Exercises Supine Ex: LE Protocol Supine Reps: 20 Assessment Current Status: Fair Progress Patient very confused today so only supine exercises were performed. PT Short Term Goals Short Term Goals Transfers (B,C,W/C) (FIM): 4 PT Group Home Goals Group Home Goals PT Group Home Goals Time Frame: Jul 29, 2019 Transfers (B,C,W/C) (FIM): 4 Gait (FIM): 1 Gait distance (FIM): 1=up to 49 ft Distance: 15' Gait Level of Assist: 4 Gait Assistive Device: FWW PT Plan Treatment/Plan Treatment Plan: Continue Plan of Care Treatment Plan: Bed Mobility, Education, Functional Activity [place], Functional Strength, Gait, Safety, Therapeutic Exercise, Transfers Treatment Duration: Jul 29, 2019 Frequency: 5 times per week Estimated Hrs Per Day: .25 hour per day Patient and/or Family Agrees t: Yes Time/GCodes Time In: 1120 Time Out: 1130 Total Billed Treatment Time: 10 Total Billed Treatment 1, EX x 10' EUSEBIA MATTA PT Jul 22, 2019 11:42
--- NOTE | 2019-07-22 13:06 | Progress Note - Hospitalist ---
Subjective HPI/CC On Admission Date Seen by Provider: Jul 22, 2019 Time Seen by Provider: 12:45 Patient is extremely garrulous but confused. She has no complaints other than she thinks she might of had a mini stroke because of her confusion. She is deeply jaundiced Subjective/Events-last exam Patient is extremely garrulous but confused. She has no complaints other than she thinks she might of had a mini stroke because of her confusion. She is deeply jaundiced Review of Systems Neurological: Weakness, Confusion Objective Exam Vital Signs Vital Signs Date Time Temp Pulse Resp B/P (MAP) Pulse Ox O2 Delivery O2 Flow Rate FiO2 07/22/19 08:00 36.7 104 20 137/83 97 Room Air 07/22/19 08:00 1.00 Capillary Refill : Less Than 3 Seconds General Appearance: Chronically ill Neck: Full Range of Motion, Supple Respiratory: Chest Non Tender, Lungs Clear, Normal Breath Sounds, No Accessory Muscle Use, No Respiratory Distress Cardiovascular: No Gallop, Irregularly Irregular Gastrointestinal: Normal Bowel Sounds, Non Tender, Soft Rectal: Deferred Back: Normal Inspection, No CVA Tenderness Extremity: Pedal Edema Neurologic/Psychiatric: Alert, Disoriented Skin: Jaundice Results/Procedures Lab Laboratory Tests 07/22/19 06:02 Patient resulted labs reviewed. Assessment/Plan Assessment and Plan Assess & Plan/Chief Complaint UTI Metastatic cancer of the pancreas Metabolic encephalopathy Atrial fibrillation with mild tachycardia asymptomatic Critical Care Critically Ill Patient Clinical Quality Measures DVT/VTE Risk/Contraindication: Risk Factor Score Per Nursin RFS Level Per Nursing on Admit: 3=High ADORE BARR MD Jul 22, 2019 13:06
[2019-07-22 16:02] VITALS: BP 127/88
[2019-07-22] MEDS ORDERED: KCL 20 MEQ TAB (K-DUR) PO ONE (19:15)
[2019-07-22] MEDS: LORazepam 0.5 MG (ATIVAN) TABLET PO PRN (21:51)
[2019-07-22 23:10] VITALS: BP 121/86
[2019-07-23] MEDS: CEFEPIME INJECTION 1,000 MG in WATER (STERILE) FOR INJECTION 10 ML IV SCH ×4 (05:08→22:50)
[2019-07-23 08:00] VITALS: BP 153/85
[2019-07-23] MEDS: ENOXAPARIN 40 MG/0.4 ML (LOVENOX) SYR SC SCH (10:02)
[2019-07-23] MEDS: fentaNYL PATCH 12 MCG (DURAGESIC) TD SCH (10:02)
--- NOTE | 2019-07-23 10:04 | NUR ---
duragesic patch pl;aced to the left upper arm by this RN
--- NOTE | 2019-07-23 13:04 | Progress Note - Hospitalist ---
Subjective HPI/CC On Admission Date Seen by Provider: Jul 23, 2019 Time Seen by Provider: 12:20 Patient is extremely garrulous but confused. She has no complaints other than she thinks she might of had a mini stroke because of her confusion. She is deeply jaundiced Subjective/Events-last exam Patient continues to be very talkative. She has no specific complaints but has lots of questions about why she cared much wrong with third wears her . Review of Systems Neurological: Weakness Objective Exam Vital Signs Vital Signs Date Time Temp Pulse Resp B/P (MAP) Pulse Ox O2 Delivery O2 Flow Rate FiO2 07/23/19 08:00 36.0 88 20 153/85 97 Room Air 07/23/19 08:00 1.00 Capillary Refill : Less Than 3 Seconds General Appearance: Chronically ill HEENT: Normal ENT Inspection Neck: Full Range of Motion, Normal Inspection, Non Tender, Supple Respiratory: Lungs Clear, Normal Breath Sounds, No Accessory Muscle Use, No Respiratory Distress Cardiovascular: Regular Rate, Rhythm, No Gallop, No JVD, Normal Peripheral Pulses Gastrointestinal: Normal Bowel Sounds, Non Tender, Soft Rectal: Deferred Back: Normal Inspection Extremity: Swelling Neurologic/Psychiatric: Alert, Disoriented Skin: Warm/Dry, Jaundice Results/Procedures Lab Patient resulted labs reviewed. Assessment/Plan Assessment and Plan Assess & Plan/Chief Complaint UTI Metastatic cancer of the pancreas Metabolic encephalopathy Atrial fibrillation currently with good rate control asymptomatic Critical Care Critically Ill Patient Clinical Quality Measures DVT/VTE Risk/Contraindication: Risk Factor Score Per Nursin RFS Level Per Nursing on Admit: 3=High ADORE BARR MD Jul 23, 2019 13:04
[2019-07-23 16:59] VITALS: BP 138/82
[2019-07-23] MEDS: LORazepam 0.5 MG (ATIVAN) TABLET PO PRN (20:16)
[2019-07-23 23:00] VITALS: BP 122/80
[2019-07-24] MEDS ORDERED: KCL 10 MEQ TAB (MICRO K) PO ONE (02:18)
[2019-07-24] MEDS: KCL 10 MEQ TAB (MICRO K) PO SCH (04:49)
[2019-07-24] MEDS: CEFEPIME INJECTION 1,000 MG in WATER (STERILE) FOR INJECTION 10 ML IV SCH ×2 (04:49→12:52)
[2019-07-24 06:07] LABS: BASOPHILS % (AUTO) 0 % (0-10); EOSINOPHILS # (AUTO) 0.2 10^3/uL (0.0-0.3); EOSINOPHILS % (AUTO) 3 % (0-10); HEMATOCRIT 29 % (35-52); LYMPHOCYTES # (AUTO) 1.2 X 10^3 (1.0-4.0); LYMPHOCYTES % (AUTO) 15 % (12-44); MEAN CORPUSCULAR HEMOGLOBIN 30 PG (25-34); MEAN CORPUSCULAR HGB CONC 31 G/DL (32-36); MEAN CORPUSCULAR VOLUME 98 FL (80-99); MEAN PLATELET VOLUME 10.6 FL (7.4-10.4); MONOCYTES # (AUTO) 0.9 X 10^3 (0.0-1.0); MONOCYTES % (AUTO) 12 % (0-12); NEUTROPHILS # (AUTO) 5.4 X 10^3 (1.8-7.8); NEUTROPHILS % (AUTO) 70 % (42-75); PLATELET COUNT 231 10^3/uL (130-400); RED CELL DISTRIBUTION WIDTH 21.3 % (10.0-14.5); WHITE BLOOD COUNT 7.7 10^3/uL (4.3-11.0)
[2019-07-24 06:26] LABS: ALANINE AMINOTRANSFERASE 36 U/L (0-55); ALBUMIN 2.3 GM/DL (3.2-4.5); ALKALINE PHOSPHATASE 232 U/L (40-136); BILIRUBIN,TOTAL 4.7 MG/DL (0.1-1.0); BUN/CREATININE RATIO 16; CARBON DIOXIDE 20 MMOL/L (21-32); CHLORIDE 114 MMOL/L (98-107); CREATININE SERUM 0.61 MG/DL (0.60-1.30); GFR ESTIMATED > 60; GLUCOSE 96 MG/DL (70-105); POTASSIUM 3.1 MMOL/L (3.6-5.0); SODIUM 144 MMOL/L (135-145); TOTAL PROTEIN 4.7 GM/DL (6.4-8.2)
[2019-07-24 08:00] VITALS: BP 134/78
[2019-07-24] MEDS: SCOPOLAMINE 1.5 MG (TRANSDERM-SCOP) PATCH TOP SCH (08:19)
[2019-07-24] MEDS: ENOXAPARIN 40 MG/0.4 ML (LOVENOX) SYR SC SCH (08:20)
--- NOTE | 2019-07-24 10:25 | NUR ---
Palliative Care RN in to see patient. She is alert and oriented to person, place, but not time or circumstance. She again is surprised that she fell and that she has cancer. She does report she is "fuzzy in the head", and agrees that she is not remembering clearly. Sat down and discussed her needs after having been in the hospital for 12 days. She is agreeable to SNF for short term and verbalizes that to this RN. 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 She verbalized understanding and said "sometime you have to do what you have to do". I am still not certain she understands the full meaning of this. Discussion surrounded he animals next. She asked about her puppy which I explained was kenneled and then we found a foster family for her. She was happy to hear this as she said he is her baby and is 1 years old. All of her other animals, I explained, would need to be farmed out to other homes. She was not resistant to this. She just said "you have to do what you have to do". Addendum: 07/24/19 at 1442 by AKOSUA FENG RN Patient is complaining of her lips(mostly bottom) hurting. It does look swollen and like there is a lesion right in the middle. Suspect a cold sore...Stiven Joyner PharmD says we do have topical Abreva here at the hospital needs 5 times a day application. I have a call in to Dr. Mcclellan regarding this.
[2019-07-24] MEDS: SCOPOLAMINE PATCH REMOVAL TP SCH (10:40)
--- NOTE | 2019-07-24 11:47 | Occupational Ther Daily Note ---
OT Current Status-Daily Note Subjective Pt alert, sitting in recliner. Pt stated that she just had a shower with nrsg. Also stated that she doesn't remember how she got to the hospital. No c/o pain. Agrees to therapy. Mental Status/Objective Patient Orientation: Person Therapy Code Descriptions/Definitions Functional [place] Measure: 0=Not Assessed/NA 4=Minimal Assistance 1=Total Assistance 5=Supervision or Setup 2=Maximal Assistance 6=Modified [place] 3=Moderate Assistance 7=Complete [place] Other Treatment Pt educated on medium resistance theraband exercises, skills of therapist to instruct on position and correct techniques are required. 4 exercises completed 2 sets 10 reps to increase UE strengthening for daily functional tasks. Pt required verbal and physical cues for correct technique. Pt stated that UE's were getting tired. After therapy, pt sitting in recliner with call light/phone in reach. All needs met in room. Education OT Patient Education: Exercise program Teaching Recipient: Patient Teaching Methods: Demonstration, Discussion Response to Teaching: Verbalize Understanding, Return Demonstration, Reinforcement Needed OT Short Term Goals Short Term Goals Time Frame: Jul 24, 2019 Eating(FIM): 4 Grooming(FIM): 4 Bathing(FIM): 3 Upper Body Dressing(FIM): 3 Lower Body Dressing(FIM): 3 Toileting(FIM): 3 Transfers (B,C,W/C) (FIM): 4 Toilet/Commode Transfer(FIM): 4 Additional Short Term Goals: 1-Demonstrate ADL Tasks, 2-Verbalize Understanding, 3-ImproveStrength/[place] 1=Demonstrate adherence to instructed precautions during ADL tasks. 2=Patient will verbalize/demonstrate understanding of assistive devices/dedrick fications for ADL. 3=Patient will improve strength/tolerance for activity to enable patient to perform ADL's. OT Mcc Goals Prep Room Supervisor Goals Time Frame: Jul 31, 2019 Eating (FIM): 5 Grooming(FIM): 5 Bathing(FIM): 4 Upper Body Dressing(FIM): 4 Lower Body Dressing(FIM): 4 Toileting(FIM): 4 Transfers (B,C,W/C) (FIM): 4 Toilet/Commode Transfer(FIM): 4 Shower Transfer(FIM): 4 Additional Goals: 1-Demonstrate ADL Tasks, 2-Verbalize Understanding, 3- ImproveStrength/[place] 1=Demonstrate adherence to instructed precautions during ADL tasks. 2=Patient will verbalize/demonstrate understanding of assistive devices/modifications for ADL. 3=Patient will improve strength/tolerance for activity to enable patient to perform ADL's. OT Education/Plan Problem List/Assessment Assessment: Decreased Activ Tolerance, Decreased Safety Aware, Decreased UE Strength Discharge Recommendations Plan/Recommendations: Continue POC Treatment Plan/Plan of Care Patient would benefit from OT for education, treatment and training to promote independence in ADL's, mobility, safety and/or upper extremity function for ADL's. Plan of Care: ADL Retraining, Cognitive Retraining, Functional Mobility, UE Funct Exercise/Act Treatment Duration: Jul 31, 2019 Frequency: 5 times per week Estimated Hrs Per Day: .25 hour per day Agreement: Yes Rehab Potential: Guarded Time/GCodes Start Time: 11:15 Stop Time: 11:26 Total Time Billed (hr/min): 11 Billed Treatment Time 1 visit-EX 1 (10 min) XIOMARA MACARIO Jul 24, 2019 11:47
--- NOTE | 2019-07-24 12:30 | Physical Therapy Daily Note ---
PT Daily Note-Current Subjective Patient is more alert today, however, continues to be very confused. Pain Numeric Pain Scale: 0-No Pain Location: No Pain Reported Mental Status Patient Orientation: Confused Transfers Therapy Code Descriptions/Definitions Functional [place] Measure: 0=Not Assessed/NA 4=Minimal Assistance 1=Total Assistance 5=Supervision or Setup 2=Maximal Assistance 6=Modified [place] 3=Moderate Assistance 7=Complete [place] Therapy Quality Codes: 6 Independent with activity with or without an assistive device 5 Patient requires set up or clean up by helper. Patient completes activity by themselves 4 Supervision or touching assist (CGA). [place] provide cues , steadying assist 3 The helper provides less than half the effort to complete the activity 2 The helper provides more than half the effort to complete the activity 1 Dependent. The helper does all the effort to complete an activity 7 Patient refused to complete or attempt activity 9 The patient did not perform the activity before the current illness or injury 88 Not attempted due to Medical conditions or safety concerns Transfers (B, C, W/C) (FIM): 5 Scootin Rollin Supine to/from Sit: 5 Sit to/from Stand: 5 Bed to/from Chair: 5 Weight Bearing Right Lower Extremity: Right Full Weight Bearing Left Lower Extremity: Left Full Weight Bearing Gait Training Gait (FIM): 5 Distance (FIM): 3=150 ft Distance: 250' Gait Level of Assist: 5 Gait Assistive Device: FWW steady gait sequence/safe and functional with SBA Assessment Patient remained up in shower with GROUP LEADER SEMICONDUCTOR PROCESSING. Patient tolerated treatment well, however, fatigues with activity. PT Short Term Goals Short Term Goals Transfers (B,C,W/C) (FIM): 4 PT Supervisor Furnace Room Goals Chcf Goals PT Chcf Goals Time Frame: Jul 29, 2019 Transfers (B,C,W/C) (FIM): 4 Gait (FIM): 1 Gait distance (FIM): 1=up to 49 ft Distance: 15' Gait Level of Assist: 4 Gait Assistive Device: FWW PT Plan Treatment/Plan Treatment Plan: Continue Plan of Care Treatment Plan: Bed Mobility, Education, Functional Activity [place], Functional Strength, Gait, Safety, Therapeutic Exercise, Transfers Treatment Duration: Jul 29, 2019 Frequency: 5 times per week Estimated Hrs Per Day: .25 hour per day Patient and/or Family Agrees t: Yes Time/GCodes Time In: 1050 Time Out: 1059 Total Billed Treatment Time: 9 Total Billed Treatment 1 visit GT 9 min LINSEY HICKMAN PT Jul 24, 2019 12:30
--- NOTE | 2019-07-24 15:21 | NUR ---
CM/SS, continued planning process for post hospital care and oversight. Ride Operator Hayden Dunn is actively working on legal guardianship/conservatorship, gathering information, and indicates he will begin the paperwork tomorrow. He has visited by phone with proposed Petitioner WILTON Ryder and his Opal. Additionally, proposal lead writer provided the names and phone numbers of the friends who have rallied on behalf of patient: Sundar ("Gene") and Shayna Webster [phone], Radha Lugo [phone], and Danita Emerita [phone]. Automotive Alignment Specialist asked Ride Operator Mona to come visit patient for his own information and assessment. Lengthy phone discussion this a.m. with Silvestre Webster, he resides 3/4 mile from patient and is the one taking care of all the outside animals at present. He has purchased some feed and proposal lead writer asked him to keep his receipts so they could be presented for reimbursement when appropriate. Silvestre and Shayna have been good friends to patient a long time, apparently Shayna was patient's mother's POA during her decline, retirement placement, and end of life. It is not known why patient was not the POA for her mother at the time it was needed. PLACEMENT: Automotive Alignment Specialist updated SUSANNA Maki of patient improvement and noted limits. Shanthi will submit for skilled therapies to patient's [facility] so that preauthorization can be completed. Patient has improved cognitively from last week, hopeful for continued progress and her participation in SNF placement process. Guardianship will proceed, SUSANNA has a contract with a [employer] to assist with expediting [employer] applications which they will do once patient has admitted. Continue daily interventions and followups.
[2019-07-24 15:56] VITALS: BP 110/72
[2019-07-24] MEDS: LORazepam 0.5 MG (ATIVAN) TABLET PO PRN (19:49)
[2019-07-24] MEDS: morphine INJ 4 MG/ML 1 ML (VIAL/SYRINGE) IV PRN (23:09)
[2019-07-25 00:30] VITALS: BP 131/75
[2019-07-25] MEDS: LORazepam 0.5 MG (ATIVAN) TABLET PO PRN ×3 (04:29→23:21)
[2019-07-25] MEDS: KCL 10 MEQ TAB (MICRO K) PO SCH (07:19)
[2019-07-25 08:00] VITALS: BP 156/88
[2019-07-25] MEDS: ENOXAPARIN 40 MG/0.4 ML (LOVENOX) SYR SC SCH (09:26)
--- NOTE | 2019-07-25 10:47 | Physical Therapy Daily Note ---
PT Daily Note-Current Subjective Patient is very alert and agrees to PT. Pain Numeric Pain Scale: 0-No Pain Location: No Pain Reported Mental Status Patient Orientation: Confused Transfers Therapy Code Descriptions/Definitions Functional [place] Measure: 0=Not Assessed/NA 4=Minimal Assistance 1=Total Assistance 5=Supervision or Setup 2=Maximal Assistance 6=Modified [place] 3=Moderate Assistance 7=Complete [place] Therapy Quality Codes: 6 Independent with activity with or without an assistive device 5 Patient requires set up or clean up by helper. Patient completes activity by themselves 4 Supervision or touching assist (CGA). [place] provide cues , steadying assist 3 The helper provides less than half the effort to complete the activity 2 The helper provides more than half the effort to complete the activity 1 Dependent. The helper does all the effort to complete an activity 7 Patient refused to complete or attempt activity 9 The patient did not perform the activity before the current illness or injury 88 Not attempted due to Medical conditions or safety concerns Transfers (B, C, W/C) (FIM): 5 Scootin Sit to/from Stand: 5 Weight Bearing Right Lower Extremity: Right Full Weight Bearing Left Lower Extremity: Left Full Weight Bearing Gait Training Gait (FIM): 4 Distance (FIM): 3=150 ft Distance: 500' Gait Level of Assist: 4 Gait Persons Needed: 1 Gait Assistive Device: FWW CGA for safety only/safe and functional gait sequence Assessment Patient tolerated treatment well and remains up in recliner with chair alarm activated. PT Short Term Goals Short Term Goals Transfers (B,C,W/C) (FIM): 4 PT Wealth Management Consultant Goals Alf Goals PT Wealth Management Consultant Goals Time Frame: Jul 29, 2019 Transfers (B,C,W/C) (FIM): 4 Gait (FIM): 1 Gait distance (FIM): 1=up to 49 ft Distance: 15' Gait Level of Assist: 4 Gait Assistive Device: FWW PT Plan Treatment/Plan Treatment Plan: Continue Plan of Care Treatment Plan: Bed Mobility, Education, Functional Activity [place], Functional Strength, Gait, Safety, Therapeutic Exercise, Transfers Treatment Duration: Jul 29, 2019 Frequency: 5 times per week Estimated Hrs Per Day: .25 hour per day Patient and/or Family Agrees t: Yes Time/GCodes Time In: 945 Time Out: 958 Total Billed Treatment Time: 13 Total Billed Treatment 1 visit GT 13 min LINSEY HICKMAN PT Jul 25, 2019 10:47
--- NOTE | 2019-07-25 13:42 | NUR ---
CM/SS. Continued pathway for discharge planning for guardianship and placement. SUSANNA/Shanthi and ДМИТРИЙ came to visit patient, automotive service writer provided current clinicals for them to forward to [facility], all await benefit authorization.
--- NOTE | 2019-07-25 13:48 | Occupational Ther Daily Note ---
OT Current Status-Daily Note Subjective Pt sitting in chair eating lunch upon OT arrival. Pt agrees to therapy. No c/o pain. Pt still demonstrates some confusion. Mental Status/Objective Patient Orientation: Person Therapy Code Descriptions/Definitions Functional [place] Measure: 0=Not Assessed/NA 4=Minimal Assistance 1=Total Assistance 5=Supervision or Setup 2=Maximal Assistance 6=Modified [place] 3=Moderate Assistance 7=Complete [place] ADL-Treatment Eating (FIM): 5 (Pt able to open containers/packages by self then uses regular utensils to eat.) Other Treatment Skilled instruction required for UE strengthening exercises for UE positioning and technique. Pt used 2# wts to complete 4 upper body exercises for 10 sets 3x each. Pt sitting in chair. Call light and phone within reach. Pts needs met. OT Short Term Goals Short Term Goals Time Frame: Jul 24, 2019 Eating(FIM): 4 Grooming(FIM): 4 Bathing(FIM): 3 Upper Body Dressing(FIM): 3 Lower Body Dressing(FIM): 3 Toileting(FIM): 3 Transfers (B,C,W/C) (FIM): 4 Toilet/Commode Transfer(FIM): 4 Additional Short Term Goals: 1-Demonstrate ADL Tasks, 2-Verbalize Understanding, 3-ImproveStrength/[place] 1=Demonstrate adherence to instructed precautions during ADL tasks. 2=Patient will verbalize/demonstrate understanding of assistive devices/modifications for ADL. 3=Patient will improve strength/tolerance for activity to enable patient to perform ADL's. OT Instructor Private Goals Instructor Private Goals Time Frame: Jul 31, 2019 Eating (FIM): 5 Grooming(FIM): 5 Bathing(FIM): 4 Upper Body Dressing(FIM): 4 Lower Body Dressing(FIM): 4 Toileting(FIM): 4 Transfers (B,C,W/C) (FIM): 4 Toilet/Commode Transfer(FIM): 4 Shower Transfer(FIM): 4 Additional Goals: 1-Demonstrate ADL Tasks, 2-Verbalize Understanding, 3- ImproveStrength/[place] 1=Demonstrate adherence to instructed precautions during ADL tasks. 2=Patient will verbalize/demonstrate understanding of assistive devices/modifications for ADL. 3=Patient will improve strength/tolerance for activity to enable patient to perform ADL's. OT Education/Plan Problem List/Assessment Assessment: Decreased UE Strength Discharge Recommendations Plan/Recommendations: Continue POC Treatment Plan/Plan of Care Patient would benefit from OT for education, treatment and training to promote independence in ADL's, mobility, safety and/or upper extremity function for ADL's. Plan of Care: ADL Retraining, Cognitive Retraining, Functional Mobility, UE Funct Exercise/Act Treatment Duration: Jul 31, 2019 Frequency: 5 times per week Estimated Hrs Per Day: .25 hour per day Agreement: Yes Rehab Potential: Guarded Time/GCodes Start Time: 13:12 Stop Time: 13:33 Total Time Billed (hr/min): 15 Billed Treatment Time 1 visit- EX 1 (15 min) XIOMARA MACARIO Jul 25, 2019 13:48
--- NOTE | 2019-07-25 15:05 | NUR ---
PT HAVING INCREASED ANXIETY -- GIVEN PRN ATIVAN TAB - SEE MAR
[2019-07-25] MEDS: morphine INJ 4 MG/ML 1 ML (VIAL/SYRINGE) IV PRN (15:51)
[2019-07-25 16:25] VITALS: BP 124/78
[2019-07-25] MEDS: DOCOSANOL 10 % CREAM (ABREVA) 2 GM TP SCH ×2 (16:42→21:06)
[2019-07-25] MEDS: morphine IMMEDIATE RELEASE 15 MG TABLET PO PRN (23:22)
[2019-07-26] VITALS: BP 163/95
[2019-07-26 08:00] VITALS: BP 133/79
[2019-07-26] MEDS: DOCOSANOL 10 % CREAM (ABREVA) 2 GM TP SCH ×5 (09:05→22:11)
[2019-07-26] MEDS: ENOXAPARIN 40 MG/0.4 ML (LOVENOX) SYR SC SCH (09:05)
[2019-07-26] MEDS: KCL 10 MEQ TAB (MICRO K) PO SCH (09:05)
--- NOTE | 2019-07-26 10:01 | NUR ---
PALLIATIVE CARE RN in to see patient. She is doing well today, still very confused as to the why/when and how's of her admission. She is able to tell me that she is t [facility] and that it [facility] be [facility]. I have, again, gone over tall the orientation items, including what is happening to her animals. She is not resistant to their having found good homes to go to, "as long as they are taken care of", nor is she resistant to us finding her a safe place to go. [facility]>
[2019-07-26] MEDS: fentaNYL PATCH 12 MCG (DURAGESIC) TD SCH (10:50)
--- NOTE | 2019-07-26 11:45 | Occupational Ther Daily Note ---
OT Current Status-Daily Note Subjective Pt alert sitting in chair. Pt is confused and wonder why hasn't came to see her yet. Pt thought she was in a hospital in [place] and didn't realize she was in [place] and has been in the hospital for a week. Pt agreed to therapy. Mental Status/Objective Patient Orientation: Person, Confused Therapy Code Descriptions/Definitions Functional [place] Measure: 0=Not Assessed/NA 4=Minimal Assistance 1=Total Assistance 5=Supervision or Setup 2=Maximal Assistance 6=Modified [place] 3=Moderate Assistance 7=Complete [place] ADL-Treatment Pt declined shower. Pt performed sponge bath sitting in chair. Completed upper body dressing with hospital gown. Bathing (FIM): 4 (Pt performed sponge bath sitting in chair. Pt able to wash UE and LE with VC's. Pt able to wash navid area sitting in chair. Pt required CGA in standing to wash buttocks. Pt able to dry UE and LE by self. ) Bathing Location: L Arm, R Arm, L Upper Leg, R Upper Leg, L Lower Leg (including foot), R Lower Leg (including foot), Chest, Abdomen, Buttocks, Perineal Area Lower Body Dressing (FIM): 4 (Pt able to doff brief while sitting. Pt required assist to don briefs over toes due to long toe nails catching on material. Pt able to don briefs above knees. Pt required Min Assist from sit to stand. Pt able to hike briefs above hips. Donned socks by self.) Toileting (FIM): 5 (Pt required bedside commode. Pt able to cleanse self after voiding. ) Transfers (B, C, W/C) (FIM): 4 (Pt requires Min Assist from sit to stand. ) Toilet/Commode Transfer (FIM): 4 (Pt requires Min Assist from sit to stand. ) Other Treatment Pt transferred from bedside commode back to chair with Min Assist lifting from sit to stand. Pt sitting in chair, safety measures in place, pt educated controller instructor light button, Call light and phone within reach. Pts needs met. OT Short Term Goals Short Term Goals Time Frame: Jul 24, 2019 Eating(FIM): 4 Grooming(FIM): 4 Bathing(FIM): 3 Upper Body Dressing(FIM): 3 Lower Body Dressing(FIM): 3 Toileting(FIM): 3 Transfers (B,C,W/C) (FIM): 4 Toilet/Commode Transfer(FIM): 4 Additional Short Term Goals: 1-Demonstrate ADL Tasks, 2-Verbalize Understanding, 3-ImproveStrength/[place] 1=Demonstrate adherence to instructed precautions during ADL tasks. 2=Patient will verbalize/demonstrate understanding of assistive devices/modifications for ADL. 3=Patient will improve strength/tolerance for activity to enable patient to perform ADL's. OT [facility] Goals [facility] Goals Time Frame: Jul 31, 2019 Eating (FIM): 5 Grooming(FIM): 5 Bathing(FIM): 4 Upper Body Dressing(FIM): 4 Lower Body Dressing(FIM): 4 Toileting(FIM): 4 Transfers (B,C,W/C) (FIM): 4 Toilet/Commode Transfer(FIM): 4 Shower Transfer(FIM): 4 Additional Goals: 1-Demonstrate ADL Tasks, 2-Verbalize Understanding, 3- ImproveStrength/[place] 1=Demonstrate adherence to instructed precautions during ADL tasks. 2=Patient will verbalize/demonstrate understanding of assistive devices/modifications for ADL. 3=Patient will improve strength/tolerance for activity to enable patient to perform ADL's. OT Education/Plan Problem List/Assessment Assessment: Decreased UE Strength, Impaired Self-Care Skills Discharge Recommendations Plan/Recommendations: Continue POC Treatment Plan/Plan of Care Patient would benefit from OT for education, treatment and training to promote independence in ADL's, mobility, safety and/or upper extremity function for ADL's. Plan of Care: ADL Retraining, Cognitive Retraining, Functional Mobility, UE Funct Exercise/Act Treatment Duration: Jul 31, 2019 Frequency: 5 times per week Estimated Hrs Per Day: .25 hour per day Agreement: Yes Rehab Potential: Guarded Time/GCodes Start Time: 11:05 Stop Time: 11:25 Total Time Billed (hr/min): 20 Billed Treatment Time 1 visit- ADL 1 (20 min) XIOMARA MACARIO Jul 26, 2019 11:45
--- NOTE | 2019-07-26 11:58 | Physical Therapy Daily Note ---
PT Daily Note-Current Subjective Pt. up in recliner. Agrees to Rx. States she misses her and wants to call him on the phone after walking and Rx. Nursing informs that pt. is confused and in fact her has been a few years. Nurse then gently reminds pt. of this and pt. understands and settles Pain Location: No Pain Reported Appearance yellowed eyes and global edema jeanne LEs Mental Status Patient Orientation: Confused Transfers Therapy Code Descriptions/Definitions Functional [place] Measure: 0=Not Assessed/NA 4=Minimal Assistance 1=Total Assistance 5=Supervision or Setup 2=Maximal Assistance 6=Modified [place] 3=Moderate Assistance 7=Complete [place] Therapy Quality Codes: 6 Independent with activity with or without an assistive device 5 Patient requires set up or clean up by helper. Patient completes activity by themselves 4 Supervision or touching assist (CGA). [place] provide cues , steadying assist 3 The helper provides less than half the effort to complete the activity 2 The helper provides more than half the effort to complete the activity 1 Dependent. The helper does all the effort to complete an activity 7 Patient refused to complete or attempt activity 9 The patient did not perform the activity before the current illness or injury 88 Not attempted due to Medical conditions or safety concerns sit to stand SBA, pt. has to give forth some effort as hips and LEs are edematous Weight Bearing Right Lower Extremity: Right Full Weight Bearing Left Lower Extremity: Left Full Weight Bearing Gait Training Distance (FIM): 3=150 ft (500plus) Gait Level of Assist: 5 Gait Persons Needed: 1 Gait Assistive Device: FWW pt. slow with 3 standing rest breaks, pt needs guided and directed for turns etc Exercises Seated Therapy Exercises: Ankle pumps, Sit to stand, Long arc quads, Hip flexion, Hip abd/add Seated Reps: 10 Assessment Current Status: Good Progress confused and needs directed PT Short Term Goals Short Term Goals Transfers (B,C,W/C) (FIM): 4 PT [facility]iary Goals Car Scrubber Goals PT [facility] Goals Time Frame: Jul 29, 2019 Transfers (B,C,W/C) (FIM): 4 Gait (FIM): 1 Gait distance (FIM): 1=up to 49 ft Distance: 15' Gait Level of Assist: 4 Gait Assistive Device: FWW PT Plan Treatment/Plan Treatment Plan: Continue Plan of Care Treatment Plan: Bed Mobility, Education, Functional Activity [place], Functional Strength, Gait, Safety, Therapeutic Exercise, Transfers Treatment Duration: Jul 29, 2019 Frequency: 5 times per week Estimated Hrs Per Day: .25 hour per day Patient and/or Family Agrees t: Yes Safety Risks/Education Patient Education: Gait Training, Transfer Techniques, Correct Positioning, Disease Process, Safety Issues Teaching Recipient: Patient Teaching Methods: Discussion Response to Teaching: Reinforcement Needed Time/GCodes Time In: 1135 Time Out: 1155 Total Billed Treatment Time: 20 Total Billed Treatment 1,GT20m CLAIR MONTGOMERY WOOD ROOM SUPERVISOR Jul 26, 2019 11:58
[2019-07-26] MEDS ORDERED: SPIRONOLACTONE 25 MG (ALDACTONE) TAB PO NR (13:15)
--- NOTE | 2019-07-26 14:46 | Speech Therapy Daily Note ---
Speech Daily Progress Note Subjective Date Seen by Provider: Jul 26, 2019 Time Seen by Provider: 00:15 Patient noted to be confused upon my entering. Objective Patient demo ability to follow directions to take small sips with assistance at 75%. Assessment Assessment Current Status: Fair Progress Treatment Plan Continue Plan of Care Speech Short Term Goals Short Term Goals Short Term Goals 1) The patient will tolerate least restrictive diet level without s/s of aspiration at 90% or greater. 2) The patient/caregiver will utilize compensatory strategies for safe oral intake at 90% or greater with minimal cues. Speech Correction Officer [facility]it[facility]iary Goals Snf Goals The patient will maintain adequate nutrition/hydration via safe effective swallow function. Speech-Plan Patient/Family Goals Patient/Family Goals: It is unknown what the plan will be for placement upon discharge at this time. Treatment Plan Speech Therapy Treatment Plan: Continue Plan of Care Treatment Duration: Jul 24, 2019 Frequency: 3 times per week Estimated Hrs Per Day: .25 hour per day Rehab Potential: Guarded Barriers to Learning: Patient has a complex medical status, decreased level of alert. Pt/Family Agrees to Plan: Yes Safety Risks/Education Teaching Recipient: Patient Teaching Methods: Discussion Response to Teaching: Verbalize Understanding Education Topics Provided: Continued safety with oral intake Time Speech Therapy Time In: 08:30 Speech Therapy Time Out: 08:30 Total Billed Time: 15 Billed Treatment Time 1, SONAL Ledezma Jul 26, 2019 14:46
[2019-07-26 16:18] VITALS: BP 106/67
--- NOTE | 2019-07-26 16:27 | NUR ---
CM/SS, summary of today's activities. [facility] denied skilled admission, senior medical writer updated Dr. Mcclellan who agreed to proceed with peer to peer. Provided phone number ([phone]) and authorization #[id number]. If peer to peer fails, the appeal phone number is [phone]. Updated SUSANNA/Shanthi. Facility has agreed to take patient without skilled benefits because of the positive that the guardianship appointment is in process. They will take patient Medicaid pending as soon as tomorrow if insurance final decision is known and arrangements can be completed. Patient continues to engage pleasantly but with notable short and half-way memory impairment. CARE Assessment pending. Will pursue discharge as soon as insurance decision is known, likely tomorrow. No skilled orders if insurance continues to deny benefits.
--- NOTE | 2019-07-26 19:19 | Progress Note ---
Subjective Date Seen by a Provider: Jul 26, 2019 Time Seen by a Provider: 12:35 Subjective/Events-last exam Fwup sepsis, metastatic pancreatic cancer, metabolic encephalopathy, hy pokalemia. Patient sitting up in chair--very pleasant and recognizes my face but still having short term memory issues and confusion. Objective Exam Vital Signs Date Time Temp Pulse Resp B/P (MAP) Pulse Ox O2 Delivery O2 Flow Rate FiO2 07/26/19 16:18 36.7 82 20 106/67 (80) 100 Room Air 07/26/19 08:00 99 Room Air 1.00 07/26/19 08:00 35.8 106 18 133/79 (97) 98 Room Air 07/26/19 00:00 36.4 95 18 163/95 (117) 99 Room Air I & O 07/26/19 07:00 Intake Total 1310 ml Balance 1310 ml Capillary Refill : Less Than 3 Seconds General Appearance: No Apparent Distress Neck: Supple Respiratory: Lungs Clear Cardiovascular: Regular Rate, Rhythm Gastrointestinal: normal bowel sounds, non tender, soft Extremity: Non Tender, No Calf Tenderness, No Pedal Edema Neurologic/Psychiatric: Alert, Disoriented Skin: Warm/Dry, Jaundice Results Lab Microbiology 07/12/19 Blood Culture - Final, Complete Staph, Coag Neg (CYBER SECURITY ANALYST) 07/12/19 Urine Culture - Final, Complete NO GROWTH Assessment/Plan Assessment/Plan Assess & Plan/Chief Complaint 1. Sepsis--abx finished, check CBC in AM 2. Hypokalemia--repeat CMP in AM 3. Metastatic Pancreatic Cancer--will plan on seeing oncology if she continues to improve but at this point patient unable to consent to treatment due to ongoing confusion 4. Atrial Fibrillation--in NSR 5. Anemia--monitor H/H 6. Patient has been transitioned from comfort care to palliative care, will need guardianship and NH placement due to short term memory issues/confusion Clinical Quality Measures Admission Status Admission Dx 1. UTI with sepsis 2. Metastatic Pancreatic Cancer 3. Hypokalemia 4. Atrial fibrillation with RVR 5. Metabolic Encephalopathy 6. Comfort Care per recommendations of ER doctor, Critical Care doctor and myself after speaking with the patient's friend about her wishes DVT/VTE Risk/Contraindication: Risk Factor Score Per Nursin RFS Level Per Nursing on Admit: 3=High BING VOGEL DO Jul 26, 2019 19:19
[2019-07-26 19:33] VITALS: BP 146/75
[2019-07-26] MEDS: LORazepam 0.5 MG (ATIVAN) TABLET PO PRN (22:10)
[2019-07-26] MEDS: morphine IMMEDIATE RELEASE 15 MG TABLET PO PRN (22:11)
[2019-07-27] VITALS: BP 164/89
[2019-07-27] MEDS: DOCOSANOL 10 % CREAM (ABREVA) 2 GM TP SCH ×3 (06:14→13:43)
[2019-07-27] MEDS: KCL 10 MEQ TAB (MICRO K) PO SCH (06:14)
[2019-07-27 06:38] LABS: BASOPHILS % (AUTO) 0 % (0-10); EOSINOPHILS # (AUTO) 0.2 10^3/uL (0.0-0.3); EOSINOPHILS % (AUTO) 2 % (0-10); HEMATOCRIT 29 % (35-52); LYMPHOCYTES # (AUTO) 1.9 X 10^3 (1.0-4.0); LYMPHOCYTES % (AUTO) 24 % (12-44); MEAN CORPUSCULAR HEMOGLOBIN 31 PG (25-34); MEAN CORPUSCULAR HGB CONC 32 G/DL (32-36); MEAN CORPUSCULAR VOLUME 98 FL (80-99); MEAN PLATELET VOLUME 10.1 FL (7.4-10.4); MONOCYTES # (AUTO) 0.9 X 10^3 (0.0-1.0); MONOCYTES % (AUTO) 11 % (0-12); NEUTROPHILS % (AUTO) 63 % (42-75); PLATELET COUNT 170 10^3/uL (130-400); RED CELL DISTRIBUTION WIDTH 18.9 % (10.0-14.5)
[2019-07-27 07:05] LABS: ALANINE AMINOTRANSFERASE 26 U/L (0-55); ALBUMIN 2.4 GM/DL (3.2-4.5); ALKALINE PHOSPHATASE 189 U/L (40-136); BILIRUBIN,TOTAL 3.7 MG/DL (0.1-1.0); BUN/CREATININE RATIO 16; CALCIUM 8.2 MG/DL (8.5-10.1); CARBON DIOXIDE 21 MMOL/L (21-32); CHLORIDE 114 MMOL/L (98-107); CREATININE SERUM 0.67 MG/DL (0.60-1.30); GFR ESTIMATED > 60; GLUCOSE 97 MG/DL (70-105); POTASSIUM 3.5 MMOL/L (3.6-5.0); SODIUM 141 MMOL/L (135-145); TOTAL PROTEIN 4.9 GM/DL (6.4-8.2)
[2019-07-27 07:58] VITALS: BP 149/78
[2019-07-27] MEDS ORDERED: SPIRONOLACTONE 25 MG (ALDACTONE) TAB PO SCH (09:00)
[2019-07-27] MEDS: SCOPOLAMINE PATCH REMOVAL TP SCH (09:00)
[2019-07-27] MEDS: ENOXAPARIN 40 MG/0.4 ML (LOVENOX) SYR SC SCH (09:01)
--- NOTE | 2019-07-27 09:07 | NUR ---
abreva not administered as her lips are free from any outbreak at this time.
--- NOTE | 2019-07-27 10:20 | Physical Therapy Daily Note ---
PT Daily Note-Current Subjective Patient agrees to PT. Very confused. Has a sitter. Mental Status Patient Orientation: Confused Transfers Therapy Code Descriptions/Definitions Functional [place] Measure: 0=Not Assessed/NA 4=Minimal Assistance 1=Total Assistance 5=Supervision or Setup 2=Maximal Assistance 6=Modified [place] 3=Moderate Assistance 7=Complete [place] Therapy Quality Codes: 6 Independent with activity with or without an assistive device 5 Patient requires set up or clean up by helper. Patient completes activity by themselves 4 Supervision or touching assist (CGA). [place] provide cues , steadying assist 3 The helper provides less than half the effort to complete the activity 2 The helper provides more than half the effort to complete the activity 1 Dependent. The helper does all the effort to complete an activity 7 Patient refused to complete or attempt activity 9 The patient did not perform the activity before the current illness or injury 88 Not attempted due to Medical conditions or safety concerns Transfers (B, C, W/C) (FIM): 5 Scootin Sit to/from Stand: 5 Weight Bearing Right Lower Extremity: Right Full Weight Bearing Left Lower Extremity: Left Full Weight Bearing Gait Training Gait (FIM): 5 Distance (FIM): 3=150 ft Distance: >800' Gait Level of Assist: 5 Gait Assistive Device: FWW safe and functional gait sequence Exercises Seated Therapy Exercises: Ankle pumps, Long arc quads, Hip flexion Seated Reps: 15 Assessment Patient tolerated treatment well and is up in recliner with chair alarm activated. PT Short Term Goals Short Term Goals Transfers (B,C,W/C) (FIM): 4 PT Retirement Goals Water Purification Chemist Goals PT Water Purification Chemist Goals Time Frame: Jul 29, 2019 Transfers (B,C,W/C) (FIM): 4 Gait (FIM): 1 Gait distance (FIM): 1=up to 49 ft Distance: 15' Gait Level of Assist: 4 Gait Assistive Device: FWW PT Plan Treatment/Plan Treatment Plan: Continue Plan of Care Treatment Plan: Bed Mobility, Education, Functional Activity [place], Functional Strength, Gait, Safety, Therapeutic Exercise, Transfers Treatment Duration: Jul 29, 2019 Frequency: 5 times per week Estimated Hrs Per Day: .25 hour per day Patient and/or Family Agrees t: Yes Time/GCodes Time In: 830 Time Out: 854 Total Billed Treatment Time: 24 Total Billed Treatment 1 visit FA x 2 24 min LINSEY HICKMAN PT Jul 27, 2019 10:20
[2019-07-27 12:02] VITALS: BP 144/85
[2019-07-27] MEDS ORDERED: SPIRONOLACTONE 25 MG (ALDACTONE) TAB PO NR (13:00)
[2019-07-27] MEDS ORDERED: LACT10SO PO (13:06)
[2019-07-27] MEDS ORDERED: NF-DOCO10C TP (13:06)
[2019-07-27] MEDS ORDERED: ASPI-586 PO (13:06)
[2019-07-27] MEDS ORDERED: SPIR25TA5 PO (13:06)
[2019-07-27] MEDS ORDERED: ACET325T38 PO (13:06)
--- NOTE | 2019-07-27 13:08 | Discharge Inst-Skilled Nursing ---
Discharge Inst-Skilled NF Reconcile Patient Problems Problems Reviewed?: Yes Consult/Follow Up/Orders Follow Up Appt.: 2weeks with me Skilled NF Admit to: [facility] Certification (SNF) I certify that SNF services are required to be given on an inpatient basis because of the above named patient's need for alf care on a continuing basis for the conditions(s) for which he/she was receiving inpatient hospital services prior to his/her transfer to the SNF. Correction Facility Order: Nursing Services, Back Hand-Evaluate & Treat, Physical Therapy-Evaluate & Treat Oxygen Delivery Method: Room Air Discharge Diet: No Restrictions Daily Activity as Tolerated: Yes Resuscitation Status: Do Not Resuscitate Type of Care: Pallative Care New & Resume Previous Orders Other Instructions CMP in 1 week Melanie Mcclellan Jul 27, 2019 13:07 MELANIE MCCLELLAN DO Jul 27, 2019 13:08
--- NOTE | 2019-07-27 13:40 | Occupational Ther Daily Note ---
OT Current Status-Daily Note Subjective Pt alert and eating while sitting in chair. Pt agrees to therapy. Nrsg in room to take vital signs. Mental Status/Objective Patient Orientation: Person Therapy Code Descriptions/Definitions Functional [place] Measure: 0=Not Assessed/NA 4=Minimal Assistance 1=Total Assistance 5=Supervision or Setup 2=Maximal Assistance 6=Modified [place] 3=Moderate Assistance 7=Complete [place] ADL-Treatment Eating (FIM): 6 (Pt able to open containers and use utensils correctly. ) Other Treatment Pt participated in 4 upper body exercise 10 reps 2x to increase upper body strength for daily functional activity tasks. Pt easily distracted throughout erapy. Pt sitting in chair, call light and phone in place. All needs met. OT Short Term Goals Short Term Goals Time Frame: Jul 24, 2019 Eating(FIM): 4 Grooming(FIM): 4 Bathing(FIM): 3 Upper Body Dressing(FIM): 3 Lower Body Dressing(FIM): 3 Toileting(FIM): 3 Transfers (B,C,W/C) (FIM): 4 Toilet/Commode Transfer(FIM): 4 Additional Short Term Goals: 1-Demonstrate ADL Tasks, 2-Verbalize Understand ing, 3-ImproveStrength/[place] 1=Demonstrate adherence to instructed precautions during ADL tasks. 2=Patient will verbalize/demonstrate understanding of assistive devices/modifications for ADL. 3=Patient will improve strength/tolerance for activity to enable patient to perform ADL's. OT Insulation Batting Machine Operator Goals Insulation Batting Machine Operator Goals Time Frame: Jul 31, 2019 Eating (FIM): 5 Grooming(FIM): 5 Bathing(FIM): 4 Upper Body Dressing(FIM): 4 Lower Body Dressing(FIM): 4 Toileting(FIM): 4 Transfers (B,C,W/C) (FIM): 4 Toilet/Commode Transfer(FIM): 4 Shower Transfer(FIM): 4 Additional Goals: 1-Demonstrate ADL Tasks, 2-Verbalize Understanding, 3-Improve Strength/[place] 1=Demonstrate adherence to instructed precautions during ADL tasks. 2=Patient will verbalize/demonstrate understanding of assistive devices/modifications for ADL. 3=Patient will improve strength/tolerance for activity to enable patient to pe rform ADL's. OT Education/Plan Problem List/Assessment Assessment: Decreased UE Strength Discharge Recommendations Plan/Recommendations: Continue POC Treatment Plan/Plan of Care Patient would benefit from OT for education, treatment and training to promote independence in ADL's, mobility, safety and/or upper extremity function for ADL's. Plan of Care: ADL Retraining, Cognitive Retraining, Functional Mobility, UE Funct Exercise/Act Treatment Duration: Jul 31, 2019 Frequency: 5 times per week Estimated Hrs Per Day: .25 hour per day Agreement: Yes Rehab Potential: Guarded Time/GCodes Start Time: 11:35 Stop Time: 11:55 Total Time Billed (hr/min): 20 Billed Treatment Time 1 visit- EX 1 (20 min) XIOMARA MACARIO Jul 27, 2019 13:39
--- NOTE | 2019-07-27 13:50 | NUR ---
[facility] at [facility].
[2019-07-27 14:10] VITALS: BP 144/85
--- NOTE | 2019-07-27 14:21 | NUR ---
CM/SS. Patient discharged to new placement with [facility]. Her insurance [employer] has not given a decision regarding approval for skilled benefits; therefore, patient was not discharged skilled at this time. SNF will continue in contact with insurance so that if benefits are approved, patient can transition to skilled status. Completed CARE Assessment with patient, processed with [facility]. Faxed orders and CARE to [facility], prepared packet to accompany patient. Unit RN and technical support 1 software engineer aware and assisted patient to get dressed and ready. Friend/neighbor Danita here as well. Addendum: 07/27/19 at 1506 by MATTIE FARFAN Updated [facility] and proposed Guardian Sundar Ryder of discharge. He stated the workers compensation defense attorney has not moved the guardianship along and that they are difficult to communicate/connect with. Sundar is still willing to perform the duties, he did voice frustration with the lack of information from workers compensation defense attorney office.
[2019-07-28] MEDS ORDERED: SPIRONOLACTONE 25 MG (ALDACTONE) TAB PO SCH (09:00)
== END 2019-07-27 14:10 | DRG 871 ==
LOC: EDUNIT# 08:55 → ER 08:57 → 4TH 10:41
PROVIDERS: ADMIT Family Medicine; ATTEND Family Medicine
DX: A41.9 Sepsis, unspecified organism (principal); R65.20 Severe sepsis without septic shock; N39.0 Urinary tract infection, site not specified; G93.41 Metabolic encephalopathy; K83.1 Obstruction of bile duct; C79.9 Secondary malignant neoplasm of unspecified site; C25.9 Malignant neoplasm of pancreas, unspecified; Z51.5 Encounter for palliative care; Z66 Do not resuscitate; E87.6 Hypokalemia; R56.9 Unspecified convulsions; S00.83XA Contusion of other part of head, initial encounter; S00.12XA Contusion of left eyelid and periocular area, initial encounter; I48.91 Unspecified atrial fibrillation; I10 Essential (primary) hypertension; D64.9 Anemia, unspecified; R04.0 Epistaxis; R09.02 Hypoxemia; R01.1 Cardiac murmur, unspecified; W19.XXXA Unspecified fall, initial encounter; Y92.000 Kitchen of unspecified non-institutional (private) residence as the place of occurrence of the external cause
CPT/HCPCS: 36415; 51702; 70450; 71045; 72125; 72170; 76937; 80053; 80320; 81000; 82550; 83605; 83735; 85007; 85025; 85027; 85610; 85730; 87040; 87088; 93005; 96361; 96374

== ENCOUNTER 2019-09-06 11:01 | Outpatient (CLI) | payer MEDICARE, MEDICAID ==
[~2019-09-06] VITALS: Ht 162 cm; Wt 84.3 kg
[~2019-09-06 11:01] MED LIST changes: +ACET325T38 PO; +ASPI-586 PO; +LACT10SO PO; +NF-DOCO10C TP; +SPIR25TA5 PO
[2019-09-06] MEDS ORDERED: ONDN4T PO (15:18)
== END 2019-09-06 15:28 | disposition home or self-care (01) ==
LOC: PREOP 11:01
PROVIDERS: ATTEND Surgery
DX: Z01.818 Encounter for other preprocedural examination (principal)

== ENCOUNTER 2019-09-07 07:42 | Day surgery (SDC) | payer MEDICARE, MEDICAID ==
[~2019-09-07] VITALS: Ht 166 cm; Wt 84.3 kg
[2019-09-07] VITALS (8 sets, daily range): BP systolic 93–138; BP diastolic 59–99
[~2019-09-07 07:42] MED LIST changes: +ONDN4T PO
[2019-09-07] MEDS ORDERED: LACTATED RINGERS 1,000 ML IV PRN (07:50)
--- NOTE | 2019-09-07 07:55 | Progress Note-Pre Operative ---
Pre-Operative Progress Note H&P Reviewed The H&P was reviewed, patient examined and no changes noted. Date Seen by Provider: Sep 07, 2019 Time Seen by Provider: 07:55 Date H&P Reviewed: Sep 07, 2019 Time H&P Reviewed: 07:55 Pre-Operative Diagnosis: pancreatic cancer ALISIA MEDRANO DO Sep 07, 2019 7:55 am POS
[2019-09-07] MEDS ORDERED: CLINDAMYCIN 600 MG/50 ML IVPB 50 ML IV ONE (08:00)
[2019-09-07] MEDS ORDERED: HEParin (CENTRAL IV FLUSH) 500 UNIT/5 ML SYR ONE (08:05)
[2019-09-07] MEDS ORDERED: 0.9% SODIUM CHLORIDE PF INJ 20 ML VIAL ONE (08:05)
[2019-09-07] MEDS ORDERED: BUP/EPI 0.5% 1:200,000 (SENSORCAINE) 30 ML VIAL ONE (08:06)
[2019-09-07] MEDS ORDERED: CATHETER FLUSH 10 ML SYR IV PRN (08:15)
[2019-09-07] MEDS ORDERED: meTOprolol 5 MG/5 ML (LOPRESSOR) VIAL IV ONE (08:30)
[2019-09-07] MEDS ORDERED: meTOprolol 5 MG/5 ML (LOPRESSOR) VIAL ONE (08:31)
[2019-09-07] MEDS ORDERED: MIDAZOLAM 2 MG/2 ML (VERSED) VIAL ONE (09:19)
[2019-09-07] MEDS ORDERED: PROPOFOL INJECTION 50 ML IV ONE (09:19)
--- NOTE | 2019-09-07 12:11 | Discharge Inst-Simple/Standard ---
Discharge Inst-Standard Patient Instructions/Follow Up Plan of Care/Instructions/FU: 2 weeks [place] Activity as Tolerated: No Discharge Diet: Regular Diet Other Inst to Patient Follow up Appt: Make appointment for 2 week. Instructions: No lifting greater than 10 pounds. No strenuous activity. May shower in 24 hours, no tub bath or soaking. Use incentive spirometer at home as directed. No Smoking Skin/Wound Care: You have special glue over incisions it will fall off on its own. Place ice pack on 15 min off 30 min for discomfort and reduce swelling and repeat. Symptoms to Report: Appetite Changes, Extremity Discoloration, Numbness/Tingling, Swelling Increased, Bleeding Excessive, Eyesight Changes, Pain Increased, Urine Color Change, Constipation(Persistent), Fever over 101 degree F, Pain/Pressure in chest, Urinating Difficulty, Cough Up/Vomit Blood, Heart Beat Irreg/Pounding, Pain/Pressure in jaw, Vaginal Bleeding Increase, Cramps in feet or legs, Lightheadedness, Pain/Pressure in shoulder, Diarrhea(Persistent), Memory Changes Suddenly, Questions/Concerns, Weight gain consecutive days, Dizziness/Fainting, Nausea/Vomiting, Shortness of Breath, Weight gain over 2 pounds If questions or concerns contact your physician Or seek help at emergency department. ALISIA MEDRANO DO Sep 07, 2019 12:11 POS
[2019-09-07] MEDS ORDERED: ONDANSETRON 4 MG/2 ML (SDV) Z0FRAN IVP PRN (12:30)
[2019-09-07] MEDS ORDERED: HYDROmorphone 2 MG/ML VIAL (DILAUDID) IV ONE (12:30)
--- NOTE | 2019-09-07 12:40 | Diagnostic Imaging Report ---
INDICATION: Port placement. TIME OF EXAM: 12:26 p.m. COMPARISON: Correlation is made with prior chest from 07/18/2019. FINDINGS: Right chest wall port has tip overlying the SVC. No pneumothorax is identified. The lungs are clear. There is no effusion. The heart size is stable. IMPRESSION: Right chest wall port placement, as described. No pneumothorax is detected. Dictated by: Dictated on workstation # [id number]
--- NOTE | 2019-09-07 12:42 | Diagnostic Imaging Report ---
INDICATION: Fluoroscopy for port placement. Fluoroscopy was provided in the OR during port placement. 26 seconds of fluoroscopy was utilized. Right chest wall has port tip overlying the SVC. IMPRESSION: Fluoroscopy for right chest wall port placement. Dictated by: Dictated on workstation # [id number]
--- NOTE | 2019-09-07 13:14 | Anesthesia-General Post-Op ---
MAC Patient Condition Mental Status/LOC: Same as Preop Cardiovascular: Satisfactory Nausea/Vomiting: Absent Respiratory: Satisfactory Pain: Controlled Complications: Absent Post Op Complications Complications None Follow Up Care/Instructions Patient Instructions None needed. Anesthesiology Discharge Order Discharge Order Patient is doing well, no complaints, stable vital signs, no apparent adverse anesthesia problems. No complications reported per nursing. JANAE RICO CRNA Sep 07, 2019 13:14 POS
--- NOTE | 2019-09-07 16:48 | Progress Note-Post Operative ---
Post-Operative Progess Note Surgeon (s)/Boiler Tube Reamer (s) Surgeon ALISIA MEDRANO DO Boiler Tube Reamer: na Pre-Operative Diagnosis pancreatic cancer Post-Operative Diagnosis same Procedure & Operative Findings Date of Procedure 09/07/19 Procedure Performed/Findings right IJ u/s guided port placement Anesthesia Type mac c local Estimated Blood Loss Estimated blood loss (mL): min Specimens/Packing Specimens Removed na Packing: dictation #[id number] ALISIA MEDRANO DO Sep 07, 2019 16:48 POS
--- NOTE | 2019-09-08 01:20 | OPERATIVE REPORT ---
DATE OF SERVICE: 09/07/2019 PREOPERATIVE DIAGNOSIS: Pancreatic cancer. POSTOPERATIVE DIAGNOSIS: Pancreatic cancer. PROCEDURE: Right internal jugular vein ultrasound-guided port placement. SURGEON: Alisia Gray DO ANESTHESIA: MAC with local. ESTIMATED BLOOD LOSS: Minimal. COMPLICATIONS: None. INDICATIONS: The patient is a 64-year-old female needing port placement for chemotherapy administration for pancreatic cancer. She understands risks and benefits of procedure and wished to proceed with procedure. Consent was signed in the chart. DESCRIPTION OF PROCEDURE: The patient was taken to the operating suite. She was prepped and draped in sterile fashion. Timeout was performed. Ultrasound was used to isolate the right internal jugular vein. Local anesthetic was infiltrated around it. Under visualization of the ultrasound, the right internal jugular vein was then accessed with micro access needle. Dark nonpulsatile blood was withdrawn. The micro access wire was inserted and fluoroscopy assured proper placement. The needle was removed. The 11 blade scalpel was used to make a small skin incision at the insertion point and the dilator was then advanced over the guidewire and the guidewire was removed and the normal guidewire was inserted through the sheath and the sheath was then removed. The wire was then secured. Fluoroscopy assured proper placement. Local anesthetic was infiltrated in the right neck onto the right chest for pocket creation. A 15 blade scalpel was used to make a skin incision and a pocket was created on the right chest with both sharp and blunt dissection. Under direct visualization of fluoroscopy, the dilator sheath was then advanced over the guidewire and the guidewire and the dilator were removed. The [place] catheter was inserted through the sheath and the sheath was then removed. The catheter was then tunneled from the insertion point on the neck down to the pocket created on the right chest. Fluoroscopy was used to cut the catheter to length and the catheter was then secured to the port in the usual fashion. The port was then placed within the pocket that was created. It was then accessed without difficulty. Blood was withdrawn without any difficulty and then flushed without difficulty first with saline and then with heparin. Subcutaneous tissues were then reapproximated using 3-0 Vicryl. Fluoroscopy assured proper placement. The skin was then closed using Skin Affix over the incisions after they were washed and dried. The patient tolerated procedure well without any complications. She was taken to recovery room in stable condition. Chest x-ray pending. Job ID: [id number] DocumentID: [id number] Dictated Date: 09/07/2019 16:48:30 [employer] Date: 09/08/2019 01:19:24 Dictated By: ALISIA GRAY DO
== END 2019-09-07 13:20 | disposition home or self-care (01) ==
LOC: SDC 07:42
PROVIDERS: ATTEND Surgery
DX: C25.9 Malignant neoplasm of pancreas, unspecified (principal); E78.5 Hyperlipidemia, unspecified; I48.91 Unspecified atrial fibrillation; I11.9 Hypertensive heart disease without heart failure; F03.90 Unspecified dementia, unspecified severity, without behavioral disturbance, psychotic disturbance, mood disturbance, and anxiety; Z88.1 Allergy status to other antibiotic agents; Z88.0 Allergy status to penicillin; Z88.2 Allergy status to sulfonamides; Z79.899 Other long term (current) drug therapy; Z79.82 Long term (current) use of aspirin; Z90.89 Acquired absence of other organs; Z90.710 Acquired absence of both cervix and uterus
CPT/HCPCS: 71045; 87081

== ENCOUNTER 2019-09-19 04:41 | Emergency (ER) | payer MEDICARE, MEDICAID ==
[~2019-09-19] VITALS: Ht 172 cm; Wt 58.7 kg
[2019-09-19] MEDS ORDERED: DILTIAZEM 25 MG/5 ML INJ (CARDIZEM) VIAL ONE (05:02)
[2019-09-19] MEDS ORDERED: NS IV 1000 ML 1,000 ML IV SCH (05:02)
[2019-09-19] MEDS ORDERED: DILTIAZEM 125 MG/25 ML IV (CARDIZEM) IV ONE ×2 (05:02→05:03)
[2019-09-19] MEDS ORDERED: NS (IVPB) 100 ML ONE (05:03)
[2019-09-19 05:11] LABS: BASOPHILS % (AUTO) 0 % (0-10); EOSINOPHILS # (AUTO) 0.1 10^3/uL (0.0-0.3); EOSINOPHILS % (AUTO) 2 % (0-10); HEMATOCRIT 42 % (35-52); HEMOGLOBIN 13.2 G/DL (11.5-16.0); LYMPHOCYTES # (AUTO) 0.9 X 10^3 (1.0-4.0); LYMPHOCYTES % (AUTO) 11 % (12-44); MEAN CORPUSCULAR HEMOGLOBIN 27 PG (25-34); MEAN CORPUSCULAR HGB CONC 32 G/DL (32-36); MEAN CORPUSCULAR VOLUME 86 FL (80-99); MEAN PLATELET VOLUME 11.8 FL (7.4-10.4); MONOCYTES # (AUTO) 0.1 X 10^3 (0.0-1.0); MONOCYTES % (AUTO) 1 % (0-12); NEUTROPHILS # (AUTO) 6.7 X 10^3 (1.8-7.8); NEUTROPHILS % (AUTO) 86 % (42-75); PLATELET COUNT 182 10^3/uL (130-400); RED CELL DISTRIBUTION WIDTH 14.4 % (10.0-14.5); WHITE BLOOD COUNT 7.8 10^3/uL (4.3-11.0)
--- NOTE | 2019-09-19 05:12 | ED Neurological Problem ---
General Stated Complaint: SEIZURE Source: patient, EMS, other Exam Limitations: no limitations (GEETA PADILLA) History of Present Illness Date Seen by Provider: Sep 19, 2019 Time Seen by Provider: 04:45 Initial Comments the patient presents to the ER by EMS from via [facility] where she lives with end-stage pancreatic cancer. Staff report that 0345 they heard some commotion so he went in the room and for about 10-15 seconds she was doing some generalized jerking motions. She does not have a history of seizure disorder. She is not on a blood thinner although she does have atrial fibrillation and EMS reports she was in atrial fibrillation with rapid ventricular response of around 140 when they arrived. She was taken off the blood thinners presumably for history of multiple falls per staff. She is known to Dr. Mcclellan. She has no history of stroke heart attack. She's not having any pain anywhere. She is alert and oriented upon EMS's arrival. She is however having difficulty speaking and has some thick, mildly slurred speech. Otherwise their stroke examination was unremarkable. She denies cough fever chills nausea vomiting shortness of breath dysuria. (GEETA PADILLA) Allergies and Home Medications Allergies Coded Allergies: Penicillins (Verified Allergy, Unknown, pt has received Rocephin in the past, 07/14/19) ciprofloxacin (Verified Allergy, Unknown, 09/06/19) sulfamethoxazole (Unverified Allergy, Unknown, 02/06/19) trimethoprim (Unverified Allergy, Unknown, 02/06/19) Home Medications Acetaminophen 325 Mg Tablet, 325 MG PO Q4H Prescribed by: BING MCCLELLAN on 07/27/19 1306 Aspirin 81 Mg Tablet.dr, 81 MG PO DAILY Prescribed by: BING MCCLELLAN on 07/27/19 1306 Diltiazem HCl 120 Mg Cap.er.24h, 120 MG PO DAILY Prescribed by: ИВАН FENG on 09/19/19 0843 Lactulose 10 Gm/15 Ml Solution, 10 GM PO DAILY Prescribed by: BING MCCLELLAN on 07/27/19 1306 Levetiracetam 500 Mg Tablet, 500 MG PO BID Prescribed by: ИВАН FENG on 09/19/19 0843 Nystatin 100,000 Unit/1 Ml Oral.susp, 5 ML PO QID Swish for at least 30 seconds and then you may swallow Prescribed by: ИВАН FENG on 09/19/19 0843 Ondansetron HCl 4 Mg Tab, 4 MG PO PRN, (Reported) Potassium Chloride 20 Meq Tab.er.prt, 20 MEQ PO DAILY, (Reported) Spironolactone 25 Mg Tablet, 50 MG PO DAILY Prescribed by: BING MCCLELLAN on 07/27/19 1306 Patient Home Medication List Home Medication List Reviewed: Yes (GEETA PADILLA) Review of Systems Review of Systems Constitutional: No chills, No diaphoresis Eyes: Denies Blindness, Denies Drainage Ears, Nose, Mouth, Throat: see HPI; denies ear pain, denies ear discharge Respiratory: No cough, No short of breath Cardiovascular: No chest pain, No edema Gastrointestinal: No abdominal pain, No constipation, No diarrhea, No nausea Genitourinary: No discharge, No dysuria Musculoskeletal: No back pain, No joint pain (GEETA PADILLA) All Other Systems Reviewed Negative Unless Noted: Yes (GEETA PADILLA) Past Qvrxsne-Naxmyu-Rkjxjq Hx Patient Social History Alcohol Use: Denies Use Recreational Drug Use: No Smoking Status: Never a Smoker 2nd Hand Smoke Exposure: No Recent Foreign Travel: No Contact w/Someone Who Travel: No Recent Hopitalizations: Yes (GEETA PADILLA) Immunizations Up To Date Tetanus Booster (TDap): Unknown PED Vaccines UTD: Yes Date of Influenza Vaccine: Aug 16, 2019 (GEETA PADILLA) Seasonal Allergies Seasonal Allergies: No (GEETA PADILLA) Past Medical History Surgeries: Yes Eye Surgery, Gallbladder, Hysterectomy, Oophorectomy, Tonsillectomy Respiratory: No Cardiac: Yes Atrial Fibrillation, Heart Murmur, Hypertension 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 Genitourinary: No Gastrointestinal: Yes (PANCREATIC CANCER) Liver Disease/Jaundice, Gall Bladder Disease Musculoskeletal: No Endocrine: No HEENT: Yes (BILATERAL CATARACT SURGERY) Cataract Cancer: Yes Pancreatic Psychosocial: No Integumentary: No Blood Disorders: No (GEETA PADILLA) Family Medical History No Pertinent Family Hx (GEETA PADILLA) Physical Exam Vital Signs Vital Signs - First Documented 09/19/19 09/19/19 04:44 05:10 Pulse 125 Resp 22 B/P (MAP) 117/75 (89) Pulse Ox 99 O2 Delivery Nasal Cannula O2 Flow Rate 2.00 (ИВАН FENG MD) Vital Signs Capillary Refill : (GEETA PADILLA) Height, Weight, BMI Height: 5'8.00" Weight: 181lbs. 0.5oz. 82.355740pi; 30.59 BMI Method:Stated General Appearance: WD/WN, no apparent distress HEENT: PERRL/EOMI, normal ENT inspection, TMs normal, other (oropharyngeal dry mucosa) Neck: non-tender, full range of motion, supple, normal inspection Respiratory: chest non-tender, lungs clear, normal breath sounds, no respiratory distress, no accessory muscle use Cardiovascular: normal peripheral pulses, regular rate, rhythm Peripheral Pulses: 2+ Radial Pulses (R), 2+ Radial Pulses (L) Gastrointestinal: normal bowel sounds, non tender, soft Extremities: normal range of motion, non-tender, normal inspection, normal capillary refill 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 (thick, dysarthric speech), no motor/sensory deficits, alert, normal mood/affect, oriented x 3 Crainal Nerves: normal hearing, PERRL, abnormal speech (dysarthria) Coordination/Gait: normal finger to nose Motor/Sensory: no motor deficit, no sensory deficit, no pronator drift Skin: normal color, warm/dry (GEETA PADILLA) Stroke Onset of Symptoms Date of Onset of Symptoms: Sep 19, 2019 Time of Symptom Onset: 03:45 Onset of Symptoms: Yes Symptoms onset unknown: No (GEETA PADILLA) NIH Stroke Scale Assessment Select: Initial Level of Consciousness: 0=Alert (0), Level of Consciousness- Questions: 0=Answers both month/age (0), LOC Commands: 0=Performs both tasks (0), Gaze: Normal (0), Visual Kaur: 0=No visual loss (0), Facial Movement (Facial Paresis): 0=Normal symmetrical mnt (0), Motor Function-Arms Right: 0=No drift (0), Motor Function-Arms Left: 0=No drift (0), Motor Function-Legs Right: 0=No drift (0), Motor Function-Legs Left: 0=No drift (0), Limb Ataxia: 0=Absent (0), Sensory: 0=Normal:no loss (0), Best Language: 0=No aphasia (0), Dysarthria: 1=Mild to moderate loss (1), Extinction & Inattention: 0=No abnormality (0), Total: 1 Stroke Thrombolytic Exclusion Age 18 or Over: Yes Acute intenal hemorrhage: No History of CVA: No Uncontrolled Coagulation Defec: No Intracranial Hemorrhage: No Severe Hypertension: No GI or Bleed: No Subarachnoid Hemorrhage: No Intracranial Neoplasm/Aneurysm: No Oral Anticoagulants: No Surgery or Trauma: No Puncture of Non-Compressible V: No Recent CPR: No Diabetic Hemorrhagic Retinopat: No Organ Biopsy: No Recent Obstetric Delivery: No Glucose: No (142) Significant Hepatic Dysfunctio: No NIH Stoke Scale >22: No Bacterial Endocarditis: No Pericarditis: No Improving Symptoms: No Platelets: No TPA Contraindication: Yes (insufficient NIH) (GEETA PADILLA) IV - TPa Received IV - TPa Procedure Performed?: No (GEETA PADILLA) Progress/Results/Core Measures Results/Orders Lab Results Laboratory Tests Test 09/19/19 04:51 09/19/19 04:53 09/19/19 05:26 09/19/19 06:10 Range/Units Glucometer 142 H 70-110 MG/DL White Blood Count 7.8 4.3-11.0 10^3/uL Red Blood Count 4.88 4.35-5.85 10^6/uL Hemoglobin 13.2 11.5-16.0 G/DL Hematocrit 42 35-52 % Mean Corpuscular Volume 86 80-99 FL Mean Corpuscular Hemoglobin 27 25-34 PG Mean Corpuscular Hemoglobin Concent 32 32-36 G/DL Red Cell Distribution Width 14.4 10.0-14.5 % Platelet Count 182 130-400 10^3/uL Mean Platelet Volume 11.8 H 7.4-10.4 FL Neutrophils (%) (Auto) 86 H 42-75 % Lymphocytes (%) (Auto) 11 L 12-44 % Monocytes (%) (Auto) 1 0-12 % Eosinophils (%) (Auto) 2 0-10 % Basophils (%) (Auto) 0 0-10 % Neutrophils # (Auto) 6.7 1.8-7.8 X 10^3 Lymphocytes # (Auto) 0.9 L 1.0-4.0 X 10^3 Monocytes # (Auto) 0.1 0.0-1.0 X 10^3 Eosinophils # (Auto) 0.1 0.0-0.3 10^3/uL Basophils # (Auto) 0.0 0.0-0.1 10^3/uL Prothrombin Time 15.4 H 12.2-14.7 SEC INR Comment 1.2 0.8-1.4 Activated Partial Thromboplast Time 29 24-35 SEC D-Dimer 3.81 H 0.00-0.49 UG/ML Sodium Level 132 L 135-145 MMOL/L Potassium Level 4.5 3.6-5.0 MMOL/L Chloride Level 106 98-107 MMOL/L Carbon Dioxide Level 15 L 21-32 MMOL/L Anion Gap 11 5-14 MMOL/L Blood Urea Nitrogen 15 7-18 MG/DL Creatinine 0.75 0.60-1.30 MG/DL Estimat Glomerular Filtration Rate > 60 BUN/Creatinine Ratio 20 Glucose Level 160 H 70-105 MG/DL Calcium Level 9.5 8.5-10.1 MG/DL Corrected Calcium 9.9 8.5-10.1 MG/DL Total Bilirubin 0.8 0.1-1.0 MG/DL Aspartate Amino Transf (AST/SGOT) 40 H 5-34 U/L Alanine Aminotransferase (ALT/SGPT) 50 0-55 U/L Alkaline Phosphatase 226 H 40-136 U/L Troponin I < 0.028 <0.028 NG/ML Total Protein 7.4 6.4-8.2 GM/DL Albumin 3.5 3.2-4.5 GM/DL Urine Color YELLOW Urine Clarity CLEAR Urine pH 5.5 5-9 Urine Specific [place] >=1.030 1.016-1.022 Urine Protein 2+ H NEGATIVE Urine Glucose (UA) NEGATIVE NEGATIVE Urine Ketones NEGATIVE NEGATIVE Urine Nitrite NEGATIVE NEGATIVE Urine Bilirubin NEGATIVE NEGATIVE Urine Urobilinogen 0.2 < = 1.0 MG/DL Urine Leukocyte Esterase NEGATIVE NEGATIVE Urine RBC (Auto) NEGATIVE NEGATIVE Urine RBC NONE /HPF Urine WBC NONE /HPF Urine Squamous Epithelial Cells RARE /HPF Urine Crystals NONE /LPF Urine Bacteria TRACE /HPF Urine Casts PRESENT /LPF Urine Hyaline Casts RARE /LPF Urine Mucus NEGATIVE /LPF Urine Culture Indicated NO Ammonia 30 11-32 UMOL/L Thyroid Stimulating Hormone (TSH) 0.50 0.35-4.94 UIU/ML Free Thyroxine 1.15 0.70-1.48 NG/DL (ИВАН FENG MD) My Orders Orders - ИВАН FENG MD Thyroid Stimulating Hormone (09/19/19 06:47) Free T4 (Free Thyroxine) (09/19/19 06:47) Diltiazem Cd 24 Hr Capsule (Cardizem Cd (09/19/19 09:00) (ИВАН FENG MD) Medications Given in ED Current Medications Medications Dose Ordered Sig/Natasha Route Start Time Stop Time Status Last Admin Dose Admin Diltiazem HCl 10 mg ONCE ONCE IVP 09/19/19 05:15 09/19/19 05:16 DC 09/19/19 05:00 10 MG Iohexol 75 ml ONCE ONCE IV 09/19/19 05:45 09/19/19 05:46 DC 09/19/19 06:16 75 ML (ИВАН FENG MD) Vital Signs/I&O 09/19/19 09/19/19 09/19/19 04:44 04:44 05:10 Pulse 125 102 Resp 22 12 B/P (MAP) 117/75 (89) 148/118 Pulse Ox 99 99 92 O2 Delivery Nasal Cannula Nasal Cannula Nasal Cannula O2 Flow Rate 2.00 (ИВАН FENG MD) Progress Progress Note : Time: 05:12 Progress Note Blood sugar 140 per EMS. Same for us. EKG demonstrates A. fib with rapid ventricular response and no clinically significant ST elevation or depression. Cardizem 10 mg was given after obtaining a unremarkable noncontrast CT of the head. The drip wasn't initiated at 10 mg and the patient still in A. fib is rate down in the 80s and 90s. (GEETA PADILLA) Progress Note : Progress Note 0700: CT head and neck completed and findings of thyroid nodularity noted. TSH free T4 added. Monitor patient. 0800: I have reexamined the patient. She remains in atrial fibrillation but rate is in the 70s. O2 sat 100% on room air. Blood pressure 130/81 at Cardizem drip at 10 mg/h. I have paged her primary care physician. She does have pancreatic cancer and currently is on chemotherapy. She states that her tongue feels a little better but she still feels a little thick tongue. On exam she does appear to have some oral thrush. I will talk with her primary care physician as well as Dr. Anderson about directions for continued care. Currently she is stable and may be considered for her oral Cardizem. We will continue to monitor. 0802: I did discuss the case with Dr. Anderson. We will initiate Cardizem CD 120 mg by mouth daily and have her follow up with. Patient will not be on anticoagulation due to significant fall risk as has been preestablished. 0806: I did discuss the case with Dr. Mcclellan. Patient does have a findings of thrush and we will treat that outpatient. There was concerns on previous hospitalization about possible seizures. This also sounded like a seizure today potentially. We will go ahead and initiate Keppra 5 mg by mouth and continue that outpatient. She will be treated for thrush outpatient as well. Dr. Mcclellan will establish follow-up appointments with both her and cardiology. Discharged home with return precautions. Patient verbalize understanding instructions and agreement with plan. (ИВАН FENG MD) Initial ECG Impression Date: Sep 19, 2019 Initial ECG Impression Time: 05:04 Initial ECG Rate: 127 Initial ECG Rhythm: A Fib/Flutter Initial ECG Intervals: QT (460) Initial ECG Impression: Atrial Fibrillation w/RVR Comment Atrial fibrillation with rapid ventricular response and no clinically relevant ST elevation or depression. EKG : EKG Time: 05:12 Rate: 98 Rhythm: A Fib/Flutter Intervals: QT (445) ECG Comparisson: Changed ECG Impression: Atrial Fibrillation Comment Status post Cardizem. Atria fibrillation without rapid ventricular response. No ST elevation or depression. (GEETA PADILLA) Diagnostic Imaging Diagonstic Imaging: CT Plain Films/CT/US/NM/MRI: head Comments No acute intracranial findings. No mass effect, tumor, midline shift or evidence of hemorrhage. No acute intracranial abnormality. Atrophy and chronic small vessel ischemic change. Consider further evaluation with MR to exclude hyperacute infarct as indicated. Reviewed: Reviewed Night Lissk Study, Reviewed by Me, Discussed w/Radiologist Diagonstic Imaging: Xray Plain Films/CT/US/NM/MRI: chest (1v) Comments NAME: KARSTEN DUDLEY [facility] REC#: [id number] PT STATUS: REG ER : 1950 PHYSICIAN: GEETA PADILLA MD ADMIT DATE: 09/19/19/ER Draft POSDate of Exam:09/19/19 CHEST 1 VIEW, AP/PA ONLY INDICATION: Seizure COMPARISON: 09/07/2019 FINDINGS: Single frontal view of the chest demonstrates normal heart size and pulmonary vascularity. The lungs are well aerated and clear. No large pleural effusion or pneumothorax is seen. The visualized osseous structures show no acute abnormalities. Right internal jugular Port-A-Cath is noted with tip in the SVC. IMPRESSION: 1. No acute cardiopulmonary process. Dictated on workstation # [id number] Dict: 09/19/19523 Trans: 09/19/19525 [facility] [id number] Interpreted by: JULIEN SKINNER MD Electronically signed by: Reviewed: Reviewed by Me (GEETA PADILLA) Comments [facility] [place] POS NAME: KARSTEN DUDLEY [facility] REC#: [id number] PT STATUS: REG ER : 1950 PHYSICIAN: GEETA PADILLA MD ADMIT DATE: 09/19/19/ER Draft POSDate of Exam:09/19/19 CT HEAD WO INDICATION: Seizure TECHNIQUE: Routine non contrast-enhanced axial images were obtained from the skull base to the vertex. Auto Exposure Controls were utilized during the CT exam to meet ALARA standards for radiation dose reduction COMPARISON: 07/12/2019 FINDINGS: The ventricles and cortical sulci are diffusely prominent, compatible with age-related volume loss. There are confluent areas of abnormal, low attenuation in the periventricular white matter. This is consistent with chronic small vessel ischemic changes. There is no midline shift or mass-effect. No acute intra-axial hemorrhage is seen. There are no abnormal areas of increased or decreased density to suggest acute hemorrhage or edema. No extra-axial masses or collections are present. The bony calvarium is intact. The visualized paranasal sinuses are unremarkable. The mastoid air cells are clear. IMPRESSION: 1. No acute intracranial abnormality. No CT evidence of mass, acute infarct or intracranial hemorrhage. 2. Chronic small vessel ischemic changes in the deep white matter. Dictated on workstation # [id number] Dict: 09/19/19606 Trans: 09/19/19610 [facility] [id number] Interpreted by: JULIEN SKINNER MD Electronically signed by: Kyung Imaging: CT Plain Films/CT/US/NM/MRI: head, other Comments [facility]. POS [place], [place] POS NAME: KARSTEN DUDLEY [facility] REC#: [id number] PT STATUS: REG ER : 1950 PHYSICIAN: GEETA PADILLA MD ADMIT DATE: 09/19/19/ER Draft POSDate of Exam:09/19/19 CT ANGIO HEAD/NECK PROCEDURE: CT angiography of the head and CT angiography of the neck with and without contrast. TECHNIQUE: Contiguous noncontrast images were obtained from the skull base through the vertex. After intravenous contrast administration, helical CT angiography of the neck was performed. Source data was reformatted into 3D MIP projections. Delayed post contrast acquisition was also obtained. Auto Exposure Controls were utilized during the CT exam to meet ALARA standards for radiation dose reduction. INDICATION: Seizure. Slurred speech. COMPARISON: Noncontrast CT head from earlier same day FINDINGS: CTA neck: Included portions of the aortic arch are unremarkable. There is mild scattered calcified atherosclerosis at the origin of the arch vessels. Bilateral common carotid arteries otherwise normal in course and caliber. There is minimal calcified atherosclerosis of the bilateral carotid bulbs. There is no focal hemodynamically significant stenosis. Note is also made of minimal calcified atherosclerosis of the distal intracranial portions of bilateral internal carotid arteries, but otherwise there is no focal stenosis of the bilateral internal carotid arteries. There is no dissection or evidence of intraluminal thrombosis. Within the posterior circulation, the vertebral arteries appear to be codominant. There is mild multilevel extrinsic compression of the right vertebral artery secondary to osteoarthritic changes and narrowing of the transverse foramen. Similar, although less prominent appearance is also noted on the left. There is otherwise no focal significant stenosis, evidence of the dissection, or intraluminal thrombosis involving the bilateral vertebral arteries. Osseous structures of the cervical spine show age-related degenerative changes. No acute bony abnormalities are identified. Note is made of heterogeneous appearance to the thyroid gland. There is 2 cm heterogeneous partially calcified nodule on the right. Included portions of the lung apices show punctate subpleural 3 mm micronodule within the anterior left upper lobe (image 75, series 2). CTA makah of Rhoades: There is normal enhancement of the bilateral anterior and middle cerebral arteries. There is no evidence of intraluminal thrombosis, aneurysm, nor vascular malformation. Anterior communicating artery appears to be patent. Within the posterior circulation, there is normal appearance to the basilar artery. There is normal enhancement of bilateral superior cerebellar and posterior cerebral arteries. There is no evidence of intraluminal thrombosis, vascular malformation, nor aneurysm. CT HEAD: Again identified are scattered and confluent areas of decreased attenuation within the periventricular and subcortical deep white matter consistent with background chronic small vessel ischemic changes. Ventricles and cortical sulci are also diffusely prominent consistent with underlying age-related parenchymal volume loss. There is no new loss of mathew-white matter junction differentiation to suggest large acute territorial infarct. There is no evidence of intra or extra-axial intracranial hemorrhage. No new mass effect or midline shift is identified. Bony calvarium is intact. No focal calvarial lesions are seen. Paranasal sinuses and mastoid air cells are clear. Note is made of anterior subluxation with displacement of the bilateral temporal mandibular joints. Advanced bilateral maxillary and mandibular dental caries are also present. IMPRESSION: 1. Mild scattered calcified atherosclerosis of the head and neck, but no focal hemodynamically significant stenosis. 2. No evidence of large vessel occlusion, dissection, nor aneurysm within the intracranial circulation. 3. No new acute infarct, mass, nor intracranial hemorrhage. 4. Age-indeterminate bilateral temporomandibular joint dislocation with anterior subluxation of the mandible. 5. Advanced bilateral maxillary and mandibular dental caries. 6. Heterogeneous appearance of the thyroid gland with 2 cm nodule on the right. Follow-up dedicated thyroid sonogram is recommended and could be performed on a nonemergent basis. 7. Small micronodule of the left upper lobe. If patient is in a high-risk category, may want to consider one-year follow-up to ensure stability. Dictated on workstation # [id number] Dict: 09/19/19 0656 Trans: 09/19/19 0718 [facility] [id number] Interpreted by: JULIEN SKINNER MD Electronically signed by: (ИВАН FENG MD) Consults : Consults Notes Dr Hurt; stroke neurologist at [facility] discussed the case and she agrees with not giving TPA as the benefits are far outweighed by the risks at this time. She favors a seizure is far more likely but since the patient has atrial fibrillation not on anticoagulation she would still collect a CT angiogram of the head and neck. Small cortical strokes can cause seizures but also infections and the malignancy could be an explanation. (GEETA PADILLA) Transfer of Care Time: 06:00 Care transferred to: Dr. Feng (GEETA PADILLA) Departure Impression Primary Impression: Paroxysmal atrial fibrillation with rapid ventricular response Additional Impressions: Seizures Thrush, oral Disposition: HOME, SELF-CARE Condition: Stable Departure-Patient Inst. Decision time for Depature: 08:31 (ИВАН FENG MD) Referrals: Gordon ANDERSON MD, JACQUELINE S DO (PCP/Family) Primary Care Physician Patient Instructions: Atrial Fibrillation, Seizures, Adult (DC), Thrush (DC) Add. Discharge Instructions: Take medications as directed. Follow-up with Dr. Mcclellan for recheck and further evaluation. She will set up an appointment or assistance with appointment with Dr. Anderson for further follow-up related to atrial fibrillation. You will be started on a new medicine for possibility of seizures. Take that as prescribed. You also were noted to have thrush and will need to take that medicine as prescribed. Return for worse pain, fever, vomiting, weakness, breathing problems or other concerns as needed. Scripts Levetiracetam (Keppra) 500 Mg Tablet 500 MG PO BID for 30 Days, #60 TAB Prov: ИВАН FENG MD 09/19/19 Diltiazem HCl (Cardizem Cd) 120 Mg Cap.er.24h 120 MG PO DAILY for 30 Days, #30 CAP 0 Refills Prov: ИВАН FENG MD 09/19/19 Nystatin (Nystatin) 100,000 Unit/1 Ml Oral.susp 5 ML PO QID, #200 ML Swish for at least 30 seconds and then you may swallow Prov: ИВАН FENG MD 09/19/19 Copy Copies To 1: BING MCCLELLAN DO Copies To 2: Gordon ANDERSON MD, TITUS J Sep 19, 2019 05:12 ИВАН GUTIERREZ MD Sep 19, 2019 08:04 POS
[2019-09-19] MEDS ORDERED: DILTIAZEM IV FOR DRIP 125 MG in NS (IVPB) 100 ML IV SCH (05:15)
[2019-09-19] MEDS ORDERED: DILTIAZEM 25 MG/5 ML INJ (CARDIZEM) VIAL IVP ONE (05:15)
[2019-09-19 05:19] LABS: FIBRIN DEGRADATION PRODUCTS 3.81 UG/ML (0.00-0.49); INR 1.2 (0.8-1.4); PROTHROMBIN TIME PATIENT 15.4 SEC (12.2-14.7)
[2019-09-19 05:26] LABS: ALANINE AMINOTRANSFERASE 50 U/L (0-55); ALBUMIN 3.5 GM/DL (3.2-4.5); ALKALINE PHOSPHATASE 226 U/L (40-136); BILIRUBIN,TOTAL 0.8 MG/DL (0.1-1.0); BUN/CREATININE RATIO 20; CALCIUM 9.5 MG/DL (8.5-10.1); CARBON DIOXIDE 15 MMOL/L (21-32); CHLORIDE 106 MMOL/L (98-107); CREATININE SERUM 0.75 MG/DL (0.60-1.30); GFR ESTIMATED > 60; GLUCOSE 160 MG/DL (70-105); POTASSIUM 4.5 MMOL/L (3.6-5.0); SODIUM 132 MMOL/L (135-145); TOTAL PROTEIN 7.4 GM/DL (6.4-8.2)
--- NOTE | 2019-09-19 05:26 | Diagnostic Imaging Report ---
INDICATION: Seizure COMPARISON: 09/07/2019 FINDINGS: Single frontal view of the chest demonstrates normal heart size and pulmonary vascularity. The lungs are well aerated and clear. No large pleural effusion or pneumothorax is seen. The visualized osseous structures show no acute abnormalities. Right internal jugular Port-A-Cath is noted with tip in the SVC. IMPRESSION: 1. No acute cardiopulmonary process. Dictated by: Dictated on workstation # [id number]
[2019-09-19 05:34] LABS: BILIRUBIN,URINE NEGATIVE (NEGATIVE); CLARITY,URINE CLEAR; COLOR,URINE YELLOW; GLUCOSE, URINE (UA) NEGATIVE (NEGATIVE); KETONES,URINE NEGATIVE (NEGATIVE); LEUKOCYTE ESTERASE ,URINE NEGATIVE (NEGATIVE); NITRITE,URINE NEGATIVE (NEGATIVE); PH,URINE 5.5 (5-9); PROTEIN,URINE 2+ (NEGATIVE)
[2019-09-19] MEDS ORDERED: HOLD METFORMIN - RECEIVED CONTRAST 20 ML VIAL IV SCH (05:45)
[2019-09-19] MEDS ORDERED: IOHEXOL 350 MG/ML 100 ML (OMNIPAQUE 350) VIAL IV ONE (05:45)
[2019-09-19] MEDS ORDERED: NS 100 ML (IVPB) BAG IV ONE (05:45)
[2019-09-19 05:46] LABS: BACTERIA,URINE TRACE /HPF; HYALINE CASTS, URINE RARE /LPF; SQUAMOUS EPITHELIAL CELL,UR RARE /HPF
--- NOTE | 2019-09-19 06:12 | Diagnostic Imaging Report ---
INDICATION: Seizure TECHNIQUE: Routine non contrast-enhanced axial images were obtained from the skull base to the vertex. Auto Exposure Controls were utilized during the CT exam to meet ALARA standards for radiation dose reduction COMPARISON: 07/12/2019 FINDINGS: The ventricles and cortical sulci are diffusely prominent, compatible with age-related volume loss. There are confluent areas of abnormal, low attenuation in the periventricular white matter. This is consistent with chronic small vessel ischemic changes. There is no midline shift or mass-effect. No acute intra-axial hemorrhage is seen. There are no abnormal areas of increased or decreased density to suggest acute hemorrhage or edema. No extra-axial masses or collections are present. The bony calvarium is intact. The visualized paranasal sinuses are unremarkable. The mastoid air cells are clear. IMPRESSION: 1. No acute intracranial abnormality. No CT evidence of mass, acute infarct or intracranial hemorrhage. 2. Chronic small vessel ischemic changes in the deep white matter. Dictated by: Dictated on workstation # [id number]
--- NOTE | 2019-09-19 07:18 | Diagnostic Imaging Report ---
PROCEDURE: CT angiography of the head and CT angiography of the neck with and without contrast. TECHNIQUE: Contiguous noncontrast images were obtained from the skull base through the vertex. After intravenous contrast administration, helical CT angiography of the neck was performed. Source data was reformatted into 3D MIP projections. Delayed post contrast acquisition was also obtained. Auto Exposure Controls were utilized during the CT exam to meet ALARA standards for radiation dose reduction. INDICATION: Seizure. Slurred speech. COMPARISON: Noncontrast CT head from earlier same day FINDINGS: CTA neck: Included portions of the aortic arch are unremarkable. There is mild scattered calcified atherosclerosis at the origin of the arch vessels. Bilateral common carotid arteries otherwise normal in course and caliber. There is minimal calcified atherosclerosis of the bilateral carotid bulbs. There is no focal hemodynamically significant stenosis. Note is also made of minimal calcified atherosclerosis of the distal intracranial portions of bilateral internal carotid arteries, but otherwise there is no focal stenosis of the bilateral internal carotid arteries. There is no dissection or evidence of intraluminal thrombosis. Within the posterior circulation, the vertebral arteries appear to be codominant. There is mild multilevel extrinsic compression of the right vertebral artery secondary to osteoarthritic changes and narrowing of the transverse foramen. Similar, although less prominent appearance is also noted on the left. There is otherwise no focal significant stenosis, evidence of the dissection, or intraluminal thrombosis involving the bilateral vertebral arteries. Osseous structures of the cervical spine show age-related degenerative changes. No acute bony abnormalities are identified. Note is made of heterogeneous appearance to the thyroid gland. There is 2 cm heterogeneous partially calcified nodule on the right. Included portions of the lung apices show punctate subpleural 3 mm micronodule within the anterior left upper lobe (image 75, series 2). CTA [place]: There is normal enhancement of the bilateral anterior and middle cerebral arteries. There is no evidence of intraluminal thrombosis, aneurysm, nor vascular malformation. Anterior communicating artery appears to be patent. Within the posterior circulation, there is normal appearance to the basilar artery. There is normal enhancement of bilateral superior cerebellar and posterior cerebral arteries. There is no evidence of intraluminal thrombosis, vascular malformation, nor aneurysm. CT HEAD: Again identified are scattered and confluent areas of decreased attenuation within the periventricular and subcortical deep white matter consistent with background chronic small vessel ischemic changes. Ventricles and cortical sulci are also diffusely prominent consistent with underlying age-related parenchymal volume loss. There is no new loss of mathew-white matter junction differentiation to suggest large acute territorial infarct. There is no evidence of intra or extra-axial intracranial hemorrhage. No new mass effect or midline shift is identified. Bony calvarium is intact. No focal calvarial lesions are seen. Paranasal sinuses and mastoid air cells are clear. Note is made of anterior subluxation with displacement of the bilateral temporal mandibular joints. Advanced bilateral maxillary and mandibular dental caries are also present. IMPRESSION: 1. Mild scattered calcified atherosclerosis of the head and neck, but no focal hemodynamically significant stenosis. 2. No evidence of large vessel occlusion, dissection, nor aneurysm within the intracranial circulation. 3. No new acute infarct, mass, nor intracranial hemorrhage. 4. Age-indeterminate bilateral temporomandibular joint dislocation with anterior subluxation of the mandible. 5. Advanced bilateral maxillary and mandibular dental caries. 6. Heterogeneous appearance of the thyroid gland with 2 cm nodule on the right. Follow-up dedicated thyroid sonogram is recommended and could be performed on a nonemergent basis. 7. Small micronodule of the left upper lobe. If patient is in a high-risk category, may want to consider one-year follow-up to ensure stability. Dictated by: Dictated on workstation # [id number]
[2019-09-19 07:24] LABS: FREE T4 (FREE THYROXINE) 1.15 NG/DL (0.70-1.48)
[2019-09-19] MEDS ORDERED: LEVETIRACETAM 500 MG (KEPPRA) TAB PO ONE (08:30)
[2019-09-19] MEDS ORDERED: LEVE500T99 PO (08:43)
[2019-09-19] MEDS ORDERED: NYST1000 PO (08:43)
[2019-09-19] MEDS ORDERED: DILT120C82 PO (08:43)
--- NOTE | 2019-09-19 08:49 | Consultation-Cardiology ---
HPI-Cardiology Cardiology Consultation: Date of Consultation 09/19/19 Date of Admission Attending Physician Admitting Physician Bing Mcclellan DO Consulting Physician Gordon ANDERSON MD HPI: Time Seen by a Provider: 08:30 Chief Complaint: Atrial fibrillation with rapid ventricular rate This is a 69-year-old lady who came to the ER from via [facility]. She has end-stage pancreatic cancer. There is a questionable history of seizure disorder. She does not have history of epilepsy. She presented to the ER with atrial fibrillation with rapid ventricular rate. She does not have prior history of atrial fibrillation or any other cardiac history. She has a recent history of fall. This possibility of mild slurred speech. When I saw the patient in the ER she was not complaining of any cardiac symptoms. She specifically denied chest pain or shortness of breath. She also denied palpitations. She was still in atrial fibrillation with well-controlled ventricular rate. She was given Cardizem bolus and was on Cardizem infusion 10 mg per hour. Stroke workup was negative. Review of Systems-Cardiology Review of Systems Constitutional: As described under HPI; No As described under HPI, No no symptoms reported, No chills, No fever, No lightheadedness Eyes: No As described under HPI, No no symptoms reported, No blindness, No blurred vision, No contact lenses, No drainage, No decreased acuity, No foreign body sensation, No pain, No vision change Ears/Nose/Throat: No As described under HPI, No no symptoms reported, No chronic hearing loss, No ear discharge, No ear pain, No nasal drainage, No ulcerations Respiratory: No no symptoms reported; As described under HPI; No As described under HPI, No cough, No orthopnea, No shortness of breath, No SOB with excertion Cardiovascular: No no symptoms reported; As described under HPI; No As de scribed under HPI, No chest pain, No edema, No irregular heart rate, No lightheadedness; palpitations Gastrointestinal: No no symptoms reported, No As described under HPI, No abdomen distended, No abdominal pain, No blood streaked bowels, No constipation, No diarrhea, No nausea, No vomiting, No stool coloration changes Genitourinary: No As described under HPI, No burning, No dysuria, No discharge, No frequency, No flank pain, No hematuria, No urgency : Yes : No Skin: No rash, No skin related problems, No ulcerations Psychiatric/Neurological: As described under HPI; No anxiety, No depression, No seizure, No focal weakness, No syncope Hematologic: No bleeding abnormalities All Other Systems Reviewed Negative Unless Noted: Yes OXA-Ccxbii-Uctoej Hx Patient Social History Alcohol Use: Denies Use Recreational Drug Use: No Smoking Status: Never a Smoker 2nd Hand Smoke Exposure: No Recent Foreign Travel: No Recent Infectious Disease Expo: No Hospitalization with Isolation: Denies Immunizations Up To Date Tetanus Booster (TDap): Unknown Date of Influenza Vaccine: Aug 16, 2019 Past Medical History PMH As described under Assessment. Allergies and Home Medications Allergies Coded Allergies: Penicillins (Verified Allergy, Unknown, pt has received Rocephin in the past, 07/14/19) ciprofloxacin (Verified Allergy, Unknown, 09/06/19) sulfamethoxazole (Unverified Allergy, Unknown, 02/06/19) trimethoprim (Unverified Allergy, Unknown, 02/06/19) Home Medications Acetaminophen 325 Mg Tablet, 325 MG PO Q4H Prescribed by: BING MCCLELLAN on 07/27/19 1306 Aspirin 81 Mg Tablet.dr, 81 MG PO DAILY Prescribed by: BING MCCLELLAN on 07/27/19 1306 Diltiazem HCl 120 Mg Cap.er.24h, 120 MG PO DAILY Prescribed by: ИВАН FENG on 09/19/19 0843 Lactulose 10 Gm/15 Ml Solution, 10 GM PO DAILY Prescribed by: BING MCCLELLAN on 07/27/19 1306 Levetiracetam 500 Mg Tablet, 500 MG PO BID Prescribed by: ИВАН FENG on 09/19/19 0843 Nystatin 100,000 Unit/1 Ml Oral.susp, 5 ML PO QID Swish for at least 30 seconds and then you may swallow Prescribed by: ИВАН FENG on 09/19/19 0843 Ondansetron HCl 4 Mg Tab, 4 MG PO PRN, (Reported) Potassium Chloride 20 Meq Tab.er.prt, 20 MEQ PO DAILY, (Reported) Spironolactone 25 Mg Tablet, 50 MG PO DAILY Prescribed by: BING MCCLELLAN on 07/27/19 1306 Patient Home Medication List Home Medication List Reviewed: Yes Physical Exam-Cardiology Physical Exam Vital Signs/I&O 09/19/19 09/19/19 09/19/19 09/19/19 04:44 04:44 05:10 09:40 Temp 36.3 Pulse 125 102 72 Resp 22 12 16 B/P (MAP) 117/75 (89) 148/118 109/71 (128) Pulse Ox 99 99 92 97 O2 Delivery Nasal Cannula Nasal Cannula Nasal Cannula Room Air O2 Flow Rate 2.00 2.00 Capillary Refill : Less Than 3 Seconds Constitutional: appears stated age; No apparent distress; well-developed, well- nourished HEENT: PERRL; No discharge; hearing is well preserved, oral hygience is good; No ulceration, No xanthelasmas are seen Neck: No carotid bruit; carotid pulses are 2 + bilaterally Respiratory: chest is bilaterally symmetric, lungs clear to auscultation Cardiovascular: irregularly irregular, S1 and S2 Gastrointestinal: soft, audible bowel sounds; No spleenomegaly Extremities: normal range of motion, non-tender, normal inspection; No clubbing, No cyanosis; no lower extremity edema bilateral; No significant edema Neurologic/Psychiatric: no motor/sensory deficits, alert, normal mood/affect, oriented x 3, power is 5/5 both on sides Skin: normal color; No rash, No ulcerations Data Review Labs Laboratory Tests 09/19/19 04:51: Glucometer 142H 09/19/19 04:53: White Blood Count 7.8, Red Blood Count 4.88, Hemoglobin 13.2, Hematocrit 42, Mean Corpuscular Volume 86, Mean Corpuscular Hemoglobin 27, Mean Corpuscular Hemoglobin Concent 32, Red Cell Distribution Width 14.4, Platelet Count 182, Mean Platelet Volume 11.8H, Neutrophils (%) (Auto) 86H, Lymphocytes (%) (Auto) 11L, Monocytes (%) (Auto) 1, Eosinophils (%) (Auto) 2, Basophils (%) (Auto) 0, Neutrophils # (Auto) 6.7, Lymphocytes # (Auto) 0.9L, Monocytes # (Auto) 0.1, Eosinophils # (Auto) 0.1, Basophils # (Auto) 0.0, Prothrombin Time 15.4H, INR Comment 1.2, Activated Partial Thromboplast Time 29, D-Dimer 3.81H, Sodium Level 132L, Potassium Level 4.5, Chloride Level 106, Carbon Dioxide Level 15L, Anion Gap 11, Blood Urea Nitrogen 15, Creatinine 0.75, Estimat Glomerular Filtration Rate > 60, BUN/Creatinine Ratio 20, Glucose Level 160H, Calcium Level 9.5, Corrected Calcium 9.9, Total Bilirubin 0.8, Aspartate Amino Transf (AST/SGOT) 40H, Alanine Aminotransferase (ALT/SGPT) 50, Alkaline Phosphatase 226H, Troponin I < 0.028, Total Protein 7.4, Albumin 3.5 09/19/19 05:26: Urine Color YELLOW, Urine Clarity CLEAR, Urine pH 5.5, Urine Specific [place] >=1.030, Urine Protein 2+H, Urine Glucose (UA) NEGATIVE, Urine Ketones NEGATIVE, Urine Nitrite NEGATIVE, Urine Bilirubin NEGATIVE, Urine Urobilinogen 0.2, Urine Leukocyte Esterase NEGATIVE, Urine RBC (Auto) NEGATIVE, Urine RBC NONE, Urine WBC NONE, Urine Squamous Epithelial Cells RARE, Urine Crystals NONE, Urine Bacteria TRACE, Urine Casts PRESENT, Urine Hyaline Casts RARE, Urine Mucus NEGATIVE, Urine Culture Indicated NO 09/19/19 06:10: Ammonia 30, Thyroid Stimulating Hormone (TSH) 0.50, Free Thyroxine 1.15 ECG Impression ECG Initial ECG Impression: Atrial Fibrillation w/RVR A/P-Cardiology Assessment/Admission Diagnosis Suspicious for seizure disorder, Atrial fibrillation with rapid ventricular rate, End-stage pancreatic cancer Plan Defer to the primary team for evaluation of seizure disorder. End-stage pancreatic cancer. Atrial fibrillation with rapid ventricular rate. Due to end-stage pancreatic cancer and recent history of fall and possible seizure disorder be well avoid oral anticoagulation therapy. The patient is already on aspirin. We will continue. Change Cardizem infusion to Cardizem 120 mg CD by mouth daily. I can follow-up as an outpatient with an echocardiogram and possible monitor. Discussed with Dr. Feng. Thank you for your consultation. Please call me if you have any questions. Darnell Anderson MD, FACP, FACC, FSCAI, FHRS, CCDS Interventional Cardiology Cardiac Electrophysiology Vascular Medicine and Endovascular Interventions Clinical Quality Measures Stroke: Date of last known well: Sep 19, 2019 Time of last known well: 03:45 Symptoms onset unknown: Gordon Thomason MD Sep 19, 2019 08:49 POS
[2019-09-19] MEDS ORDERED: DILTIAZEM 120 MG (CARDIZEM CD) CAP PO SCH (09:00)
--- NOTE | 2019-09-19 09:00 | NUR ---
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 PT HAS NO NEEDS AT THIS TIME.
[2019-09-19 09:40] VITALS: BP 109/71
== END 2019-09-19 09:43 | disposition home or self-care (01) ==
LOC: EDUNIT# 04:41 → ER 04:43
DX: I48.0 Paroxysmal atrial fibrillation (principal); I10 Essential (primary) hypertension; Z85.07 Personal history of malignant neoplasm of pancreas; Z90.710 Acquired absence of both cervix and uterus; Z90.89 Acquired absence of other organs; Z79.82 Long term (current) use of aspirin; Z88.0 Allergy status to penicillin; Z88.1 Allergy status to other antibiotic agents; Z88.2 Allergy status to sulfonamides
CPT/HCPCS: 36415; 70450; 70496; 70498; 71045; 80053; 81000; 82140; 82962; 84439; 84443; 84484; 85025; 85379; 85610; 85730; 93005; 93041

== ENCOUNTER 2019-09-28 16:07 | Inpatient (IN) | payer MEDICARE, MEDICAID ==
[~2019-09-28] VITALS: Ht 172 cm; Wt 76.8 kg
[~2019-09-28 16:07] MED LIST changes: +DILT120C82 PO; +LEVE500T99 PO; +NYST1000 PO
[2019-09-28 16:32] LABS: BASOPHILS % (AUTO) 1 % (0-10); EOSINOPHILS % (AUTO) 1 % (0-10); HEMATOCRIT 37 % (35-52); HEMOGLOBIN 12.5 G/DL (11.5-16.0); LYMPHOCYTES # (AUTO) 0.7 X 10^3 (1.0-4.0); LYMPHOCYTES % (AUTO) 57 % (12-44); MEAN CORPUSCULAR HEMOGLOBIN 27 PG (25-34); MEAN CORPUSCULAR HGB CONC 34 G/DL (32-36); MEAN CORPUSCULAR VOLUME 81 FL (80-99); MEAN PLATELET VOLUME 11.7 FL (7.4-10.4); MONOCYTES # (AUTO) 0.3 X 10^3 (0.0-1.0); MONOCYTES % (AUTO) 25 % (0-12); NEUTROPHILS # (AUTO) 0.2 X 10^3 (1.8-7.8); NEUTROPHILS % (AUTO) 17 % (42-75); PLATELET COUNT 57 10^3/uL (130-400); RED CELL DISTRIBUTION WIDTH 14.1 % (10.0-14.5)
--- NOTE | 2019-09-28 16:32 | ED General ---
General Stated Complaint: LETHARGY Source of Information: Patient Exam Limitations: No Limitations (SARAH SALAMANCA DO) History of Present Illness Date Seen by Provider: Sep 28, 2019 Time Seen by Provider: 16:15 Initial Comments 69-year-old female presents with malaise and not feeling well. Patient reports she she just hasn't felt good for a couple days. She has some nausea but no vomiting. Patient has a history of pancreatic cancer and thinks that maybe this is why she does not feel good. She denies any fevers chills cough diarrhea or any other systemic complaints. (SARAH SALAMANCA DO) Allergies and Home Medications Allergies Coded Allergies: Penicillins (Verified Allergy, Unknown, pt has received Rocephin in the past, 07/14/19) ciprofloxacin (Verified Allergy, Unknown, 09/06/19) sulfamethoxazole (Unverified Allergy, Unknown, 02/06/19) trimethoprim (Unverified Allergy, Unknown, 02/06/19) Home Medications Acetaminophen 325 Mg Tablet, 325 MG PO Q4H Prescribed by: BING VOGEL on 07/27/19 1306 Aspirin 81 Mg Tablet.dr, 81 MG PO DAILY Prescribed by: BING VOGEL on 07/27/19 1306 Diltiazem HCl 120 Mg Cap.er.24h, 120 MG PO DAILY Prescribed by: ИВАН FENG on 09/19/19 0843 Lactulose 10 Gm/15 Ml Solution, 10 GM PO DAILY Prescribed by: BING VOGEL on 07/27/19 1306 Levetiracetam 500 Mg Tablet, 500 MG PO BID Prescribed by: ИВАН FENG on 09/19/19 0843 Nystatin 100,000 Unit/1 Ml Oral.susp, 5 ML PO QID Swish for at least 30 seconds and then you may swallow Prescribed by: ИВАН FENG on 09/19/19 0843 Ondansetron HCl 4 Mg Tab, 4 MG PO PRN, (Reported) Potassium Chloride 20 Meq Tab.er.prt, 20 MEQ PO DAILY, (Reported) Spironolactone 25 Mg Tablet, 50 MG PO DAILY Prescribed by: BING VOGEL on 07/27/19 1306 Patient Home Medication List Home Medication List Reviewed: Yes (SARAH SALAMANCA DO) Review of Systems Review of Systems Constitutional: No chills, No fever; malaise EENTM: no symptoms reported Respiratory: No cough, No short of breath Cardiovascular: No chest pain Gastrointestinal: No abdominal pain, No diarrhea; nausea; No vomiting Genitourinary: no symptoms reported Musculoskeletal: no symptoms reported Skin: no symptoms reported Psychiatric/Neurological: No Symptoms Reported Hematologic/Lymphatic: No Symptoms Reported (SARAH SALAMANCA DO) Past Gjljfia-Dkxwok-Bzrlat Hx Past Med/Social Hx: Reviewed Nursing Past Med/Soc Hx (SARAH SALAMANCA DO) Patient Social History 2nd Hand Smoke Exposure: No Recent Hopitalizations: Yes (SARAH SALAMANCA DO) Immunizations Up To Date Tetanus Booster (TDap): Unknown PED Vaccines UTD: Yes Date of Influenza Vaccine: Aug 16, 2019 (SARAH SALAMANCA DO) Seasonal Allergies Seasonal Allergies: No (SARAH SALAMANCA DO) Past Medical History Surgeries: Yes Eye Surgery, Gallbladder, Hysterectomy, Oophorectomy, Tonsillectomy Respiratory: No Cardiac: Yes Atrial Fibrillation, Heart Murmur, Hypertension 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, 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 Genitourinary: No Gastrointestinal: Yes (PANCREATIC CANCER) Liver Disease/Jaundice, Gall Bladder Disease Musculoskeletal: No Endocrine: No HEENT: Yes (BILATERAL CATARACT SURGERY) Cataract Cancer: Yes Pancreatic Psychosocial: No Integumentary: No Blood Disorders: No (SARAH SALAMANCA DO) Gastrointestinal: Yes (PANCREATIC CANCER) Cancer: Yes Did You Recieve Any Treatments: Yes What Type of Treatment Did You: Chemotherapy (YESSI VENTURA DO) Family Medical History No Pertinent Family Hx (SARAH SALAMANCA DO) Physical Exam Vital Signs Vital Signs - First Documented 09/28/19 16:10 Temp 36.4 Pulse 100 Resp 18 B/P (MAP) 128/77 (94) (YESSI VENTURA DO) Vital Signs Capillary Refill : (SARAH SALAMANCA DO) Height, Weight, BMI Height: 5'8.00" Weight: 181lbs. 0.5oz. 82.208146ej; 19.00 BMI Method:Stated General Appearance: No Apparent Distress, WD/WN HEENT: PERRL/EOMI, TMs Normal Respiratory: Chest Non Tender, Lungs Clear, Normal Breath Sounds Cardiovascular: Regular Rate, Rhythm, No Edema Gastrointestinal: Normal Bowel Sounds, Non Tender, Soft Extremity: Normal Capillary Refill, Normal Inspection Neurologic/Psychiatric: Alert, Oriented x3, No Motor/Sensory Deficits, Normal Mood/Affect (SARAH SALAMANCA DO) Cardiovascular: Irregularly Irregular (RATE AVG 100) (LORENZOYESSI Barton DO) Progress/Results/Core Measures Suspected Sepsis SIRS Temperature: Pulse: Respiratory Rate: Blood Pressure / Mean: (GLENDY SALAMANCAR L DO) Results/Orders Lab Results Laboratory Tests Test 09/28/19 16:20 09/28/19 17:39 Range/Units White Blood Count 1.3 *L 4.3-11.0 10^3/uL Red Blood Count 4.58 4.35-5.85 10^6/uL Hemoglobin 12.5 11.5-16.0 G/DL Hematocrit 37 35-52 % Mean Corpuscular Volume 81 80-99 FL Mean Corpuscular Hemoglobin 27 25-34 PG Mean Corpuscular Hemoglobin Concent 34 32-36 G/DL Red Cell Distribution Width 14.1 10.0-14.5 % Platelet Count 57 L 130-400 10^3/uL Mean Platelet Volume 11.7 H 7.4-10.4 FL Neutrophils (%) (Auto) 17 L 42-75 % Lymphocytes (%) (Auto) 57 H 12-44 % Monocytes (%) (Auto) 25 H 0-12 % Eosinophils (%) (Auto) 1 0-10 % Basophils (%) (Auto) 1 0-10 % Neutrophils # (Auto) 0.2 L 1.8-7.8 X 10^3 Lymphocytes # (Auto) 0.7 L 1.0-4.0 X 10^3 Monocytes # (Auto) 0.3 0.0-1.0 X 10^3 Eosinophils # (Auto) 0.0 0.0-0.3 10^3/uL Basophils # (Auto) 0.0 0.0-0.1 10^3/uL Neutrophils % (Manual) 6 % Lymphocytes % (Manual) 61 % Monocytes % (Manual) 30 % Band Neutrophils 3 % Poikilocytosis SLIGHT Crenated Cell SLIGHT Elliptocytes SLIGHT Sodium Level 132 L 135-145 MMOL/L Potassium Level 4.1 3.6-5.0 MMOL/L Chloride Level 103 98-107 MMOL/L Carbon Dioxide Level 19 L 21-32 MMOL/L Anion Gap 10 5-14 MMOL/L Blood Urea Nitrogen 32 H 7-18 MG/DL Creatinine 0.61 0.60-1.30 MG/DL Estimat Glomerular Filtration Rate > 60 BUN/Creatinine Ratio 52 Glucose Level 151 H 70-105 MG/DL Calcium Level 10.1 8.5-10.1 MG/DL Corrected Calcium 11.1 H 8.5-10.1 MG/DL Total Bilirubin 1.3 H 0.1-1.0 MG/DL Aspartate Amino Transf (AST/SGOT) 13 5-34 U/L Alanine Aminotransferase (ALT/SGPT) 37 0-55 U/L Alkaline Phosphatase 365 H 40-136 U/L Troponin I < 0.028 <0.028 NG/ML Total Protein 5.8 L 6.4-8.2 GM/DL Albumin 2.8 L 3.2-4.5 GM/DL Lipase < 4 L 8-78 U/L Urine Color YELLOW Urine Clarity CLEAR Urine pH 6.0 5-9 Urine Specific [place] 1.020 1.016-1.022 Urine Protein TRACE NEGATIVE Urine Glucose (UA) NEGATIVE NEGATIVE Urine Ketones TRACE H NEGATIVE Urine Nitrite POSITIVE NEGATIVE Urine Bilirubin 1+ H NEGATIVE Urine Urobilinogen 0.2 < = 1.0 MG/DL Urine Leukocyte Esterase NEGATIVE NEGATIVE Urine RBC (Auto) 1+ H NEGATIVE Urine RBC 5-10 H /HPF Urine WBC NONE /HPF Urine Crystals NONE /LPF Urine Bacteria LARGE H /HPF Urine Casts NONE /LPF Urine Mucus NEGATIVE /LPF Urine Culture Indicated YES (YESSI VENTURA DO) Micro Results Microbiology 09/28/19 Influenza Types A,B Antigen (CHLOÉ) - Final, Complete (YESSI VENTURA DO) My Orders Orders - YESSI VENTURA DO Ceftriaxone For Iv Use (Rocephin For I (09/28/19 18:45) Enoxaparin Injection (Lovenox Injection) (09/28/19 18:45) (YESSI VENTURA DO) Vital Signs/I&O 09/28/19 16:10 Temp 36.4 Pulse 100 Resp 18 B/P (MAP) 128/77 (94) (YESSI VENTURA DO) Vital Signs/I&O Capillary Refill : (SARAH SALAMANCA DO) Progress Note : Progress Note 1800--ASSUMED CARE FROM DR. SALAMANCA, UA PENDING. PT HAS NO COMPLAINTS AT THIS TIME (YESSI VENTURA DO) ECG Initial ECG Impression Date: Sep 28, 2019 Initial ECG Impression Time: 16:57 Initial ECG Rate: 100 Initial ECG Rhythm: A Fib/Flutter (YESSI VENTURA DO) Diagnostic Imaging Comments CXR--NO ACUTE PROCESS, PER RADIOLOGIST REPORT AT 1839 Reviewed: Reviewed by Me (YESSI VENTURA DO) Departure Communication (Admissions) 1823--SPOKE WITH DR. ALMONTE, ADVISES ADMIT TO PCP, AND CONSULT DR. HUYNH IN AM 1824--SPOKE WITH DR. VOGEL, ACCEPTS PT FOR ADMIT. (YESSI VENTURA DO) Impression Primary Impression: UTI (urinary tract infection) Additional Impressions: Neutropenia PANCREATIC CANCER ON CHEMO Sepsis Chronic atrial fibrillation Dehydration Disposition: 09 ADMITTED INPATIENT Condition: Stable Admissions Decision to Admit Reason: Admit from ER (General) Decision to Admit/Date: Sep 28, 2019 Time/Decision to Admit Time: 18:30 (YESSI VENTURA DO) Departure-Patient Inst. Referrals: BING VOGEL DO (PCP/Family) Primary Care Physician SARAH SALAMANCA DO Sep 28, 2019 16:32 YESSI ESTRELLA DO Sep 28, 2019 18:45 POS
[2019-09-28 16:37] LABS: WHITE BLOOD COUNT 1.3 10^3/uL (4.3-11.0)
--- NOTE | 2019-09-28 16:48 | Diagnostic Imaging Report ---
INDICATION: Nausea x3 days. EXAMINATION: Portable chest at 4:37 p.m. FINDINGS: Right IJ Port-A-Cath tip projects over the SVC. Heart size and pulmonary vascularity are normal. Lungs are clear. There are no effusions or pneumothoraces. IMPRESSION: Negative chest. Dictated by: Dictated on workstation # [id number]
[2019-09-28 16:54] LABS: ALANINE AMINOTRANSFERASE 37 U/L (0-55); ALBUMIN 2.8 GM/DL (3.2-4.5); ALKALINE PHOSPHATASE 365 U/L (40-136); BILIRUBIN,TOTAL 1.3 MG/DL (0.1-1.0); BUN/CREATININE RATIO 52; CALCIUM 10.1 MG/DL (8.5-10.1); CARBON DIOXIDE 19 MMOL/L (21-32); CHLORIDE 103 MMOL/L (98-107); CREATININE SERUM 0.61 MG/DL (0.60-1.30); GFR ESTIMATED > 60; GLUCOSE 151 MG/DL (70-105); LIPASE < 4 U/L (8-78); POTASSIUM 4.1 MMOL/L (3.6-5.0); SODIUM 132 MMOL/L (135-145); TOTAL PROTEIN 5.8 GM/DL (6.4-8.2)
[2019-09-28 17:16] LABS: BAND NEUTROPHILS 3 %; CRENATED RBC SLIGHT; ELLIPT/OVALOCYTES SLIGHT; LYMPHOCYTES % (MANUAL) 61 %; MONOCYTES % (MANUAL) 30 %; NEUTROPHILS % (MANUAL) 6 %; POIKILOCYTOSIS SLIGHT
[2019-09-28 18:08] LABS: BILIRUBIN,URINE 1+ (NEGATIVE); CLARITY,URINE CLEAR; COLOR,URINE YELLOW; GLUCOSE, URINE (UA) NEGATIVE (NEGATIVE); KETONES,URINE TRACE (NEGATIVE); LEUKOCYTE ESTERASE ,URINE NEGATIVE (NEGATIVE); NITRITE,URINE POSITIVE (NEGATIVE); PROTEIN,URINE TRACE (NEGATIVE)
[2019-09-28 18:20] LABS: BACTERIA,URINE LARGE /HPF
[2019-09-28] MEDS ORDERED: cefTRIAXone FOR IV USE 1,000 MG in WATER (STERILE) FOR INJECTION 10 ML IV ONE (18:45)
[2019-09-28] MEDS ORDERED: ENOXAPARIN 60 MG/0.6 ML (LOVENOX) SYR SC ONE (18:45)
[2019-09-28 19:12] LABS: INR 1.6 (0.8-1.4); PROTHROMBIN TIME PATIENT 19.4 SEC (12.2-14.7)
[2019-09-28 19:14] LABS: MAGNESIUM 1.7 MG/DL (1.6-2.4)
[2019-09-28] MEDS ORDERED: cefTRIAXone 1,000 MG/SWFI 10 ML IV PUSH IV SCH ×2 (20:00)
[2019-09-28 20:11] VITALS: BP 137/80
[2019-09-28] MEDS ORDERED: CATHETER FLUSH 10 ML SYR IV PRN (20:15)
[2019-09-28] MEDS: D5 1/2 NS W/KCL 20 MEQ/L 1,000 ML IV SCH (21:14)
[2019-09-28 23:09] VITALS: BP 137/80
[2019-09-28 23:20] VITALS: BP 123/79
[2019-09-28] MEDS ORDERED: RT-ALBUTEROL SULF 2.5 MG/3 ML PRE-MIX VIAL INH PRN (23:30)
[2019-09-29] MEDS: D5 1/2 NS W/KCL 20 MEQ/L 1,000 ML IV SCH ×4 (03:54→23:55)
[2019-09-29 04:14] VITALS: BP 124/68
[2019-09-29 06:13] LABS: HEMATOCRIT 34 % (35-52); HEMOGLOBIN 11.5 G/DL (11.5-16.0); MEAN CORPUSCULAR HEMOGLOBIN 28 PG (25-34); MEAN CORPUSCULAR HGB CONC 34 G/DL (32-36); MEAN CORPUSCULAR VOLUME 81 FL (80-99); MEAN PLATELET VOLUME 12.7 FL (7.4-10.4); PLATELET COUNT 74 10^3/uL (130-400); RED CELL DISTRIBUTION WIDTH 14.3 % (10.0-14.5); WHITE BLOOD COUNT 3.7 10^3/uL (4.3-11.0)
[2019-09-29 06:36] LABS: ALANINE AMINOTRANSFERASE 29 U/L (0-55); ALBUMIN 2.4 GM/DL (3.2-4.5); ALKALINE PHOSPHATASE 344 U/L (40-136); BILIRUBIN,TOTAL 0.9 MG/DL (0.1-1.0); BUN/CREATININE RATIO 47; CALCIUM 9.2 MG/DL (8.5-10.1); CARBON DIOXIDE 18 MMOL/L (21-32); CHLORIDE 105 MMOL/L (98-107); CREATININE SERUM 0.59 MG/DL (0.60-1.30); GFR ESTIMATED > 60; GLUCOSE 173 MG/DL (70-105); POTASSIUM 4.5 MMOL/L (3.6-5.0); SODIUM 130 MMOL/L (135-145); TOTAL PROTEIN 5.2 GM/DL (6.4-8.2)
[2019-09-29 06:44] LABS: ATYPICAL LYMPHOCYTES 8 %; BAND NEUTROPHILS 3 %; EOSINOPHILS % (MANUAL) 2 %; LYMPHOCYTES % (MANUAL) 32 %; METAMYELOCYTES % 2 %; MONOCYTES % (MANUAL) 19 %; MYELOCYTES % 4 %; NEUTROPHILS % (MANUAL) 27 %; REACTIVE LYMPHOCYTES 3 %
--- NOTE | 2019-09-29 06:53 | Diagnostic Imaging Report ---
INDICATION: Neutropenia Portable chest 4:21 AM Right IJ Port-A-Cath tip projects over the SVC. Heart size and pulmonary vascularity are normal. Lungs are clear. There are no effusions or pneumothoraces. IMPRESSION: No acute abnormalities in the chest Dictated by: Dictated on workstation # [id number]
[2019-09-29] MEDS: ENOXAPARIN 60 MG/0.6 ML (LOVENOX) SYR SC SCH ×2 (06:58→17:38)
[2019-09-29 08:26] VITALS: BP 117/67
[2019-09-29] MEDS ORDERED: ACET325T38 PO (10:26)
[2019-09-29] MEDS ORDERED: LEVE500T6 PO (10:26)
[2019-09-29] MEDS ORDERED: NYST1000 PO (10:26)
[2019-09-29] MEDS ORDERED: FAMO20TA5 PO (10:26)
[2019-09-29] MEDS ORDERED: SPIR25TA PO (10:26)
[2019-09-29] MEDS ORDERED: POTA8CAP20 PO (10:26)
[2019-09-29] MEDS ORDERED: LACT10SO46 PO (10:26)
[2019-09-29] MEDS ORDERED: ASPI-983 PO (10:26)
[2019-09-29] MEDS ORDERED: ONDA8TAB6 PO (10:26)
[2019-09-29] MEDS ORDERED: DILT-27 PO (10:26)
[2019-09-29] MEDS ORDERED: MENT1ADH TP (10:26)
--- NOTE | 2019-09-29 10:56 | Consultation ---
History of Present Illness History of Present Illness Patient Consulted On(vasquez/time) 09/29/19 10:13 Date Seen by Provider: Sep 29, 2019 Time Seen by Provider: 10:51 History of Present Illness Ms. Ryder is a 69 yo female with metastatic pancreatic cancer who was admitted with neutropenia and UTI. Patient suffers from severe short term memory deficits of unclear etiology since her initial hospitalization a couple months ago, at which time the cancer was diagnosed. An extensive discussion with her family was had before settling on palliative chemotherapy, which was started on 09/14/19. After receiving her second week of cycle 1 gemzar and abraxane, patient began to feel unwell. Patient's family and jail staff noted about 5 days ago that she was severely fatigued, not participating in usual jail activities, not leaving her room and not eating anything. Yesterday, jail staff said patient complained of abdominal pain. Patient is a very poor historian due to her memory issues but she denies any pain currently and feels well this morning. Allergies and Home Medications Allergies Coded Allergies: Penicillins (Verified Allergy, Unknown, pt has received Rocephin in the past, 07/14/19) ciprofloxacin (Verified Allergy, Unknown, 09/06/19) sulfamethoxazole (Unverified Allergy, Unknown, 02/06/19) trimethoprim (Unverified Allergy, Unknown, 02/06/19) Home Medications Acetaminophen 325 Mg Tablet, 325 MG PO Q4H Prescribed by: BING VOGEL on 07/27/19 1306 Aspirin 81 Mg Tablet.dr, 81 MG PO DAILY Prescribed by: BING VOGEL on 07/27/19 1306 Diltiazem HCl 120 Mg Cap.er.24h, 120 MG PO DAILY Prescribed by: ИВАН FENG on 09/19/19 0843 Lactulose 10 Gm/15 Ml Solution, 10 GM PO DAILY Prescribed by: BING VOGEL on 07/27/19 1306 Levetiracetam 500 Mg Tablet, 500 MG PO BID Prescribed by: ИВАН FENG on 09/19/19 08 Nystatin 100,000 Unit/1 Ml Oral.susp, 5 ML PO QID Swish for at least 30 seconds and then you may swallow Prescribed by: ИВАН FENG on 09/19/19 0843 Ondansetron HCl 4 Mg Tab, 4 MG PO PRN, (Reported) Potassium Chloride 20 Meq Tab.er.prt, 20 MEQ PO DAILY, (Reported) Spironolactone 25 Mg Tablet, 50 MG PO DAILY Prescribed by: BING VOGEL on 07/27/19 1306 Patient Home Medication List Home Medication List Reviewed: Yes Past Ukqnxmd-Moeweh-Qfjohf Hx Past Med/Social Hx: Reviewed Nursing Past Med/Soc Hx Patient Social History Alcohol Use: Denies Use Recreational Drug Use: No Smoking Status: Never a Smoker 2nd Hand Smoke Exposure: No Recent Foreign Travel: No Contact w/Someone Who Travel: No Recent Infectious Disease Expo: No Recent Hopitalizations: Yes Physical Abuse: No Sexual Abuse: No Immunizations Up To Date Tetanus Booster (TDap): Unknown PED Vaccines UTD: Yes Date of Influenza Vaccine: Aug 16, 2019 Seasonal Allergies Seasonal Allergies: No Past Medical History Surgeries: Yes Eye Surgery, Gallbladder, Hysterectomy, Oophorectomy, Tonsillectomy Respiratory: No Cardiac: Yes Atrial Fibrillation, Heart Murmur, Hypertension 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, 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 Genitourinary: No Gastrointestinal: Yes (PANCREATIC CANCER) Liver Disease/Jaundice, Gall Bladder Disease Musculoskeletal: No Endocrine: No HEENT: Yes (BILATERAL CATARACT SURGERY) Cataract Cancer: Yes Pancreatic Did You Recieve Any Treatments: Yes What Type of Treatment Did You: Chemotherapy Psychosocial: No Integumentary: No Blood Disorders: No Family Medical History No Pertinent Family Hx Review of Systems-General Constitutional: malaise EENTM: no symptoms reported Respiratory: no symptoms reported Cardiovascular: no symptoms reported Gastrointestinal: no symptoms reported Genitourinary: no symptoms reported Musculoskeletal: no symptoms reported Skin: no symptoms reported Psychiatric/Neurological: Other (poor memory) Physical Exam-General Problems Physical Exam Vital Signs Vital Signs - First Documented 09/28/19 09/28/19 09/28/19 16:10 19:49 23:09 Temp 36.4 Pulse 100 Resp 18 B/P (MAP) 128/77 (94) Pulse Ox 97 O2 Delivery Room Air FiO2 21 Capillary Refill : Less Than 3 Seconds General Appearance: WD/WN, no apparent distress Eyes: Bilateral Eye Normal Inspection, Bilateral Eye EOMI HEENT: PERRL/EOMI, normal ENT inspection, pharynx normal Neck: non-tender, full range of motion, supple, normal inspection Respiratory: chest non-tender, lungs clear, normal breath sounds, no res piratory distress, no accessory muscle use Cardiovascular: regular rate, rhythm, no edema, no murmur Gastrointestinal: normal bowel sounds, non tender, soft Back: normal inspection Extremities: normal range of motion, non-tender, normal inspection, no pedal edema 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 Her neutropenia is entirely from chemotherapy and it is starting to recover rapidly. Today, ANC is just below 1.0 by manual differential. Her symptoms are improving but appetite remains poor. Her failure to thrive is also likely entirely a chemotherapy issue, and she will need either an extended break from cycle 2, a dose reduction or elimination of a chemotherapy agent, or any combination of these. I feel patient is stable to be discharged tomorrow when ANC >1.0, to complete a course of antibiotics for the UTI. Thank you for allowing me to participate in the care of Ms. Ryder. Clinical Quality Measures DVT/VTE Risk/Contraindication: Risk Factor Score Per Nursin RFS Level Per Nursing on Admit: 4+=Very High Results Labs Labs Laboratory Tests 09/28/19 16:20: White Blood Count 1.3*L, Red Blood Count 4.58, Hemoglobin 12.5, Hematocrit 37, Mean Corpuscular Volume 81, Mean Corpuscular Hemoglobin 27, Mean Corpuscular Hemoglobin Concent 34, Red Cell Distribution Width 14.1, Platelet Count 57L, Mean Platelet Volume 11.7H, Neutrophils (%) (Auto) 17L, Lymphocytes (%) (Auto) 57H, Monocytes (%) (Auto) 25H, Eosinophils (%) (Auto) 1, Basophils (%) (Auto) 1, Neutrophils # (Auto) 0.2L, Lymphocytes # (Auto) 0.7L, Monocytes # (Auto) 0.3, Eosinophils # (Auto) 0.0, Basophils # (Auto) 0.0, Neutrophils % (Manual) 6, Lymphocytes % (Manual) 61, Monocytes % (Manual) 30, Band Neutrophils 3, Poikilocytosis SLIGHT, Crenated Cell SLIGHT, Elliptocytes SLIGHT, Sodium Level 132L, Potassium Level 4.1, Chloride Level 103, Carbon Dioxide Level 19L, Anion Gap 10, Blood Urea Nitrogen 32H, Creatinine 0.61, Estimat Glomerular Filtration Rate > 60, BUN/Creatinine Ratio 52, Glucose Level 151H, Lactic Acid Level 2.43*H , Calcium Level 10.1, Corrected Calcium 11.1H, Total Bilirubin 1.3H, Aspartate Amino Transf (AST/SGOT) 13, Alanine Aminotransferase (ALT/SGPT) 37, Alkaline Phosphatase 365H, Troponin I < 0.028, Total Protein 5.8L, Albumin 2.8L, Lipase < 4L 09/28/19 17:39: Urine Color YELLOW, Urine Clarity CLEAR, Urine pH 6.0, Urine Specific [place] 1.020, Urine Protein TRACE, Urine Glucose (UA) NEGATIVE, Urine Ketones TRACEH, Urine Nitrite POSITIVE, Urine Bilirubin 1+H, Urine Urobilinogen 0.2, Urine Leukocyte Esterase NEGATIVE, Urine RBC (Auto) 1+H, Urine RBC 5-10H, Urine WBC N ONE, Urine Crystals NONE, Urine Bacteria LARGEH, Urine Casts NONE, Urine Mucus NEGATIVE, Urine Culture Indicated YES 09/28/19 18:50: Prothrombin Time 19.4H, INR Comment 1.6H, Activated Partial Thromboplast Time 42H, Magnesium Level 1.7, Ammonia 45H 09/28/19 19:26: Lactic Acid Level 2.39*H 09/29/19 06:05: White Blood Count 3.7L, Red Blood Count 4.17L, Hemoglobin 11.5, Hematocrit 34L, Mean Corpuscular Volume 81, Mean Corpuscular Hemoglobin 28, Mean Corpuscular Hemoglobin Concent 34, Red Cell Distribution Width 14.3, Platelet Count 74L, Mean Platelet Volume 12.7H, Neutrophils (%) (Auto) , Lymphocytes (%) (Auto) , Monocytes (%) (Auto) , Eosinophils (%) (Auto) , Basophils (%) (Auto) , Neutrophils # (Auto) , Lymphocytes # (Auto) , Monocytes # (Auto) , Eosinophils # (Auto) , Basophils # (Auto) , Neutrophils % (Manual) 27, Lymphocytes % (Manual) 32, Monocytes % (Manual) 19, Eosinophils % (Manual) 2, Metamyelocytes % 2, Myelocytes % 4, Band Neutrophils 3, Atypical Lymphocytes 8, Reactive Lymphocytes 3, Sodium Level 130L, Potassium Level 4.5, Chloride Level 105, Carbon Dioxide Level 18L, Anion Gap 7, Blood Urea Nitrogen 28H, Creatinine 0.59L, Estimat Glomerular Filtration Rate > 60, BUN/Creatinine Ratio 47, Glucose Level 173H, Calcium Level 9.2, Corrected Calcium 10.5H, Total Bilirubin 0.9, Aspartate Amino Transf (AST/SGOT) 11, Alanine Aminotransferase (ALT/SGPT) 29, Alkaline Phosphatase 344H, Total Protein 5.2L, Albumin 2.4L Microbiology 09/28/19 Influenza Types A,B Antigen (CHLOÉ) - Final, Complete ANNIE HUYNH MD Sep 29, 2019 10:56 POS
--- NOTE | 2019-09-29 10:58 | History & Physical ---
History of Present Illness History of Present Illness Reason for visit/HPI This is a 69 year old female who presented to the emergency room with fatigue, poor appetite and just not feeling well. She has not felt well since starting chemotherapy for her pancreatic cancer. She was neutropenic with a UTI so it was decided to admit her for IV antibiotics. Date of Admission Sep 28, 2019 at 18:30 Date Seen by a Provider: Sep 29, 2019 Time Seen by a Provider: 11:06 I consulted on this patient on 09/29/19 10:52 Attending Physician Melanie Mcclellan DO Admitting Physician Melanie Mcclellan DO Consult Allergies and Home Medications Allergies Coded Allergies: Penicillins (Verified Allergy, Unknown, pt has received Rocephin in the past, 07/14/19) ciprofloxacin (Verified Allergy, Unknown, 09/06/19) sulfamethoxazole (Unverified Allergy, Unknown, 02/06/19) trimethoprim (Unverified Allergy, Unknown, 02/06/19) Home Medications Acetaminophen 325 Mg Tablet, 325 MG PO BID, (Reported) Aspirin 81 Mg Tablet.dr, 81 MG PO DAILY, (Reported) Diltiazem HCl 120 Mg Cap.er.24h, 120 MG PO DAILY, (Reported) HOLD FOR SBP <100 AND DBP<60 Famotidine 20 Mg Tablet, 20 MG PO BID, (Reported) Lactulose 10 Gm/15 Ml Solution, 10 ML PO DAILY, (Reported) Levetiracetam 500 Mg Tablet, 500 MG PO BID, (Reported) Menthol 1 Each Adh..patch, 1 PATCH TP DAILY, (Reported) Nystatin 100,000 Unit/1 Ml Oral.susp, 5 ML PO QID, (Reported) SWISH AND SWALLOW Ondansetron HCl 8 Mg Tablet, 8 MG PO Q8H PRN for NAUSEA/VOMITING-1ST LINE, (Reported) Potassium Chloride 8 Meq Capsule.er, 8 MEQ PO DAILY, (Reported) Spironolactone 25 Mg Tablet, 25 MG PO DAILY, (Reported) Patient Home Medication List Home Medication List Reviewed: Yes Past Mwxnupb-Gctxok-Hzmwef Hx Past Med/Social Hx: Reviewed Nursing Past Med/Soc Hx Patient Social History Marrital Status: Alcohol Use: Denies Use Recreational Drug Use: No Smoking Status: Never a Smoker 2nd Hand Smoke Exposure: No Recent Foreign Travel: No Contact w/other who traveled: No Recent Hopitalizations: Yes Recent Infectious Disease Expo: No Immunizations Up To Date Tetanus Booster (TDap): Unknown Pediatric: Yes Date of Influenza Vaccine: Aug 16, 2019 Seasonal Allergies Seasonal Allergies: No Past Medical History Surgeries: Eye Surgery, Gallbladder, Hysterectomy, Oophorectomy, Tonsillectomy Cardiac: Atrial Fibrillation, Heart Murmur, Hypertension : No Hysterectomy, Menopausal Gastrointestinal: Liver Disease/Jaundice, Gall Bladder Disease HEENT: Cataract Cancer: Pancreatic Did You Recieve Any Treatments: Yes What Type of Treatment Did You: Chemotherapy History of Blood Disorders: No Family History No Pertinent Family Hx Review of Systems Constitutional: weakness, weight loss EENTM: No see HPI, No no symptoms reported, No ear discharge, No hearing loss, No ear pain, No blurred vision, No double vision, No eye pain, No tearing, No vision loss, No dental problems, No hoarseness, No mouth pain, No mouth swelling, No epistaxis, No nose congestion, No nose pain, No throat pain, No throat swelling, No other Respiratory: No no symptoms reported, No see HPI, No cough, No dyspnea on exertion, No hemoptysis, No orthopnea, No phlegm, No short of breath, No stridor, No wheezing, No other Cardiovascular: No no symptoms reported, No see HPI, No chest pain, No edema, No Hx of Intervention, No palpitations, No syncope, No vascular heart diseas, No other Gastrointestinal: loss of appetite Genitourinary: decreased output Musculoskeletal: muscle weakness Skin: No no symptoms reported, No see HPI, No change in color, No change in hair/nails, No dryness, No hx of skin cancer, No lesions, No lumps, No pruritus, No rash, No other Psychiatric/Neurological: Seizure, Weakness Physical Exam Vital Signs Vital Signs - First Documented 09/28/19 09/28/19 09/28/19 16:10 19:49 23:09 Temp 36.4 Pulse 100 Resp 18 B/P (MAP) 128/77 (94) Pulse Ox 97 O2 Delivery Room Air FiO2 21 Capillary Refill : Less Than 3 Seconds Height, Weight, BMI Height: 5'8.00" Weight: 181lbs. 0.5oz. 82.625261fo; 22.88 BMI Method:Stated General Appearance: Mild Distress HEENT: Other (oral mucosa dry) Neck: Supple Respiratory: Lungs Clear Cardiovascular: Systolic Murmur, Gallop/S4, Irregularly Irregular Gastrointestinal: Normal Bowel Sounds, Soft, Tenderness (suprapubic tenderness ) Rectal: Deferred Back: No CVA Tenderness Extremity: Non Tender, No Calf Tenderness, No Pedal Edema Neurologic/Psychiatric: Alert, Oriented x3 Skin: Warm/Dry Comments Laboratory Tests 09/28/19 16:20: White Blood Count 1.3*L, Red Blood Count 4.58, Hemoglobin 12.5, Hematocrit 37, Mean Corpuscular Volume 81, Mean Corpuscular Hemoglobin 27, Mean Corpuscular Hemoglobin Concent 34, Red Cell Distribution Width 14.1, Platelet Count 57L, Mean Platelet Volume 11.7H, Neutrophils (%) (Auto) 17L, Lymphocytes (%) (Auto) 57H, Monocytes (%) (Auto) 25H, Eosinophils (%) (Auto) 1, Basophils (%) (Auto) 1, Neutrophils # (Auto) 0.2L, Lymphocytes # (Auto) 0.7L, Monocytes # (Auto) 0.3, Eosinophils # (Auto) 0.0, Basophils # (Auto) 0.0, Neutrophils % (Manual) 6, Lymphocytes % (Manual) 61, Monocytes % (Manual) 30, Band Neutrophils 3, Poikilocytosis SLIGHT, Crenated Cell SLIGHT, Elliptocytes SLIGHT, Sodium Level 132L, Potassium Level 4.1, Chloride Level 103, Carbon Dioxide Level 19L, Anion Gap 10, Blood Urea Nitrogen 32H, Creatinine 0.61, Estimat Glomerular Filtration Rate > 60, BUN/Creatinine Ratio 52, Glucose Level 151H, Lactic Acid Level 2.43*H , Calcium Level 10.1, Corrected Calcium 11.1H, Total Bilirubin 1.3H, Aspartate Amino Transf (AST/SGOT) 13, Alanine Aminotransferase (ALT/SGPT) 37, Alkaline Phosphatase 365H, Troponin I < 0.028, Total Protein 5.8L, Albumin 2.8L, Lipase < 4L 09/28/19 17:39: Urine Color YELLOW, Urine Clarity CLEAR, Urine pH 6.0, Urine Specific [place] 1.020, Urine Protein TRACE, Urine Glucose (UA) NEGATIVE, Urine Ketones TRACEH, Urine Nitrite POSITIVE, Urine Bilirubin 1+H, Urine Urobilinogen 0.2, Urine Leukocyte Esterase NEGATIVE, Urine RBC (Auto) 1+H, Urine RBC 5-10H, Urine WBC NONE, Urine Crystals NONE, Urine Bacteria LARGEH, Urine Casts NONE, Urine Mucus NEGATIVE, Urine Culture Indicated YES 09/28/19 18:50: Prothrombin Time 19.4H, INR Comment 1.6H, Activated Partial Thromboplast Time 42H, Magnesium Level 1.7, Ammonia 45H 09/28/19 19:26: Lactic Acid Level 2.39*H 09/29/19 06:05: White Blood Count 3.7L, Red Blood Count 4.17L, Hemoglobin 11.5, Hematocrit 34L, Mean Corpuscular Volume 81, Mean Corpuscular Hemoglobin 28, Mean Corpuscular Hemoglobin Concent 34, Red Cell Distribution Width 14.3, Platelet Count 74L, Mean Platelet Volume 12.7H, Neutrophils (%) (Auto) , Lymphocytes (%) (Auto) , Monocytes (%) (Auto) , Eosinophils (%) (Auto) , Basophils (%) (Auto) , Neutrophils # (Auto) , Lymphocytes # (Auto) , Monocytes # (Auto) , Eosinophils # (Auto) , Basophils # (Auto) , Neutrophils % (Manual) 27, Lymphocytes % (Manual) 32, Monocytes % (Manual) 19, Eosinophils % (Manual) 2, Metamyelocytes % 2, Myelocytes % 4, Band Neutrophils 3, Atypical Lymphocytes 8, Reactive Lymphocytes 3, Sodium Level 130L, Potassium Level 4.5, Chloride Level 105, Carbon Dioxide Level 18L, Anion Gap 7, Blood Urea Nitrogen 28H, Creatinine 0.59L, Estimat Glomerular Filtration Rate > 60, BUN/Creatinine Ratio 47, Glucose Level 173H, Calcium Level 9.2, Corrected Calcium 10.5H, Total Bilirubin 0.9, Aspartate Amino Transf (AST/SGOT) 11, Alanine Aminotransferase (ALT/SGPT) 29, Alkaline Phosphatase 344H, Total Protein 5.2L, Albumin 2.4L Microbiology 09/28/19 Influenza Types A,B Antigen (CHLOÉ) - Final, Complete Assessment/Plan Assessment and Plan 1. Acute UTI with SIRS--admit and cover with rocephin for UTI, hydrate, monitor labs 2. Neutropenia--from recent chemo 3. Thrombocytopenia--from recent chemo, on lovenox for A fib so will monitor closely 4. Atrial Fibrillation--resume cardizem, NOACs have been on hold due to fall risk, thrombocytopenia but currently on lovenox for DVT prophylaxis and A fib--will need to DC lovenox if platelets dropping 5. Recent Seizure after starting chemo--resume Keppra 6. Anorexia/Dyspepsia--add protonix and zofran prn 7. Pancreatic Cancer with Liver Mets/Recent Jaundice/Recent Removal of P ancreatic Stents--resume lactulose low dose as well as spironolactone, chemo held this week due to neutropenia, oncology consulted Admission Diagnosis Admission Status: Inpatient Order (span 2 midnights) Reason for Inpatient Admission: Will need IV abx until culture results finalized Clinical Quality Measures DVT/VTE Risk/Contraindication: Risk Factor Score Per Nursin RFS Level Per Nursing on Admit: 4+=Very High MELANIE MCCLELLAN DO Sep 29, 2019 10:58 POS
[2019-09-29] MEDS ORDERED: ONDANSETRON 4 MG/2 ML (SDV) Z0FRAN IVP PRN (11:00)
[2019-09-29] MEDS ORDERED: PANTOPRAZOLE 40 MG (PROTONIX) VIAL IV NR (11:00)
[2019-09-29] MEDS: LEVETIRACETAM 500 MG (KEPPRA) TAB PO SCH ×2 (11:10→21:29)
[2019-09-29 12:14] VITALS: BP 128/75
[2019-09-29] MEDS: NYSTATIN ORAL SUSP 5 ML UDC PO SCH ×3 (13:13→21:28)
[2019-09-29 16:00] VITALS: BP 109/68
[2019-09-29] MEDS: cefTRIAXone 1,000 MG/SWFI 10 ML IV PUSH IV SCH ×2 (17:45)
[2019-09-29 19:49] VITALS: BP 127/75
[2019-09-30 00:11] VITALS: BP 124/75
[2019-09-30 04:30] VITALS: BP 121/77
[2019-09-30 05:21] LABS: HEMATOCRIT 33 % (35-52); HEMOGLOBIN 11.1 G/DL (11.5-16.0); MEAN CORPUSCULAR HEMOGLOBIN 28 PG (25-34); MEAN CORPUSCULAR HGB CONC 34 G/DL (32-36); MEAN CORPUSCULAR VOLUME 82 FL (80-99); MEAN PLATELET VOLUME 12.8 FL (7.4-10.4); PLATELET COUNT 100 10^3/uL (130-400); RED CELL DISTRIBUTION WIDTH 14.2 % (10.0-14.5); WHITE BLOOD COUNT 14.1 10^3/uL (4.3-11.0)
[2019-09-30 05:38] LABS: ALANINE AMINOTRANSFERASE 31 U/L (0-55); ALBUMIN 2.2 GM/DL (3.2-4.5); ALKALINE PHOSPHATASE 311 U/L (40-136); BILIRUBIN,TOTAL 0.5 MG/DL (0.1-1.0); BUN/CREATININE RATIO 29; CALCIUM 8.6 MG/DL (8.5-10.1); CARBON DIOXIDE 17 MMOL/L (21-32); CHLORIDE 104 MMOL/L (98-107); CREATININE SERUM 0.56 MG/DL (0.60-1.30); GFR ESTIMATED > 60; GLUCOSE 168 MG/DL (70-105); POTASSIUM 4.7 MMOL/L (3.6-5.0); SODIUM 129 MMOL/L (135-145); TOTAL PROTEIN 4.7 GM/DL (6.4-8.2)
[2019-09-30] MEDS: ENOXAPARIN 60 MG/0.6 ML (LOVENOX) SYR SC SCH ×2 (06:32→18:33)
[2019-09-30] MEDS: KCL 8 MEQ (MICRO K) TABLET PO SCH (06:33)
[2019-09-30] MEDS: D5 1/2 NS W/KCL 20 MEQ/L 1,000 ML IV SCH ×3 (06:33→18:35)
[2019-09-30 06:37] LABS: ATYPICAL LYMPHOCYTES 11 %; BAND NEUTROPHILS 3 %; LYMPHOCYTES % (MANUAL) 15 %; METAMYELOCYTES % 6 %; MONOCYTES % (MANUAL) 10 %; MYELOCYTES % 6 %; NEUTROPHILS % (MANUAL) 49 %
[2019-09-30 08:00] VITALS: BP 130/73
[2019-09-30] MEDS: DILTIAZEM 120 MG (CARDIZEM CD) CAP PO SCH (08:18)
[2019-09-30] MEDS: LEVETIRACETAM 500 MG (KEPPRA) TAB PO SCH ×2 (08:18→20:34)
[2019-09-30] MEDS: LACTULOSE SYRUP 10GM/15ML (ENULOSE) 30ML UDC PO SCH (08:19)
[2019-09-30] MEDS: ASPIRIN E.C. 81 MG (ECOTRIN) TAB PO SCH (08:19)
[2019-09-30] MEDS: NYSTATIN ORAL SUSP 5 ML UDC PO SCH ×4 (08:19→20:34)
[2019-09-30] MEDS: SPIRONOLACTONE 25 MG (ALDACTONE) TAB PO SCH (08:19)
[2019-09-30] MEDS: PANTOPRAZOLE 40 MG (PROTONIX) VIAL IV SCH (08:20)
[2019-09-30] MEDS ORDERED: MENTHOL TP SCH (09:00)
[2019-09-30 11:10] VITALS: BP 122/70
--- NOTE | 2019-09-30 11:45 | Progress Note - Hospitalist ---
Subjective HPI/CC On Admission Date Seen by Provider: Sep 30, 2019 Time Seen by Provider: 11:42 Subjective/Events-last exam Pt reports feeling better today but still very poor appetite. Is trying to keep up on Ensure drinks. Focused Exam Lactate Level 09/28/19 16:20: Lactic Acid Level 2.43*H 09/28/19 19:26: Lactic Acid Level 2.39*H Objective Exam Vital Signs Vital Signs Date Time Temp Pulse Resp B/P (MAP) Pulse Ox O2 Delivery O2 Flow Rate FiO2 09/30/19 11:10 37.0 103 20 122/70 (87) 98 Room Air 09/28/19 23:09 21 Capillary Refill : Less Than 3 Seconds General Appearance: No Apparent Distress, Chronically ill Respiratory: Lungs Clear, No Accessory Muscle Use, No Respiratory Distress Cardiovascular: Regular Rate, Rhythm, No Murmur Gastrointestinal: Normal Bowel Sounds, Non Tender, Soft Neurologic/Psychiatric: Alert, Oriented x3 Results/Procedures Lab Laboratory Tests 09/30/19 05:05 Patient resulted labs reviewed. Assessment/Plan Assessment and Plan Assess & Plan/Chief Complaint 1. Acute UTI with hematuria - Urine culture reports no growth but inconsistent with UA having large bacteria, micro to confirm with RML, continue Rocephin 2. Neutropenia--resolved 3. Thrombocytopenia--from recent chemo, trending up 4. Atrial Fibrillation--resume cardizem, NOACs have been on hold due to fall risk, thrombocytopenia 5. Recent Seizure after starting chemo--resume Keppra, seizure precautions 6. Anorexia/Dyspepsia--continue protonix and zofran prn, Encourage Ensure 7. Pancreatic Cancer with Liver Mets/Recent Jaundice/Recent Removal of Pancreatic Stents--resume lactulose low dose as well as spironolactone, oncology consulted, appreciate recs Clinical Quality Measures DVT/VTE Risk/Contraindication: Risk Factor Score Per Nursin RFS Level Per Nursing on Admit: 4+=Very High TAMAR GUERRA MD Sep 30, 2019 11:45 POS
[2019-09-30 15:22] VITALS: BP 124/76
[2019-09-30] MEDS: ACETAMINOPHEN 500 MG TAB (TYLENOL) PO PRN (17:47)
[2019-09-30] MEDS: cefTRIAXone 1,000 MG/SWFI 10 ML IV PUSH IV SCH ×2 (18:33)
[2019-09-30 20:21] VITALS: BP 123/71
[2019-10-01] VITALS (8 sets, daily range): BP systolic 100–136; BP diastolic 67–89
[2019-10-01] MEDS: D5 1/2 NS W/KCL 20 MEQ/L 1,000 ML IV SCH ×4 (01:19→20:29)
[2019-10-01 05:26] LABS: HEMOGLOBIN 10.9 G/DL (11.5-16.0); MEAN PLATELET VOLUME 11.8 FL (7.4-10.4); RED CELL DISTRIBUTION WIDTH 14.4 % (10.0-14.5); WHITE BLOOD COUNT 26.8 10^3/uL (4.3-11.0)
[2019-10-01 05:51] LABS: BUN/CREATININE RATIO 18; CALCIUM 8.2 MG/DL (8.5-10.1); CARBON DIOXIDE 19 MMOL/L (21-32); CHLORIDE 106 MMOL/L (98-107); CREATININE SERUM 0.61 MG/DL (0.60-1.30); GFR ESTIMATED > 60; GLUCOSE 172 MG/DL (70-105); POTASSIUM 4.9 MMOL/L (3.6-5.0); SODIUM 132 MMOL/L (135-145)
[2019-10-01] MEDS: ENOXAPARIN 60 MG/0.6 ML (LOVENOX) SYR SC SCH ×2 (06:06→18:01)
[2019-10-01] MEDS: KCL 8 MEQ (MICRO K) TABLET PO SCH (06:06)
[2019-10-01] MEDS: ACETAMINOPHEN 500 MG TAB (TYLENOL) PO PRN (08:29)
[2019-10-01] MEDS: NYSTATIN ORAL SUSP 5 ML UDC PO SCH ×4 (08:31→20:29)
[2019-10-01] MEDS: ASPIRIN E.C. 81 MG (ECOTRIN) TAB PO SCH (08:31)
[2019-10-01] MEDS: SPIRONOLACTONE 25 MG (ALDACTONE) TAB PO SCH (08:31)
[2019-10-01] MEDS: LEVETIRACETAM 500 MG (KEPPRA) TAB PO SCH ×2 (08:31→20:29)
[2019-10-01] MEDS: LACTULOSE SYRUP 10GM/15ML (ENULOSE) 30ML UDC PO SCH (08:31)
[2019-10-01] MEDS: DILTIAZEM 120 MG (CARDIZEM CD) CAP PO SCH (08:31)
[2019-10-01] MEDS: PANTOPRAZOLE 40 MG (PROTONIX) VIAL IV SCH (08:31)
[2019-10-01] MEDS ORDERED: morphine INJ 4 MG/ML 1 ML (VIAL/SYRINGE) IVP PRN (12:00)
--- NOTE | 2019-10-01 12:05 | Progress Note - Hospitalist ---
Subjective HPI/CC On Admission Date Seen by Provider: Oct 01, 2019 Time Seen by Provider: 12:01 Subjective/Events-last exam Pt up in chair. Reports some back pain. Discussed lab and climbing WBC. She states she was supposed to get chemo but cell count was too low on 09/28. She is unsure if she received anything to bring her cells counts up. Focused Exam Lactate Level 09/28/19 16:20: Lactic Acid Level 2.43*H 09/28/19 19:26: Lactic Acid Level 2.39*H Objective Exam Vital Signs Vital Signs Date Time Temp Pulse Resp B/P (MAP) Pulse Ox O2 Delivery O2 Flow Rate FiO2 10/01/19 08:00 98 Room Air 10/01/19 08:00 36.6 81 16 127/75 (92) 09/28/19 23:09 21 Capillary Refill : Less Than 3 Seconds General Appearance: Chronically ill, Thin Respiratory: Lungs Clear, No Accessory Muscle Use, No Respiratory Distress Cardiovascular: Regular Rate, Rhythm, No Murmur Back: Normal Inspection, No Vertebral Tenderness Neurologic/Psychiatric: Alert, Oriented x3 Results/Procedures Lab Laboratory Tests 10/01/19 05:15 Patient resulted labs reviewed. Assessment/Plan Assessment and Plan Assess & Plan/Chief Complaint 1. Acute UTI with hematuria - Urine culture shows enterococcus, await sensitivities 2. Neutropenia--resolved, see below 3. Thrombocytopenia--from recent chemo, trending up 4. Atrial Fibrillation--resume cardizem, NOACs have been on hold due to fall risk, thrombocytopenia 5. Recent Seizure after starting chemo--resume Keppra, seizure precautions 6. Anorexia/Dyspepsia--continue protonix and zofran prn, Encourage Ensure 7. Pancreatic Cancer with Liver Mets/Recent Jaundice/Recent Removal of P ancreatic Stents--resume lactulose low dose as well as spironolactone, oncology consulted, appreciate recs 8. Leukocytosis- Worsening despite clinical improvement, Will repeat blood cultures, reviewed [facility] visit from 09/28 and there was an order for Decadron though I'm unsure if it was given, could account for leukocytosis? 9. Back pain- Hydrocodone added, will get CXR to rule out pathological fracture. Clinical Quality Measures DVT/VTE Risk/Contraindication: Risk Factor Score Per Nursin RFS Level Per Nursing on Admit: 4+=Very High CHARLIE,TAMAR M MD Oct 01, 2019 12:05 POS
[2019-10-01] MEDS: HYDROcodone/APAP 5 MG/325 MG (LORTAB) TAB PO PRN ×2 (12:17→22:05)
--- NOTE | 2019-10-01 14:03 | Diagnostic Imaging Report ---
2 views of the thoracic spine. INDICATION: Back pain with history of metastatic disease. FINDINGS: Alignment of the thoracic spine appears normal. The vertebral body heights appear maintained. There are multilevel endplate changes and osteophytes. There is no convincing evidence of a suspicious lytic or blastic lesion by plain radiography. IMPRESSION: 1. Multilevel degenerative disc disease with endplate spurs. Vertebral body heights appear maintained and alignment normal. No convincing lytic or blastic lesions evident. If continued clinical concern for metastatic disease, consider CT or MRI. Dictated by: Dictated on workstation # [id number]
[2019-10-01] MEDS: cefTRIAXone 1,000 MG/SWFI 10 ML IV PUSH IV SCH ×2 (17:04)
[2019-10-02 03:37] VITALS: BP 119/70
[2019-10-02] MEDS: D5 1/2 NS W/KCL 20 MEQ/L 1,000 ML IV SCH (04:49)
[2019-10-02 05:02] LABS: HEMATOCRIT 31 % (35-52); HEMOGLOBIN 10.3 G/DL (11.5-16.0); MEAN CORPUSCULAR HEMOGLOBIN 28 PG (25-34); MEAN CORPUSCULAR HGB CONC 33 G/DL (32-36); MEAN CORPUSCULAR VOLUME 84 FL (80-99); MEAN PLATELET VOLUME 11.7 FL (7.4-10.4); PLATELET COUNT 170 10^3/uL (130-400); RED CELL DISTRIBUTION WIDTH 14.5 % (10.0-14.5)
[2019-10-02 05:07] LABS: WHITE BLOOD COUNT 31.2 10^3/uL (4.3-11.0)
[2019-10-02 05:21] LABS: BUN/CREATININE RATIO 17; CALCIUM 7.9 MG/DL (8.5-10.1); CARBON DIOXIDE 20 MMOL/L (21-32); CHLORIDE 103 MMOL/L (98-107); CREATININE SERUM 0.52 MG/DL (0.60-1.30); GFR ESTIMATED > 60; GLUCOSE 148 MG/DL (70-105); POTASSIUM 5.4 MMOL/L (3.6-5.0); SODIUM 129 MMOL/L (135-145)
[2019-10-02] MEDS: KCL 8 MEQ (MICRO K) TABLET PO SCH (05:23)
[2019-10-02 05:40] LABS: BLAST CELLS 1 %; LYMPHOCYTES % (MANUAL) 13 %; MONOCYTES % (MANUAL) 9 %; NEUTROPHILS % (MANUAL) 50 %
[2019-10-02 05:41] LABS: ATYPICAL LYMPHOCYTES 27 %
[2019-10-02] MEDS ORDERED: D5 1/2 NS 1000 ML IV SOLUTION 1,000 ML IV ONE (05:41)
[2019-10-02] MEDS: D5 1/2 NS 1000 ML IV SOLUTION 1,000 ML IV SCH ×2 (05:53→15:24)
[2019-10-02] MEDS: ENOXAPARIN 60 MG/0.6 ML (LOVENOX) SYR SC SCH ×2 (06:06→18:12)
--- NOTE | 2019-10-02 06:10 | Diagnostic Imaging Report ---
CHEST PA/LAT (2 VIEW) Indication: Critical lab results, history of metastatic cancer Comparison: 09/29/2019 Findings: No pulmonary mass or consolidation. No pleural effusion or pneumothorax. Normal heart size and mediastinal contours. Stable right IJ Port-A-Cath. Impression: No acute cardiopulmonary process. Dictated by: Dictated on workstation # [id number]
[2019-10-02 07:19] VITALS: BP 115/77
[2019-10-02] MEDS ORDERED: SPIRONOLACTONE 25 MG (ALDACTONE) TAB ONE (08:43)
[2019-10-02] MEDS: DILTIAZEM 120 MG (CARDIZEM CD) CAP PO SCH (08:50)
[2019-10-02] MEDS: LEVETIRACETAM 500 MG (KEPPRA) TAB PO SCH ×2 (08:50→22:14)
[2019-10-02] MEDS: PANTOPRAZOLE 40 MG (PROTONIX) TAB PO SCH (08:50)
[2019-10-02] MEDS: ASPIRIN E.C. 81 MG (ECOTRIN) TAB PO SCH (08:50)
[2019-10-02] MEDS: NYSTATIN ORAL SUSP 5 ML UDC PO SCH ×4 (08:50→22:14)
[2019-10-02] MEDS: LACTULOSE SYRUP 10GM/15ML (ENULOSE) 30ML UDC PO SCH (08:51)
[2019-10-02] MEDS ORDERED: VANCOMYCIN INJECTION 0.1 MG in NS (IVPB) 250 ML IV SCH (09:45)
[2019-10-02] MEDS ORDERED: VANCOMYCIN INJECTION 1,500 MG in NS IV 500 ML 500 ML IV NR (10:00)
--- NOTE | 2019-10-02 11:48 | Physical Therapy Evaluation ---
PT Evaluation-General Medical Diagnosis Admission Date Sep 28, 2019 at 18:30 Medical Diagnosis: UTI, neutropenia, chemotherapy for pancreatic cancer Onset Date: Sep 28, 2019 Therapy Diagnosis Therapy Diagnosis: weakness, gait Height/Weight Height (Feet): 5 Height (Inches): 8.00 Weight (Pounds): 181 Weight (Ounces): 0.5 Precautions Precautions/Isolations: Fall Prevention, Standard Precautions Weight Bear Status Right Lower Extremity: Right Weight Bearing/Tolerated Left Lower Extremity: Left Weight Bearing/Tolerated Referral Physician: Gisselle Reason for Referral: Evaluation/Treatment Medical History Pertinent Medical History: Atrial Fib, HTN Current History ER secondary to fatigue and general malaise Reviewed History: Yes Social History Home: [facility] Prior Prior Level of Function SCALE: Activities may be completed with or without assistive devices. 1-Mcjsyasvsm-ytpunqe completes the activity by him/herself with no assistance from a helper. 5-Set-up or Clean-up Assistance-helper sets up or cleans up; patient completes activity. [place] assists only prior to or following the activity. 4-Supervision or Touching Assistance-helper provides verbal cues and/or touching/steadying and/or contact guard assistance as patient completes activity. Assistance may be provided throughout the activity or intermittently. 3-Partial/Moderate Assistance-helper does LESS THAN HALF the effort. [place] lifts, holds or supports trunk or limbs, but provides less than half the effort. 2-Substantial/Maximal Assistance-helper does MORE THAN HALF the effort. [place] lifts or holds trunk or limbs and provides more than half the effort. 4-Dwbmvkswz-wxwlxb does ALL the effort. Patient does none of the effort to complete the activity. Or, the assistance of 2 or more helpers is required for the patient to complete the activity. If activity was not attempted, code reason: 7-Patient Refused. 9-Not Applicable-not attempted and the patient did not perform the activity before the current illness, exacerbation or injury. 10-Not Attempted due to Environmental Limitations-(lack of equipment, weather restraints, etc.). 88-Not Attempted due to Medical Conditions or Safety Concerns. Bed Mobility: 6 Transfers (B,C,W/C): 6 Gait: 4 Wheelchair Mobility: 4 Indoor Mobility (Ambulation): Needed Some Help Prior Devices Use: Manual wheelchair, Walker PT Evaluation-Current Subjective Patient agrees to PT at this time. Reports she lives at [address] and uses wheelchair for most mobility, although she can walk short distance with walker. States she requires help to propel wheelchair. Reports no pain. Pain Numeric Pain Scale: 0-No Pain Location: No Pain Reported Objective Patient Orientation: Normal For Age Attachments: IV ROM/Strength ROM Lower Extremities WFL Strength Lower Extremities Grossly 3/5 bilaterally Integumentary/Posture Integumentary See nursing notes Bowel Incontinence: No Bladder Incontinence: No Posture WFL Neuromuscular (Tone, Coordination, Reflexes) Grossly intact Sensory Vision: Hearing: Functional Transfers Roll Left to Right (QC): 6 Sit to Lying (QC): 6 Lying to Sitting/Side of Bed(Q: 6 Sit to Stand (QC): 6 Chair/Iig-bw-Mgobq Xfer(QC): 6 Car Transfer (QC): 10 Gait Does the Patient Walk?: Yes Mode of Locomotion: Both Anticipated Mode of Locomotion: Both Walk 10 feet (QC): 4 Walk 50 ft with 2 Turns(QC): 88 Walk 150 ft (QC): 88 Walking 10ft/uneven surface-QC: 88 Distance: 30' Gait Assistive Device: FWW Comments/Gait Description Ambulates with normal pace/pattern; reports weakness during ambulation; CGA ambulation Wheelchair Training Does the Pt Use a Wheelchair?: Yes Wheel 50 ft with 2 turns (QC): 3 Wheel 150 ft (QC): 3 Type of Wheelchair: Manual Reports she requires assistance to proper wheelchair Stairs 1 Step (curb) (QC): 9 4 Steps (QC): 9 12 Steps (QC): 9 Balance Sitting Static: Normal Sitting Dynamic: Normal Standing Static: Normal Standing Dynamic: Normal Picking up an Object (QC): 88 Assessment/Needs Patient able to perform all bed mobility independently. Patient completes strength and ROM testing without difficulty. Patient able to ambulate 30' within room with FWW CGA without difficulty, but reports weakness. Patient returns to bed at conclusion of therapy. Rehab Potential: Fair PT Sign Out Clerk Goals Sign Out Clerk Goals PT Half-Way Goals Time Frame: Oct 16, 2019 Roll Left & Right (QC): 6 Sit to Lying (QC): 6 Lying-Sitting on Side/Bed(QC): 6 Sit to Stand (QC): 6 Chair/Bxr-jf-Gekgq Xfer(QC): 6 Toilet Transfer (QC): 6 Car Transfer (QC): 6 Does the Patient Walk: Yes Walk 10 feet (QC): 6 Walk 50ft with 2 Turns (QC): 4 Walk 150 ft (QC): 9 Walking 10ft on Uneven Surface: 9 1 Step (curb) (QC): 9 4 Steps (QC): 9 12 Steps (QC): 9 Picking up an Object (QC): 9 Does the Pt use WC or Scooter?: Yes Type: Manual Type: Manual PT Plan Problem List Problem List: Activity Tolerance, Functional Strength, Safety, Balance, Gait, Transfer, Bed Mobility Treatment/Plan Treatment Plan: Continue Plan of Care Treatment Plan: Bed Mobility, Education, Functional Activity Neville, Functional Strength, Gait, Safety, Therapeutic Exercise, Transfers Treatment Duration: Oct 16, 2019 Frequency: 6 times per week Estimated Hrs Per Day: .25 hour per day Patient and/or Family Agrees t: Yes Time/GCodes Time In: 1009 Time Out: 1021 Total Billed Treatment Time: 12 Total Billed Treatment 1 visit EVLowC 12min LINSEY HICKMAN PT Oct 02, 2019 11:48 POS
[2019-10-02 12:01] VITALS: BP 111/71
--- NOTE | 2019-10-02 12:34 | Progress Note ---
Subjective Date Seen by a Provider: Oct 02, 2019 Time Seen by a Provider: 12:29 Subjective/Events-last exam Fwup UTI with SIRS, pancreatic cancer with liver mets, Atrial Fibrillation, anorexia with weight loss, seizure disorder. Feeling a little better but still no appetite. Focused Exam Lactate Level 10/02/19 05:21: Lactic Acid Level 0.99 Objective Exam Vital Signs Date Time Temp Pulse Resp B/P (MAP) Pulse Ox O2 Delivery O2 Flow Rate FiO2 10/02/19 12:01 36.4 92 18 111/71 (84) 98 Room Air 10/02/19 08:00 99 Room Air 10/02/19 07:19 36.1 89 20 115/77 (90) 99 Room Air 10/02/19 07:00 89 10/02/19 03:37 36.6 90 18 119/70 (86) 96 Room Air 10/02/19 01:00 88 10/01/19 23:50 36.6 88 18 111/69 (83) Room Air 10/01/19 20:50 Room Air 10/01/19 19:40 36.5 92 18 113/76 (88) 98 Room Air 10/01/19 19:00 100 10/01/19 16:24 36.5 66 99 21 10/01/19 16:06 36.5 66 20 136/85 (102) 99 Room Air 10/01/19 13:00 85 I & O 10/02/19 07:00 Intake Total 3940 ml Output Total 1600 ml Balance 2340 ml Capillary Refill : Less Than 3 Seconds General Appearance: No Apparent Distress Neck: Supple Respiratory: Lungs Clear Cardiovascular: Systolic Murmur, Irregularly Irregular Gastrointestinal: normal bowel sounds, non tender, soft Extremity: Non Tender, No Calf Tenderness, No Pedal Edema Neurologic/Psychiatric: Alert, Oriented x3 Skin: Warm/Dry Results Lab Laboratory Tests 10/02/19 04:51: White Blood Count 31.2*H, Red Blood Count 3.72L, Hemoglobin 10.3L, Hematocrit 31L, Mean Corpuscular Volume 84, Mean Corpuscular Hemoglobin 28, Mean Corpuscular Hemoglobin Concent 33, Red Cell Distribution Width 14.5, Platelet Co unt 170, Mean Platelet Volume 11.7H, Neutrophils (%) (Auto) , Lymphocytes (%) (Auto) , Monocytes (%) (Auto) , Eosinophils (%) (Auto) , Basophils (%) (Auto) , Neutrophils # (Auto) , Lymphocytes # (Auto) , Monocytes # (Auto) , Eosinophils # (Auto) , Basophils # (Auto) , Neutrophils % (Manual) 50, Lymphocytes % (Manual) 13, Monocytes % (Manual) 9, Atypical Lymphocytes 27, Reactive Lymphocytes , Blast Cells 1, Sodium Level 129L, Potassium Level 5.4H, Chloride Level 103, Carbon Dioxide Level 20L, Anion Gap 6, Blood Urea Nitrogen 9, Creatinine 0.52L, Estimat Glomerular Filtration Rate > 60, BUN/Creatinine Ratio 17, Glucose Level 148H, Calcium Level 7.9L 10/02/19 05:21: Lactic Acid Level 0.99 Microbiology 09/28/19 Blood Culture - Preliminary, Resulted No growth 09/28/19 Influenza Types A,B Antigen (CHLOÉ) - Final, Complete 09/28/19 Urine Culture - Final, Complete Enterococcus faecium See Comments Assessment/Plan Assessment/Plan Assess & Plan/Chief Complaint 1. UTI with SIRS with Enterococcus and worsening leukocytosis--change rocephin to Vancomycin as sensitivities are back 2. Atrial Fibrillation--on cardizem and lovenox 3. Pancreatic Cancer with Mets--chemo held last week due to neutropenia 4. Anorexia with weight loss since starting chemo--marinol trial 5. Weakness--PT/OT started 6. Seizure Disorder--Keppra restarted Clinical Quality Measures Admission Status Admission Dx 1. Acute UTI with SIRS--admit and cover with rocephin for UTI, hydrate, monitor labs 2. Neutropenia--from recent chemo 3. Thrombocytopenia--from recent chemo, on lovenox for A fib so will monitor closely 4. Atrial Fibrillation--resume cardizem, NOACs have been on hold due to fall risk, thrombocytopenia but currently on lovenox for DVT prophylaxis and A fib--will need to DC lovenox if platelets dropping 5. Recent Seizure after starting chemo--resume Keppra 6. Anorexia/Dyspepsia--add protonix and zofran prn 7. Pancreatic Cancer with Liver Mets/Recent Jaundice/Recent Removal of Pancreatic Stents--resume lactulose low dose as well as spironolactone, chemo held this week due to neutropenia, oncology consulted DVT/VTE Risk/Contraindication: Risk Factor Score Per Nursin RFS Level Per Nursing on Admit: 4+=Very High BING VOGEL DO Oct 02, 2019 12:33 POS
[2019-10-02 15:27] VITALS: BP 112/69
[2019-10-02] MEDS: DRONABINOL 2.5 MG (MARINOL) CAP PO SCH (17:09)
[2019-10-02 19:04] VITALS: BP 110/70
[2019-10-02] MEDS: VANCOMYCIN INJECTION 750 MG in NS (IVPB) 250 ML IV SCH (22:14)
[2019-10-02 23:20] VITALS: BP 108/69
[2019-10-03 04:19] VITALS: BP 113/69
[2019-10-03 04:54] LABS: BASOPHILS # (AUTO) 0.2 10^3/uL (0.0-0.1); BASOPHILS % (AUTO) 1 % (0-10); EOSINOPHILS % (AUTO) 0 % (0-10); HEMATOCRIT 30 % (35-52); HEMOGLOBIN 9.9 G/DL (11.5-16.0); LYMPHOCYTES # (AUTO) 4.3 X 10^3 (1.0-4.0); LYMPHOCYTES % (AUTO) 14 % (12-44); MEAN CORPUSCULAR HEMOGLOBIN 27 PG (25-34); MEAN CORPUSCULAR HGB CONC 33 G/DL (32-36); MEAN CORPUSCULAR VOLUME 84 FL (80-99); MEAN PLATELET VOLUME 10.9 FL (7.4-10.4); MONOCYTES # (AUTO) 3.3 X 10^3 (0.0-1.0); MONOCYTES % (AUTO) 11 % (0-12); NEUTROPHILS # (AUTO) 22.9 X 10^3 (1.8-7.8); NEUTROPHILS % (AUTO) 75 % (42-75); PLATELET COUNT 240 10^3/uL (130-400); RED CELL DISTRIBUTION WIDTH 14.8 % (10.0-14.5); WHITE BLOOD COUNT 30.6 10^3/uL (4.3-11.0)
[2019-10-03 05:25] LABS: ALANINE AMINOTRANSFERASE 42 U/L (0-55); ALBUMIN 2.2 GM/DL (3.2-4.5); ALKALINE PHOSPHATASE 303 U/L (40-136); BILIRUBIN,TOTAL 0.4 MG/DL (0.1-1.0); BUN/CREATININE RATIO 22; CALCIUM 8.2 MG/DL (8.5-10.1); CARBON DIOXIDE 20 MMOL/L (21-32); CHLORIDE 103 MMOL/L (98-107); GFR ESTIMATED > 60; GLUCOSE 117 MG/DL (70-105); POTASSIUM 4.7 MMOL/L (3.6-5.0); SODIUM 131 MMOL/L (135-145); TOTAL PROTEIN 4.5 GM/DL (6.4-8.2)
[2019-10-03] MEDS: ENOXAPARIN 60 MG/0.6 ML (LOVENOX) SYR SC SCH (06:11)
[2019-10-03] MEDS: KCL 8 MEQ (MICRO K) TABLET PO SCH (06:11)
[2019-10-03 07:20] VITALS: BP 101/63
[2019-10-03] MEDS: D5 1/2 NS 1000 ML IV SOLUTION 1,000 ML IV SCH ×2 (07:31→21:40)
--- NOTE | 2019-10-03 08:04 | Progress Note ---
Subjective Date Seen by a Provider: Oct 03, 2019 Time Seen by a Provider: 08:01 Subjective/Events-last exam Fwup UTI with SIRS, pancreatic cancer with liver mets, Atrial Fibrillation, anorexia with weight loss, seizure disorder. Weak with no appetite. Focused Exam Lactate Level 10/02/19 05:21: Lactic Acid Level 0.99 Objective Exam Vital Signs Date Time Temp Pulse Resp B/P (MAP) Pulse Ox O2 Delivery O2 Flow Rate FiO2 10/03/19 07:00 73 10/03/19 04:19 36.7 87 20 113/69 (84) 97 Room Air 10/03/19 01:00 72 10/02/19 23:20 36.5 84 20 108/69 (82) 98 Room Air 10/02/19 20:40 Room Air 10/02/19 19:04 36.4 88 20 110/70 (83) 98 Room Air 10/02/19 19:00 90 10/02/19 15:27 36.7 94 20 112/69 (83) 97 Room Air 10/02/19 13:00 111 10/02/19 12:01 36.4 92 18 111/71 (84) 98 Room Air I & O 10/03/19 07:00 Intake Total 2019 ml Output Total 3350 ml Balance -1331 ml Capillary Refill : Less Than 3 Seconds General Appearance: No Apparent Distress Neck: Supple Respiratory: Lungs Clear Cardiovascular: Regular Rate, Rhythm Gastrointestinal: normal bowel sounds, non tender, soft Extremity: Non Tender, No Calf Tenderness Neurologic/Psychiatric: Alert, Oriented x3 Skin: Warm/Dry Results Lab Laboratory Tests 10/03/19 04:40: White Blood Count 30.6*H, Red Blood Count 3.61L, Hemoglobin 9.9L, Hematocrit 30L , Mean Corpuscular Volume 84, Mean Corpuscular Hemoglobin 27, Mean Corpuscular Hemoglobin Concent 33, Red Cell Distribution Width 14.8H, Platelet Count 240, Mean Platelet Volume 10.9H, Neutrophils (%) (Auto) 75, Lymphocytes (%) (Auto) 14, Monocytes (%) (Auto) 11, Eosinophils (%) (Auto) 0, Basophils (%) (Auto) 1, Neutrophils # (Auto) 22.9H, Lymphocytes # (Auto) 4.3H, Monocytes # (Auto) 3.3H, Eosinophils # (Auto) 0.0, Basophils # (Auto) 0.2H, Sodium Level 131L, Potassium Level 4.7, Chloride Level 103, Carbon Dioxide Level 20L, Anion Gap 8, Blood Urea Nitrogen 13, Creatinine 0.60, Estimat Glomerular Filtration Rate > 60, BUN/Creatinine Ratio 22, Glucose Level 117H, Calcium Level 8.2L, Corrected Calcium 9.6, Total Bilirubin 0.4, Aspartate Amino Transf (AST/SGOT) 30, Alanine Aminotransferase (ALT/SGPT) 42, Alkaline Phosphatase 303H, Total Protein 4.5L, Albumin 2.2L Microbiology 09/28/19 Blood Culture - Preliminary, Resulted No growth 09/28/19 Influenza Types A,B Antigen (CHLOÉ) - Final, Complete 09/28/19 Urine Culture - Final, Complete Enterococcus faecium See Comments Assessment/Plan Assessment/Plan Assess & Plan/Chief Complaint 1. UTI with SIRS with Enterococcus and leukocytosis--changed to Vanc yesterday and WBC count down slightly today, will add cefepime 2. Atrial Fibrillation--on cardizem, start eliquis 3. Pancreatic Cancer with Mets--chemo held last week due to neutropenia 4. Anorexia with weight loss since starting chemo--marinol started 5. Weakness--PT/OT started 6. Seizure Disorder--Keppra restarted 7. Thrush--add diflucan in case has fungus in esophagus as well contributing to anorexia, start nystatin Clinical Quality Measures Admission Status Admission Dx 1. Acute UTI with SIRS--admit and cover with rocephin for UTI, hydrate, monitor labs 2. Neutropenia--from recent chemo 3. Thrombocytopenia--from recent chemo, on lovenox for A fib so will monitor closely 4. Atrial Fibrillation--resume cardizem, NOACs have been on hold due to fall risk, thrombocytopenia but currently on lovenox for DVT prophylaxis and A fib--will need to DC lovenox if platelets dropping 5. Recent Seizure after starting chemo--resume Keppra 6. Anorexia/Dyspepsia--add protonix and zofran prn 7. Pancreatic Cancer with Liver Mets/Recent Jaundice/Recent Removal of Pancreatic Stents--resume lactulose low dose as well as spironolactone, chemo held this week due to neutropenia, oncology consulted DVT/VTE Risk/Contraindication: Risk Factor Score Per Nursin RFS Level Per Nursing on Admit: 4+=Very High BING VOGEL DO Oct 03, 2019 08:04 POS
[2019-10-03] MEDS ORDERED: TROUGH ORDER-PHARMACY XX NR (09:00)
[2019-10-03] MEDS: CEFEPIME INJECTION 1,000 MG in WATER (STERILE) FOR INJECTION 10 ML IV SCH ×3 (09:02→21:39)
[2019-10-03] MEDS: LEVETIRACETAM 500 MG (KEPPRA) TAB PO SCH ×2 (09:03→21:39)
[2019-10-03] MEDS: APIXABAN 5 MG (ELIQUIS) TABLET PO SCH ×2 (09:03→21:39)
[2019-10-03] MEDS: PANTOPRAZOLE 40 MG (PROTONIX) TAB PO SCH (09:03)
[2019-10-03] MEDS: DILTIAZEM 120 MG (CARDIZEM CD) CAP PO SCH (09:03)
[2019-10-03] MEDS: LACTULOSE SYRUP 10GM/15ML (ENULOSE) 30ML UDC PO SCH (09:03)
[2019-10-03] MEDS: ASPIRIN E.C. 81 MG (ECOTRIN) TAB PO SCH (09:03)
--- NOTE | 2019-10-03 09:40 | Physical Therapy Daily Note ---
PT Daily Note-Current Subjective Patient agrees to PT at this time. Reports no pain currently but weakness in LE with exercises and ambulation. Pain Numeric Pain Scale: 0-No Pain Location: No Pain Reported Mental Status Patient Orientation: Normal For Age Attachments: IV Transfers SCALE: Activities may be completed with or without assistive devices. 3-Ctheldzcal-xngpems completes the activity by him/herself with no assistance from a helper. 5-Set-up or Clean-up Assistance-helper sets up or cleans up; patient completes activity. [place] assists only prior to or following the activity. 4-Supervision or Touching Assistance-helper provides verbal cues and/or touching/steadying and/or contact guard assistance as patient completes activity. Assistance may be provided throughout the activity or intermittently. 3-Partial/Moderate Assistance-helper does LESS THAN HALF the effort. [place] lifts, holds or supports trunk or limbs, but provides less than half the effort. 2-Substantial/Maximal Assistance-helper does MORE THAN HALF the effort. [place] lifts or holds trunk or limbs and provides more than half the effort. 4-Fpdwasqlt-ieuijy does ALL the effort. Patient does none of the effort to comp lete the activity. Or, the assistance of 2 or more helpers is required for the patient to complete the activity. If activity was not attempted, code reason: 7-Patient Refused. 9-Not Applicable-not attempted and the patient did not perform the activity before the current illness, exacerbation or injury. 10-Not Attempted due to Environmental Limitations-(lack of equipment, weather restraints, etc.). 88-Not Attempted due to Medical Conditions or Safety Concerns. Sit to Stand (QC): 4 Weight Bearing Right Lower Extremity: Right Weight Bearing/Tolerated Left Lower Extremity: Left Weight Bearing/Tolerated Gait Training Does the Patient Walk?: Yes Distance: 30' Walk 10 feet (QC): 3 Gait Assistive Device: FWW Walks limited distance d/t weakness Exercises Seated Therapy Exercises: Ankle pumps, Long arc quads, Hip flexion, Hip abd/add Seated Reps: 15 Assessment Patient performed seated exercises in recliner prior to ambulation without difficulty. Stood from chair and ambulated 30' with FWW, reporting LE weakness w ith ambulation. Patient returned to recliner with legs elevated at conclusion of treatment. PT Correction Goals Correction Goals PT Refrigerating Oiler Goals Time Frame: Oct 16, 2019 Roll Left & Right (QC): 6 Sit to Lying (QC): 6 Lying-Sitting on Side/Bed(QC): 6 Sit to Stand (QC): 6 Chair/Bpg-pl-Ugpxz Xfer(QC): 6 Toilet Transfer (QC): 6 Car Transfer (QC): 6 Does the Patient Walk: Yes Walk 10 feet (QC): 6 Walk 50ft with 2 Turns (QC): 4 Walk 150 ft (QC): 9 Walking 10ft on Uneven Surface: 9 1 Step (curb) (QC): 9 4 Steps (QC): 9 12 Steps (QC): 9 Picking up an Object (QC): 9 Does the Pt use WC or Scooter?: Yes Type: Manual Type: Manual PT Plan Treatment/Plan Treatment Plan: Continue Plan of Care Treatment Plan: Bed Mobility, Education, Functional Activity Neville, Functional Strength, Gait, Safety, Therapeutic Exercise, Transfers Treatment Duration: Oct 16, 2019 Frequency: 6 times per week Estimated Hrs Per Day: .25 hour per day Patient and/or Family Agrees t: Yes Time/GCodes Time In: 818 Time Out: 828 Total Billed Treatment Time: 10 Total Billed Treatment 1 visit FA 10min LINSEY HICKMAN PT Oct 03, 2019 09:40 POS
[2019-10-03 11:24] VITALS: BP 112/67
[2019-10-03 11:26] VITALS: BP 112/67
[2019-10-03] MEDS: VANCOMYCIN INJECTION 750 MG in NS (IVPB) 250 ML IV SCH ×2 (11:27→21:39)
[2019-10-03] MEDS: DRONABINOL 2.5 MG (MARINOL) CAP PO SCH ×2 (11:31→15:02)
[2019-10-03] MEDS: NYSTATIN ORAL SUSP 5 ML UDC PO SCH ×2 (11:31→18:13)
[2019-10-03] MEDS: FLUCONAZOLE 200 MG/100 ML 50 ML, EMPTY IV BAG (PVC) 1 EA IV SCH ×2 (13:11)
[2019-10-03 16:00] VITALS: BP 112/69
[2019-10-03 20:00] VITALS: BP 110/64
[2019-10-04] VITALS: BP 118/71
[2019-10-04] MEDS: CEFEPIME INJECTION 1,000 MG in WATER (STERILE) FOR INJECTION 10 ML IV SCH ×4 (01:21→20:11)
[2019-10-04] MEDS: NYSTATIN ORAL SUSP 5 ML UDC PO SCH ×5 (01:21→23:45)
[2019-10-04 03:26] VITALS: BP 105/65
[2019-10-04 05:18] LABS: BASOPHILS # (AUTO) 0.1 10^3/uL (0.0-0.1); BASOPHILS % (AUTO) 0 % (0-10); EOSINOPHILS % (AUTO) 0 % (0-10); HEMATOCRIT 29 % (35-52); HEMOGLOBIN 9.4 G/DL (11.5-16.0); LYMPHOCYTES # (AUTO) 3.3 X 10^3 (1.0-4.0); LYMPHOCYTES % (AUTO) 15 % (12-44); MEAN CORPUSCULAR HEMOGLOBIN 28 PG (25-34); MEAN CORPUSCULAR HGB CONC 33 G/DL (32-36); MEAN CORPUSCULAR VOLUME 85 FL (80-99); MEAN PLATELET VOLUME 10.6 FL (7.4-10.4); MONOCYTES # (AUTO) 2.4 X 10^3 (0.0-1.0); MONOCYTES % (AUTO) 11 % (0-12); NEUTROPHILS % (AUTO) 73 % (42-75); PLATELET COUNT 256 10^3/uL (130-400); RED CELL DISTRIBUTION WIDTH 14.6 % (10.0-14.5); WHITE BLOOD COUNT 21.8 10^3/uL (4.3-11.0)
[2019-10-04 05:38] LABS: ALANINE AMINOTRANSFERASE 36 U/L (0-55); ALBUMIN 2.2 GM/DL (3.2-4.5); ALKALINE PHOSPHATASE 298 U/L (40-136); BILIRUBIN,TOTAL 0.3 MG/DL (0.1-1.0); BUN/CREATININE RATIO 23; CALCIUM 8.2 MG/DL (8.5-10.1); CARBON DIOXIDE 21 MMOL/L (21-32); CHLORIDE 104 MMOL/L (98-107); GFR ESTIMATED > 60; GLUCOSE 137 MG/DL (70-105); POTASSIUM 4.6 MMOL/L (3.6-5.0); SODIUM 134 MMOL/L (135-145); TOTAL PROTEIN 4.6 GM/DL (6.4-8.2)
[2019-10-04] MEDS: KCL 8 MEQ (MICRO K) TABLET PO SCH (06:12)
[2019-10-04 07:30] VITALS: BP 107/69
--- NOTE | 2019-10-04 08:38 | Physical Therapy Daily Note ---
PT Daily Note-Current Subjective Pt agreeable to PT session. States she is a little tired and weak still, but will try. Pain Numeric Pain Scale: 0-No Pain Appearance Pt sitting up in recliner awake and alert. Requesting and assisted to bathroom. At end of session, pt sitting up in recliner with LE's elevated, call light, phone and bedside table within reach. Mental Status Patient Orientation: Person, Place, Time, Eyes Open, Situation Attachments: IV Transfers SCALE: Activities may be completed with or without assistive devices. 0-Lgeslouqth-eujcetd completes the activity by him/herself with no assistance from a helper. 5-Set-up or Clean-up Assistance-helper sets up or cleans up; patient completes activity. [place] assists only prior to or following the activity. 4-Supervision or Touching Assistance-helper provides verbal cues and/or touching/steadying and/or contact guard assistance as patient completes activity. Assistance may be provided throughout the activity or intermittently. 3-Partial/Moderate Assistance-helper does LESS THAN HALF the effort. [place] li fts, holds or supports trunk or limbs, but provides less than half the effort. 2-Substantial/Maximal Assistance-helper does MORE THAN HALF the effort. [place] lifts or holds trunk or limbs and provides more than half the effort. 9-Ndqlgjmlt-iwwvvp does ALL the effort. Patient does none of the effort to complete the activity. Or, the assistance of 2 or more helpers is required for the patient to complete the activity. If activity was not attempted, code reason: 7-Patient Refused. 9-Not Applicable-not attempted and the patient did not perform the activity before the current illness, exacerbation or injury. 10-Not Attempted due to Environmental Limitations-(lack of equipment, weather restraints, etc.). 88-Not Attempted due to Medical Conditions or Safety Concerns. Sit to Stand (QC): 4 (CGA) Toilet Transfer (QC): 4 (CGA) good hand placement Weight Bearing Right Lower Extremity: Right Weight Bearing/Tolerated Left Lower Extremity: Left Weight Bearing/Tolerated Gait Training Does the Patient Walk?: Yes Distance: 50 Walk 10 feet (QC): 4 (CGA) Walk 50 ft with 2 Turns(QC): 4 (CGA) Gait Persons Needed: 1 Gait Assistive Device: FWW slow pace, slight unsteadiness but without LOB, decreased step height and length Exercises Seated Therapy Exercises: Ankle pumps (20), Long arc quads (2x10), Hip flexion (20), Hip abd/add (knees extended x20) report of min fatigue Treatments education, safety, transfers, toileting and navid care, gait, strength, balance, activity tolerance, functional mobility Assessment Current Status: Fair Progress PT Nursing Home Goals Nursing Home Goals PT Fruit Thinner Goals Time Frame: Oct 16, 2019 Roll Left & Right (QC): 6 Sit to Lying (QC): 6 Lying-Sitting on Side/Bed(QC): 6 Sit to Stand (QC): 6 Chair/Xpp-lx-Dneol Xfer(QC): 6 Toilet Transfer (QC): 6 Car Transfer (QC): 6 Does the Patient Walk: Yes Walk 10 feet (QC): 6 Walk 50ft with 2 Turns (QC): 4 Walk 150 ft (QC): 9 Walking 10ft on Uneven Surface: 9 1 Step (curb) (QC): 9 4 Steps (QC): 9 12 Steps (QC): 9 Picking up an Object (QC): 9 Does the Pt use WC or Scooter?: Yes Type: Manual Type: Manual PT Plan Treatment/Plan Treatment Plan: Continue Plan of Care Treatment Plan: Bed Mobility, Education, Functional Activity Neville, Functional Strength, Gait, Safety, Therapeutic Exercise, Transfers Treatment Duration: Oct 16, 2019 Frequency: 6 times per week Estimated Hrs Per Day: .25 hour per day Patient and/or Family Agrees t: Yes Safety Risks/Education Patient Education: Gait Training, Transfer Techniques, Safety Issues Teaching Recipient: Patient Teaching Methods: Discussion Response to Teaching: Verbalize Understanding Time/GCodes Time In: 815 Time Out: 838 Total Billed Treatment Time: 23 Total Billed Treatment 1 visit, GT x12, EX x11 GURINDERRIZWANANTONI COMPRESSOR REPAIRER Oct 04, 2019 08:38 POS
[2019-10-04] MEDS: LACTULOSE SYRUP 10GM/15ML (ENULOSE) 30ML UDC PO SCH (08:43)
[2019-10-04] MEDS: PANTOPRAZOLE 40 MG (PROTONIX) TAB PO SCH (08:43)
[2019-10-04] MEDS: DILTIAZEM 120 MG (CARDIZEM CD) CAP PO SCH (08:43)
[2019-10-04] MEDS: ASPIRIN E.C. 81 MG (ECOTRIN) TAB PO SCH (08:43)
[2019-10-04] MEDS: APIXABAN 5 MG (ELIQUIS) TABLET PO SCH ×2 (08:43→21:43)
[2019-10-04] MEDS: LEVETIRACETAM 500 MG (KEPPRA) TAB PO SCH ×2 (08:43→21:43)
[2019-10-04 11:40] VITALS: BP 105/71
[2019-10-04] MEDS: DRONABINOL 2.5 MG (MARINOL) CAP PO SCH ×2 (12:21→16:25)
[2019-10-04] MEDS: VANCOMYCIN INJECTION 750 MG in NS (IVPB) 250 ML IV SCH ×2 (12:21→21:43)
--- NOTE | 2019-10-04 12:56 | Progress Note ---
Subjective Date Seen by a Provider: Oct 04, 2019 Time Seen by a Provider: 12:52 Subjective/Events-last exam Fwup UTI with SIRS, pancreatic cancer with liver mets, Atrial Fibrillation, anorexia with weight loss, seizure disorder, thrush. Sitting up in chair. Still no appetite. Has some conversational dyspnea today. Focused Exam Lactate Level 10/02/19 05:21: Lactic Acid Level 0.99 Objective Exam Vital Signs Date Time Temp Pulse Resp B/P (MAP) Pulse Ox O2 Delivery O2 Flow Rate FiO2 10/04/19 08:40 98 Room Air 10/04/19 08:00 Room Air 10/04/19 07:30 36.2 92 18 107/69 (82) 99 Room Air 10/04/19 07:00 65 10/04/19 03:26 37.2 78 18 105/65 (78) 98 Room Air 10/04/19 01:00 83 10/04/19 00:00 36.8 81 18 118/71 (87) 98 Room Air 10/03/19 20:00 Room Air 10/03/19 20:00 36.9 77 20 110/64 (79) 96 Room Air 10/03/19 19:00 95 10/03/19 16:00 36.8 86 18 112/69 (83) 99 Room Air I & O 10/04/19 07:00 Intake Total 3990.0 ml Output Total 550 ml Balance 3440.0 ml Capillary Refill : Less Than 3 Seconds General Appearance: Mild Distress (conversational dyspnea) Respiratory: Lungs Clear Cardiovascular: Regular Rate, Rhythm Gastrointestinal: normal bowel sounds, non tender, soft Extremity: Non Tender, No Calf Tenderness, No Pedal Edema Neurologic/Psychiatric: Alert, Oriented x3 Skin: Warm/Dry Results Lab Laboratory Tests 10/04/19 05:12: White Blood Count 21.8H, Red Blood Count 3.39L, Hemoglobin 9.4L, Hematocrit 29L, Mean Corpuscular Volume 85, Mean Corpuscular Hemoglobin 28, Mean Corpuscular Hemoglobin Concent 33, Red Cell Distribution Width 14.6H, Platelet Count 256, Mean Platelet Volume 10.6H, Neutrophils (%) (Auto) 73, Lymphocytes (%) (Auto) 15, Monocytes (%) (Auto) 11, Eosinophils (%) (Auto) 0, Basophils (%) (Auto) 0, Neutrophils # (Auto) 16.0H, Lymphocytes # (Auto) 3.3, Monocytes # (Auto) 2.4H, E osinophils # (Auto) 0.0, Basophils # (Auto) 0.1, Sodium Level 134L, Potassium Level 4.6, Chloride Level 104, Carbon Dioxide Level 21, Anion Gap 9, Blood Urea Nitrogen 14, Creatinine 0.60, Estimat Glomerular Filtration Rate > 60, BUN/Cr eatinine Ratio 23, Glucose Level 137H, Calcium Level 8.2L, Corrected Calcium 9.6, Total Bilirubin 0.3, Aspartate Amino Transf (AST/SGOT) 26, Alanine Aminotransferase (ALT/SGPT) 36, Alkaline Phosphatase 298H, Total Protein 4.6L, Albumin 2.2L Microbiology 10/01/19 Blood Culture - Preliminary, Resulted No growth 09/28/19 Influenza Types A,B Antigen (CHLOÉ) - Final, Complete 09/28/19 Urine Culture - Final, Complete Enterococcus faecium See Comments Assessment/Plan Assessment/Plan Assess & Plan/Chief Complaint 1. UTI with SIRS with Enterococcus and leukocytosis--improved today after addition of cefepime to Vanc 2. Atrial Fibrillation--on cardizem and eliquis 3. Pancreatic Cancer with Mets--chemo held last week due to neutropenia 4. Anorexia with weight loss since starting chemo--marinol started 5. Weakness--PT/OT started 6. Seizure Disorder--Keppra restarted 7. Thrush--on diflucan and improving, also suspect possible fungal esophagitis contributing to poor appetite 8. Conversational Dyspnea--check CXR, decrease IVF rate Clinical Quality Measures Admission Status Admission Dx 1. Acute UTI with SIRS--admit and cover with rocephin for UTI, hydrate, monitor labs 2. Neutropenia--from recent chemo 3. Thrombocytopenia--from recent chemo, on lovenox for A fib so will monitor closely 4. Atrial Fibrillation--resume cardizem, NOACs have been on hold due to fall risk, thrombocytopenia but currently on lovenox for DVT prophylaxis and A fib--will need to DC lovenox if platelets dropping 5. Recent Seizure after starting chemo--resume Keppra 6. Anorexia/Dyspepsia--add protonix and zofran prn 7. Pancreatic Cancer with Liver Mets/Recent Jaundice/Recent Removal of Pancreatic Stents--resume lactulose low dose as well as spironolactone, chemo held this week due to neutropenia, oncology consulted DVT/VTE Risk/Contraindication: Risk Factor Score Per Nursin RFS Level Per Nursing on Admit: 4+=Very High BING VOGEL DO Oct 04, 2019 12:56 POS
[2019-10-04] MEDS: FLUCONAZOLE 200 MG/100 ML 50 ML, EMPTY IV BAG (PVC) 1 EA IV SCH ×2 (13:22)
[2019-10-04] MEDS: D5 1/2 NS 1000 ML IV SOLUTION 1,000 ML IV SCH (14:13)
--- NOTE | 2019-10-04 14:40 | Diagnostic Imaging Report ---
INDICATION: Dyspnea COMPARISON: 10/02/2019 FINDINGS: Single frontal view of the chest demonstrates normal heart size and pulmonary vascularity. The lungs are well aerated and clear. No large pleural effusion or pneumothorax is seen. The visualized osseous structures show no acute abnormalities. Right internal jugular Port-A-Cath is noted with tip in the low SVC. IMPRESSION: 1. No acute cardiopulmonary process. Dictated by: Dictated on workstation # [id number]
[2019-10-04 16:00] VITALS: BP 114/74
--- NOTE | 2019-10-04 17:40 | Progress Note ---
Standard Progress Note Progress Notes/Assess & Plan Date Seen by a Provider: Oct 04, 2019 Time Seen by a Provider: 17:31 Progress/Assessment & Plan 69 yo female with metastatic pancreatic cancer after having received only two weeks of palliative chemotherapy was admitted with neutropenia, UTI and overall failure to thrive. Her neutropenia was entirely from chemotherapy and has now resolved, along with her thrombocytopenia. Her leukocytosis worsened presumably from infection, either UTI or oral candidiasis. Anemia is somewhat worse, likely from acute illness. Primary team has broadened antibiotic coverage and added fluconazole, and leukocytosis is improving. Patient complains mostly of a nasal congestion. She continues to have poor appetite but still seems to enjoy ice cream and sherbet. Denies sore throat/odynophagia. At this point, two weeks out from last chemo, it is difficult to say if her failure to thrive is f rom chemo or from malignancy. Once patient is stable for discharge, we will see her back in clinic. Single agent gemcitabine may still be an option. Focused Exam Lactate Level 10/02/19 05:21: Lactic Acid Level 0.99 ANNIE HUYNH MD Oct 04, 2019 17:40 POS
[2019-10-04 20:37] VITALS: BP 125/77
[2019-10-05] VITALS (7 sets, daily range): BP systolic 110–123; BP diastolic 61–74
[2019-10-05] MEDS: CEFEPIME INJECTION 1,000 MG in WATER (STERILE) FOR INJECTION 10 ML IV SCH ×4 (03:16→20:49)
[2019-10-05 03:37] LABS: BASOPHILS # (AUTO) 0.1 10^3/uL (0.0-0.1); BASOPHILS % (AUTO) 0 % (0-10); EOSINOPHILS % (AUTO) 0 % (0-10); HEMATOCRIT 28 % (35-52); HEMOGLOBIN 9.2 G/DL (11.5-16.0); LYMPHOCYTES # (AUTO) 2.7 X 10^3 (1.0-4.0); LYMPHOCYTES % (AUTO) 15 % (12-44); MEAN CORPUSCULAR HEMOGLOBIN 28 PG (25-34); MEAN CORPUSCULAR HGB CONC 33 G/DL (32-36); MEAN CORPUSCULAR VOLUME 85 FL (80-99); MEAN PLATELET VOLUME 10.3 FL (7.4-10.4); MONOCYTES # (AUTO) 1.9 X 10^3 (0.0-1.0); MONOCYTES % (AUTO) 10 % (0-12); NEUTROPHILS # (AUTO) 13.7 X 10^3 (1.8-7.8); NEUTROPHILS % (AUTO) 75 % (42-75); PLATELET COUNT 287 10^3/uL (130-400); WHITE BLOOD COUNT 18.3 10^3/uL (4.3-11.0)
[2019-10-05 04:11] LABS: ALANINE AMINOTRANSFERASE 35 U/L (0-55); ALBUMIN 2.2 GM/DL (3.2-4.5); ALKALINE PHOSPHATASE 271 U/L (40-136); BILIRUBIN,TOTAL 0.4 MG/DL (0.1-1.0); BUN/CREATININE RATIO 22; CALCIUM 8.5 MG/DL (8.5-10.1); CARBON DIOXIDE 22 MMOL/L (21-32); CHLORIDE 106 MMOL/L (98-107); CREATININE SERUM 0.64 MG/DL (0.60-1.30); GFR ESTIMATED > 60; GLUCOSE 146 MG/DL (70-105); POTASSIUM 4.6 MMOL/L (3.6-5.0); SODIUM 137 MMOL/L (135-145); TOTAL PROTEIN 4.4 GM/DL (6.4-8.2)
[2019-10-05] MEDS: KCL 8 MEQ (MICRO K) TABLET PO SCH (06:12)
[2019-10-05] MEDS: NYSTATIN ORAL SUSP 5 ML UDC PO SCH ×3 (06:13→16:05)
[2019-10-05] MEDS: LEVETIRACETAM 500 MG (KEPPRA) TAB PO SCH ×2 (08:17→20:43)
[2019-10-05] MEDS: PANTOPRAZOLE 40 MG (PROTONIX) TAB PO SCH (08:17)
[2019-10-05] MEDS: LACTULOSE SYRUP 10GM/15ML (ENULOSE) 30ML UDC PO SCH (08:17)
[2019-10-05] MEDS: ASPIRIN E.C. 81 MG (ECOTRIN) TAB PO SCH (08:17)
[2019-10-05] MEDS: APIXABAN 5 MG (ELIQUIS) TABLET PO SCH ×2 (08:17→20:43)
[2019-10-05] MEDS: DILTIAZEM 120 MG (CARDIZEM CD) CAP PO SCH (08:21)
[2019-10-05] MEDS: D5 1/2 NS 1000 ML IV SOLUTION 1,000 ML IV SCH ×2 (08:22→20:49)
[2019-10-05] MEDS: VANCOMYCIN INJECTION 750 MG in NS (IVPB) 250 ML IV SCH ×2 (08:49→20:50)
[2019-10-05] MEDS: FLUCONAZOLE 200 MG/100 ML 50 ML, EMPTY IV BAG (PVC) 1 EA IV SCH ×2 (09:05)
--- NOTE | 2019-10-05 09:08 | Physical Therapy Daily Note ---
PT Daily Note-Current Subjective Patient is in bed and agrees to PT. She reports she needs to have a BM. Mental Status Patient Orientation: Normal For Age Transfers SCALE: Activities may be completed with or without assistive devices. 8-Ouzukjadtu-pzpnxhj completes the activity by him/herself with no assistance from a helper. 5-Set-up or Clean-up Assistance-helper sets up or cleans up; patient completes activity. [place]cd[place] assists only prior to or following the activity. 4-Supervision or Touching Assistance-helper provides verbal cues and/or touching/steadying and/or contact guard assistance as patient completes activity. Assistance may be provided throughout the activity or intermittently. 3-Partial/Moderate Assistance-helper does LESS THAN HALF the effort. Mcdonald lifts, holds or supports trunk or limbs, but provides less than half the effort. 2-Substantial/Maximal Assistance-helper does MORE THAN HALF the effort. Mcdonald lifts or holds trunk or limbs and provides more than half the effort. 1-Gdzfzamju-fycfsh does ALL the effort. Patient does none of the effort to complete the activity. Or, the assistance of 2 or more helpers is required for the patient to complete the activity. If activity was not attempted, code reason: 7-Patient Refused. 9-Not Applicable-not attempted and the patient did not perform the activity before the current illness, exacerbation or injury. 10-Not Attempted due to Environmental Limitations-(lack of equipment, weather restraints, etc.). 88-Not Attempted due to Medical Conditions or Safety Concerns. Sit to Lying (QC): 5 Lying to Sitting/Side of Bed(Q: 5 Sit to Stand (QC): 5 Chair/Hcw-yc-Hzldp Xfer(QC): 5 Toilet Transfer (QC): 5 Patient requires assistance to cleanse after BM. Weight Bearing Right Lower Extremity: Right Weight Bearing/Tolerated Left Lower Extremity: Left Weight Bearing/Tolerated Gait Training Does the Patient Walk?: Yes Distance: 40' Walk 10 feet (QC): 4 Gait Assistive Device: FWW Patient is very fatigued and ambulates short distances only Assessment Patient up in recliner with needs met. PT to increase activity as tolerated by patient. PT Usp Goals Railroad Operator Goals PT Usp Goals Time Frame: Oct 16, 2019 Roll Left & Right (QC): 6 Sit to Lying (QC): 6 Lying-Sitting on Side/Bed(QC): 6 Sit to Stand (QC): 6 Chair/Own-kn-Uervb Xfer(QC): 6 Toilet Transfer (QC): 6 Car Transfer (QC): 6 Does the Patient Walk: Yes Walk 10 feet (QC): 6 Walk 50ft with 2 Turns (QC): 4 Walk 150 ft (QC): 9 Walking 10ft on Uneven Surface: 9 1 Step (curb) (QC): 9 4 Steps (QC): 9 12 Steps (QC): 9 Picking up an Object (QC): 9 Does the Pt use WC or Scooter?: Yes Type: Manual Type: Manual PT Plan Treatment/Plan Treatment Plan: Continue Plan of Care Treatment Plan: Bed Mobility, Education, Functional Activity Neville, Functional Strength, Gait, Safety, Therapeutic Exercise, Transfers Treatment Duration: Oct 16, 2019 Frequency: 6 times per week Estimated Hrs Per Day: .25 hour per day Patient and/or Family Agrees t: Yes Time/GCodes Time In: 758 Time Out: 810 Total Billed Treatment Time: 12 Total Billed Treatment 1 visit FA 12 min LINSEY HICKMAN PT Oct 05, 2019 09:08 POS
--- NOTE | 2019-10-05 11:05 | Progress Note - Hospitalist ---
Subjective HPI/CC On Admission Date Seen by Provider: Oct 05, 2019 Time Seen by Provider: 09:25 Subjective/Events-last exam She reports feeling better today. She has a stuffy nose. She denies fever, chills, chest pain, dyspnea, nausea, vomiting, and diarrhea. Objective Exam Vital Signs Vital Signs Date Time Temp Pulse Resp B/P (MAP) Pulse Ox O2 Delivery O2 Flow Rate FiO2 10/05/19 10:53 97 Room Air 10/05/19 08:00 36.6 74 20 115/72 (86) 10/03/19 11:24 21 Capillary Refill : Less Than 3 Seconds General Appearance: No Apparent Distress, WD/WN HEENT: PERRL/EOMI, Pharynx Normal Neck: Normal Inspection, Supple Respiratory: Lungs Clear, Normal Breath Sounds, No Respiratory Distress Cardiovascular: Regular Rate, Rhythm, No Edema, No Murmur Gastrointestinal: Normal Bowel Sounds, Non Tender, Soft Extremity: Normal Inspection, Non Tender, No Pedal Edema Neurologic/Psychiatric: Alert, Oriented x3, No Motor/Sensory Deficits, Normal Mood/Affect Skin: Normal Color, Warm/Dry Results/Procedures Lab Laboratory Tests 10/05/19 03:29 Patient resulted labs reviewed. Assessment/Plan Assessment and Plan Assess & Plan/Chief Complaint UTI -Continue Vanc/Cefepime Paroxysmal AFib -Continue Cardizem and Eliquis Pancreatic cancer -Follows with Dr. Langley Seizure disorder -Continue Keppra Thrush -Continue Fluconazole DVT Prophylaxis: already receiving therapeutic anticoagulation Diagnosis/Problems Diagnosis/Problems (1) UTI (urinary tract infection) Status: Acute (2) Thrush, oral Status: Acute (3) Paroxysmal atrial fibrillation with rapid ventricular response Status: Acute (4) Seizures Status: Acute (5) Pancreatic cancer Status: Chronic Clinical Quality Measures DVT/VTE Risk/Contraindication: Risk Factor Score Per Nursin RFS Level Per Nursing on Admit: 4+=Very High MINESH LEROY MD Oct 05, 2019 11:05 POS
[2019-10-05] MEDS: DRONABINOL 2.5 MG (MARINOL) CAP PO SCH ×2 (11:44→16:04)
[2019-10-05] MEDS: HYDROcodone/APAP 5 MG/325 MG (LORTAB) TAB PO PRN (20:44)
[2019-10-06] MEDS: CEFEPIME INJECTION 1,000 MG in WATER (STERILE) FOR INJECTION 10 ML IV SCH (02:00)
[2019-10-06 04:35] VITALS: BP 106/65
[2019-10-06] MEDS: NYSTATIN ORAL SUSP 5 ML UDC PO SCH ×2 (05:29)
[2019-10-06] MEDS: KCL 8 MEQ (MICRO K) TABLET PO SCH (05:29)
[2019-10-06] MEDS: D5 1/2 NS 1000 ML IV SOLUTION 1,000 ML IV SCH (05:29)
[2019-10-06 05:30] LABS: BASOPHILS # (AUTO) 0.1 10^3/uL (0.0-0.1); BASOPHILS % (AUTO) 0 % (0-10); EOSINOPHILS % (AUTO) 0 % (0-10); HEMATOCRIT 30 % (35-52); HEMOGLOBIN 9.8 G/DL (11.5-16.0); LYMPHOCYTES # (AUTO) 2.5 X 10^3 (1.0-4.0); LYMPHOCYTES % (AUTO) 15 % (12-44); MEAN CORPUSCULAR HEMOGLOBIN 28 PG (25-34); MEAN CORPUSCULAR HGB CONC 33 G/DL (32-36); MEAN CORPUSCULAR VOLUME 85 FL (80-99); MEAN PLATELET VOLUME 10.4 FL (7.4-10.4); MONOCYTES # (AUTO) 1.5 X 10^3 (0.0-1.0); MONOCYTES % (AUTO) 9 % (0-12); NEUTROPHILS # (AUTO) 13.2 X 10^3 (1.8-7.8); NEUTROPHILS % (AUTO) 76 % (42-75); PLATELET COUNT 315 10^3/uL (130-400); RED CELL DISTRIBUTION WIDTH 15.5 % (10.0-14.5); WHITE BLOOD COUNT 17.3 10^3/uL (4.3-11.0)
[2019-10-06 08:00] VITALS: BP 120/74
[2019-10-06] MEDS: PANTOPRAZOLE 40 MG (PROTONIX) TAB PO SCH (08:27)
[2019-10-06] MEDS: ASPIRIN E.C. 81 MG (ECOTRIN) TAB PO SCH (08:27)
[2019-10-06] MEDS: LEVETIRACETAM 500 MG (KEPPRA) TAB PO SCH (08:27)
[2019-10-06] MEDS: DILTIAZEM 120 MG (CARDIZEM CD) CAP PO SCH (08:28)
[2019-10-06] MEDS: APIXABAN 5 MG (ELIQUIS) TABLET PO SCH (08:28)
[2019-10-06] MEDS: LACTULOSE SYRUP 10GM/15ML (ENULOSE) 30ML UDC PO SCH (08:28)
[2019-10-06] MEDS ORDERED: fluCOnazole (DIFLUCAN) 100 MG TAB PO SCH (09:00)
[2019-10-06] MEDS: VANCOMYCIN INJECTION 750 MG in NS (IVPB) 250 ML IV SCH (09:40)
--- NOTE | 2019-10-06 10:21 | Physical Therapy Daily Note ---
PT Daily Note-Current Subjective Pt is alert and oriented. Pt is agreeable to treatment. Mental Status Patient Orientation: Person, Place, Time, Situation Attachments: IV Transfers SCALE: Activities may be completed with or without assistive devices. 0-Rgqaznnipr-lmlkigy completes the activity by him/herself with no assistance from a helper. 5-Set-up or Clean-up Assistance-helper sets up or cleans up; patient completes activity. [place] assists only prior to or following the activity. 4-Supervision or Touching Assistance-helper provides verbal cues and/or touching/steadying and/or contact guard assistance as patient completes activ ity. Assistance may be provided throughout the activity or intermittently. 3-Partial/Moderate Assistance-helper does LESS THAN HALF the effort. [place] lifts, holds or supports trunk or limbs, but provides less than half the effort. 2-Substantial/Maximal Assistance-helper does MORE THAN HALF the effort. [place] lifts or holds trunk or limbs and provides more than half the effort. 7-Tnjeuiqam-ilhylx does ALL the effort. Patient does none of the effort to complete the activity. Or, the assistance of 2 or more helpers is required for the patient to complete the activity. If activity was not attempted, code reason: 7-Patient Refused. 9-Not Applicable-not attempted and the patient did not perform the activity before the current illness, exacerbation or injury. 10-Not Attempted due to Environmental Limitations-(lack of equipment, weather restraints, etc.). 88-Not Attempted due to Medical Conditions or Safety Concerns. Weight Bearing Right Lower Extremity: Right Weight Bearing/Tolerated Left Lower Extremity: Left Weight Bearing/Tolerated Exercises Supine Ex: LE Protocol Supine Reps: 20 Assessment Pt requested to stay in bed. She is feeling fatigued. Good performance with supine ex, with no assist needed during any ex. PT Skilled Nursing Goals Curriculum Designer Goals PT Curriculum Designer Goals Time Frame: Oct 16, 2019 Roll Left & Right (QC): 6 Sit to Lying (QC): 6 Lying-Sitting on Side/Bed(QC): 6 Sit to Stand (QC): 6 Chair/Dka-ej-Mzsws Xfer(QC): 6 Toilet Transfer (QC): 6 Car Transfer (QC): 6 Does the Patient Walk: Yes Walk 10 feet (QC): 6 Walk 50ft with 2 Turns (QC): 4 Walk 150 ft (QC): 9 Walking 10ft on Uneven Surface: 9 1 Step (curb) (QC): 9 4 Steps (QC): 9 12 Steps (QC): 9 Picking up an Object (QC): 9 Does the Pt use WC or Scooter?: Yes Type: Manual Type: Manual PT Plan Treatment/Plan Treatment Plan: Continue Plan of Care Treatment Plan: Bed Mobility, Education, Functional Activity Neville, Functional Strength, Gait, Safety, Therapeutic Exercise, Transfers Treatment Duration: Oct 16, 2019 Frequency: 6 times per week Estimated Hrs Per Day: .25 hour per day Patient and/or Family Agrees t: Yes Time/GCodes Time In: 1000 Time Out: 1016 Total Billed Treatment Time: 16 Total Billed Treatment 1, ex 16 EUSEBIA ARNDT PT Oct 06, 2019 10:20 POS
[2019-10-06] MEDS ORDERED: APIX5TAB PO (11:04)
[2019-10-06] MEDS ORDERED: FLUC100T6 PO (11:04)
[2019-10-06] MEDS: DRONABINOL 2.5 MG (MARINOL) CAP PO SCH (12:15)
--- NOTE | 2019-10-06 15:53 | Discharge Summary ---
Discharge Summary Hospital Course Was the Problem List Reviewed?: Yes Problems/Dx: (1) UTI (urinary tract infection) Status: Resolved (2) Thrush, oral Status: Acute (3) Paroxysmal atrial fibrillation with rapid ventricular response Status: Acute (4) Seizures Status: Chronic (5) Pancreatic cancer Status: Chronic Hospital Course Date of Admission: Sep 28, 2019 at 18:30 Admission Diagnosis : Severe sepsis due to urinary tract infection Family Physician/Provider: iBng Mcclellan DO Date of Discharge: 10/06/19 Discharge Diagnosis: Severe sepsis due to urinary tract infection Hospital Course: Ceci Ryder is a 69yoF with H pancreatic cancer undergoing chemotherapy with Dr. Huynh who presented with severe sepsis and was found to have a urinary tract infection. She was initially treated with Rocephin, but was transitioned to Vancomycin when her urine culture came back as Enterococcus. She was also covered with Cefepime due to lack of response. Her blood cultures remained negative and she responded well. She had a lactic acidosis on admission which resolved. She was given a course of fluconazole for oral candidiasis. She was discharged in stable condition to [facility]. She will follow up with Dr. Mcclellan and Dr. Huynh. Labs and Pending Lab Test: Laboratory Tests 10/06/19 04:57: White Blood Count 17.3H, Red Blood Count 3.48L, Hemoglobin 9.8L, Hematocrit 30L, Mean Corpuscular Volume 85, Mean Corpuscular Hemoglobin 28, Mean Corpuscular Hemoglobin Concent 33, Red Cell Distribution Width 15.5H, Platelet Count 315, Mean Platelet Volume 10.4, Neutrophils (%) (Auto) 76H, Lymphocytes (%) (Auto) 15, Monocytes (%) (Auto) 9, Eosinophils (%) (Auto) 0, Basophils (%) (Auto) 0, Neutrophils # (Auto) 13.2H, Lymphocytes # (Auto) 2.5, Monocytes # (Auto) 1.5H, Eosinophils # (Auto) 0.0, Basophils # (Auto) 0.1 Microbiology 10/01/19 Blood Culture - Final, Complete No growth 09/28/19 Influenza Types A,B Antigen (CHLOÉ) - Final, Complete 09/28/19 Urine Culture - Final, Complete Enterococcus faecium See Comments Home Meds Active Eliquis (Apixaban) 5 Mg Tablet 5 Mg PO BID 30 Days Fluconazole 100 Mg Tablet 100 Mg PO DAILY 4 Days Reported Zofran (Ondansetron HCl) 8 Mg Tablet 8 Mg PO Q8H PRN Famotidine 20 Mg Tablet 20 Mg PO BID Icy Hot (Menthol) 1 Each Adh..patch 1 Patch TP DAILY Tylenol (Acetaminophen) 325 Mg Tablet 325 Mg PO BID Potassium Chloride 8 Meq Capsule.er 8 Meq PO DAILY Aldactone (Spironolactone) 25 Mg Tablet 25 Mg PO DAILY Generlac (Lactulose) 10 Gm/15 Ml Solution 10 Ml PO DAILY Nystatin 100,000 Unit/1 Ml Oral.susp 5 Ml PO QID SWISH AND SWALLOW Levetiracetam 500 Mg Tablet 500 Mg PO BID Diltiazem 24Hr ER (Diltiazem HCl) 120 Mg Cap.er.24h 120 Mg PO DAILY HOLD FOR SBP <100 AND DBP<60 Aspirin EC (Aspirin) 81 Mg Tablet.dr 81 Mg PO DAILY Assessment/Pt Instructions Take medications as prescribed. Follow up with Dr. Huynh and Dr. Mcclellan. Discharge Planning: <30 minutes discharge planning Discharge Instructions Discharge Diet: No Restrictions Activity as Tolerated: Yes Pneumonia Vaccine Order Indica: Yes Discharge Physical Examination Vital Signs Vital Signs Date Time Temp Pulse Resp B/P (MAP) Pulse Ox O2 Delivery O2 Flow Rate FiO2 10/06/19 12:13 10/06/19 08:00 Room Air 10/06/19 08:00 37.1 76 18 98 10/03/19 11:24 21 General Appearance: No Apparent Distress, WD/WN, Chronically ill Respiratory: Lungs Clear, Normal Breath Sounds, No Respiratory Distress Cardiovascular: Regular Rate, Rhythm, No Edema, No Murmur Gastrointestinal: Normal Bowel Sounds, Non Tender Extremity: Normal Inspection, Non Tender, No Pedal Edema Skin: Normal Color, Warm/Dry Neurologic/Psychiatric: Alert, Oriented x3, No Motor/Sensory Deficits, Normal Mood/Affect Allergies: Coded Allergies: Penicillins (Verified Allergy, Unknown, pt has received Rocephin in the past, 07/14/19) ciprofloxacin (Verified Allergy, Unknown, 09/06/19) sulfamethoxazole (Unverified Allergy, Unknown, 02/06/19) trimethoprim (Unverified Allergy, Unknown, 02/06/19) Copy Copies To 1: BING MCCLELLAN DO Copies To 2: ANNIE HUYNH MD Discharge Summary Date of Admission Sep 28, 2019 at 18:30 Date of Discharge Oct 06, 2019 at 12:39 Discharge Date: Oct 06, 2019 Discharge Time: 12:30 Admission Diagnosis Severe sepsis due to urinary tract infection Discharge Diagnosis Severe sepsis due to UTI (1) UTI (urinary tract infection) Status: Resolved (2) Thrush, oral Status: Acute (3) Paroxysmal atrial fibrillation with rapid ventricular response Status: Acute (4) Seizures Status: Chronic (5) Pancreatic cancer Status: Chronic (6) Lactic acidosis Status: Resolved (7) Severe sepsis Status: Resolved Clinical Quality Measures DVT/VTE Risk/Contraindication: Risk Factor Score Per Nursin RFS Level Per Nursing on Admit: 4+=Very High MINESH LEROY MD Oct 06, 2019 15:53 POS
== END 2019-10-06 12:39 | DRG 872 ==
LOC: EDUNIT# 16:07 → ER 16:09 → 4TH 18:30
PROVIDERS: ADMIT Family Medicine; ATTEND Family Medicine
DX: A41.9 Sepsis, unspecified organism (principal); N39.0 Urinary tract infection, site not specified; C25.9 Malignant neoplasm of pancreas, unspecified; C78.7 Secondary malignant neoplasm of liver and intrahepatic bile duct; I48.20 Chronic atrial fibrillation, unspecified; R31.9 Hematuria, unspecified; E86.0 Dehydration; D69.59 Other secondary thrombocytopenia; R62.7 Adult failure to thrive; T45.1X5A Adverse effect of antineoplastic and immunosuppressive drugs, initial encounter; R41.3 Other amnesia; R56.9 Unspecified convulsions; R63.0 Anorexia; D70.1 Agranulocytosis secondary to cancer chemotherapy; B95.2 Enterococcus as the cause of diseases classified elsewhere; Z68.22 Body mass index [BMI] 22.0-22.9, adult
CPT/HCPCS: 36415; 71045; 71046; 72070; 80048; 80053; 80202; 81000; 82140; 83605; 83690; 83735; 84484; 85007; 85025; 85027; 85610; 85730; 87040; 87077; 87088; 87186; 87804; 93005; 94760; 96372; 96374

== ENCOUNTER 2019-10-26 09:31 | Outpatient (RCR) | payer MEDICARE, MEDICAID ==
[2019-08-18 09:57] LABS: BASOPHILS # (AUTO) 0.1 10^3/uL (0.0-0.1); BASOPHILS % (AUTO) 1 % (0-10); EOSINOPHILS # (AUTO) 0.2 10^3/uL (0.0-0.3); EOSINOPHILS % (AUTO) 2 % (0-10); HEMATOCRIT 38 % (35-52); HEMOGLOBIN 12.3 G/DL (11.5-16.0); LYMPHOCYTES # (AUTO) 1.7 X 10^3 (1.0-4.0); LYMPHOCYTES % (AUTO) 17 % (12-44); MEAN CORPUSCULAR HEMOGLOBIN 30 PG (25-34); MEAN CORPUSCULAR HGB CONC 32 G/DL (32-36); MEAN CORPUSCULAR VOLUME 93 FL (80-99); MEAN PLATELET VOLUME 9.7 FL (7.4-10.4); MONOCYTES # (AUTO) 0.9 X 10^3 (0.0-1.0); MONOCYTES % (AUTO) 8 % (0-12); NEUTROPHILS # (AUTO) 7.5 X 10^3 (1.8-7.8); NEUTROPHILS % (AUTO) 73 % (42-75); PLATELET COUNT 392 10^3/uL (130-400); WHITE BLOOD COUNT 10.3 10^3/uL (4.3-11.0)
[2019-08-18 10:15] LABS: INR 1.1 (0.8-1.4); PROTHROMBIN TIME PATIENT 14.6 SEC (12.2-14.7)
[2019-08-18 10:22] LABS: ALANINE AMINOTRANSFERASE 17 U/L (0-55); ALBUMIN 3.3 GM/DL (3.2-4.5); ALKALINE PHOSPHATASE 257 U/L (40-136); BILIRUBIN,TOTAL 1.3 MG/DL (0.1-1.0); BUN/CREATININE RATIO 15; CALCIUM 9.5 MG/DL (8.5-10.1); CARBON DIOXIDE 22 MMOL/L (21-32); CHLORIDE 107 MMOL/L (98-107); CREATININE SERUM 0.75 MG/DL (0.60-1.30); GFR ESTIMATED > 60; GLUCOSE 165 MG/DL (70-105); POTASSIUM 3.9 MMOL/L (3.6-5.0); SODIUM 138 MMOL/L (135-145); TOTAL PROTEIN 7.3 GM/DL (6.4-8.2)
[2019-09-06 10:47] LABS: BASOPHILS # (AUTO) 0.1 10^3/uL (0.0-0.1); BASOPHILS % (AUTO) 1 % (0-10); EOSINOPHILS # (AUTO) 0.1 10^3/uL (0.0-0.3); EOSINOPHILS % (AUTO) 1 % (0-10); HEMATOCRIT 40 % (35-52); HEMOGLOBIN 12.9 G/DL (11.5-16.0); LYMPHOCYTES # (AUTO) 1.6 X 10^3 (1.0-4.0); LYMPHOCYTES % (AUTO) 16 % (12-44); MEAN CORPUSCULAR HEMOGLOBIN 28 PG (25-34); MEAN CORPUSCULAR HGB CONC 32 G/DL (32-36); MEAN CORPUSCULAR VOLUME 89 FL (80-99); MEAN PLATELET VOLUME 10.6 FL (7.4-10.4); MONOCYTES # (AUTO) 0.9 X 10^3 (0.0-1.0); MONOCYTES % (AUTO) 9 % (0-12); NEUTROPHILS # (AUTO) 7.4 X 10^3 (1.8-7.8); NEUTROPHILS % (AUTO) 74 % (42-75); PLATELET COUNT 393 10^3/uL (130-400); RED CELL DISTRIBUTION WIDTH 14.5 % (10.0-14.5)
[2019-09-06 11:05] LABS: ALANINE AMINOTRANSFERASE 21 U/L (0-55); ALBUMIN 3.6 GM/DL (3.2-4.5); ALKALINE PHOSPHATASE 265 U/L (40-136); AMMONIA 22 UMOL/L (11-32); BILIRUBIN,TOTAL 0.7 MG/DL (0.1-1.0); BUN/CREATININE RATIO 14; CALCIUM 10.2 MG/DL (8.5-10.1); CARBON DIOXIDE 22 MMOL/L (21-32); CHLORIDE 107 MMOL/L (98-107); GFR ESTIMATED > 60; GLUCOSE 137 MG/DL (70-105); POTASSIUM 4.5 MMOL/L (3.6-5.0); SODIUM 137 MMOL/L (135-145); TOTAL PROTEIN 7.9 GM/DL (6.4-8.2)
[2019-09-21 13:53] LABS: BASOPHILS % (AUTO) 0 % (0-10); EOSINOPHILS % (AUTO) 0 % (0-10); HEMATOCRIT 37 % (35-52); HEMOGLOBIN 12.4 G/DL (11.5-16.0); LYMPHOCYTES # (AUTO) 0.5 X 10^3 (1.0-4.0); LYMPHOCYTES % (AUTO) 12 % (12-44); MEAN CORPUSCULAR HEMOGLOBIN 28 PG (25-34); MEAN CORPUSCULAR HGB CONC 33 G/DL (32-36); MEAN CORPUSCULAR VOLUME 85 FL (80-99); MEAN PLATELET VOLUME 11.7 FL (7.4-10.4); MONOCYTES # (AUTO) 0.2 X 10^3 (0.0-1.0); MONOCYTES % (AUTO) 4 % (0-12); NEUTROPHILS # (AUTO) 3.8 X 10^3 (1.8-7.8); NEUTROPHILS % (AUTO) 84 % (42-75); PLATELET COUNT 102 10^3/uL (130-400); RED CELL DISTRIBUTION WIDTH 14.2 % (10.0-14.5); WHITE BLOOD COUNT 4.5 10^3/uL (4.3-11.0)
[2019-09-21 14:07] LABS: BUN/CREATININE RATIO 20; CALCIUM 9.6 MG/DL (8.5-10.1); CARBON DIOXIDE 18 MMOL/L (21-32); CHLORIDE 104 MMOL/L (98-107); CREATININE SERUM 0.64 MG/DL (0.60-1.30); GFR ESTIMATED > 60; GLUCOSE 142 MG/DL (70-105); POTASSIUM 4.2 MMOL/L (3.6-5.0); SODIUM 133 MMOL/L (135-145)
[2019-09-28 09:34] LABS: BASOPHILS % (AUTO) 0 % (0-10); EOSINOPHILS % (AUTO) 1 % (0-10); HEMATOCRIT 39 % (35-52); HEMOGLOBIN 13.2 G/DL (11.5-16.0); LYMPHOCYTES # (AUTO) 0.6 X 10^3 (1.0-4.0); LYMPHOCYTES % (AUTO) 67 % (12-44); MEAN CORPUSCULAR HEMOGLOBIN 28 PG (25-34); MEAN CORPUSCULAR HGB CONC 34 G/DL (32-36); MEAN CORPUSCULAR VOLUME 82 FL (80-99); MEAN PLATELET VOLUME 10.8 FL (7.4-10.4); MONOCYTES # (AUTO) 0.2 X 10^3 (0.0-1.0); MONOCYTES % (AUTO) 26 % (0-12); NEUTROPHILS # (AUTO) 0.1 X 10^3 (1.8-7.8); NEUTROPHILS % (AUTO) 6 % (42-75); PLATELET COUNT 51 10^3/uL (130-400); RED CELL DISTRIBUTION WIDTH 14.1 % (10.0-14.5)
[2019-09-28 09:35] LABS: WHITE BLOOD COUNT 0.9 10^3/uL (4.3-11.0)
[2019-09-28 09:55] LABS: BUN/CREATININE RATIO 50; CALCIUM 10.3 MG/DL (8.5-10.1); CARBON DIOXIDE 18 MMOL/L (21-32); CHLORIDE 104 MMOL/L (98-107); CREATININE SERUM 0.68 MG/DL (0.60-1.30); GFR ESTIMATED > 60; GLUCOSE 166 MG/DL (70-105); POTASSIUM 4.5 MMOL/L (3.6-5.0); SODIUM 132 MMOL/L (135-145)
[2019-10-12 09:28] LABS: BASOPHILS # (AUTO) 0.1 10^3/uL (0.0-0.1); BASOPHILS % (AUTO) 1 % (0-10); EOSINOPHILS % (AUTO) 0 % (0-10); HEMATOCRIT 33 % (35-52); HEMOGLOBIN 10.8 G/DL (11.5-16.0); LYMPHOCYTES # (AUTO) 2.1 X 10^3 (1.0-4.0); LYMPHOCYTES % (AUTO) 18 % (12-44); MEAN CORPUSCULAR HEMOGLOBIN 28 PG (25-34); MEAN CORPUSCULAR HGB CONC 32 G/DL (32-36); MEAN CORPUSCULAR VOLUME 86 FL (80-99); MEAN PLATELET VOLUME 9.3 FL (7.4-10.4); MONOCYTES # (AUTO) 1.5 X 10^3 (0.0-1.0); MONOCYTES % (AUTO) 13 % (0-12); NEUTROPHILS % (AUTO) 68 % (42-75); PLATELET COUNT 502 10^3/uL (130-400); RED CELL DISTRIBUTION WIDTH 17.4 % (10.0-14.5); WHITE BLOOD COUNT 11.7 10^3/uL (4.3-11.0)
[2019-10-12 09:47] LABS: ALANINE AMINOTRANSFERASE 21 U/L (0-55); ALBUMIN 2.8 GM/DL (3.2-4.5); ALKALINE PHOSPHATASE 277 U/L (40-136); BILIRUBIN,TOTAL 0.5 MG/DL (0.1-1.0); BUN/CREATININE RATIO 21; CALCIUM 8.8 MG/DL (8.5-10.1); CARBON DIOXIDE 18 MMOL/L (21-32); CHLORIDE 107 MMOL/L (98-107); CREATININE SERUM 0.71 MG/DL (0.60-1.30); GFR ESTIMATED > 60; GLUCOSE 185 MG/DL (70-105); POTASSIUM 4.2 MMOL/L (3.6-5.0); SODIUM 135 MMOL/L (135-145)
[2019-10-19 09:33] LABS: BASOPHILS % (AUTO) 1 % (0-10); EOSINOPHILS # (AUTO) 0.2 10^3/uL (0.0-0.3); EOSINOPHILS % (AUTO) 3 % (0-10); HEMATOCRIT 31 % (35-52); LYMPHOCYTES # (AUTO) 1.7 X 10^3 (1.0-4.0); LYMPHOCYTES % (AUTO) 26 % (12-44); MEAN CORPUSCULAR HEMOGLOBIN 28 PG (25-34); MEAN CORPUSCULAR HGB CONC 32 G/DL (32-36); MEAN CORPUSCULAR VOLUME 86 FL (80-99); MEAN PLATELET VOLUME 10.2 FL (7.4-10.4); MONOCYTES # (AUTO) 0.3 X 10^3 (0.0-1.0); MONOCYTES % (AUTO) 4 % (0-12); NEUTROPHILS # (AUTO) 4.3 X 10^3 (1.8-7.8); NEUTROPHILS % (AUTO) 66 % (42-75); PLATELET COUNT 300 10^3/uL (130-400); RED CELL DISTRIBUTION WIDTH 17.1 % (10.0-14.5); WHITE BLOOD COUNT 6.5 10^3/uL (4.3-11.0)
[2019-10-19 09:52] LABS: BUN/CREATININE RATIO 20; CALCIUM 9.8 MG/DL (8.5-10.1); CARBON DIOXIDE 19 MMOL/L (21-32); CHLORIDE 107 MMOL/L (98-107); CREATININE SERUM 0.74 MG/DL (0.60-1.30); GFR ESTIMATED > 60; GLUCOSE 175 MG/DL (70-105); POTASSIUM 4.4 MMOL/L (3.6-5.0); SODIUM 137 MMOL/L (135-145)
[~2019-10-26 09:31] MED LIST changes: +APIX5TAB PO; +ASPI-983 PO; +CTR IV SCH; +DILT-27 PO; +FAMO20TA5 PO; +FLUC100T6 PO; +FOSAPREPITANT DIMEGLUMINE 150 MG in NS (IVPB) CANCER CENTER ONLY 150 ML IV SCH; +GEMCITABINE HCL 1 GM, GEMCITABINE HCL 500 MG in NS (IVPB) CANCER CENTER 100 ML IV SCH; +GEMCITABINE HCL IV SCH; +LACT10SO46 PO; +LEVE500T6 PO; +MENT1ADH TP; +NS IV 1000 ML (CANCER CTR) IV SCH; +NS IV SCH; +ONDA8TAB6 PO; +PACLITAXEL PROTEIN IV SCH; +PACLitaxel PROTEIN 180 MG in EMPTY IV BAG (PVC) CANCER CTR 1 EA IV SCH; +PALONOSETRON HCL 0.25 MG, DEXAMETHASONE INJECTION 10 MG in NS (IVPB) CANCER CENTER 50 ML IV SCH; +POTA8CAP20 PO; +SPIR25TA PO
[2019-10-26 09:52] LABS: BASOPHILS % (AUTO) 1 % (0-10); EOSINOPHILS # (AUTO) 0.1 10^3/uL (0.0-0.3); EOSINOPHILS % (AUTO) 2 % (0-10); HEMATOCRIT 31 % (35-52); HEMOGLOBIN 10.2 G/DL (11.5-16.0); LYMPHOCYTES % (AUTO) 46 % (12-44); MEAN CORPUSCULAR HEMOGLOBIN 28 PG (25-34); MEAN CORPUSCULAR HGB CONC 33 G/DL (32-36); MEAN CORPUSCULAR VOLUME 85 FL (80-99); MEAN PLATELET VOLUME 9.3 FL (7.4-10.4); MONOCYTES # (AUTO) 0.3 X 10^3 (0.0-1.0); MONOCYTES % (AUTO) 7 % (0-12); NEUTROPHILS # (AUTO) 1.9 X 10^3 (1.8-7.8); NEUTROPHILS % (AUTO) 44 % (42-75); PLATELET COUNT 268 10^3/uL (130-400); RED CELL DISTRIBUTION WIDTH 17.8 % (10.0-14.5); WHITE BLOOD COUNT 4.3 10^3/uL (4.3-11.0)
[2019-10-26 10:14] LABS: BUN/CREATININE RATIO 22; CALCIUM 9.1 MG/DL (8.5-10.1); CARBON DIOXIDE 17 MMOL/L (21-32); CHLORIDE 107 MMOL/L (98-107); CREATININE SERUM 0.68 MG/DL (0.60-1.30); GFR ESTIMATED > 60; GLUCOSE 115 MG/DL (70-105); POTASSIUM 4.6 MMOL/L (3.6-5.0); SODIUM 136 MMOL/L (135-145)
== END 2019-11-02 | disposition home or self-care (01) ==
LOC: ONC 09:31
PROVIDERS: ATTEND Internal Medicine Hematology & Oncology
DX: C79.9 Secondary malignant neoplasm of unspecified site (principal); C25.9 Malignant neoplasm of pancreas, unspecified
CPT/HCPCS: 36415; 36591; 80048; 80053; 82140; 85025; 85610; 85730; 86301; 96367; 96375; 96413; 96417; 99213; 99214

== ENCOUNTER 2019-11-05 15:02 | Inpatient (IN) | payer MEDICARE, MEDICAID ==
[~2019-11-05] VITALS: Ht 172.7 cm; Wt 86.8 kg
[~2019-11-05 15:02] MED LIST changes: -CTR IV SCH; -FOSAPREPITANT DIMEGLUMINE 150 MG in NS (IVPB) CANCER CENTER ONLY 150 ML IV SCH; -GEMCITABINE HCL 1 GM, GEMCITABINE HCL 500 MG in NS (IVPB) CANCER CENTER 100 ML IV SCH; -GEMCITABINE HCL IV SCH; -NS IV 1000 ML (CANCER CTR) IV SCH; -NS IV SCH; -PACLITAXEL PROTEIN IV SCH; -PACLitaxel PROTEIN 180 MG in EMPTY IV BAG (PVC) CANCER CTR 1 EA IV SCH; -PALONOSETRON HCL 0.25 MG, DEXAMETHASONE INJECTION 10 MG in NS (IVPB) CANCER CENTER 50 ML IV SCH
[2019-11-05] MEDS ORDERED: NS IV 1000 ML 1,000 ML IV SCH ×3 (15:28→17:59)
[2019-11-05] MEDS ORDERED: CEFEPIME INJECTION 1,000 MG in WATER (STERILE) FOR INJECTION 10 ML IV ONE (15:30)
[2019-11-05] MEDS ORDERED: VANCOMYCIN INJECTION 1,000 MG in NS (IVPB) 250 ML IV ONE (15:30)
--- NOTE | 2019-11-05 15:35 | ED GI ---
General Chief Complaint: Abdominal/GI Problems Stated Complaint: DIARRHEA Nursing Triage Note: Pt to room #6 via [facility] ems cart from [facility] with c/o diarrhea and weakness. Upon arrival pt reports diarrhea x3 days. Pt denies fever, chills, nausea, vomiting, or abd pain. Pt reports she is currently being treated for pancreatic cancer and recieved chemo on 11/03/19. A&OX4. Sepsis Screen: Possible Severe Sepsis Risk Source of Information: Patient Exam Limitations: No Limitations History of Present Illness Date Seen by Provider: Nov 05, 2019 Time Seen by Provider: 14:55 Initial Comments Patient arrived the ER by EMS from [facility] with chief complaint of diarrhea for the past couple days. She's not having any specific abdominal pain fever chills. She did vomit once 2 days ago. She's had poor fluid intake. She is taking her medications. She hasn't history of atrial fibrillation on Eliquis and Cardizem. She denies chest pain shortness of breath or coughed just feeling very dry. She has a history of pancreatic cancer does receive chemotherapy last week. She's followed by Dr. Langley and Dr. Mcclellan. Allergies and Home Medications Allergies Coded Allergies: Penicillins (Verified Allergy, Unknown, pt has received Rocephin in the p ast, 07/14/19) ciprofloxacin (Verified Allergy, Unknown, 09/06/19) sulfamethoxazole (Unverified Allergy, Unknown, 02/06/19) trimethoprim (Unverified Allergy, Unknown, 02/06/19) Home Medications Acetaminophen 325 Mg Tablet, 325 MG PO BID, (Reported) Apixaban 5 Mg Tablet, 5 MG PO BID Prescribed by: MINESH LEROY on 10/06/19 1104 Aspirin 81 Mg Tablet.dr, 81 MG PO DAILY, (Reported) Diltiazem HCl 120 Mg Cap.er.24h, 120 MG PO DAILY, (Reported) HOLD FOR SBP <100 AND DBP<60 Famotidine 20 Mg Tablet, 20 MG PO BID, (Reported) Fluconazole 100 Mg Tablet, 100 MG PO DAILY Prescribed by: MINESH LEROY on 10/06/19 1104 Lactulose 10 Gm/15 Ml Solution, 10 ML PO DAILY, (Reported) Levetiracetam 500 Mg Tablet, 500 MG PO BID, (Reported) Menthol 1 Each Adh..patch, 1 PATCH TP DAILY, (Reported) Nystatin 100,000 Unit/1 Ml Oral.susp, 5 ML PO QID, (Reported) SWISH AND SWALLOW Ondansetron HCl 8 Mg Tablet, 8 MG PO Q8H PRN for NAUSEA/VOMITING-1ST LINE, (Reported) Potassium Chloride 8 Meq Capsule.er, 8 MEQ PO DAILY, (Reported) Spironolactone 25 Mg Tablet, 25 MG PO DAILY, (Reported) Patient Home Medication List Home Medication List Reviewed: Yes Review of Systems Review of Systems Constitutional: chills, fever, malaise EENTM: No Blurred Vision, No Double Vision Respiratory: Denies Cough, Denies Shortness of Air Cardiovascular: Denies Chest Pain, Denies Edema Gastrointestinal: Denies Abdomen Distended, Denies Abdominal Pain, Denies Constipated; Diarrhea, Nausea, Poor Fluid Intake, Vomiting Genitourinary: Denies Burning, Denies Discharge Musculoskeletal: No back pain, No joint pain Skin: No pruritus, No rash Psychiatric/Neurological: Denies Headache, Denies Numbness All Other Systems Reviewed Negative Unless Noted: Yes Past Dtazmzp-Wtgcsr-Oqcqpl Hx Patient Social History Alcohol Use: Denies Use Recreational Drug Use: No Smoking Status: Never a Smoker 2nd Hand Smoke Exposure: No Recent Foreign Travel: No Contact w/Someone Who Travel: No Recent Infectious Disease Expo: No Recent Hopitalizations: Yes Immunizations Up To Date Tetanus Booster (TDap): Unknown PED Vaccines UTD: Yes Date of Influenza Vaccine: Aug 16, 2019 Seasonal Allergies Seasonal Allergies: No Past Medical History Surgeries: Yes Eye Surgery, Gallbladder, Hysterectomy, Oophorectomy, Tonsillectomy Respiratory: No Cardiac: Yes Atrial Fibrillation, Heart Murmur, Hypertension 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: Hysterectomy, Menopausal Genitourinary: No Gastrointestinal: Yes (PANCREATIC CANCER) Liver Disease/Jaundice, Gall Bladder Disease Musculoskeletal: No Endocrine: No HEENT: Yes (BILATERAL CATARACT SURGERY) Cataract Cancer: Yes Pancreatic Did You Recieve Any Treatments: Yes What Type of Treatment Did You: Chemotherapy Psychosocial: No Integumentary: No Blood Disorders: No Family Medical History No Pertinent Family Hx Physical Exam Vital Signs Vital Signs - First Documented 11/05/19 15:03 Temp 37.3 Pulse 128 Resp 20 B/P (MAP) 113/73 (86) Pulse Ox 100 O2 Delivery Room Air Capillary Refill : Less Than 3 Seconds Height/Weight/BMI Height: 5'8.00" Weight: 181lbs. 0.5oz. [id number]; 19.00 BMI Method:Stated General Appearance: moderate distress, other (chronic illness) HEENT: PERRL/EOMI, normal ENT inspection; No pharynx normal (oropharynx is very dry) Neck: non-tender, full range of motion Respiratory: lungs clear, normal breath sounds, no respiratory distress, no accessory muscle use Cardiovascular: normal peripheral pulses, regular rate, rhythm Peripheral Pulses: 2+ Radial Pulses (R), 2+ Radial Pulses (L) Gastrointestinal: normal bowel sounds, non tender, soft, no organomegaly Extremities: normal range of motion, non-tender, normal inspection, normal capillary refill Neurologic/Psychiatric: alert, other (answers yes or no questions, oriented to person and place only) Skin: normal color, warm/dry Focused Exam Sepsis Stage: Sepsis Possible Source: Genitouriary Lactate Level 11/05/19 15:10: Lactic Acid Level 2.10*H 11/05/19 17:35: Lactic Acid Level 2.14*H Time of Focused Exam: 17:57 Respiratory: Lungs Clear, Normal Breath Sounds, No Accessory Muscle Use, No Respiratory Distress Cardiovascular: Regular Rate, Rhythm, No Edema, Normal Peripheral Pulses Capillary Refill: Less Than 3 Seconds Peripheral Pulses: 2+ Radial Pulses (R), 2+ Radial Pulses (L) Skin: normal color, warm/dry Lactic Acid Level Laboratory Tests Test 11/05/19 15:10 11/05/19 17:35 Lactic Acid Level 2.10 MMOL/L (0.50-2.00) *H 2.14 MMOL/L (0.50-2.00) *H Within 3hrs of presentation: Admin fluids, Admin ABX, Blood cultures prior to ABX's, Focus exam, Lactate level Progress/Results/Core Measures Results/Orders Lab Results Laboratory Tests Test 11/05/19 15:10 11/05/19 17:20 11/05/19 17:35 Range/Units White Blood Count 31.6 *H 4.3-11.0 10^3/uL Red Blood Count 3.80 L 4.35-5.85 10^6/uL Hemoglobin 10.2 L 11.5-16.0 G/DL Hematocrit 31 L 35-52 % Mean Corpuscular Volume 80 80-99 FL Mean Corpuscular Hemoglobin 27 25-34 PG Mean Corpuscular Hemoglobin Concent 33 32-36 G/DL Red Cell Distribution Width 19.3 H 10.0-14.5 % Platelet Count 171 130-400 10^3/uL Mean Platelet Volume 11.3 H 7.4-10.4 FL Neutrophils (%) (Auto) 87 H 42-75 % Lymphocytes (%) (Auto) 5 L 12-44 % Monocytes (%) (Auto) 8 0-12 % Eosinophils (%) (Auto) 0 0-10 % Basophils (%) (Auto) 0 0-10 % Neutrophils # (Auto) 27.4 H 1.8-7.8 X 10^3 Lymphocytes # (Auto) 1.7 1.0-4.0 X 10^3 Monocytes # (Auto) 2.4 H 0.0-1.0 X 10^3 Eosinophils # (Auto) 0.0 0.0-0.3 10^3/uL Basophils # (Auto) 0.1 0.0-0.1 10^3/uL Neutrophils % (Manual) 73 % Lymphocytes % (Manual) 11 % Monocytes % (Manual) 4 % Eosinophils % (Manual) 0 % Basophils % (Manual) 0 % Metamyelocytes % 1 % Myelocytes % 3 % Band Neutrophils 6 % Reactive Lymphocytes 2 % Toxic Granulation 1+ Polychromasia SLIGHT Poikilocytosis MODERATE Anisocytosis MODERATE Microcytosis SLIGHT Macrocytosis MODERATE Crenated Cell SLIGHT Elliptocytes SLIGHT Schistocytes SLIGHT Prothrombin Time 26.4 H 12.2-14.7 SEC INR Comment 2.3 H 0.8-1.4 Activated Partial Thromboplast Time 43 H 24-35 SEC Sodium Level 130 L 135-145 MMOL/L Potassium Level 4.5 3.6-5.0 MMOL/L Chloride Level 103 98-107 MMOL/L Carbon Dioxide Level 15 L 21-32 MMOL/L Anion Gap 12 5-14 MMOL/L Blood Urea Nitrogen 43 H 7-18 MG/DL Creatinine 1.75 H 0.60-1.30 MG/DL Estimat Glomerular Filtration Rate 29 BUN/Creatinine Ratio 25 Glucose Level 124 H 70-105 MG/DL Lactic Acid Level 2.10 *H 2.14 *H 0.50-2.00 MMOL/L Calcium Level 9.1 8.5-10.1 MG/DL Corrected Calcium 10.4 H 8.5-10.1 MG/DL Total Bilirubin 0.6 0.1-1.0 MG/DL Aspartate Amino Transf (AST/SGOT) 45 H 5-34 U/L Alanine Aminotransferase (ALT/SGPT) 21 0-55 U/L Alkaline Phosphatase 309 H 40-136 U/L Total Protein 4.8 L 6.4-8.2 GM/DL Albumin 2.4 L 3.2-4.5 GM/DL Urine Color YELLOW Urine Clarity CLOUDY Urine pH 6.5 5-9 Urine Specific [place] 1.015 L 1.016-1.022 Urine Protein 2+ H NEGATIVE Urine Glucose (UA) NEGATIVE NEGATIVE Urine Ketones NEGATIVE NEGATIVE Urine Nitrite POSITIVE NEGATIVE Urine Bilirubin NEGATIVE NEGATIVE Urine Urobilinogen 0.2 < = 1.0 MG/DL Urine Leukocyte Esterase 1+ H NEGATIVE Urine RBC (Auto) 3+ H NEGATIVE Urine RBC >100 H /HPF Urine WBC 50-100 H /HPF Urine Squamous Epithelial Cells NONE /HPF Urine Crystals NONE /LPF Urine Bacteria LARGE H /HPF Urine Casts NONE /LPF Urine Mucus NEGATIVE /LPF Urine Culture Indicated CULTURE PENDING Micro Results Microbiology 11/05/19 Influenza Types A,B Antigen (CHLOÉ) - Final, Complete My Orders Orders - GEETA PADILLA Cbc With Automated Diff (11/05/19 15:28) Comprehensive Metabolic Panel (11/05/19 15:28) Blood Culture (11/05/19 15:28) Sputum Culture (11/05/19 15:28) Urinalysis (11/05/19 15:28) Urine Culture (11/05/19 15:28) Protime With Inr (11/05/19 15:28) Partial Thromboplastin Time (11/05/19 15:28) Chest 1 View, Ap/Pa Only (11/05/19 15:28) Ed Iv/Invasive Line Start (11/05/19 15:28) Ed Iv/Invasive Line Start (11/05/19 15:28) Vital Signs Adult Sepsis Patie Q15M (11/05/19 15:28) O2 (11/05/19 15:28) Remove Rings In Anticipation O (11/05/19 15:28) Lactic Acid Analyzer (11/05/19 15:28) Influenza A And B Antigens (11/05/19 15:28) Ns Iv 1000 Ml (Sodium Chloride 0.9%) (11/05/19 15:28) Cefepime Injection (Maxipime Injection) (11/05/19 15:30) Vancomycin Injection (Vancomycin Injecti (11/05/19 15:30) Ed Iv/Invasive Line Start (11/05/19 15:28) Ns Iv 1000 Ml (Sodium Chloride 0.9%) (11/05/19 15:28) Stool Culture (11/05/19 15:28) Occult Blood Stool (11/05/19 15:28) Fecal Wbc (11/05/19 15:28) Ct Abdomen/Pelvis Wo (11/05/19 15:33) Manual Differential (11/05/19 15:10) Medications Given in ED Current Medications Medications Dose Ordered Sig/Natasha Route Start Time Stop Time Status Last Admin Dose Admin Cefepime HCl 1000 mg/Sterile Water 10 ml @ 200 mls/hr ONCE ONCE IV 11/05/19 15:30 11/05/19 15:33 DC 11/05/19 16:51 200 MLS/HR Vancomycin HCl 1000 mg/Sodium Chloride 250 ml @ 250 mls/hr ONCE ONCE IV 11/05/19 15:30 11/05/19 16:29 DC 11/05/19 16:52 250 MLS/HR Vital Signs/I&O 11/05/19 15:03 Temp 37.3 Pulse 128 Resp 20 B/P (MAP) 113/73 (86) Pulse Ox 100 O2 Delivery Room Air Blood Pressure Mean: 86 Progress Progress Note : Time: 16:40 Progress Note Septic workup. CT unremarkable. 30 mL/kg fluids given. Patient's tachycardic in atrial fibrillation around the 100 110. Blood pressure soft in the 104/69 but maintaining. Cefepime and vancomycin. She has copious diarrhea suspect viral gastroenteritis. Elevated white count 30,000 so we'll cover her with antibiotics and obtain stool cultures, white blood cells. Diagnostic Imaging Diagonstic Imaging: CT Plain Films/CT/US/NM/MRI: abdomen, pelvis Comments NAME: KARSTEN DUDLEY [facility] REC#: [id number] PT STATUS: REG ER : 1950 PHYSICIAN: GEETA PADILLA MD ADMIT DATE: 11/05/19/ER Signed Date of Exam:11/05/19 CT ABDOMEN/PELVIS WO PROCEDURE: CT abdomen and pelvis without contrast. TECHNIQUE: Multiple contiguous axial images were obtained through the abdomen and pelvis without the use of intravenous contrast. Auto Exposure Controls were utilized during the CT exam to meet ALARA standards for radiation dose reduction. INDICATION: Abdominal pain. Patient has history of pancreatic carcinoma. COMPARISON: Comparison is made with prior CT from 06/28/2019. FINDINGS: The lung bases are clear. Since prior study, patient has had a stent placed in the common duct. This has significantly improved the degree of biliary ductal dilatation both intrahepatic and extrahepatic since prior CT. There is some mild pneumobilia present. Overall evaluation is limited without intravenous contrast. No definite pancreatic ductal dilatation is identified. The spleen is unremarkable. No adrenal mass is identified. There is a questionable tiny nonobstructing calculus in the lower pole of the left kidney. Right kidney is unremarkable. Aorta is nonaneurysmal. The bowel loops are normal in caliber. There is no ascites or fluid collection. Bladder is decompressed. IMPRESSION: 1. Interval placement of common duct stent since prior CT from June. There is significant improvement in the intrahepatic and extrahepatic biliary ductal dilatation since prior exam. No discrete mass in the region of pancreatic head is identified, although study is limited without oral and IV contrast. 2. Questionable tiny nonobstructing left renal calculus. 3. No acute feature is identified. Dictated by: Dictated on workstation # [id number] Dict: 11/05/19 1604 Trans: 11/05/19 1618 [id number] Interpreted by: JAS DE GUZMAN MD Electronically signed by: JAS DE GUZMAN MD 11/05/19 1618 Reviewed: Reviewed by Me Departure Communication (Admissions) Time/Spoke to Admitting Phy: 17:50 Discussed the case with the hospitalist, Dr. Leroy and he agrees to admit the patient for fluids and management of symptoms. He agrees with antibiotic choice Rocephin for UTI and Flagyl to cover possible infectious colitis. We will get stool culture if she produces a diarrhea. C. difficile antigen. Impression Primary Impression: UTI (urinary tract infection) Qualified Codes: N30.01 - Acute cystitis with hematuria Additional Impressions: Gastroenteritis/colitis, infectious Dehydration Sepsis Qualified Codes: A41.9 - Sepsis, unspecified organism; R65.20 - Severe sepsis without septic shock; N17.9 - Acute kidney failure, unspecified History of pancreatic cancer Disposition: ADMITTED INPATIENT Condition: Stable Admissions Decision to Admit Reason: Admit from ER (General) Decision to Admit/Date: Nov 05, 2019 Time/Decision to Admit Time: 17:00 Departure-Patient Inst. Referrals: BING MCCLELLAN DO (PCP/Family) Primary Care Physician GEETA PADILLA Nov 05, 2019 15:35
[2019-11-05 15:40] LABS: BASOPHILS # (AUTO) 0.1 10^3/uL (0.0-0.1); BASOPHILS % (AUTO) 0 % (0-10); EOSINOPHILS % (AUTO) 0 % (0-10); HEMATOCRIT 31 % (35-52); HEMOGLOBIN 10.2 G/DL (11.5-16.0); LYMPHOCYTES # (AUTO) 1.7 X 10^3 (1.0-4.0); LYMPHOCYTES % (AUTO) 5 % (12-44); MEAN CORPUSCULAR HEMOGLOBIN 27 PG (25-34); MEAN CORPUSCULAR HGB CONC 33 G/DL (32-36); MEAN CORPUSCULAR VOLUME 80 FL (80-99); MEAN PLATELET VOLUME 11.3 FL (7.4-10.4); MONOCYTES # (AUTO) 2.4 X 10^3 (0.0-1.0); MONOCYTES % (AUTO) 8 % (0-12); NEUTROPHILS # (AUTO) 27.4 X 10^3 (1.8-7.8); NEUTROPHILS % (AUTO) 87 % (42-75); PLATELET COUNT 171 10^3/uL (130-400); RED CELL DISTRIBUTION WIDTH 19.3 % (10.0-14.5)
[2019-11-05 15:41] LABS: WHITE BLOOD COUNT 31.6 10^3/uL (4.3-11.0)
[2019-11-05 15:51] LABS: INR 2.3 (0.8-1.4); PROTHROMBIN TIME PATIENT 26.4 SEC (12.2-14.7)
[2019-11-05 15:54] LABS: ALBUMIN 2.4 GM/DL (3.2-4.5); BILIRUBIN,TOTAL 0.6 MG/DL (0.1-1.0); CALCIUM 9.1 MG/DL (8.5-10.1); CREATININE SERUM 1.75 MG/DL (0.60-1.30); POTASSIUM 4.5 MMOL/L (3.6-5.0); TOTAL PROTEIN 4.8 GM/DL (6.4-8.2)
[2019-11-05 16:04] LABS: ANISOCYTOSIS MODERATE; BAND NEUTROPHILS 6 %; BASOPHILS % (MANUAL) 0 %; EOSINOPHILS % (MANUAL) 0 %; LYMPHOCYTES % (MANUAL) 11 %; METAMYELOCYTES % 1 %; MICROCYTOSIS SLIGHT; MONOCYTES % (MANUAL) 4 %; MYELOCYTES % 3 %; NEUTROPHILS % (MANUAL) 73 %; POIKILOCYTOSIS MODERATE; POLYCHROMASIA SLIGHT; REACTIVE LYMPHOCYTES 2 %
[2019-11-05 16:05] LABS: CRENATED RBC SLIGHT; ELLIPT/OVALOCYTES SLIGHT; SCHISTOCYTES SLIGHT; TOXIC GRANULATION/VACUOLAZATIO 1+
--- NOTE | 2019-11-05 16:06 | Diagnostic Imaging Report ---
INDICATION: Weakness. TIME OF EXAM: 3:51 p.m. COMPARISON: Correlation is made with prior chest from 10/04/2019. FINDINGS: Right chest wall port has tip overlying the SVC. Lungs are clear. There is no infiltrate. No effusion or pneumothorax is seen. IMPRESSION: No acute cardiopulmonary process is detected. Dictated by: Dictated on workstation # [id number]
--- NOTE | 2019-11-05 16:14 | Diagnostic Imaging Report ---
PROCEDURE: CT abdomen and pelvis without contrast. TECHNIQUE: Multiple contiguous axial images were obtained through the abdomen and pelvis without the use of intravenous contrast. Auto Exposure Controls were utilized during the CT exam to meet ALARA standards for radiation dose reduction. INDICATION: Abdominal pain. Patient has history of pancreatic carcinoma. COMPARISON: Comparison is made with prior CT from 06/28/2019. FINDINGS: The lung bases are clear. Since prior study, patient has had a stent placed in the common duct. This has significantly improved the degree of biliary ductal dilatation both intrahepatic and extrahepatic since prior CT. There is some mild pneumobilia present. Overall evaluation is limited without intravenous contrast. No definite pancreatic ductal dilatation is identified. The spleen is unremarkable. No adrenal mass is identified. There is a questionable tiny nonobstructing calculus in the lower pole of the left kidney. Right kidney is unremarkable. Aorta is nonaneurysmal. The bowel loops are normal in caliber. There is no ascites or fluid collection. Bladder is decompressed. IMPRESSION: 1. Interval placement of common duct stent since prior CT from June. There is significant improvement in the intrahepatic and extrahepatic biliary ductal dilatation since prior exam. No discrete mass in the region of pancreatic head is identified, although study is limited without oral and IV contrast. 2. Questionable tiny nonobstructing left renal calculus. 3. No acute feature is identified. Dictated by: Dictated on workstation # [id number]
[2019-11-05 17:29] LABS: BILIRUBIN,URINE NEGATIVE (NEGATIVE); CLARITY,URINE CLOUDY; COLOR,URINE YELLOW; GLUCOSE, URINE (UA) NEGATIVE (NEGATIVE); KETONES,URINE NEGATIVE (NEGATIVE); LEUKOCYTE ESTERASE ,URINE 1+ (NEGATIVE); NITRITE,URINE POSITIVE (NEGATIVE); PH,URINE 6.5 (5-9); PROTEIN,URINE 2+ (NEGATIVE)
[2019-11-05 17:35] LABS: BACTERIA,URINE LARGE /HPF; RBC,URINE >100 /HPF; WBC,URINE 50-100 /HPF
--- NOTE | 2019-11-05 18:53 | NUR ---
KARSTEN DUDLEY admitted to room 427-1, with an admitting diagnosis of dehydration (pancreatic cancer) , on 11/05/19 from ED via stretcher, accompanied by staff .KARSTEN DUDLEY introduced to surroundings, call light, bed controls, phone, TV, temperature control, lights, meal times, smoking policy, visitor policy, side rail policy, bathrooms and showers. Patient Rights given to patient in the handbook. KARSTEN DUDLEY verbalizes understanding that [facility] is not responsible for the loss or damage to any personal effects or valuables that are kept in the patients posession during their hospitalization. The following Patient Care Plans and discharge were discussed with the patient. KARSTEN DUDLEY verbalizes understanding of Interdisciplinary Patient Education. Patient was informed about the Rapid Response Team and its purpose.
[2019-11-05] MEDS: NS IV 1000 ML 1,000 ML IV SCH (19:30)
[2019-11-05 19:47] VITALS: BP 119/68
[2019-11-05] MEDS ORDERED: VASOPRESSIN INJECTION 20 UNIT in NORMAL SALINE 100 ML IV SCH (21:50)
[2019-11-05] MEDS ORDERED: NOREPINEPHRINE 4 MG in NS (IVPB) 250 ML IV SCH (21:50)
[2019-11-05] MEDS: fentaNYL INJECTION 100 MCG/2 ML AMP IV PRN (21:55)
[2019-11-05] MEDS ORDERED: cefTRIAXone FOR IV USE 1,000 MG in WATER (STERILE) FOR INJECTION 10 ML IV SCH (21:58)
[2019-11-05] MEDS ORDERED: EPINEPHrine 1 MG INJECTION 2 MG in NS (IVPB) 250 ML IV SCH (22:00)
[2019-11-05] MEDS ORDERED: LOPERAMIDE 2 MG (IMODIUM) TABLET PO PRN (22:00)
[2019-11-05] MEDS ORDERED: fentaNYL INJECTION 100 MCG/2 ML AMP IV PRN (22:00)
[2019-11-05] MEDS ORDERED: ACETAMINOPHEN 500 MG TAB (TYLENOL) PO PRN (22:00)
[2019-11-05] MEDS ORDERED: ONDANSETRON 4 MG/2 ML (SDV) Z0FRAN IV PRN (22:00)
[2019-11-05] MEDS ORDERED: ANTACID SUSP 30 ML UDC (MYLANTA) PO PRN (22:00)
[2019-11-05] MEDS: metroNIDAZOLE 500MG/100ML IVPB 100 ML IV SCH (22:24)
[2019-11-05 23:11] VITALS: BP 119/68
[2019-11-06] VITALS (7 sets, daily range): BP systolic 98–116; BP diastolic 62–76
[2019-11-06] MEDS: NS IV 1000 ML 1,000 ML IV SCH ×3 (03:51→19:47)
[2019-11-06] MEDS: metroNIDAZOLE 500MG/100ML IVPB 100 ML IV SCH ×3 (05:24→21:23)
[2019-11-06 05:57] LABS: BASOPHILS # (AUTO) 0.1 10^3/uL (0.0-0.1); BASOPHILS % (AUTO) 0 % (0-10); EOSINOPHILS % (AUTO) 0 % (0-10); HEMATOCRIT 28 % (35-52); HEMOGLOBIN 9.4 G/DL (11.5-16.0); LYMPHOCYTES % (AUTO) 4 % (12-44); MEAN CORPUSCULAR HEMOGLOBIN 27 PG (25-34); MEAN CORPUSCULAR HGB CONC 34 G/DL (32-36); MEAN CORPUSCULAR VOLUME 81 FL (80-99); MONOCYTES # (AUTO) 2.5 X 10^3 (0.0-1.0); MONOCYTES % (AUTO) 6 % (0-12); NEUTROPHILS # (AUTO) 40.3 X 10^3 (1.8-7.8); NEUTROPHILS % (AUTO) 90 % (42-75); PLATELET COUNT 143 10^3/uL (130-400)
[2019-11-06 06:02] LABS: WHITE BLOOD COUNT 44.9 10^3/uL (4.3-11.0)
[2019-11-06 06:13] LABS: BILIRUBIN,TOTAL 0.5 MG/DL (0.1-1.0); CALCIUM 8.1 MG/DL (8.5-10.1); CREATININE SERUM 1.65 MG/DL (0.60-1.30); POTASSIUM 4.1 MMOL/L (3.6-5.0); TOTAL PROTEIN 4.3 GM/DL (6.4-8.2)
--- NOTE | 2019-11-06 07:35 | Diagnostic Imaging Report ---
INDICATION: Sepsis in patient with pancreatic cancer Upright portable AP view of the chest is obtained with comparison made to the study of one day earlier. FINDINGS: Heart size and pulmonary vascularity are within normal limits. Faint density in the left base may represent area of atelectasis or pneumonitis. Otherwise, there is no evidence of pneumothorax or significant pleural fluid. Right anterior chest wall port is in place. IMPRESSION: Possible slight left basilar atelectasis or pneumonitis. Follow-up PA and lateral views of the chest would be useful for assessment. Dictated by: Dictated on workstation # [id number]
[2019-11-06] MEDS: PANTOPRAZOLE 40 MG (PROTONIX) VIAL IV SCH (09:32)
[2019-11-06] MEDS: APIXABAN 5 MG (ELIQUIS) TABLET PO SCH ×2 (09:32→21:23)
--- NOTE | 2019-11-06 13:38 | NUR ---
PALLIATIVE CARE RN in to see patient known from previous hospitalizations. She is progressively getting more emaciate, with thinning hair. Upon arrival patient is picking at her nose and is complaining of t being so dry it hurts. I went to get her [employer] was lip. She proceeded to apply it to the inside of her nostrils and her lips. Thanked this RN repeatedly saying "it feels so much better". Patient lunch tray was setting beside her and it was minimally touched. Offered her assist with the rest which she graciously accepted. In so doing, she completed all of her red jell-o and her zuniga popsicle which was softening. Patient is fairly whiny ...saying that she has to wait a long time to get assistance to the bathroom and has a hard time walking by herself. I reminded her not to get up on her own and to call for assistance. I set her TV to the [employer] show network and left it in her lap where she an reach it.
[2019-11-06] MEDS ORDERED: ASCO500T5 PO (14:34)
[2019-11-06] MEDS ORDERED: APIX5TAB PO (14:34)
[2019-11-06] MEDS ORDERED: MULT-618 PO (14:34)
[2019-11-06] MEDS ORDERED: ZINC56.7 TP ×2 (14:39)
--- NOTE | 2019-11-06 14:39 | NUR ---
ENTERED THE [facility] REC USING THE PHYSICIAN VISIT FORM FROM ERNIE ESCOBEDO
--- NOTE | 2019-11-06 15:11 | NUR ---
Initial visit. Strong pastoral support and continuity of spiritual care provided to the pt at both the hospital and [facility] [place] where this soda worker serves. States "I do not know how much more Chemotherapy I can take." She requested prayer and states she is trusting God for direction.
[2019-11-06] MEDS ORDERED: DILTIAZEM 120 MG (CARDIZEM CD) CAP PO ONE (17:00)
--- NOTE | 2019-11-06 17:25 | History & Physical ---
History of Present Illness History of Present Illness Reason for visit/HPI This is a 69 year old female with a history of pancreatic cancer with mets who was brought to the emergency room from [facility] due to diarrhea with worsening lethargy and weakness. She was found to be dehydrated with an acute UTI with sepsis. It was decided to admit her for IV antibiotics and sepsis protocol. Date of Admission Nov 05, 2019 at 17:45 Date Seen by a Provider: Nov 06, 2019 Time Seen by a Provider: 08:45 I consulted on this patient on 11/06/19 17:20 Attending Physician Jessica Torres MD Admitting Physician Bing Vogel DO Consult Allergies and Home Medications Allergies Coded Allergies: Penicillins (Verified Allergy, Unknown, pt has received Rocephin in the [facility], 07/14/19) ciprofloxacin (Verified Allergy, Unknown, 09/06/19) sulfamethoxazole (Unverified Allergy, Unknown, 02/06/19) trimethoprim (Unverified Allergy, Unknown, 02/06/19) Home Medications Acetaminophen 325 Mg Tablet, 325 MG PO BID, (Reported) Apixaban 5 Mg Tablet, 5 MG PO BID, (Reported) Ascorbic Acid 500 Mg Tab.chew, 500 MG PO DAILY, (Reported) Aspirin 81 Mg Tablet.dr, 81 MG PO DAILY, (Reported) Diltiazem HCl 120 Mg Cap.er.24h, 120 MG PO DAILY, (Reported) HOLD FOR SBP <100 AND DBP<60 Famotidine 20 Mg Tablet, 20 MG PO BID, (Reported) Lactulose 10 Gm/15 Ml Solution, 10 ML PO DAILY, (Reported) Levetiracetam 500 Mg Tablet, 500 MG PO BID, (Reported) Menthol 1 Each Adh..patch, 1 PATCH TP DAILY, (Reported) Multivitamin 1 Each Tablet, 1 EACH PO DAILY, (Reported) Ondansetron HCl 8 Mg Tablet, 8 MG PO Q8H PRN for NAUSEA/VOMITING-1ST LINE, (Reported) Potassium Chloride 8 Meq Capsule.er, 8 MEQ PO DAILY, (Reported) Spironolactone 25 Mg Tablet, 25 MG PO DAILY, (Reported) Zinc Oxide 56.7 Gm Oint...g., 1 APPLIC TP TID, (Reported) Zinc Oxide 56.7 Gm Oint...g., 1 APPLIC TP PRN PRN for RASH, (Reported) Patient Home Medication List Home Medication List Reviewed: Yes Past Ytqwzjy-Yscpgl-Afjzwt Hx Past Med/Social Hx: Reviewed Nursing Past Med/Soc Hx Patient Social History Marrital Status: Alcohol Use: Denies Use Recreational Drug Use: No Smoking Status: Never a Smoker 2nd Hand Smoke Exposure: No Recent Foreign Travel: No Contact w/other who traveled: No Recent Hopitalizations: Yes Recent Infectious Disease Expo: No Immunizations Up To Date Tetanus Booster (TDap): Unknown Pediatric: Yes Date of Influenza Vaccine: Aug 16, 2019 Seasonal Allergies Seasonal Allergies: No Past Medical History Surgeries: Eye Surgery, Gallbladder, Hysterectomy, Oophorectomy, Tonsillectomy Cardiac: Atrial Fibrillation, Heart Murmur, Hypertension Hysterectomy, Menopausal Gastrointestinal: Liver Disease/Jaundice, Gall Bladder Disease HEENT: Cataract Cancer: Pancreatic Did You Recieve Any Treatments: Yes What Type of Treatment Did You: Chemotherapy History of Blood Disorders: No Family History No Pertinent Family Hx Review of Systems Constitutional: weakness, weight loss EENTM: No see HPI, No no symptoms reported, No ear discharge, No hearing loss, No ear pain, No blurred vision, No double vision, No eye pain, No tearing, No vision loss, No dental problems, No hoarseness, No mouth pain, No mouth swelling, No epistaxis, No nose congestion, No nose pain, No throat pain, No throat swelling, No other Respiratory: No no symptoms reported, No see HPI, No cough, No dyspnea on exertion, No hemoptysis, No orthopnea, No phlegm, No short of breath, No stri charlie, No wheezing, No other Cardiovascular: palpitations Gastrointestinal: diarrhea, loss of appetite, nausea Genitourinary: decreased output Musculoskeletal: muscle weakness Skin: No no symptoms reported, No see HPI, No change in color, No change in hair/nails, No dryness, No hx of skin cancer, No lesions, No lumps, No pruritus, No rash, No other Psychiatric/Neurological: Weakness Physical Exam Vital Signs Vital Signs - First Documented 11/05/19 15:03 Temp 37.3 Pulse 128 Resp 20 B/P (MAP) 113/73 (86) Pulse Ox 100 O2 Delivery Room Air Capillary Refill : Less Than 3 Seconds Height, Weight, BMI Height: 5'8.00" Weight: 181lbs. 0.5oz. 82.999166dw; 24.67 BMI Method:Stated General Appearance: Other (Lethargic) HEENT: Other (MM dry) Neck: Supple Respiratory: Lungs Clear Cardiovascular: Systolic Murmur, Gallop/S4, Tachycardia Gastrointestinal: Normal Bowel Sounds, Non Tender, Soft Rectal: Deferred Back: No CVA Tenderness Extremity: Non Tender, No Calf Tenderness, No Pedal Edema, Other (SCDs in place) Neurologic/Psychiatric: Other (lethargic--will open eyes and answer questions) Skin: Warm/Dry Comments Laboratory Tests 11/05/19 17:35: Lactic Acid Level 2.14*H 11/06/19 05:30: White Blood Count 44.9*H, Red Blood Count 3.43L, Hemoglobin 9.4L, Hematocrit 28L , Mean Corpuscular Volume 81, Mean Corpuscular Hemoglobin 27, Mean Corpuscular Hemoglobin Concent 34, Red Cell Distribution Width 19.0H, Platelet Count 143, Mean Platelet Volume 12.0H, Neutrophils (%) (Auto) 90H, Lymphocytes (%) (Auto) 4L, Monocytes (%) (Auto) 6, Eosinophils (%) (Auto) 0, Basophils (%) (Auto) 0, Neutrophils # (Auto) 40.3H, Lymphocytes # (Auto) 2.0, Monocytes # (Auto) 2.5H, Eosinophils # (Auto) 0.0, Basophils # (Auto) 0.1, Sodium Level 134L, Potassium Level 4.1, Chloride Level 111H, Carbon Dioxide Level 12L, Anion Gap 11, Blood Urea Nitrogen 40H, Creatinine 1.65H, Estimat Glomerular Filtration Rate 31, BUN/Creatinine Ratio 24, Glucose Level 99, Calcium Level 8.1L, Corrected Calcium 9.7, Total Bilirubin 0.5, Aspartate Amino Transf (AST/SGOT) 25, Alanine Aminotransferase (ALT/SGPT) 22, Alkaline Phosphatase 326H, Total Protein 4.3L, Albumin 2.0L 11/06/19 14:28: Stool Occult Blood Immunoassay POSITIVEH Microbiology 11/06/19 C. difficile GDH Antigen & Toxins - Final, Resulted 11/06/19 Stool Culture, Resulted Pending 11/05/19 Urine Culture - Preliminary, Resulted Escherichia coli 11/05/19 Blood Culture - Preliminary, Resulted Gram Negative Bacillus 1 11/05/19 Influenza Types A,B Antigen (CHLOÉ) - Final, Complete Assessment/Plan Assessment and Plan 1. Acute UTI with Sepsis--was admitted on IV rocephin and flagyl but will change rocephin to meropenem due to WBC count increasing and high risk for resistant organism 2. Acute Dehydration with acute renal insufficiency--admit and hydrate and monitor BUN/Cr 3. History of Atrial Fibrillation--restart eliquis and cardizem 4. Diarrhea--will continue with flagyl 5. Pancreatic Cancer with Mets--doing chemo through [facility] Admission Diagnosis Admission Status: Inpatient Order (span 2 midnights) Reason for Inpatient Admission: Sepsis so will need IV abx Clinical Quality Measures DVT/VTE Risk/Contraindication: Risk Factor Score Per Nursin RFS Level Per Nursing on Admit: 4+=Very High BING VOGEL DO Nov 06, 2019 17:25
[2019-11-06] MEDS ORDERED: MEROPENEM 1,000 MG in WATER (STERILE) FOR INJECTION 20 ML IV SCH (17:30)
[2019-11-06] MEDS ORDERED: WATER (STERILE) FOR INJECTION 0 ML ONE (18:27)
[2019-11-06] MEDS ORDERED: MEROPENEM 1000 MG (MERREM) VIAL IV ONE (18:27)
--- NOTE | 2019-11-06 18:33 | NUR ---
MEROPENEM DOSING PER PROTOCOL CrCl 32.9 = MEROPENEM 500MG Q8H
[2019-11-06] MEDS: MEROPENEM 500 MG/SWFI 10 ML IV PUSH IV SCH ×2 (18:37)
[2019-11-06] MEDS: LEVETIRACETAM 500 MG (KEPPRA) TAB PO SCH (21:23)
--- NOTE | 2019-11-06 23:14 | NUR ---
CODE STATUS DISCUSSED WITH PT. PT REPORT SHE IS DNR AND DOES NOT WANT ANY RESUSCITATION IF SHE WERE TO STOP BREATHING. DR. VOGEL CALLED VERIFIED PT STATUS. ORDER FOR PT DNR.
[2019-11-07] MEDS: NS IV 1000 ML 1,000 ML IV SCH ×2 (01:59→09:32)
[2019-11-07] MEDS: MEROPENEM 500 MG/SWFI 10 ML IV PUSH IV SCH ×6 (01:59→17:59)
[2019-11-07 03:14] VITALS: BP 107/65
[2019-11-07] MEDS: metroNIDAZOLE 500MG/100ML IVPB 100 ML IV SCH (06:01)
[2019-11-07 08:00] VITALS: BP 116/76
[2019-11-07] MEDS: APIXABAN 5 MG (ELIQUIS) TABLET PO SCH ×2 (09:31→21:00)
[2019-11-07] MEDS: PANTOPRAZOLE 40 MG (PROTONIX) VIAL IV SCH (09:31)
[2019-11-07] MEDS: LEVETIRACETAM 500 MG (KEPPRA) TAB PO SCH ×2 (09:31→21:00)
[2019-11-07] MEDS: DILTIAZEM 120 MG (CARDIZEM CD) CAP PO SCH (09:32)
--- NOTE | 2019-11-07 10:00 | NUR ---
PT NOTED TO BE SHORT OF BREATH AT REST, RESPIRATIONS 24/MIN. BILATERAL FAINT FINE CRACKLES TO LOWER LOBES. NS RUNNING AT 150ML/HR. DR VOGEL NOTIFIED VIA PHONE. DR VOGEL TO PLACE NEW ORDERS.
[2019-11-07 11:25] LABS: BASOPHILS # (AUTO) 0.2 10^3/uL (0.0-0.1); BASOPHILS % (AUTO) 0 % (0-10); EOSINOPHILS # (AUTO) 0.1 10^3/uL (0.0-0.3); EOSINOPHILS % (AUTO) 0 % (0-10); HEMATOCRIT 25 % (35-52); HEMOGLOBIN 8.4 G/DL (11.5-16.0); LYMPHOCYTES # (AUTO) 1.7 X 10^3 (1.0-4.0); LYMPHOCYTES % (AUTO) 4 % (12-44); MEAN CORPUSCULAR HEMOGLOBIN 27 PG (25-34); MEAN CORPUSCULAR HGB CONC 33 G/DL (32-36); MEAN CORPUSCULAR VOLUME 81 FL (80-99); MEAN PLATELET VOLUME 12.2 FL (7.4-10.4); MONOCYTES # (AUTO) 2.1 X 10^3 (0.0-1.0); MONOCYTES % (AUTO) 4 % (0-12); NEUTROPHILS # (AUTO) 43.8 X 10^3 (1.8-7.8); NEUTROPHILS % (AUTO) 92 % (42-75); PLATELET COUNT 110 10^3/uL (130-400); RED CELL DISTRIBUTION WIDTH 19.9 % (10.0-14.5)
[2019-11-07 11:33] LABS: WHITE BLOOD COUNT 47.8 10^3/uL (4.3-11.0)
[2019-11-07 11:48] LABS: ALBUMIN 1.7 GM/DL (3.2-4.5); BILIRUBIN,TOTAL 0.4 MG/DL (0.1-1.0); CALCIUM 7.6 MG/DL (8.5-10.1); CREATININE SERUM 1.49 MG/DL (0.60-1.30); POTASSIUM 3.3 MMOL/L (3.6-5.0); TOTAL PROTEIN 3.6 GM/DL (6.4-8.2)
[2019-11-07] MEDS ORDERED: FLUCONAZOLE 200 MG/100 ML 100 ML IV NR (11:59)
[2019-11-07 12:00] VITALS: BP 105/64
[2019-11-07] MEDS ORDERED: FUROSEMIDE 40 MG/4 ML INJ (LASIX) IVP NR (12:00)
[2019-11-07] MEDS ORDERED: VANCOMYCIN INJECTION 0.1 MG in NS (IVPB) 250 ML IV SCH (12:00)
[2019-11-07 12:01] LABS: ANISOCYTOSIS MODERATE; BAND NEUTROPHILS 15 %; ELLIPT/OVALOCYTES SLIGHT; LYMPHOCYTES % (MANUAL) 1 %; METAMYELOCYTES % 2 %; MICROCYTOSIS SLIGHT; MONOCYTES % (MANUAL) 3 %; NEUTROPHILS % (MANUAL) 79 %; POIKILOCYTOSIS SLIGHT; SPHEROCYTES SLIGHT
--- NOTE | 2019-11-07 12:06 | NUR ---
PTD VANCOMYCIN LABS: SCR 1.49 PLAN: 20MG/KG IV (1,250MG) IV THEN 15MG/KG (1,000MG) IV DAILY, WILL START NEXT DOSE 11/08/19 @ 1000, PLAN TO CHECK A TROUGH LEVEL PRIOR TO 3RD DOSE 11/09/19 @0900.
[2019-11-07] MEDS ORDERED: VANCOMYCIN 1250 MG/NS 250 ML IVPB IV SCH ×2 (12:30)
[2019-11-07] MEDS ORDERED: ALBUMIN 25% 25 GM/100 ML 100 ML IV NR (12:34)
--- NOTE | 2019-11-07 12:39 | Progress Note ---
Subjective Date Seen by a Provider: Nov 07, 2019 Time Seen by a Provider: 12:34 Subjective/Events-last exam Fwup UTI with sepsis, dehydration with acute renal insufficiency, pancreatic cancer with mets, history of atrial fibrillation. Very weak. Unable to get up to bathroom. Focused Exam Lactate Level 11/05/19 15:10: Lactic Acid Level 2.10*H 11/05/19 17:35: Lactic Acid Level 2.14*H Time of Focused Exam: 17:57 Objective Exam Vital Signs Date Time Temp Pulse Resp B/P (MAP) Pulse Ox O2 Delivery O2 Flow Rate FiO2 11/07/19 12:00 36.2 104 22 105/64 (78) 99 Room Air 11/07/19 09:40 99 Room Air 11/07/19 08:00 36.0 107 22 116/76 (89) 99 Room Air 11/07/19 03:14 36.6 91 24 107/65 (79) 98 Room Air 11/06/19 23:22 36.0 101 24 111/68 (82) 98 Room Air 11/06/19 20:00 Room Air 11/06/19 19:13 36.2 115 20 109/75 (86) 99 Room Air 11/06/19 15:11 36.2 107 16 107/76 (86) 98 Room Air I & O 11/07/19 07:00 Intake Total 2230 ml Output Total 1000 ml Balance 1230 ml Capillary Refill : Less Than 3 Seconds General Appearance: Mild Distress Neck: Supple Respiratory: Crackles, Decreased Breath Sounds Cardiovascular: Systolic Murmur, Tachycardia Gastrointestinal: normal bowel sounds, non tender, soft Extremity: Non Tender, No Calf Tenderness, No Pedal Edema Neurologic/Psychiatric: Alert, Oriented x3 Skin: Warm/Dry Results Lab Laboratory Tests 11/06/19 14:28: Stool Occult Blood Immunoassay POSITIVEH 11/07/19 11:10: White Blood Count 47.8*H, Red Blood Count 3.12L, Hemoglobin 8.4L, Hematocrit 25L , Mean Corpuscular Volume 81, Mean Corpuscular Hemoglobin 27, Mean Corpuscular Hemoglobin Concent 33, Red Cell Distribution Width 19.9H, Platelet Count 110L, Mean Platelet Volume 12.2H, Neutrophils (%) (Auto) 92H, Lymphocytes (%) (Auto) 4L, Monocytes (%) (Auto) 4, Eosinophils (%) (Auto) 0, Basophils (%) (Auto) 0, Neutrophils # (Auto) 43.8H, Lymphocytes # (Auto) 1.7, Monocytes # (Auto) 2.1H, Eosinophils # (Auto) 0.1, Basophils # (Auto) 0.2H, Neutrophils % (Manual) 79, Lymphocytes % (Manual) 1, Monocytes % (Manual) 3, Metamyelocytes % 2, Band Neutrophils 15, Poikilocytosis SLIGHT, Anisocytosis MODERATE, Microcytosis S LIGHT, Macrocytosis SLIGHT, Spherocytes SLIGHT, Elliptocytes SLIGHT, Sodium Level 132L, Potassium Level 3.3L, Chloride Level 112H, Carbon Dioxide Level 11L, Anion Gap 9, Blood Urea Nitrogen 38H, Creatinine 1.49H, Estimat Glomerular Filtration Rate 35, BUN/Creatinine Ratio 26, Glucose Level 138H, Calcium Level 7.6L, Corrected Calcium 9.4, Total Bilirubin 0.4, Aspartate Amino Transf (AST/SGOT) 19, Alanine Aminotransferase (ALT/SGPT) 20, Alkaline Phosphatase 238H , Total Protein 3.6L, Albumin 1.7L Microbiology 11/06/19 C. difficile GDH Antigen & Toxins - Final, Resulted 11/06/19 Stool Culture, Resulted Pending 11/06/19 Blood Culture - Preliminary, Resulted Escherichia coli 11/05/19 Urine Culture - Preliminary, Resulted Escherichia coli 11/05/19 Influenza Types A,B Antigen (CHLOÉ) - Final, Complete Assessment/Plan Assessment/Plan Assess & Plan/Chief Complaint 1. UTI with Sepsis--urine and blood culture growing out E coli--switched to meropenem yesterday, Add Vancomycin for MRSA risk and due to elevating WBC count, prognosis is guarded 2. Dehydration with Renal Insufficiency--Cr improving but now with crackles and more dyspneic so will decrease fluids and give one dose of IV lasix 3. Pancreatic Cancer with mets--doing chemo through cancer center 4. Diarrhea--on flagyl but adding Vancomycin due to MRSA risk so will DC flagyl 5. Dyspnea/Crackles--Check CXR 6. Hypokalemia--replace potassium Clinical Quality Measures Admission Status Admission Dx 1. Acute UTI with Sepsis--was admitted on IV rocephin and flagyl but will change rocephin to meropenem due to WBC count increasing and high risk for resistant organism 2. Acute Dehydration with acute renal insufficiency--admit and hydrate and monitor BUN/Cr 3. History of Atrial Fibrillation--restart eliquis and cardizem 4. Diarrhea--will continue with flagyl 5. Pancreatic Cancer with Mets--doing chemo through [facility] DVT/VTE Risk/Contraindication: Risk Factor Score Per Nursin RFS Level Per Nursing on Admit: 4+=Very High BING VOGEL DO Nov 07, 2019 12:39
--- NOTE | 2019-11-07 12:47 | NUR ---
"RD ASSESSMENT PMHx: CA(pancreatic, mets); HTN; liver disease PT INTERACTION: Pt was awake and pleasant during nutrition assessment. Pt states current appetite is poor and has been this way for the past few days. Note avg PO intake of 35% x1d, per chart review. Pt states following a regular diet at home and has no issues with chewing/swallowing food. Pt states no recent issues with n/v at this time. Pt states some recent episodes of diarrhea. Note last BM was 11/07 and pt not currently on bowel regimen per chart review. Pt states no recent wt changes. Note recent 7# wt loss x1mon. This is not significant at 4.2% wt loss. ABNORMAL NUTRITION-RELATED LAB VALUES LOW: Na 134; Ca 8.1; Pro 4.3; alb 2.0 HIGH: Cl 111; BUN 40; cr 1.65; alkphos 326 Est. kcal needs: 2972-5190 kcal | 25-30 kcal/kg Est. Pro needs: 74-88 g Pro | 1.0-1.2 g Pro/kg PES STATEMENT: Inadequate oral intake (NI-2.1) related to loss of appetite | diarrhea as evidenced by pt interview | 7# wt loss x1mon | avg PO intake 35% x1d INTERVENTION: Continue with current diet of Clear Liquid diet. Advance diet as medically able and as tolerated. Add Ensure Clear to meals TID for increased kcal intake. Provides 240 kcal and 8 g Pro per serving. Will continue to follow and reassess as pt needs and status change. MONITOR/EVALUATE: PO Intake; Plan of Care; Hydration Status; Weight Status; Lab Values Heike Veras, MS, RD, LD"
--- NOTE | 2019-11-07 14:05 | Diagnostic Imaging Report ---
INDICATION: Dyspnea, crackles. COMPARISON: November 06, 2019. TECHNIQUE: Single radiograph of the chest dated November 07, 2019. FINDINGS: Right-sided Port-A-Cath is again identified and stable. The cardiac silhouette is within normal limits in size. No significant pulmonary vascular congestion. The lungs are clear without focal pulmonary opacity. No pleural effusion. No pneumothorax. Chronic distal left clavicular fracture. No new acute osseous abnormality. Surgical clips within the right upper quadrant of the abdomen. IMPRESSION: No acute cardiopulmonary abnormality. Recently noted minimal left basilar opacities appear less prominent. Dictated by: Dictated on workstation # [id number]
[2019-11-07 16:00] VITALS: BP 105/74
[2019-11-07] MEDS: POTASSIUM CL 10MEQ/50ML IVPB 50 ML IV SCH ×4 (16:08→20:11)
--- NOTE | 2019-11-07 17:28 | NUR ---
LAB NOTIFIED THIS RN OF PT HAVING ESBL IN URINE. DR VOGEL NOTIFIED VIA PHONE. WILL PLACE PT ON CONTACT PRECAUTIONS.
[2019-11-07 19:47] VITALS: BP 99/64
--- NOTE | 2019-11-07 20:34 | NUR ---
THIS RN RECEIVED A CALL FROM PT'S LEGAL GUARDIAN. SPOKE ABOUT PT'S CONDITION, CHANGE IN ANTIBIOTICS, AND OTHER MEDICATIONS GIVEN TODAY.
[2019-11-07] MEDS: fentaNYL INJECTION 100 MCG/2 ML AMP IV PRN (21:19)
[2019-11-08] VITALS (7 sets, daily range): BP systolic 99–117; BP diastolic 55–75
[2019-11-08] MEDS: NS IV 1000 ML 1,000 ML IV SCH ×4 (03:01→19:59)
[2019-11-08] MEDS: MEROPENEM 500 MG/SWFI 10 ML IV PUSH IV SCH ×6 (03:01→18:10)
[2019-11-08 05:01] LABS: BASOPHILS # (AUTO) 0.1 10^3/uL (0.0-0.1); BASOPHILS % (AUTO) 0 % (0-10); EOSINOPHILS # (AUTO) 0.1 10^3/uL (0.0-0.3); EOSINOPHILS % (AUTO) 0 % (0-10); HEMATOCRIT 22 % (35-52); HEMOGLOBIN 7.5 G/DL (11.5-16.0); LYMPHOCYTES # (AUTO) 1.6 X 10^3 (1.0-4.0); LYMPHOCYTES % (AUTO) 4 % (12-44); MEAN CORPUSCULAR HEMOGLOBIN 28 PG (25-34); MEAN CORPUSCULAR HGB CONC 35 G/DL (32-36); MEAN CORPUSCULAR VOLUME 81 FL (80-99); MONOCYTES # (AUTO) 2.4 X 10^3 (0.0-1.0); MONOCYTES % (AUTO) 6 % (0-12); NEUTROPHILS % (AUTO) 90 % (42-75); PLATELET COUNT 99 10^3/uL (130-400); RED CELL DISTRIBUTION WIDTH 19.5 % (10.0-14.5)
[2019-11-08 05:07] LABS: WHITE BLOOD COUNT 41.2 10^3/uL (4.3-11.0)
[2019-11-08 05:24] LABS: CALCIUM 7.4 MG/DL (8.5-10.1); CREATININE SERUM 1.48 MG/DL (0.60-1.30); POTASSIUM 3.3 MMOL/L (3.6-5.0)
[2019-11-08 05:25] LABS: ALBUMIN 1.9 GM/DL (3.2-4.5); BILIRUBIN,TOTAL 0.5 MG/DL (0.1-1.0); TOTAL PROTEIN 3.8 GM/DL (6.4-8.2)
[2019-11-08] MEDS: fentaNYL INJECTION 100 MCG/2 ML AMP IV PRN (06:01)
[2019-11-08] MEDS: LEVETIRACETAM 500 MG (KEPPRA) TAB PO SCH ×2 (08:32→20:00)
[2019-11-08] MEDS: FLUCONAZOLE 200 MG/100 ML 50 ML, EMPTY IV BAG (PVC) 1 EA IV SCH ×2 (08:32)
[2019-11-08] MEDS: APIXABAN 5 MG (ELIQUIS) TABLET PO SCH ×2 (08:32→20:00)
[2019-11-08] MEDS: PANTOPRAZOLE 40 MG (PROTONIX) VIAL IV SCH (08:32)
[2019-11-08] MEDS: DILTIAZEM 120 MG (CARDIZEM CD) CAP PO SCH (10:01)
[2019-11-08] MEDS: VANCOMYCIN 1 GM/NS 250 ML IVPB IV SCH ×2 (10:07)
--- NOTE | 2019-11-08 14:15 | Progress Note - Hospitalist ---
Subjective HPI/CC On Admission Date Seen by Provider: Nov 08, 2019 Time Seen by Provider: 14:09 Subjective/Events-last exam Pt is laying in bed sleeping. States she is tired. No specific complaints. Reports she is supposed to get chemo tomorrow but is unsure if she'll be well enough for it. Focused Exam Lactate Level 11/05/19 15:10: Lactic Acid Level 2.10*H 11/05/19 17:35: Lactic Acid Level 2.14*H Time of Focused Exam: 17:57 Objective Exam Vital Signs Vital Signs Date Time Temp Pulse Resp B/P (MAP) Pulse Ox O2 Delivery O2 Flow Rate FiO2 11/08/19 12:00 36.6 77 18 115/75 (88) 99 Room Air Capillary Refill : Less Than 3 Seconds General Appearance: Chronically ill, Cachetic Respiratory: Lungs Clear, No Respiratory Distress Cardiovascular: Regular Rate, Rhythm, No Murmur Results/Procedures Lab Laboratory Tests 11/08/19 04:50 Patient resulted labs reviewed. Assessment/Plan Assessment and Plan Assess & Plan/Chief Complaint 1. UTI with Sepsis--urine and blood culture growing out E coli--Continue Merrem, WBC trended down. Continue Vanc 2. Dehydration with Renal Insufficiency--Cr stable, UOP good 3. Pancreatic Cancer with mets--doing chemo through cancer center 4. Diarrhea--stool culture pending, C diff negative 5. Dyspnea/Crackles-resolved with Lasix, CXR negative 6. Hypokalemia--replaced potassium again today 7. A-fib- on cardizem and Eliquis 8. Anemia/Thrombocytopenia- trending down, likely due to chemo, trend in AM 9. Poor prognosis- asked patient specifically if she thought she could or would want to do more chemo- she states she is unsure and would like to talk to me more about it tomorrow, palliative consulted Clinical Quality Measures DVT/VTE Risk/Contraindication: Risk Factor Score Per Nursin RFS Level Per Nursing on Admit: 4+=Very High TAMAR GUERRA MD Nov 08, 2019 14:15
[2019-11-09] VITALS (11 sets, daily range): BP systolic 93–126; BP diastolic 58–72
[2019-11-09] MEDS: MEROPENEM 500 MG/SWFI 10 ML IV PUSH IV SCH ×6 (01:47→17:23)
[2019-11-09 06:27] LABS: HEMOGLOBIN 7.4 G/DL (11.5-16.0); MEAN PLATELET VOLUME 11.2 FL (7.4-10.4); RED CELL DISTRIBUTION WIDTH 20.5 % (10.0-14.5)
[2019-11-09 06:35] LABS: WHITE BLOOD COUNT 38.2 10^3/uL (4.3-11.0)
[2019-11-09 06:52] LABS: CALCIUM 7.2 MG/DL (8.5-10.1); CREATININE SERUM 1.3 MG/DL (0.60-1.30); POTASSIUM 2.9 MMOL/L (3.6-5.0)
[2019-11-09] MEDS: LEVETIRACETAM 500 MG (KEPPRA) TAB PO SCH ×2 (07:56→20:02)
[2019-11-09] MEDS: FLUCONAZOLE 200 MG/100 ML 50 ML, EMPTY IV BAG (PVC) 1 EA IV SCH ×2 (07:56)
[2019-11-09] MEDS: APIXABAN 5 MG (ELIQUIS) TABLET PO SCH ×2 (07:56→20:02)
[2019-11-09] MEDS: DILTIAZEM 120 MG (CARDIZEM CD) CAP PO SCH (07:56)
[2019-11-09] MEDS: PANTOPRAZOLE 40 MG (PROTONIX) VIAL IV SCH (07:56)
[2019-11-09] MEDS: NS IV 1000 ML 1,000 ML IV SCH ×2 (07:59→22:45)
[2019-11-09] MEDS ORDERED: NS IV 500 ML 500 ML IV NR (08:45)
[2019-11-09] MEDS: POTASSIUM CL 10MEQ/50ML IVPB 50 ML IV SCH ×4 (08:55→09:56)
[2019-11-09] MEDS ORDERED: TROUGH ORDER-PHARMACY XX ONE (09:00)
[2019-11-09] MEDS: VANCOMYCIN 1 GM/NS 250 ML IVPB IV SCH ×2 (09:52)
--- NOTE | 2019-11-09 12:53 | Progress Note ---
Subjective Date Seen by a Provider: Nov 09, 2019 Time Seen by a Provider: 08:40 Subjective/Events-last exam Fwup ESBL UTI with sepsis, dehydration with renal insufficiency, diarrhea, pancreatic cancer with mets. Still very weak and poor appetite. Focused Exam Time of Focused Exam: 17:57 Objective Exam Vital Signs Date Time Temp Pulse Resp B/P (MAP) Pulse Ox O2 Delivery O2 Flow Rate FiO2 11/09/19 11:54 35.3 84 16 95/61 100 Room Air 11/09/19 11:30 35.2 85 16 93/58 99 Room Air 11/09/19 08:00 36.6 89 18 109/68 (82) 97 Room Air 11/09/19 08:00 97 Room Air 11/09/19 04:25 36.4 89 18 116/69 (85) 97 Room Air 11/08/19 23:45 36.9 88 21 100/55 (70) 98 Room Air 11/08/19 20:20 36.9 88 22 105/58 (74) 99 Room Air 11/08/19 20:00 Room Air 11/08/19 16:15 36.6 92 22 117/57 (77) 98 Room Air I & O 11/09/19 07:00 Intake Total 2180 ml Output Total 1400 ml Balance 780 ml Capillary Refill : Less Than 3 Seconds General Appearance: Mild Distress Neck: Supple Respiratory: Lungs Clear Cardiovascular: Regular Rate, Rhythm Gastrointestinal: normal bowel sounds, non tender, soft Neurologic/Psychiatric: Other (drowsy) Results Lab Laboratory Tests 11/09/19 06:16: White Blood Count 38.2*H, Red Blood Count 2.69L, Hemoglobin 7.4L, Hematocrit 22L , Mean Corpuscular Volume 81, Mean Corpuscular Hemoglobin 28, Mean Corpuscular Hemoglobin Concent 34, Red Cell Distribution Width 20.5H, Platelet Count 93L, Mean Platelet Volume 11.2H, Sodium Level 134L, Potassium Level 2.9L, Chloride Level 113H, Carbon Dioxide Level 12L, Anion Gap 9, Blood Urea Nitrogen 30H, Creatinine 1.30, Estimat Glomerular Filtration Rate 41, BUN/Creatinine Ratio 23, Glucose Level 82, Calcium Level 7.2L 11/09/19 08:55: Vancomycin Level Trough 21.0H Microbiology 11/09/19 C. difficile GDH Antigen & Toxins - Final, Complete 11/06/19 Blood Culture - Final, Complete Escherichia coli 11/05/19 Urine Culture - Final, Complete Escherichia coli See Comments 11/05/19 Influenza Types A,B Antigen (CHLOÉ) - Final, Complete Assessment/Plan Assessment/Plan Assess & Plan/Chief Complaint 1. ESBL UTI with Sepsis--on meropenem 2. Dehydration with Renal Insufficiency--Cr improving 3. Pancreatic Cancer with mets--doing chemo through cancer center 4. Diarrhea--improving, on Vanc 5. Dyspnea/Crackles--improved after IV lasix 6. Hypokalemia--replace potassium via IV 7. Acute on Chronic Anemia--transfuse 2u pRBCs 8. Prognosis very guarded/poor Clinical Quality Measures Admission Status Admission Dx 1. Acute UTI with Sepsis--was admitted on IV rocephin and flagyl but will change rocephin to meropenem due to WBC count increasing and high risk for resistant organism 2. Acute Dehydration with acute renal insufficiency--admit and hydrate and monitor BUN/Cr 3. History of Atrial Fibrillation--restart eliquis and cardizem 4. Diarrhea--will continue with flagyl 5. Pancreatic Cancer with Mets--doing chemo through [facility] DVT/VTE Risk/Contraindication: Risk Factor Score Per Nursin RFS Level Per Nursing on Admit: 4+=Very High BING VOGEL DO Nov 09, 2019 12:53
[2019-11-10] VITALS: BP 113/66
[2019-11-10] MEDS: MEROPENEM 500 MG/SWFI 10 ML IV PUSH IV SCH ×6 (02:36→17:34)
[2019-11-10 04:15] VITALS: BP 115/72
[2019-11-10 06:18] LABS: BASOPHILS # (AUTO) 0.1 10^3/uL (0.0-0.1); BASOPHILS % (AUTO) 0 % (0-10); EOSINOPHILS # (AUTO) 0.2 10^3/uL (0.0-0.3); EOSINOPHILS % (AUTO) 1 % (0-10); HEMATOCRIT 30 % (35-52); HEMOGLOBIN 10.3 G/DL (11.5-16.0); LYMPHOCYTES # (AUTO) 1.5 X 10^3 (1.0-4.0); LYMPHOCYTES % (AUTO) 5 % (12-44); MEAN CORPUSCULAR HEMOGLOBIN 28 PG (25-34); MEAN CORPUSCULAR HGB CONC 35 G/DL (32-36); MEAN CORPUSCULAR VOLUME 81 FL (80-99); MONOCYTES # (AUTO) 2.3 X 10^3 (0.0-1.0); MONOCYTES % (AUTO) 7 % (0-12); NEUTROPHILS # (AUTO) 30.3 X 10^3 (1.8-7.8); NEUTROPHILS % (AUTO) 88 % (42-75); PLATELET COUNT 89 10^3/uL (130-400)
[2019-11-10 06:26] LABS: WHITE BLOOD COUNT 34.4 10^3/uL (4.3-11.0)
[2019-11-10 06:37] LABS: ALBUMIN 1.7 GM/DL (3.2-4.5); BILIRUBIN,TOTAL 0.4 MG/DL (0.1-1.0); CALCIUM 7.2 MG/DL (8.5-10.1); CREATININE SERUM 1.2 MG/DL (0.60-1.30); MAGNESIUM 1.2 MG/DL (1.6-2.4); POTASSIUM 3.2 MMOL/L (3.6-5.0); TOTAL PROTEIN 4.1 GM/DL (6.4-8.2)
[2019-11-10 08:00] VITALS: BP 113/67
[2019-11-10] MEDS: APIXABAN 5 MG (ELIQUIS) TABLET PO SCH ×2 (08:29→21:10)
[2019-11-10] MEDS: DILTIAZEM 120 MG (CARDIZEM CD) CAP PO SCH (08:29)
[2019-11-10] MEDS: PANTOPRAZOLE 40 MG (PROTONIX) VIAL IV SCH (08:29)
[2019-11-10] MEDS: LEVETIRACETAM 500 MG (KEPPRA) TAB PO SCH ×2 (08:29→21:10)
[2019-11-10] MEDS: FLUCONAZOLE 200 MG/100 ML 50 ML, EMPTY IV BAG (PVC) 1 EA IV SCH ×2 (08:43)
[2019-11-10] MEDS ORDERED: VANCOMYCIN 1 GM/NS 250 ML IVPB IV SCH ×2 (10:00)
--- NOTE | 2019-11-10 11:01 | Progress Note ---
Subjective Date Seen by a Provider: Nov 10, 2019 Time Seen by a Provider: 09:15 Subjective/Events-last exam Fwup ESBL UTI with sepsis, dehydration with renal insufficiency, diarrhea, acute on chronic anemia, pancreatic cancer with mets. Focused Exam Time of Focused Exam: 17:57 Objective Exam Vital Signs Date Time Temp Pulse Resp B/P (MAP) Pulse Ox O2 Delivery O2 Flow Rate FiO2 11/10/19 08:00 36.2 88 18 113/67 (82) 99 Room Air 11/10/19 08:00 99 Room Air 11/10/19 04:15 36.8 79 22 115/72 (86) 98 Room Air 11/10/19 00:00 36.1 81 16 113/66 (82) 98 Room Air 11/09/19 20:01 Room Air 11/09/19 20:00 36.4 84 20 104/64 (77) 97 Room Air 11/09/19 16:30 36.0 86 126/72 96 11/09/19 16:00 36.1 85 20 112/66 (81) 98 Room Air 11/09/19 14:20 35.4 89 107/69 99 Room Air 11/09/19 14:05 35.4 96 111/72 Room Air 11/09/19 14:00 35.4 96 111/72 Room Air 11/09/19 12:00 35.2 85 18 93/58 (70) 11/09/19 11:54 35.3 84 16 95/61 100 Room Air 11/09/19 11:30 35.2 85 16 93/58 99 Room Air I & O 11/10/19 07:00 Intake Total 3420 ml Output Total 1525 ml Balance 1895 ml Capillary Refill : Less Than 3 Seconds General Appearance: Mild Distress Neck: Non Tender, Supple Respiratory: Decreased Breath Sounds Cardiovascular: Regular Rate, Rhythm, Systolic Murmur Gastrointestinal: normal bowel sounds, non tender, soft Extremity: Non Tender, No Calf Tenderness, No Pedal Edema Neurologic/Psychiatric: Alert, Motor Weakness (generalized) Results Lab Laboratory Tests 11/10/19 06:10: White Blood Count 34.4*H, Red Blood Count 3.67L, Hemoglobin 10.3#L, Hematocrit 30L, Mean Corpuscular Volume 81, Mean Corpuscular Hemoglobin 28, Mean Corpuscular Hemoglobin Concent 35, Red Cell Distribution Width 19.0H, Platelet Count 89L, Mean Platelet Volume , Neutrophils (%) (Auto) 88H, Lymphocytes (%) (Auto) 5L, Monocytes (%) (Auto) 7, Eosinophils (%) (Auto) 1, Basophils (%) ( Auto) 0, Neutrophils # (Auto) 30.3H, Lymphocytes # (Auto) 1.5, Monocytes # (Auto) 2.3H, Eosinophils # (Auto) 0.2, Basophils # (Auto) 0.1, Sodium Level 135, Potassium Level 3.2L, Chloride Level 116H, Carbon Dioxide Level 13L, Anion Gap 6, Blood Urea Nitrogen 27H, Creatinine 1.20, Estimat Glomerular Filtration Rate 45, BUN/Creatinine Ratio 23, Glucose Level 101, Calcium Level 7.2L, Corrected Calcium 9.0, Magnesium Level 1.2L, Total Bilirubin 0.4, Aspartate Amino Transf (AST/SGOT) 27, Alanine Aminotransferase (ALT/SGPT) 18, Alkaline Phosphatase 215H , Total Protein 4.1L, Albumin 1.7L Microbiology 11/09/19 C. difficile GDH Antigen & Toxins - Final, Complete 11/06/19 Blood Culture - Final, Complete Escherichia coli 11/05/19 Urine Culture - Final, Complete Escherichia coli See Comments 11/05/19 Influenza Types A,B Antigen (CHLOÉ) - Final, Complete Assessment/Plan Assessment/Plan Assess & Plan/Chief Complaint 1. ESBL UTI with Sepsis--on meropenem 2. Dehydration with Renal Insufficiency--Cr improving 3. Pancreatic Cancer with mets--doing chemo through cancer center but discussed stopping chemo and doing hospice 4. Diarrhea--improving, DC Vanc and restart Flagyl as is high risk for C. Diff 5. Dyspnea/Crackles--start IS 6. Hypokalemia--replace potassium via IV 7. Acute on Chronic Anemia--S/P transfusion--H/H improved 8. Hypomagnesemia--replace magnesium 9. Prognosis very guarded/poor--long discussion with patient about stopping chemo and going on hospice--palliative care will fwup with patient as well Clinical Quality Measures Admission Status Admission Dx 1. Acute UTI with Sepsis--was admitted on IV rocephin and flagyl but will change rocephin to meropenem due to WBC count increasing and high risk for resistant organism 2. Acute Dehydration with acute renal insufficiency--admit and hydrate and monitor BUN/Cr 3. History of Atrial Fibrillation--restart eliquis and cardizem 4. Diarrhea--will continue with flagyl 5. Pancreatic Cancer with Mets--doing chemo through [facility] DVT/VTE Risk/Contraindication: Risk Factor Score Per Nursin RFS Level Per Nursing on Admit: 4+=Very High BING VOGEL DO Nov 10, 2019 11:01
[2019-11-10] MEDS: POTASSIUM CL 10MEQ/50ML IVPB 50 ML IV SCH ×4 (11:24→14:35)
[2019-11-10] MEDS: MAGNESIUM 1 GM/100 ML IVPB 100 ML IV SCH ×2 (11:33→12:35)
[2019-11-10] MEDS: NS IV 1000 ML 1,000 ML IV SCH (12:38)
--- NOTE | 2019-11-10 13:52 | NUR ---
Follow up visit: pt said she was thankful I came to visit and requested prayer. Pt continues to state she does not know if she is "going to get through this." She mentioned that [facility] [employer] Gene Stephens officiated her 's a few years ago and recently came to the hospital to pray for her. I offered empathic listening and compassionate touch.
--- NOTE | 2019-11-10 14:09 | NUR ---
PALLIATIVE CARE RN requested to see patient and help with discussion. I had long discussion with patient regarding goals of care for the rest of her life. She agrees that she gets terribly sick when she gets her chemo and she is getting weaker and weaker. I am not sure that she understood fully that her chemotherapy is Palliative in nature, so I called her POA, Gamaliel Ryder. He agrees to meet with patient and hospice, [facility]. I will set it up for noon on Wednesday Dr. Mcclellan is aware and agrees with [facility]..
[2019-11-10] MEDS: metroNIDAZOLE 500 MG (FLAGYL) TAB PO SCH ×2 (14:35→22:33)
[2019-11-10 15:31] VITALS: BP 114/73
[2019-11-11] VITALS: BP 103/62
[2019-11-11] MEDS: NS IV 1000 ML 1,000 ML IV SCH (02:44)
[2019-11-11] MEDS: MEROPENEM 500 MG/SWFI 10 ML IV PUSH IV SCH ×4 (02:44→10:36)
[2019-11-11] MEDS: metroNIDAZOLE 500 MG (FLAGYL) TAB PO SCH ×3 (05:38→20:32)
[2019-11-11 05:51] LABS: BASOPHILS # (AUTO) 0.1 10^3/uL (0.0-0.1); BASOPHILS % (AUTO) 0 % (0-10); EOSINOPHILS # (AUTO) 0.2 10^3/uL (0.0-0.3); EOSINOPHILS % (AUTO) 1 % (0-10); HEMATOCRIT 29 % (35-52); HEMOGLOBIN 9.8 G/DL (11.5-16.0); LYMPHOCYTES # (AUTO) 1.9 X 10^3 (1.0-4.0); LYMPHOCYTES % (AUTO) 6 % (12-44); MEAN CORPUSCULAR HEMOGLOBIN 28 PG (25-34); MEAN CORPUSCULAR HGB CONC 34 G/DL (32-36); MEAN CORPUSCULAR VOLUME 82 FL (80-99); MEAN PLATELET VOLUME 11.4 FL (7.4-10.4); MONOCYTES # (AUTO) 2.6 X 10^3 (0.0-1.0); MONOCYTES % (AUTO) 8 % (0-12); NEUTROPHILS # (AUTO) 26.8 X 10^3 (1.8-7.8); NEUTROPHILS % (AUTO) 85 % (42-75); PLATELET COUNT 82 10^3/uL (130-400); RED CELL DISTRIBUTION WIDTH 19.9 % (10.0-14.5)
[2019-11-11 06:04] LABS: WHITE BLOOD COUNT 31.6 10^3/uL (4.3-11.0)
[2019-11-11 06:14] LABS: ALBUMIN 1.7 GM/DL (3.2-4.5); BILIRUBIN,TOTAL 0.3 MG/DL (0.1-1.0); CALCIUM 7.2 MG/DL (8.5-10.1); CREATININE SERUM 1.04 MG/DL (0.60-1.30); MAGNESIUM 1.5 MG/DL (1.6-2.4); POTASSIUM 3.3 MMOL/L (3.6-5.0); TOTAL PROTEIN 4.2 GM/DL (6.4-8.2)
[2019-11-11 07:26] VITALS: BP 104/67
[2019-11-11] MEDS: LEVETIRACETAM 500 MG (KEPPRA) TAB PO SCH ×2 (08:55→20:32)
[2019-11-11] MEDS: APIXABAN 5 MG (ELIQUIS) TABLET PO SCH ×2 (08:55→20:32)
[2019-11-11] MEDS: DILTIAZEM 120 MG (CARDIZEM CD) CAP PO SCH (08:55)
[2019-11-11] MEDS: PANTOPRAZOLE 40 MG (PROTONIX) VIAL IV SCH (08:55)
[2019-11-11] MEDS: FLUCONAZOLE 200 MG/100 ML 50 ML, EMPTY IV BAG (PVC) 1 EA IV SCH ×2 (08:55)
--- NOTE | 2019-11-11 12:59 | Progress Note - Hospitalist ---
Subjective HPI/CC On Admission Date Seen by Provider: Nov 11, 2019 Time Seen by Provider: 12:54 Subjective/Events-last exam Pt reports feeling well. No complaints. Only concern is that there are more zuniga ice pops for her to eat. Focused Exam Time of Focused Exam: 17:57 Objective Exam Vital Signs Vital Signs Date Time Temp Pulse Resp B/P (MAP) Pulse Ox O2 Delivery O2 Flow Rate FiO2 11/11/19 08:00 98 Room Air 11/11/19 07:26 36.2 78 24 104/67 (79) Capillary Refill : Less Than 3 Seconds General Appearance: Chronically ill, Cachetic Respiratory: Lungs Clear, No Respiratory Distress Cardiovascular: Regular Rate, Rhythm, No Murmur Results/Procedures Lab Laboratory Tests 11/11/19 05:30 Patient resulted labs reviewed. Assessment/Plan Assessment and Plan Assess & Plan/Chief Complaint 1. ESBL UTI with Sepsis--on meropenem 2. Dehydration with Renal Insufficiency--resolved, DC fluids as she took in 2L orally yesterday 3. Pancreatic Cancer with mets--would benefit from hospice 4. Diarrhea--Continue Flagyl as is high risk for C. Diff 5. Dyspnea/Crackles--Continue IS as able 6. Hypokalemia/Hypomagnesemia--replace potassium and mag 7. Acute on Chronic Anemia--S/P transfusion, Hgb stable today 8 Prognosis very guarded/poor- Discussed with Vaughn, palliative care RN and Dr Mcclellan yesterday and plan for meeting with patient, DPOA, and Hospice Wednesday Clinical Quality Measures DVT/VTE Risk/Contraindication: Risk Factor Score Per Nursin RFS Level Per Nursing on Admit: 4+=Very High TAMAR GUERRA MD Nov 11, 2019 12:59
[2019-11-11] MEDS: POTASSIUM CL 10MEQ/50ML IVPB 50 ML IV SCH ×2 (13:24→14:37)
[2019-11-11] MEDS: MAGNESIUM 1 GM/100 ML IVPB 100 ML IV SCH ×2 (13:24→14:36)
[2019-11-11 16:15] VITALS: BP 105/63
[2019-11-12] VITALS: BP 101/66
[2019-11-12] MEDS: metroNIDAZOLE 500 MG (FLAGYL) TAB PO SCH ×3 (05:06→21:07)
[2019-11-12 07:52] VITALS: BP 120/78
[2019-11-12] MEDS: APIXABAN 5 MG (ELIQUIS) TABLET PO SCH ×2 (09:41→21:07)
[2019-11-12] MEDS: DILTIAZEM 120 MG (CARDIZEM CD) CAP PO SCH (09:42)
[2019-11-12] MEDS: LEVETIRACETAM 500 MG (KEPPRA) TAB PO SCH ×2 (09:42→21:07)
[2019-11-12] MEDS: PANTOPRAZOLE 40 MG (PROTONIX) VIAL IV SCH (09:42)
[2019-11-12] MEDS: FLUCONAZOLE 200 MG/100 ML 50 ML, EMPTY IV BAG (PVC) 1 EA IV SCH ×2 (09:48)
--- NOTE | 2019-11-12 13:36 | Progress Note - Hospitalist ---
Subjective HPI/CC On Admission Date Seen by Provider: Nov 12, 2019 Time Seen by Provider: 13:34 Subjective/Events-last exam Pt reports feeling a little better today. Only concern is about getting more zuniga popsicles. Focused Exam Time of Focused Exam: 17:57 Objective Exam Vital Signs Vital Signs Date Time Temp Pulse Resp B/P (MAP) Pulse Ox O2 Delivery O2 Flow Rate FiO2 11/12/19 08:00 98 Room Air 11/12/19 07:52 36.3 88 20 120/78 (92) Capillary Refill : Less Than 3 Seconds General Appearance: Chronically ill, Cachetic Respiratory: Lungs Clear, No Respiratory Distress Cardiovascular: Regular Rate, Rhythm, No Murmur Results/Procedures Lab Patient resulted labs reviewed. Assessment/Plan Assessment and Plan Assess & Plan/Chief Complaint 1. ESBL UTI with Sepsis--on meropenem 2. Dehydration with Renal Insufficiency--resolved 3. Pancreatic Cancer with mets--would benefit from hospice 4. Diarrhea--Continue Flagyl as is high risk for C. Diff though official testing is negative will continue for preventative for now 5. Dyspnea/Crackles--Continue IS as able 6. Hypokalemia/Hypomagnesemia--replace potassium and mag 7. Acute on Chronic Anemia--S/P transfusion, Hgb stable 8 Prognosis very guarded/poor- Discussed with Vaughn, palliative care RN and Dr Mcclellan yesterday and plan for meeting with patient, DPOA, and Hospice Wednesday Clinical Quality Measures DVT/VTE Risk/Contraindication: Risk Factor Score Per Nursin RFS Level Per Nursing on Admit: 4+=Very High TAMAR GUERRA MD Nov 12, 2019 13:36
[2019-11-12 15:40] VITALS: BP 99/64
[2019-11-12 23:50] VITALS: BP 112/69
--- NOTE | 2019-11-13 03:20 | NUR ---
Assumed care pt at this time. Agreed with previous assessment.
[2019-11-13] MEDS: metroNIDAZOLE 500 MG (FLAGYL) TAB PO SCH ×3 (05:12→20:42)
[2019-11-13 08:00] VITALS: BP 111/64
[2019-11-13] MEDS: APIXABAN 5 MG (ELIQUIS) TABLET PO SCH ×2 (09:20→20:42)
[2019-11-13] MEDS: MEROPENEM 500 MG/SWFI 10 ML IV PUSH IV SCH ×4 (09:20→16:53)
[2019-11-13] MEDS: DILTIAZEM 120 MG (CARDIZEM CD) CAP PO SCH (09:20)
[2019-11-13] MEDS: LEVETIRACETAM 500 MG (KEPPRA) TAB PO SCH ×2 (09:20→20:42)
[2019-11-13] MEDS: FLUCONAZOLE 200 MG/100 ML 50 ML, EMPTY IV BAG (PVC) 1 EA IV SCH ×2 (09:20)
[2019-11-13] MEDS: PANTOPRAZOLE 40 MG (PROTONIX) VIAL IV SCH (09:20)
--- NOTE | 2019-11-13 12:11 | Progress Note ---
Subjective Date Seen by a Provider: Nov 13, 2019 Time Seen by a Provider: 08:35 Subjective/Events-last exam Fwup ESBL UTI with sepsis, dehydration with renal insufficiency, diarrhea, acute on chronic anemia, pancreatic cancer with mets. Still weak and has decided that she does not want anymore chemo due to how sick she has been since starting the chemo. Focused Exam Time of Focused Exam: 17:57 Objective Exam Vital Signs Date Time Temp Pulse Resp B/P (MAP) Pulse Ox O2 Delivery O2 Flow Rate FiO2 11/13/19 08:00 35.9 87 16 111/64 (80) 99 Room Air 11/12/19 23:50 36.4 70 20 112/69 (83) 95 Room Air 11/12/19 20:05 Room Air 11/12/19 15:40 36.4 84 22 99/64 (76) 99 Room Air I & O 11/13/19 07:00 Intake Total 1920 ml Output Total 1600 ml Balance 320 ml Capillary Refill : Less Than 3 Seconds General Appearance: Mild Distress HEENT: Normal ENT Inspection Neck: Supple Respiratory: Lungs Clear Cardiovascular: Regular Rate, Rhythm Gastrointestinal: normal bowel sounds, non tender, soft Neurologic/Psychiatric: Alert, Oriented x3, Other (very frail and weak) Results Lab Microbiology 11/09/19 C. difficile GDH Antigen & Toxins - Final, Complete 11/06/19 Blood Culture - Final, Complete Escherichia coli 11/05/19 Urine Culture - Final, Complete Escherichia coli See Comments 11/05/19 Influenza Types A,B Antigen (CHLOÉ) - Final, Complete Assessment/Plan Assessment/Plan Assess & Plan/Chief Complaint 1. ESBL UTI with Sepsis--on meropenem 2. Dehydration with Renal Insufficiency--Cr improving 3. Pancreatic Cancer with mets--palliative care meeting with patient's POA to discuss stopping chemo and doing hospice today 4. Diarrhea--improving, on flagyl 5. Dyspnea/Crackles--on IS 6. Hypokalemia--recheck potassium 7. Acute on Chronic Anemia--S/P transfusion--H/H improved 8. Hypomagnesemia--recheck magnesium 9. Prognosis very guarded/poor--anticipate DC back to [place] with hospice Clinical Quality Measures Admission Status Admission Dx 1. Acute UTI with Sepsis--was admitted on IV rocephin and flagyl but will change rocephin to meropenem due to WBC count increasing and high risk for resistant organism 2. Acute Dehydration with acute renal insufficiency--admit and hydrate and monitor BUN/Cr 3. History of Atrial Fibrillation--restart eliquis and cardizem 4. Diarrhea--will continue with flagyl 5. Pancreatic Cancer with Mets--doing chemo through [facility] DVT/VTE Risk/Contraindication: Risk Factor Score Per Nursin RFS Level Per Nursing on Admit: 4+=Very High BING VOGEL DO Nov 13, 2019 12:11
--- NOTE | 2019-11-13 13:16 | NUR ---
PALLIATIVE CARE RN visited with patient. She reports that she did meet with [facility]. Gamaliel/WENDI and his were present for the meeting. Magda could not tell me much about the meeting and I tried to talk with Gamaliel but he did not answer. Will continue to try. [facility]'s rep reported that he thought they were leaning toward signing on to their service. I will continue to try and get that affirmed. She will return to [facility] with or without hospice.
[2019-11-13 15:43] VITALS: BP 110/73
[2019-11-13 23:45] VITALS: BP 110/72
[2019-11-14] MEDS: MEROPENEM 500 MG/SWFI 10 ML IV PUSH IV SCH ×4 (00:07→08:54)
[2019-11-14] MEDS: metroNIDAZOLE 500 MG (FLAGYL) TAB PO SCH (05:29)
[2019-11-14 05:33] LABS: BASOPHILS % (AUTO) 0 % (0-10); EOSINOPHILS # (AUTO) 0.1 10^3/uL (0.0-0.3); EOSINOPHILS % (AUTO) 1 % (0-10); HEMATOCRIT 28 % (35-52); HEMOGLOBIN 9.5 G/DL (11.5-16.0); LYMPHOCYTES # (AUTO) 1.6 X 10^3 (1.0-4.0); LYMPHOCYTES % (AUTO) 7 % (12-44); MEAN CORPUSCULAR HEMOGLOBIN 28 PG (25-34); MEAN CORPUSCULAR HGB CONC 34 G/DL (32-36); MEAN CORPUSCULAR VOLUME 83 FL (80-99); MEAN PLATELET VOLUME 11.3 FL (7.4-10.4); MONOCYTES % (AUTO) 8 % (0-12); NEUTROPHILS # (AUTO) 19.8 X 10^3 (1.8-7.8); NEUTROPHILS % (AUTO) 84 % (42-75); PLATELET COUNT 138 10^3/uL (130-400); RED CELL DISTRIBUTION WIDTH 20.6 % (10.0-14.5); WHITE BLOOD COUNT 23.5 10^3/uL (4.3-11.0)
[2019-11-14 05:55] LABS: ALANINE AMINOTRANSFERASE 11 U/L (0-55); ALBUMIN 1.6 GM/DL (3.2-4.5); ALKALINE PHOSPHATASE 209 U/L (40-136); BILIRUBIN,TOTAL 0.5 MG/DL (0.1-1.0); BUN/CREATININE RATIO 21; CALCIUM 7.8 MG/DL (8.5-10.1); CARBON DIOXIDE 15 MMOL/L (21-32); CHLORIDE 116 MMOL/L (98-107); GFR ESTIMATED > 60; GLUCOSE 89 MG/DL (70-105); SODIUM 137 MMOL/L (135-145); TOTAL PROTEIN 4.6 GM/DL (6.4-8.2)
[2019-11-14 06:08] LABS: EOSINOPHILS % (MANUAL) 1 %; LYMPHOCYTES % (MANUAL) 4 %; METAMYELOCYTES % 1 %; MONOCYTES % (MANUAL) 7 %; NEUTROPHILS % (MANUAL) 87 %
[2019-11-14 08:00] VITALS: BP 112/62
[2019-11-14] MEDS: DILTIAZEM 120 MG (CARDIZEM CD) CAP PO SCH (08:54)
[2019-11-14] MEDS: APIXABAN 5 MG (ELIQUIS) TABLET PO SCH (08:54)
[2019-11-14] MEDS: LEVETIRACETAM 500 MG (KEPPRA) TAB PO SCH (08:54)
[2019-11-14] MEDS: PANTOPRAZOLE 40 MG (PROTONIX) VIAL IV SCH (08:54)
[2019-11-14] MEDS: FLUCONAZOLE 200 MG/100 ML 50 ML, EMPTY IV BAG (PVC) 1 EA IV SCH ×2 (08:57)
[2019-11-14] MEDS ORDERED: ONDA8TAB6 PO (12:44)
[2019-11-14] MEDS ORDERED: LORA2ORA PO (12:45)
[2019-11-14] MEDS ORDERED: MORP100S3 PO (12:47)
--- NOTE | 2019-11-14 12:51 | NUR ---
DISCHARGE PLAN/PALLIATIVE CARE: Patient is to be discharged today to [facility] with [facility] to start service for EOL care. Patient has metastatic Pancreatic CA and had been receiving Palliative chemotherapy through [facility]. She has been becoming progressively weak with the treatments due to the extreme nausea w vomiting. She and her guardian are choosing to stop the chemo therapy and enroll in hospice. Dr. Mcclellan agrees that she is too weak for w/c transport and will need EMS. Once orders are available this RN will send to [facility] and to [place].
--- NOTE | 2019-11-14 13:36 | NUR ---
CALLED REPORT TO ELY AT [facility]
[2019-11-14 14:12] VITALS: BP 112/62
== END 2019-11-14 14:15 | disposition hospice, inpatient (51) | DRG 872 ==
LOC: EDUNIT# 15:02 → ER 15:04 → 4TH 17:45
PROVIDERS: ADMIT Internal Medicine; ATTEND Internal Medicine
DX: A41.51 Sepsis due to Escherichia coli [E. coli] (principal); N39.0 Urinary tract infection, site not specified; A09 Infectious gastroenteritis and colitis, unspecified; E86.0 Dehydration; N17.9 Acute kidney failure, unspecified; E87.6 Hypokalemia; C25.9 Malignant neoplasm of pancreas, unspecified; C79.9 Secondary malignant neoplasm of unspecified site; Z66 Do not resuscitate; I48.91 Unspecified atrial fibrillation; I10 Essential (primary) hypertension; R01.1 Cardiac murmur, unspecified; R06.00 Dyspnea, unspecified; D64.9 Anemia, unspecified; D69.6 Thrombocytopenia, unspecified; E83.42 Hypomagnesemia; Z90.710 Acquired absence of both cervix and uterus; Z90.722 Acquired absence of ovaries, bilateral; Z16.12 Extended spectrum beta lactamase (ESBL) resistance
CPT/HCPCS: 36415; 51702; 71045; 74176; 80048; 80053; 80202; 81000; 82274; 83605; 83735; 85007; 85025; 85027; 85610; 85730; 86850; 86900; 86901; 86920; 87015; 87040; 87045; 87046; 87077; 87088; 87181; 87184; 87186; 87324; 87449; 87804; 87899; 94664; 96361; 96365; 96375